=== PATIENT | male | born 1950 | race Caucasian/White ===

== ENCOUNTER → 2018-04-10 09:34 | Outpatient (CLI) | payer MEDICARE, BC, SELFPAY ==
[2018-04-10 10:33] LABS: BUN Creatinine Ratio 22.5 (6-22); Blood Urea Nitrogen 18 mg/dL (9-20); Calcium 9.2 mg/dL (8.4-10.2); Carbon Dioxide 31 mmol/L (22-32); Chloride 103 mmol/L (98-107); Estimated Glomerular Filt Rate > 60.0 mL/min (>60); Glucose 94 mg/dL (80-110); HEMOLYSIS < 15 (0-50); Potassium 4.4 mmol/L (3.4-5.1); Sodium 143 mmol/L (137-145)
== END ==
PROVIDERS: PCP Internal Medicine; Visit Provider Internal Medicine Cardiovascular Disease
DX: I10 Essential (primary) hypertension (principal)
CPT/HCPCS: 80048

== ENCOUNTER → 2018-04-12 14:00 | Outpatient (CLI) | payer MEDICARE, BC, SELFPAY | PROVIDERS: Family Provider Internal Medicine; PCP Internal Medicine | DX: Z23 Encounter for immunization (principal) | CPT/HCPCS: 90471; 90662 ==

== ENCOUNTER → 2018-06-25 07:23 | Outpatient (CLI) | payer MEDICARE, BC, SELFPAY ==
[2018-06-25 08:13] LABS: Add Manual Diff / Slide Review NO; Basophils Percent Auto 0.4 % (0-2); Eosinophils Percent Auto 3.2 % (2-4); Hematocrit 44.6 % (41-53); Hemoglobin 15.1 g/dL (13.5-17.5); Lymphocytes Percent Auto 24.4 % (25-40); Mean Corpuscular HGB Conc 33.9 % (30-36); Mean Corpuscular Hemoglobin 33.8 PG (26-34); Mean Corpuscular Volume 99.8 fL (80-100); Monocytes Percent Auto 10.3 % (3-14); Neutrophils Absolute Auto 2900 /uL (3000-5900); Neutrophils Percent Auto 61.7 % (50-75); Platelet Count 163 X10^3/uL (150-400); Red Blood Cell Count 4.46 X10^6/uL (4.5-5.9); Red Cell Distribution Width 14.2 % (11.6-14.8); White Blood Cell Count 4.8 X10^3/uL (4.5-11.0)
[2018-06-25 08:23] LABS: Alanine Aminotransferase 47 IU/L (21-72); Albumin 4.2 g/dL (3.5-5.0); Albumin Globulin Ratio 1.2 (1.0-2.8); Alkaline Phosphatase 93 U/L (38-126); Aspartate Aminotransferase 52 IU/L (17-59); BUN Creatinine Ratio 28.6 (6-22); Blood Urea Nitrogen 20 mg/dL (9-20); Carbon Dioxide 27 mmol/L (22-32); Chloride 107 mmol/L (98-107); Cholesterol 132 mg/dL (140-199); Estimated Glomerular Filt Rate > 60.0 mL/min (>60); Globulin 3.4 g/dL (1.7-4.1); Glucose 101 mg/dL (80-110); HDL Cholesterol 53 mg/dL (40-60); HEMOLYSIS < 15 (0-50); LDL Cholesterol Calculated 66 mg/dL (<100); Potassium 4.6 mmol/L (3.4-5.1); Sodium 148 mmol/L (137-145); Total Protein 7.6 g/dL (6.3-8.2); Triglycerides 66 mg/dL (35-150)
[2018-06-25 08:53] LABS: Prostate Specific Antigen Scrn 0.399 ng/mL (0.1-4.0)
== END ==
PROVIDERS: PCP Internal Medicine; Visit Provider Internal Medicine
DX: E78.5 Hyperlipidemia, unspecified (principal); I25.10 Atherosclerotic heart disease of native coronary artery without angina pectoris; I48.91 Unspecified atrial fibrillation; Z12.5 Encounter for screening for malignant neoplasm of prostate; Z79.01 Long term (current) use of anticoagulants
CPT/HCPCS: 36415; 80053; 80061; 85025; G0103

== ENCOUNTER → 2018-07-20 12:32 | Outpatient (CLI) | payer MEDICARE, BC, SELFPAY ==
--- NOTE | 2018-07-20 | DI.MRI.S_ITS ---
PROCEDURE: MR LUMBAR SPINE WO CON INDICATIONS: LUMBAR SPINE PAIN TECHNIQUE: Noncontrast sagittal T1 spin echo and T2 fast echo, sagittal STIR, axial T1 and T2 fast spin echo through the lumbar spine. In cases with scoliosis, additional coronal T2 fast spin echo may be performed. COMPARISON: None. FINDINGS: Image quality: Excellent. Alignment and Curvature: There is normal bony alignment. No spondylolisthesis. Bone Marrow: Marrow is of normal overall signal. No acute vertebral body compression fractures. Vertebral body heights are well-preserved. Spinal Cord: Conus medullaris terminates at the L1 level. Visualized cord demonstrates normal signal and size. Paraspinous Soft Tissues: No paravertebral masses. L1-L2: Normal appearance. L2-L3: Normal appearance. L3-L4: There is broad-based disc bulge and bilateral facet arthrosis with mild central canal stenosis and mild bilateral neuroforaminal narrowing. L4-L5: There is broad-based disc bulge and bilateral facet arthrosis with mild central canal stenosis and left worse that right bilateral neuroforaminal narrowing. L5-S1: Mild central disc bulge and bilateral facet arthrosis is seen with no significant central canal stenosis or neuroforaminal narrowing. IMPRESSION: 1. Broad-based disc bulge and bilateral facet arthrosis at L3-4 and L4-5 levels with mild central canal stenosis and bilateral neuroforaminal narrowing. 2. No marrow edema. No compression fracture or spondylolisthesis. Dictated by: Washington Dixon M.D. on 07/20/2018 at 14:47 Approved by: Washington Dixon M.D. on 07/20/2018 at 14:54
== END ==
PROVIDERS: Family Provider Internal Medicine; PCP Internal Medicine; Visit Provider Orthopaedic Surgery Orthopaedic Surgery of the Spine
DX: M51.26 Other intervertebral disc displacement, lumbar region (principal); M47.816 Spondylosis without myelopathy or radiculopathy, lumbar region; M48.061 Spinal stenosis, lumbar region without neurogenic claudication
CPT/HCPCS: 72148

== ENCOUNTER 2018-10-24 06:51 | Day surgery (SDC) | payer MEDICARE, BC, SELFPAY ==
--- NOTE | 2018-10-23 18:02 | PM.PREOP ---
Pre-operative Note Interval Note History & Physical reviewed/Exam performed by Physician: Yes Changes to H&P: No H&P completed within 30 days and has changed as indicated here:: Stopped Eliquis two days pre-opratively.
--- NOTE | 2018-10-23 18:09 | P.OP_ITS ---
Operative Date/Time/Diagnoses Date of procedure: 10/24/18 Time of procedure: 07:45 Procedure & Clinicians Procedure: Preoperative diagnoses: 1. Complex surgery with use of instruments to perform synechialysis. 2. Nuclear sclerotic and cortical cataract with poor visibility of the anterior capsule increasing surgical risks of complications. 3. 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 4. Cardiac stent. 5.Arythmia. 6/ Hypertension. Long axial length. Postoperative diagnoses: 1. Complex surgery with use of instuments for anterior synechialysis and placement of a posterior chamber intraocular lens implant. Surgeon: Estefany Prasad MD Complications: none Specimen: None Implant: ZCBOO+12.5 Blood loss: None Anesthesia: Retrobulbar with monitored standby. Description of procedure: Dictated by: Estefany Prasad MD Copy to: [facility] Post operative diagnoses: 1. Cataract removed with use of capsular dye and synechailysis with placement of a posterior chamber intraocular lens. Procedure: Phacoemulsification with posterior chamber intraocular lens implant Surgeon: Estefany Prasad MD Blood loss: None Anesthesia: Retrobulbar with monitored standby Description of procedure: Patient has presented with decreased vision due to cataract which is affecting activities of daily living. The patient wants surgery to improve vision. He has cardiac stents and is on Eliquis. This was reduced for 2 days for cataract surgery. He has unexplained iris synechiae and diffuse cortical cataract. Therefore capsular dye with synechialysis was planned in advance. He desires a myopic target. I was able to perform surgery without capsular dye but still needed to break the synechia with lysis by use of instrument. The patient was taken to the operating room and given IV sedation. A retrobulbar block consisting of 6 cc of 2% xylocaine without epinephrine mixed half and half with 0.5% Marcaine with 1 cc of hyaluronidase added is placed between the medial and lateral 1/3 of the inferior orbital rim. Lid akinesia is obtain with 1% xylocaine with epinephrine infiltrated along the lid margin. The eye is manually massaged for 30 sec, prepped using Betadine solution, and draped in the usual sterile fashion. Temporal approach was made, a 1 mm side-port incision was performed 90 degrees from the planned corneal wound. Phenylephrine 1.5% mixed with 1% xylocaine 0.2 cc was placed into the anterior chamber. . Viscoat followed by Healon was then placed. A 2.6 mm clear incision with a 2.6 mm blade was placed. A cannula was unable yo to break the iris adhesions. A push-pull device was then used to break open the adhesions in viscoelastic was used to open the pupil which was then floppy. A 360 degree capsulorrhexis style capsulotomy was then performed with a cystitome needle on a Healon. Hydrodelineation and hydrodissection were performed. The phacoemulsification unit is introduced, and sculpting used to groove the central lens. It is then removed in chopping mode. Epi nucleus is removed with epinuclear mode and irrigation aspiration was used to remove the peripheral cortex. The posterior capsule is polished. The intraocular lens is selected, inspected, power confirmed, and placed in the posterior chamber. The pupil was constricted with Miostat. The wound was stromally hydrated and tested for leaks, there was none and was left sutureless. Vigamox 0.1 cc was placed into the anterior chamber. Kenalog 0.2 cc was placed in the superior subconjunctival space. A drop of antibiotic and was placed and the eye was patched and shielded. The patient was stable and returned to the recovery room in excellent condition. Dictated by: Estefany Prasad MD Copy to: [facility]
[2018-10-24] MEDS: PROPARACAINE 0.5% OPHTH SOL 2 DROPS EYE-OP (07:09)
[2018-10-24] MEDS: CATARACT EYE COMPOUND (10 DROPS/SYRINGE) 3 DROPS EYE-OP (07:21)
[2018-10-24 07:22] VITALS: BP 149/83; PULSE 60; RESP 18; TEMP 36.2; O2SAT 98; BMI 39.9
[2018-10-24] MEDS: LIDOCAINE 2% 4 ML, BUPIVACAINE 0.5% (PF) 4 ML, HYALURONIDASE 150 UNIT INJ (08:00)
[2018-10-24] MEDS: PHENYLEPHRINE/LIDOCAINE VIAL (OR) 0.2 ML EYE-OP (08:09)
[2018-10-24] MEDS: MOXIFLOXACIN OPHTH DROPS 3 ML BOTTLE 2 DROPS INJ (08:10)
[2018-10-24] MEDS: TRIAMCINOLONE 50 MG/5 ML VIAL INJ (08:10)
[2018-10-24] MEDS: CHONDROIDTIN/SOD HYALURONATE 1.05 ML SYRINGE INTRAOCULA (08:11)
[2018-10-24] MEDS: BALANCED SALT IRRIG SOLN NO.2 15 ML IRR (08:11)
[2018-10-24] MEDS: HYALURONATE SODIUM 10 MG/ML SYRINGE INJ (08:11)
[2018-10-24] MEDS: NEOMYCIN/POLY/DEX OPHTH OINT 1 APPLIC EYE-LEFT (08:12)
[2018-10-24] MEDS: TOBRA/DEX 0.3%/0.1% OPHTH OINT 1 APPLIC EYE-LEFT (08:13)
[2018-10-24] MEDS: OFLOXACIN 0.3% OPHTH 5 ML 2 DROPS EYE-LEFT (08:14)
[2018-10-24] MEDS: CARBACHOL 1.5 ML VIAL INJ (08:15)
[2018-10-24] MEDS: BALANCED SALT IRRIG SOLN NO.2 500 ML, EPINEPHrine 1 MG IRR (08:15)
[2018-10-24 08:46] VITALS: BP 137/76; PULSE 53; RESP 15; TEMP 36.2; O2SAT 97
[2018-10-24 08:57] VITALS: BP 133/92; PULSE 57; RESP 16; O2SAT 100
[2018-10-24] MEDS: LIDOCAINE 1% W/EPI INJ 20 ML INJ (13:14)
== END 2018-10-24 09:05 | disposition home or self-care (01) ==
LOC: OR 06:53
PROVIDERS: PCP Internal Medicine; Visit Provider Ophthalmology
PROC: (CPT 66982; principal; 2018-10-24 07:45)
DX: H25.812 Combined forms of age-related cataract, left eye (principal); I10 Essential (primary) hypertension; I51.9 Heart disease, unspecified
CPT/HCPCS: 66982; J0171; J2704; J3301; J3470

== ENCOUNTER 2018-10-31 12:58 | Day surgery (SDC) | payer MEDICARE, BC, SELFPAY ==
--- NOTE | 2018-10-30 13:02 | PM.PREOP ---
Pre-operative Note Interval Note History & Physical reviewed/Exam performed by Physician: Yes Changes to H&P: No
--- NOTE | 2018-10-30 13:06 | P.OP_ITS ---
Operative Date/Time/Diagnoses Date of procedure: 10/31/18 Time of procedure: 14:15 Procedure & Clinicians Procedure: Preoperative diagnoses: 1. Right nuclear sclerotic and cortical cataract. Postoperative diagnoses: 1. Cataract removed by phacoemulsification with placement of posterior chamber intraocular lens. 2. Cardiac stents, on Eliquis. 3. HTN. Procedure: Phacoemulsification with posterior chamber intraocular lens implant Surgeon: Estefany Prasad MD Complications: None Specimen: None Implant: ZCBOO +13.0. Myopic target. Blood loss: None Anesthesia: Retrobulbar with monitored standby Description of procedure: Patient presents with a complaint of decreased vision due to cataract which is affecting activities of daily living. The patient wants surgery to improve vision. The patient was taken to the operating room and given IV sedation. A retrobulbar block consisting of 6 cc of 2% xylocaine without epinephrine mixed half and half with 0.5% Marcaine with 1 cc of hyaluronidase added is placed between the medial and lateral 1/3 of the inferior orbital rim. Lid akinesia is obtain with 1% xylocaine with epinephrine infiltrated along the lid margin. The eye is manually massaged for 30 sec, prepped using Betadine solution, and draped in the usual sterile fashion. Temporal approach was made, a 1 mm side-port incision was made 90? from the proposed clear corneal incision position. Phenylephrine 1.5% mixed with 1% xylocaine 0.2 cc was placed into the anterior chamber. Viscoat followed by Abimbola was then placed. A 2.6 mm clear incision with a 2.6 mm blade was placed. A 360 degree capsulorrhexis style capsulotomy was then performed with a cystitome needle on a Healon. Very fragile anterior capsule but remained intact. Hydrodelineation and hydrodissection were performed. The phacoemulsification unit is introduced, and sculpting notice used to groove the central lens. It is then removed in chopping mode. Epi nucleus is removed with epinuclear mode and irrigation aspiration was used to remove the peripheral cortex. The posterior capsule is polished. The intraocular lens is selected, inspected, power confirmed, and placed in the posterior chamber. The pupil was constricted with Miostat.. The wound was stromally hydrated and tested for leaks, there was none and it was left sutureless. Vigamox 0.1 cc was placed into the anterior chamber. Kenalog 0.2 cc was placed in the superior subconjunctival space. A fatimah p of antibiotic and was placed and the eye was patched and shielded. The patient was stable and returned to the recovery room in excellent condition. Dictated by: Estefany Prasad MD Copy to: [facility]
[2018-10-31 13:41] VITALS: BP 145/88; PULSE 70; RESP 16; TEMP 36; O2SAT 99; BMI 39.4
[2018-10-31] MEDS: BALANCED SALT IRRIG SOLN NO.2 15 ML IRR (14:41)
[2018-10-31] MEDS: CARBACHOL 1.5 ML VIAL INJ (14:41)
[2018-10-31] MEDS: MOXIFLOXACIN OPHTH DROPS 3 ML BOTTLE 2 DROPS INJ (14:42)
[2018-10-31] MEDS: CHONDROIDTIN/SOD HYALURONATE 1.05 ML SYRINGE INTRAOCULA (14:42)
[2018-10-31] MEDS: LIDOCAINE 1% W/EPI INJ 20 ML INJ (14:42)
[2018-10-31] MEDS: HYALURONATE SODIUM 10 MG/ML SYRINGE INJ (14:42)
[2018-10-31] MEDS: NEOMYCIN/POLY/DEX OPHTH OINT 1 APPLIC EYE-RIGHT (14:43)
[2018-10-31] MEDS: OFLOXACIN 0.3% OPHTH 5 ML 2 DROPS EYE-RIGHT (14:43)
[2018-10-31] MEDS: PHENYLEPHRINE/LIDOCAINE VIAL (OR) 0.2 ML EYE-OP (14:43)
[2018-10-31] MEDS: TRIAMCINOLONE 50 MG/5 ML VIAL INJ (14:44)
[2018-10-31] MEDS: LIDOCAINE 2% 4 ML, BUPIVACAINE 0.5% (PF) 4 ML, HYALURONIDASE 150 UNIT INJ (14:45)
[2018-10-31] MEDS: BALANCED SALT IRRIG SOLN NO.2 500 ML, EPINEPHrine 1 MG IRR (14:45)
[2018-10-31 15:30] VITALS: BP 136/77; PULSE 60; RESP 14; TEMP 36; O2SAT 99
== END 2018-10-31 16:36 ==
LOC: OR 12:59
PROVIDERS: PCP Internal Medicine; Visit Provider Ophthalmology
DX: H25.811 Combined forms of age-related cataract, right eye (principal); I10 Essential (primary) hypertension; Z79.01 Long term (current) use of anticoagulants
CPT/HCPCS: J0171; J2704; J3301; J3470

== ENCOUNTER 2018-12-17 07:30 | Outpatient (RCR) | payer MEDICARE, BC, SELFPAY ==
--- NOTE | 2018-10-30 17:29 | PT.OIE ---
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) Coronary artery disease involving [place] coronary artery of [place] heart without angina pectoris (Chronic 02/2017) Arthritis (Chronic) Chronic back pain (Chronic 2005) Hearing loss (Chronic 2005) Hemorrhoids (Chronic) Chicken pox (Resolved) Foot pain (Resolved 2005) Fractures (Resolved) Measles (Resolved) Plantar warts (Resolved) Sciatica (Resolved) Shingles (Resolved 2007) Shoulder pain (Resolved) Vertigo (Resolved 2006) Past Surgical History (Last Reviewed 06/29/18 @ 14:27 by Mo Roper MD) Status post placement of stent in right coronary artery (Resolved 02/2017) Anesthesia complication (Resolved) History of colonoscopy (Resolved 03/15/16) Status post rotator cuff repair (Resolved 07/11/12) Provider Visit Care Team Role Provider Type Mo Roper MD Primary Care Provider Physician Specialty: Internal Medicine Address: [address] [place] [address], [id number] Email: [email or web address] Gudelia Jackson MD Attending Provider Physician Specialty: Orthopedic Surgery Address: [address] [place] [address], [id number] Email: [email or web address] Initial Evaluation PT-OP-A Visit Information Start: 10/30/18 10:32 Freq: Status: Active Protocol: Document 10/30/18 12:32 EA (Rec: 10/30/18 12:39 EA [id number]) Out-Patient Physical Therapy Visit Information Visit Information Visit Type Initial Evaluation Visit Start Time 08:15 Visit Stop Time 09:00 Total Visit Minutes 45 Visit Number 1 Evaluation Information Evaluation Date 10/30/18 PT-OP-B Current Condition Start: 10/30/18 10:32 Freq: Status: Active Protocol: Document 10/30/18 14:48 EA (Rec: 10/30/18 15:10 EA [id number]) Current Condition History of Current Condition Onset Date 2018 Current Complaints Localized bilateral low back pain History of Current Condition Pt reports had initial onset 5 years ago which was fully resolved after 2 months of formal PT. He stated that low back pain re-occurs on the first week of July 2018 after more than 5 miles of walk. Pt denies numbness or loss of function to both LE's. Recent MRI reveals L3-L5 disc bulges with central canal stenosis and facets arthrosis. Prior Treatments and Tests September: cortisone shots with limited improvement Recent MRI. Future Testing and Treatments Planned Cortisone shot follow up : 11/06 Treatment Goals Patient/Caregiver Goals Pt would like to perform daily walk without increase of symptoms Prior Functional Status Baseline Function- ADL's Independent Baseline Function- Mobility Independent Baseline Function- Gait Unlimited distance with no back symtoms Baseline Function- Work/School Retired accounts receivable accountant Baseline Function- Recreation/Hobbies Daily walks of > 5 miles Current Functional Impairments (Reported) Functional Limitations- ADL's Indep in all except: unable to bend and tie shoes Functional Limitations- Mobility/Gait Indep but unable to walk more than 2 miles due to increase of symptoms Functional Limitations- Work/School Retired Functional Limitations- Recreation/ Unable to walk more than five Hobbies miles PT-OP-C Subjective Start: 10/30/18 10:32 Freq: Status: Active Protocol: Document 10/30/18 14:48 EA (Rec: 10/30/18 15:10 EA [id number]) OP-PT Subjective Patient Comments Patient Comments I just want to be able to walk daily and tie my shoes without increase in symptoms Patient Reported Progress Worse Patient Questionnaires Oswestry Low Back Index Oswestry Score 14 Oswestry Impairment 1 to 19% Impaired (Score 1-19) OP-PT Pain Assessment Pain Assessment Grid Paper Pain Assessment Grid Completed Yes Location Bilateral Lower Back Intensity 4 Scale Used Numeric (1 - 10) Description Aching Tightness Frequency Intermittent Pain Aggravating Factors Activity Exercise Walking Bending Pain Alleviating Factors Medication Home Pain Medication Use Pain Medications Used Yes Pain Behaviors Pain Behaviors Wincing PT-OP-F Manual Assessment Start: 10/30/18 10:32 Freq: Status: Active Protocol: Document 10/30/18 14:48 EA (Rec: 10/30/18 15:10 EA [id number]) Manual Assessments Soft Tissue Assessment Soft Tissue Mobility Assessment Tight Muscles: Both quads, hip flexors, QLs, paralumabrs, side trunk flexors PT-OP-G Mobility & Gait Start: 10/30/18 10:32 Freq: Status: Active Protocol: Document 10/30/18 14:48 EA (Rec: 10/30/18 15:10 EA [id number]) OP Gait Assessment Assistive Devices Assistive Device None Comments Gait Comments Waddling gait PT-OP-J Posture/Palpation/Skin Start: 10/30/18 10:32 Freq: Status: Active Protocol: Document 10/30/18 14:48 EA (Rec: 10/30/18 15:10 EA [id number]) Posture Evaluation Position Standing Evaluation View post/ant Head/C-Spine Posture Forward Head T-Spine Posture Increased Kyphosis L-Spine Posture Increased Lordosis Shoulder Posture (L) Rounded (R) Rounded Arm Posture (L) Internally Rotated (R) Internally Rotated Pelvis Posture Anteriorly Tilted Hip Posture (L) Flexed (R) Flexed (L) Internally Rotated Palpation Assessment Location One Palpation Findings Soft Tissue Tightness Tenderness Trigger Point Palpation Details Paralumbars, both QL PT-OP-K Range of Motion Start: 10/30/18 10:32 Freq: Status: Active Protocol: Document 10/30/18 14:48 EA (Rec: 10/30/18 15:10 EA [id number]) Lumbar Spine Range of Motion Lumbar Spine Active Percentage Testing Position Standing Flexion 50 Extension 50 Rotation Left 60 Rotation Right 60 Lateral Flexion Left 40 Lateral Flexion Right 30 ROM Limitations Soft Tissue Tightness Pain PT-OP-L Special Tests Start: 10/30/18 10:32 Freq: Status: Active Protocol: Document 10/30/18 14:48 EA (Rec: 10/30/18 15:10 EA [id number]) Special Tests Lumbar Spine Special Tests Prone Instability Test Test Results - Slump Test Results - Other- 1 Test Results Gaenslen's + Straight Leg Raise Test Results + PT-OP-M Strength Start: 10/30/18 10:32 Freq: Status: Active Protocol: Document 10/30/18 14:48 EA (Rec: 10/30/18 15:10 EA [id number]) Trunk Strength Trunk Manual Muscle Testing Testing Position Sitting Flexion 4 Good Extension 4 Good Rotation Left 4 Good Rotation Right 4 Good Lateral Flexion Left 4 Good Lateral Flexion Right 4 Good Hip Strength Hip Manual Muscle Testing Right Reason Not Measured WFL Left Reason Not Measured WFL Knee Strength Knee Manual Muscle Testing Right Reason Not Measured WFL Left Reason Not Measured WFL PT-OP-Q Treatments Start: 10/30/18 10:32 Freq: Status: Active Protocol: Document 10/30/18 12:32 EA (Rec: 10/30/18 12:39 EA [id number]) Therapeutic Exercises Supine Exercises 3 Supine Exercise Name PPT Side bilateral 2 Supine Exercise Name Lower trunk rotation stretch Side bilateral 1 Supine Exercise Name SKTC Side bilateral Self-Care/Home Management Treatment Education Patient Education Body Mechanics Home Exercise Program Pain Management Posture PT-OP-T Assessment and Plan Start: 10/30/18 10:32 Freq: Status: Active Protocol: Document 10/30/18 12:32 EA (Rec: 10/30/18 12:39 EA [id number]) Physical Therapy Assessment Rehab Potential Rehabilitation Potential Good Evaluation Complexity Number of Personal Factors/Comorbidities 3 or More Number of Body Systems Impaired 3 Clinical Presentation at Evaluation Evolving Impairments Impairments Activity Tolerance Functional Activities Functional Mobility Gait Pain Posture ROM Soft Tissue Mobility Goals Four Impairment Impaired lifting Utilization Review Nurse Goal (LTG) Patient will be able to lift > 20 lbs with good body mechanics LTG Duration 4 wks Three Impairment No HEP in place [facility]ci Goal (LTG) Patient will perform HEP independently LTG Duration 4 wks Two Impairment Unable to walk more than 2 miles Utilization Review Nurse Goal (LTG) Patient will ambulate > 2 miles without increase of symptoms LTG Duration 4 wks One Impairment Oswestry Fucntional low back score of 14/50 Utilization Review Nurse Goal (LTG) Patient will have Oswetry score of less than 10 LTG Duration 4 wks Assessment Summary Assessment Pleasant 67 y/o M patient with a referring diagnosis of lumbar spine OA and low back pain. Today patient presented with decreased tolerance to standing activities and lifting/bending activities due to back discomfort. Ocular inspection reveals poor general body posture with increased lumbar lordosis, anterior pelvic tilt and rounded shoulder. Lumbar ROM shows limitation to SF> Flexion> Extension> rotation. Palpation reveals tender over bilateral SI joint, QL, and paralumbars. Specials tests reveals + with SI joint dysfunction and posterior quadrant tests (Facets) but negative with neurogenic involvement. Due to above dysfunction, Patient unable to perform activities that is supposed to be normal for him. Patient would greatly benefit with skilled PT to improve quality of function. Physical Therapy Plan Frequency and Duration Frequency of Treatment 2x/Week Duration of Treatment 8 wks Plan of Care Start Date 10/30/18 Plan of Care End Date 11/21/18 Therapeutic Interventions Therapeutic Interventions Home Exercise Program Joint Mobilizations Manual Therapy Neuromuscular Re-education Patient/Caregiver Education Self-Care/Home Management Soft Tissue Mobilization Taping Therapeutic Exercises Modalities Cold Pack/Ice Massage Electric Stimulation Hot Packs Ultrasound Next Visit Focus/Plan Next Note Type Treatment Note Next Visit Plan Modalities for pain. Flexibility hamstring and hip flexors/back extensors, core functional exercises.
--- NOTE | 2018-10-30 17:29 | PT.OPPOC ---
Current Diagnoses Other spondylosis with radiculopathy, lumbar region (10/30/18) Low back pain (10/30/18) Provider Visit Care Team Role Provider Type Mo Roper MD Primary Care Provider Physician Specialty: Internal Medicine Address: [address] [place] [address], [id number] Email: [email or web address] Gudelia Jackson MD Attending Provider Physician Specialty: Orthopedic Surgery Address: [address] [place] [address], [address] Email: [email or web address] Plan Of Care PT-OP-T Assessment and Plan Start: 10/30/18 10:32 Freq: Status: Active Protocol: Document 10/30/18 12:32 EA (Rec: 10/30/18 12:39 EA [id number]) Physical Therapy Assessment Rehab Potential Rehabilitation Potential Good Evaluation Complexity Number of Personal Factors/Comorbidities 3 or More Number of Body Systems Impaired 3 Clinical Presentation at Evaluation Evolving Impairments Impairments Activity Tolerance Functional Activities Functional Mobility Gait Pain Posture ROM Soft Tissue Mobility Goals Four Impairment Impaired lifting Shipping And Receiving Goal (LTG) Patient will be able to lift > 20 lbs with good body mechanics LTG Duration 4 wks Three Impairment No HEP in place Shipping [employer] Receiving Goal (LTG) Patient will perform HEP independently LTG Duration 4 wks Two Impairment Unable to walk more than 2 miles Custodial Goal (LTG) Patient will ambulate > 2 miles without increase of symptoms LTG Duration 4 wks One Impairment Oswestry Fucntional low back score of 14/50 Shipping [employer] Receiving Goal (LTG) Patient will have Oswetry score of less than 10 LTG Duration 4 wks Assessment Summary Assessment Pleasant 67 y/o M patient with a referring diagnosis of lumbar spine OA and low back pain. Today patient presented with decreased tolerance to standing activities and lifting/bending activities due to back discomfort. Ocular inspection reveals poor general body posture with increased lumbar lordosis, anterior pelvic tilt and rounded shoulder. Lumbar ROM shows limitation to SF> Flexion> Extension> rotation. Palpation reveals tender over bilateral SI joint, QL, and paralumbars. Specials tests reveals + with SI joint dysfunction and posterior quadrant tests (Facets) but negative with neurogenic involvement. Due to above dysfunction, Patient unable to perform activities that is supposed to be normal for him. Patient would greatly benefit with skilled PT to improve quality of function. Physical Therapy Plan Frequency and Duration Frequency of Treatment 2x/Week Duration of Treatment 8 wks Plan of Care Start Date 10/30/18 Plan of Care End Date 11/21/18 Therapeutic Interventions Therapeutic Interventions Home Exercise Program Joint Mobilizations Manual Therapy Neuromuscular Re-education Patient/Caregiver Education Self-Care/Home Management Soft Tissue Mobilization Taping Therapeutic Exercises Modalities Cold Pack/Ice Massage Electric Stimulation Hot Packs Ultrasound Next Visit Focus/Plan Next Note Type Treatment Note Next Visit Plan Modalities for pain. Flexibility hamstring and hip flexors/back extensors, core functional exercises. Plan of Care Dates Plan of Care Start Date 10/30/18 Plan of Care End Date 11/21/18 Please Sign and Return: I have reviewed this Plan of Care and certify that the skilled therapy services above are required to meet the patient?s needs. Physician Signature Date Printed Name and Credentials Clinical Instructor Signature Printed Name and Credentials
--- NOTE | 2018-11-06 11:15 | PT.OTN ---
Current Diagnoses Other spondylosis with radiculopathy, lumbar region (11/06/18) Low back pain (11/06/18) Physical Therapy Treatment Note PT-OP-A Visit Information Start: 10/30/18 10:32 Freq: Status: Active Protocol: Document 11/06/18 08:55 EA (Rec: 11/06/18 09:01 EA [id number]) Out-Patient Physical Therapy Visit Information Visit Information Visit Type Treatment Note Visit Start Time 08:15 Visit Stop Time 09:08 Total Visit Minutes 53 Visit Number 2 PT-OP-B Current Condition Start: 10/30/18 10:32 Freq: Status: Active Protocol: Document 10/30/18 14:48 EA (Rec: 10/30/18 15:10 EA [id number]) Current Condition History of Current Condition Onset Date 2018 Current Complaints Localized bilateral low back pain History of Current Condition Pt reports had initial onset 5 years ago which was fully resolved after 2 months of formal PT. He stated that low back pain re-occurs on the first week of July 2018 after more than 5 miles of walk. Pt denies numbness or loss of function to both LE's. Recent MRI reveals L3-L5 disc bulges with central canal stenosis and facets arthrosis. Prior Treatments and Tests week september: cortisone shots with limited improvement Recent MRI. 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 Baseline Function- Recreation/Hobbies Daily walks of > 5 miles Current Functional Impairments (Reported) Functional Limitations- ADL's Indep in all except: unable to bend and tie shoes Functional Limitations- Mobility/Gait Indep but unable to walk more than 2 miles due to increase of symptoms Functional Limitations- Work/School Retired Functional Limitations- Recreation/ Unable to walk more than five Hobbies miles PT-OP-C Subjective Start: 10/30/18 10:32 Freq: Status: Active Protocol: Document 11/06/18 08:55 EA (Rec: 11/06/18 09:01 EA [id number]) OP-PT Subjective Patient Comments Patient Comments Pt reports compliant with HEP. PT-OP-F Manual Assessment Start: 10/30/18 10:32 Freq: Status: Active Protocol: Document 10/30/18 14:48 EA (Rec: 10/30/18 15:10 EA [id number]) Manual Assessments Soft Tissue Assessment Soft Tissue Mobility Assessment Tight Muscles: Both quads, hip flexors, QLs, paralumabrs, side trunk flexors PT-OP-G Mobility & Gait Start: 10/30/18 10:32 Freq: Status: Active Protocol: Document 10/30/18 14:48 EA (Rec: 10/30/18 15:10 EA [id number]) OP Gait Assessment Assistive Devices Assistive Device None Comments Gait Comments Waddling gait PT-OP-J Posture/Palpation/Skin Start: 10/30/18 10:32 Freq: Status: Active Protocol: Document 10/30/18 14:48 EA (Rec: 10/30/18 15:10 EA [id number]) Posture Evaluation Position Standing Evaluation View post/ant Head/C-Spine Posture Forward Head T-Spine Posture Increased Kyphosis L-Spine Posture Increased Lordosis Shoulder Posture (L) Rounded (R) Rounded Arm Posture (L) Internally Rotated (R) Internally Rotated Pelvis Posture Anteriorly Tilted Hip Posture (L) Flexed (R) Flexed (L) Internally Rotated Palpation Assessment Location One Palpation Findings Soft Tissue Tightness Tenderness Trigger Point Palpation Details Paralumbars, both QL PT-OP-K Range of Motion Start: 10/30/18 10:32 Freq: Status: Active Protocol: Document 10/30/18 14:48 EA (Rec: 10/30/18 15:10 EA [id number]) Lumbar Spine Range of Motion Lumbar Spine Active Percentage Testing Position Standing Flexion 50 Extension 50 Rotation Left 60 Rotation Right 60 Lateral Flexion Left 40 Lateral Flexion Right 30 ROM Limitations Soft Tissue Tightness Pain PT-OP-L Special Tests Start: 10/30/18 10:32 Freq: Status: Active Protocol: Document 10/30/18 14:48 EA (Rec: 10/30/18 15:10 EA [id number]) Special Tests Lumbar Spine Special Tests Prone Instability Test Test Results - Slump Test Results - Other- 1 Test Results Gaenslen's + Straight Leg Raise Test Results + PT-OP-M Strength Start: 10/30/18 10:32 Freq: Status: Active Protocol: Document 10/30/18 14:48 EA (Rec: 10/30/18 15:10 EA [id number]) Trunk Strength Trunk Manual Muscle Testing Testing Position Sitting Flexion 4 Good Extension 4 Good Rotation Left 4 Good Rotation Right 4 Good Lateral Flexion Left 4 Good Lateral Flexion Right 4 Good Hip Strength Hip Manual Muscle Testing Right Reason Not Measured WFL Left Reason Not Measured WFL Knee Strength Knee Manual Muscle Testing Right Reason Not Measured WFL Left Reason Not Measured WFL PT-OP-Q Treatments Start: 10/30/18 10:32 Freq: Status: Active Protocol: Document 11/06/18 08:55 EA (Rec: 11/06/18 09:01 EA [id number]) Cardio Equipment Recumbent Stepper (Sci-Fit) Duration (Minutes) 6 Resistance 2 Therapeutic Exercises Supine Exercises 4 Supine Exercise Name Right pelvis elev; Left pelvis depression Reps/Minutes x 10 reps x 2 sets 3 Supine Exercise Name PPT Side bilateral Reps/Minutes x 15 reps x 2 sets 2 Supine Exercise Name Lower trunk rotation stretch and ROM Side bilateral Equipment Used x 15 reps x 2 1 Supine Exercise Name SKTC Side bilateral Reps/Minutes x15SH x 2 sets Manual Therapy Treatment Soft Tissue Mobilization 1 Body Location Pralumbras ,QL Mobilization Type Myofascial Release Rolling Sustained Pressure Trigger Point Release Intensity/Depth Moderate Body Position sitting leaning on the table at shoulder level Comments start and end with effleurage PT-OP-R Modalities Start: 10/30/18 10:32 Freq: Status: Active Protocol: Document 11/06/18 08:55 EA (Rec: 11/06/18 09:01 EA [id number]) Electric Stimulation Electric Stimulation Interferential Current (IFC) Body Location Paralumbars Intensity 14 Combined With Heat/Cold Hot Pack Comments sitting PT-OP-T Assessment and Plan Start: 10/30/18 10:32 Freq: Status: Active Protocol: Document 11/06/18 08:55 EA (Rec: 11/06/18 09:01 EA [id number]) Physical Therapy Assessment Assessment Summary Assessment Tolerated treatment well. Physical Therapy Plan Next Visit Focus/Plan Next Note Type Treatment Note Next Visit Plan Modalities for pain. Flexibility hamstring and hip flexors/back extensors, core functional exercises.
--- NOTE | 2018-11-12 14:09 | PT.OTN ---
Current Diagnoses Other spondylosis with radiculopathy, lumbar region (11/12/18) Low back pain (11/12/18) Physical Therapy Treatment Note PT-OP-A Visit Information Start: 10/30/18 10:32 Freq: Status: Active Protocol: Document 11/12/18 09:00 EA (Rec: 11/12/18 09:45 EA [id number]) Out-Patient Physical Therapy Visit Information Visit Information Visit Type Treatment Note Visit Start Time 08:15 Visit Stop Time 09:08 Total Visit Minutes 53 Visit Number 3 PT-OP-B Current Condition Start: 10/30/18 10:32 Freq: Status: Active Protocol: Document 10/30/18 14:48 EA (Rec: 10/30/18 15:10 EA [id number]) Current Condition History of Current Condition Onset Date 2018 Current Complaints Localized bilateral low back pain History of Current Condition Pt reports had initial onset 5 years ago which was fully resolved after 2 months of formal PT. He stated that low back pain re-occurs on the first week of July 2018 after more than 5 miles of walk. Pt denies numbness or loss of function to both LE's. Recent MRI reveals L3-L5 disc bulges with central canal stenosis and facets arthrosis. Prior Treatments and Tests week september: cortisone shots with limited improvement Recent MRI. 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 Function- Recreation/Hobbies Daily walks of > 5 miles Current Functional Impairments (Reported) Functional Limitations- ADL's Indep in all except: unable to bend and tie shoes Functional Limitations- Mobility/Gait Indep but unable to walk more than 2 miles due to increase of symptoms Functional Limitations- Work/School Retired Functional Limitations- Recreation/ Unable to walk more than five Hobbies miles PT-OP-C Subjective Start: 10/30/18 10:32 Freq: Status: Active Protocol: Document 11/12/18 09:00 EA (Rec: 11/12/18 09:45 EA [id number]) OP-PT Subjective Patient Comments Patient Comments Pt reports last session helps to eased down low back pain. Patient Reported Progress Improving PT-OP-F Manual Assessment Start: 10/30/18 10:32 Freq: Status: Active Protocol: Document 10/30/18 14:48 EA (Rec: 10/30/18 15:10 EA [id number]) Manual Assessments Soft Tissue Assessment Soft Tissue Mobility Assessment Tight Muscles: Both quads, hip flexors, QLs, paralumabrs, side trunk flexors PT-OP-G Mobility & Gait Start: 10/30/18 10:32 Freq: Status: Active Protocol: Document 10/30/18 14:48 EA (Rec: 10/30/18 15:10 EA [id number]) OP Gait Assessment Assistive Devices Assistive Device None Comments Gait Comments Waddling gait PT-OP-J Posture/Palpation/Skin Start: 10/30/18 10:32 Freq: Status: Active Protocol: Document 10/30/18 14:48 EA (Rec: 10/30/18 15:10 EA [id number]) Posture Evaluation Position Standing Evaluation View post/ant Head/C-Spine Posture Forward Head T-Spine Posture Increased Kyphosis L-Spine Posture Increased Lordosis Shoulder Posture (L) Rounded (R) Rounded Arm Posture (L) Internally Rotated (R) Internally Rotated Pelvis Posture Anteriorly Tilted Hip Posture (L) Flexed (R) Flexed (L) Internally Rotated Palpation Assessment Location One Palpation Findings Soft Tissue Tightness Tenderness Trigger Point Palpation Details Paralumbars, both QL PT-OP-K Range of Motion Start: 10/30/18 10:32 Freq: Status: Active Protocol: Document 10/30/18 14:48 EA (Rec: 10/30/18 15:10 EA [id number]) Lumbar Spine Range of Motion Lumbar Spine Active Percentage Testing Position Standing Flexion 50 Extension 50 Rotation Left 60 Rotation Right 60 Lateral Flexion Left 40 Lateral Flexion Right 30 ROM Limitations Soft Tissue Tightness Pain PT-OP-L Special Tests Start: 10/30/18 10:32 Freq: Status: Active Protocol: Document 10/30/18 14:48 EA (Rec: 10/30/18 15:10 EA [id number]) Special Tests Lumbar Spine Special Tests Prone Instability Test Test Results - Slump Test Results - Other- 1 Test Results Gaenslen's + Straight Leg Raise Test Results + PT-OP-M Strength Start: 10/30/18 10:32 Freq: Status: Active Protocol: Document 10/30/18 14:48 EA (Rec: 10/30/18 15:10 EA [id number]) Trunk Strength Trunk Manual Muscle Testing Testing Position Sitting Flexion 4 Good Extension 4 Good Rotation Left 4 Good Rotation Right 4 Good Lateral Flexion Left 4 Good Lateral Flexion Right 4 Good Hip Strength Hip Manual Muscle Testing Right Reason Not Measured WFL Left Reason Not Measured WFL Knee Strength Knee Manual Muscle Testing Right Reason Not Measured WFL Left Reason Not Measured WFL PT-OP-Q Treatments Start: 10/30/18 10:32 Freq: Status: Active Protocol: Document 11/12/18 09:00 EA (Rec: 11/12/18 09:45 EA [id number]) Cardio Equipment Recumbent Stepper (Sci-Fit) Duration (Minutes) 6 Resistance 2 Therapeutic Exercises Supine Exercises 5 Supine Exercise Name Hamstring stretch. Reps/Minutes x 15 SH x 2 reps 6 Supine Exercise Name PPT with SLR Reps/Minutes x 10 reps x 2 sets Comments Avoid valsalva 4 Supine Exercise Name Right pelvis elev; Left pelvis depression Reps/Minutes x 10 reps x 2 sets Comments Avoid valslva 3 Supine Exercise Name PPT Side bilateral Reps/Minutes x 15 reps x 2 sets 2 Supine Exercise Name Lower trunk rotation stretch and ROM Side bilateral Equipment Used x 15 reps x 2 Comments avoid valsalva 1 Supine Exercise Name SKTC Side bilateral Reps/Minutes x15SH x 2 sets Standing Exercises 1 Standing Exercise Name PPt with static wall squat Reps/Minutes x 5SH x 10 reps Comments 45 deg squat Manual Therapy Treatment Soft Tissue Mobilization 1 Body Location Pralumbras ,QL Mobilization Type Myofascial Release Rolling Sustained Pressure Trigger Point Release Intensity/Depth Moderate Body Position sitting leaning on the table at shoulder level Comments start and end with effleurage PT-OP-R Modalities Start: 10/30/18 10:32 Freq: Status: Active Protocol: Document 11/12/18 09:00 EA (Rec: 11/12/18 09:45 EA [id number]) Electric Stimulation Electric Stimulation Interferential Current (IFC) Body Location Paralumbars Intensity 20 Combined With Heat/Cold Hot Pack Comments sitting PT-OP-T Assessment and Plan Start: 10/30/18 10:32 Freq: Status: Active Protocol: Document 11/12/18 09:00 LILLI (Rec: 11/12/18 09:45 EA [id number]) Physical Therapy Assessment Assessment Summary Assessment Pt tolerated treatment with slight tenderness today at low back region. Patient is progressing Physical Therapy Plan Next Visit Focus/Plan Next Note Type Treatment Note Next Visit Plan Modalities for pain. Flexibility hamstring and hip flexors/back extensors, core functional exercises.
--- NOTE | 2018-11-14 09:45 | PT.OTN ---
Current Diagnoses Other spondylosis with radiculopathy, lumbar region (11/14/18) Low back pain (11/14/18) Physical Therapy Treatment Note PT-OP-A Visit Information Start: 10/30/18 10:32 Freq: Status: Active Protocol: Document 11/14/18 08:58 EA (Rec: 11/14/18 09:01 EA [id number]) Out-Patient Physical Therapy Visit Information Visit Information Visit Type Treatment Note Visit Start Time 08:15 Visit Stop Time 09:10 Total Visit Minutes 55 Visit Number 4 PT-OP-B Current Condition Start: 10/30/18 10:32 Freq: Status: Active Protocol: Document 10/30/18 14:48 EA (Rec: 10/30/18 15:10 EA [id number]) Current Condition History of Current Condition Onset Date 2018 Current Complaints Localized bilateral low back pain History of Current Condition Pt reports had initial onset 5 years ago which was fully resolved after 2 months of formal PT. He stated that low back pain re-occurs on the first week of July 2018 after more than 5 miles of walk. Pt denies numbness or loss of function to both LE's. Recent MRI reveals L3-L5 disc bulges with central canal stenosis and facets arthrosis. Prior Treatments and Tests week september: cortisone shots with limited improvement Recent MRI. 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 Function- Recreation/Hobbies Daily walks of > 5 miles Current Functional Impairments (Reported) Functional Limitations- ADL's Indep in all except: unable to bend and tie shoes Functional Limitations- Mobility/Gait Indep but unable to walk more than 2 miles due to increase of symptoms Functional Limitations- Work/School Retired Functional Limitations- Recreation/ Unable to walk more than five Hobbies miles PT-OP-C Subjective Start: 10/30/18 10:32 Freq: Status: Active Protocol: Document 11/14/18 08:58 EA (Rec: 11/14/18 09:01 EA [id number]) OP-PT Subjective Patient Comments Patient Comments I'm amaze I can bend forward now with so much increase of back pain. PT-OP-F Manual Assessment Start: 10/30/18 10:32 Freq: Status: Active Protocol: Document 10/30/18 14:48 EA (Rec: 10/30/18 15:10 EA [id number]) Manual Assessments Soft Tissue Assessment Soft Tissue Mobility Assessment Tight Muscles: Both quads, hip flexors, QLs, paralumabrs, side trunk flexors PT-OP-G Mobility & Gait Start: 10/30/18 10:32 Freq: Status: Active Protocol: Document 10/30/18 14:48 EA (Rec: 10/30/18 15:10 EA [id number]) OP Gait Assessment Assistive Devices Assistive Device None Comments Gait Comments Waddling gait PT-OP-J Posture/Palpation/Skin Start: 10/30/18 10:32 Freq: Status: Active Protocol: Document 10/30/18 14:48 EA (Rec: 10/30/18 15:10 EA [id number]) Posture Evaluation Position Standing Evaluation View post/ant Head/C-Spine Posture Forward Head T-Spine Posture Increased Kyphosis L-Spine Posture Increased Lordosis Shoulder Posture (L) Rounded (R) Rounded Arm Posture (L) Internally Rotated (R) Internally Rotated Pelvis Posture Anteriorly Tilted Hip Posture (L) Flexed (R) Flexed (L) Internally Rotated Palpation Assessment Location One Palpation Findings Soft Tissue Tightness Tenderness Trigger Point Palpation Details Paralumbars, both QL PT-OP-K Range of Motion Start: 10/30/18 10:32 Freq: Status: Active Protocol: Document 10/30/18 14:48 EA (Rec: 10/30/18 15:10 EA [id number]) Lumbar Spine Range of Motion Lumbar Spine Active Percentage Testing Position Standing Flexion 50 Extension 50 Rotation Left 60 Rotation Right 60 Lateral Flexion Left 40 Lateral Flexion Right 30 ROM Limitations Soft Tissue Tightness Pain PT-OP-L Special Tests Start: 10/30/18 10:32 Freq: Status: Active Protocol: Document 10/30/18 14:48 EA (Rec: 10/30/18 15:10 EA [id number]) Special Tests Lumbar Spine Special Tests Prone Instability Test Test Results - Slump Test Results - Other- 1 Test Results Gaenslen's + Straight Leg Raise Test Results + PT-OP-M Strength Start: 10/30/18 10:32 Freq: Status: Active Protocol: Document 10/30/18 14:48 EA (Rec: 10/30/18 15:10 EA [id number]) Trunk Strength Trunk Manual Muscle Testing Testing Position Sitting Flexion 4 Good Extension 4 Good Rotation Left 4 Good Rotation Right 4 Good Lateral Flexion Left 4 Good Lateral Flexion Right 4 Good Hip Strength Hip Manual Muscle Testing Right Reason Not Measured WFL Left Reason Not Measured WFL Knee Strength Knee Manual Muscle Testing Right Reason Not Measured WFL Left Reason Not Measured WFL PT-OP-Q Treatments Start: 10/30/18 10:32 Freq: Status: Active Protocol: Document 11/14/18 08:58 EA (Rec: 11/14/18 09:01 EA [id number]) Cardio Equipment Recumbent Stepper (Sci-Fit) Duration (Minutes) 7 Resistance 2 Gym Equipment Cable Column (Body Solid) Leg Extension Details 30# Resistance x 15 reps x 2 Therapeutic Exercises Supine Exercises 5 Supine Exercise Name Hamstring stretch. Reps/Minutes x 15 SH x 2 reps 6 Supine Exercise Name PPT with SLR Reps/Minutes x 10 reps x 2 sets Comments Avoid valsalva 4 Supine Exercise Name Right pelvis elev; Left pelvis depression Reps/Minutes x 10 reps x 2 sets Comments Avoid valslva 3 Supine Exercise Name PPT Side bilateral Reps/Minutes x 15 reps x 2 sets 2 Supine Exercise Name Lower trunk rotation stretch and ROM Side bilateral Equipment Used x 15 reps x 2 Comments avoid valsalva 1 Supine Exercise Name SKTC Side bilateral Reps/Minutes x15SH x 2 sets Standing Exercises 1 Standing Exercise Name PPt with static wall squat Reps/Minutes x 5SH x 10 reps Comments 45 deg squat Manual Therapy Treatment Soft Tissue Mobilization 1 Body Location Pralumbras ,QL Mobilization Type Myofascial Release Rolling Sustained Pressure Trigger Point Release Intensity/Depth Moderate Body Position sitting leaning on the table at shoulder level Comments start and end with effleurage PT-OP-R Modalities Start: 10/30/18 10:32 Freq: Status: Active Protocol: Document 11/14/18 08:58 EA (Rec: 11/14/18 09:01 EA [id number]) Electric Stimulation Electric Stimulation Interferential Current (IFC) Body Location Paralumbars Intensity 20 Combined With Heat/Cold Hot Pack Comments sitting PT-OP-T Assessment and Plan Start: 10/30/18 10:32 Freq: Status: Active Protocol: Document 11/14/18 08:58 EA (Rec: 11/14/18 09:01 EA [id number]) Physical Therapy Assessment Assessment Summary Assessment No noted any signs of discomfort during therex except with manual but much less. Patient cont. to progress. Physical Therapy Plan Next Visit Focus/Plan Next Note Type Treatment Note Next Visit Plan Modalities for pain. Flexibility hamstring and hip flexors/back extensors, core functional exercises.
--- NOTE | 2018-11-19 12:09 | PT.OTN ---
Current Diagnoses Other spondylosis with radiculopathy, lumbar region (11/19/18) Low back pain (11/19/18) Physical Therapy Treatment Note PT-OP-A Visit Information Start: 10/30/18 10:32 Freq: Status: Active Protocol: Document 11/19/18 08:22 EA (Rec: 11/19/18 08:25 EA [id number]) Out-Patient Physical Therapy Visit Information Visit Information Visit Type Treatment Note Visit Start Time 08:15 Visit Stop Time 09:10 Total Visit Minutes 53 Visit Number 5 PT-OP-B Current Condition Start: 10/30/18 10:32 Freq: Status: Active Protocol: Document 10/30/18 14:48 EA (Rec: 10/30/18 15:10 EA [id number]) Current Condition History of Current Condition Onset Date 2018 Current Complaints Localized bilateral low back pain History of Current Condition Pt reports had initial onset 5 years ago which was fully resolved after 2 months of formal PT. He stated that low back pain re-occurs on the first week of July 2018 after more than 5 miles of walk. Pt denies numbness or loss of function to both LE's. Recent MRI reveals L3-L5 disc bulges with central canal stenosis and facets arthrosis. Prior Treatments and Tests week september: cortisone shots with limited improvement Recent MRI. Future Testing and Treatments Planned Cortisone shot follow up : 11/06 Treatment Goals Patient/Caregiver Goals Pt would like to perform daily walk without increase of symptoms Prior Functional Status Baseline Function- ADL's Independent Baseline Function- Mobility Independent Baseline Function- Gait Unlimited distance with no back symtoms Baseline Function- Work/School Retired summer internship Baseline Function- Recreation/Hobbies Daily walks of > 5 miles Current Functional Impairments (Reported) Functional Limitations- ADL's Indep in all except: unable to bend and tie shoes Functional Limitations- Mobility/Gait Indep but unable to walk more than 2 miles due to increase of symptoms Functional Limitations- Work/School Retired Functional Limitations- Recreation/ Unable to walk more than five Hobbies miles PT-OP-C Subjective Start: 10/30/18 10:32 Freq: Status: Active Protocol: Document 11/19/18 08:22 EA (Rec: 11/19/18 08:25 EA [id number]) OP-PT Subjective Patient Comments Patient Comments Pt reports went to [employer] to perform light resistance exercises; states his low to is quite sore after walking more than an hour over the weekends. PT-OP-F Manual Assessment Start: 10/30/18 10:32 Freq: Status: Active Protocol: Document 10/30/18 14:48 EA (Rec: 10/30/18 15:10 EA [id number]) Manual Assessments Soft Tissue Assessment Soft Tissue Mobility Assessment Tight Muscles: Both quads, hip flexors, QLs, paralumabrs, side trunk flexors PT-OP-G Mobility & Gait Start: 10/30/18 10:32 Freq: Status: Active Protocol: Document 10/30/18 14:48 EA (Rec: 10/30/18 15:10 EA [id number]) OP Gait Assessment Assistive Devices Assistive Device None Comments Gait Comments Waddling gait PT-OP-J Posture/Palpation/Skin Start: 10/30/18 10:32 Freq: Status: Active Protocol: Document 10/30/18 14:48 EA (Rec: 10/30/18 15:10 EA [id number]) Posture Evaluation Position Standing Evaluation View post/ant Head/C-Spine Posture Forward Head T-Spine Posture Increased Kyphosis L-Spine Posture Increased Lordosis Shoulder Posture (L) Rounded (R) Rounded Arm Posture (L) Internally Rotated (R) Internally Rotated Pelvis Posture Anteriorly Tilted Hip Posture (L) Flexed (R) Flexed (L) Internally Rotated Palpation Assessment Location One Palpation Findings Soft Tissue Tightness Tenderness Trigger Point Palpation Details Paralumbars, both QL PT-OP-K Range of Motion Start: 10/30/18 10:32 Freq: Status: Active Protocol: Document 10/30/18 14:48 EA (Rec: 10/30/18 15:10 EA [id number]) Lumbar Spine Range of Motion Lumbar Spine Active Percentage Testing Position Standing Flexion 50 Extension 50 Rotation Left 60 Rotation Right 60 Lateral Flexion Left 40 Lateral Flexion Right 30 ROM Limitations Soft Tissue Tightness Pain PT-OP-L Special Tests Start: 10/30/18 10:32 Freq: Status: Active Protocol: Document 10/30/18 14:48 EA (Rec: 10/30/18 15:10 EA [id number]) Special Tests Lumbar Spine Special Tests Prone Instability Test Test Results - Slump Test Results - Other- 1 Test Results [place]'s + Straight Leg Raise Test Results + PT-OP-M Strength Start: 10/30/18 10:32 Freq: Status: Active Protocol: Document 10/30/18 14:48 EA (Rec: 10/30/18 15:10 EA [id number]) Trunk Strength Trunk Manual Muscle Testing Testing Position Sitting Flexion 4 Good Extension 4 Good Rotation Left 4 Good Rotation Right 4 Good Lateral Flexion Left 4 Good Lateral Flexion Right 4 Good Hip Strength Hip Manual Muscle Testing Right Reason Not Measured WFL Left Reason Not Measured WFL Knee Strength Knee Manual Muscle Testing Right Reason Not Measured WFL Left Reason Not Measured WFL PT-OP-Q Treatments Start: 10/30/18 10:32 Freq: Status: Active Protocol: Document 11/19/18 08:22 EA (Rec: 11/19/18 08:25 EA [id number]) Cardio Equipment Recumbent Stepper (Sci-Fit) Duration (Minutes) 7 Resistance 2.5 Therapeutic Exercises Supine Exercises 5 Supine Exercise Name Hamstring stretch. Reps/Minutes x 15 SH x 2 reps 6 Supine Exercise Name PPT with SLR Reps/Minutes x 10 reps x 2 sets Comments Avoid valsalva 4 Supine Exercise Name Right pelvis elev; Left pelvis depression Reps/Minutes x 10 reps x 2 sets Comments Avoid valslva 3 Supine Exercise Name PPT Side bilateral Reps/Minutes x 15 reps x 2 sets 2 Supine Exercise Name Lower trunk rotation stretch and ROM Side bilateral Equipment Used x 15 reps x 2 Comments avoid valsalva Sitting Exercises 1 Sitting Exercise Name EOB fwd lumbar flexio, rotation Reps/Minutes x 15SH x 3 reps each Standing Exercises 1 Standing Exercise Name PPT with static wall squat Reps/Minutes x 5SH x 10 reps Comments 45 deg squat Manual Therapy Treatment Soft Tissue Mobilization 1 Body Location Pralumbras ,QL Mobilization Type Myofascial Release Rolling Sustained Pressure Trigger Point Release Intensity/Depth Moderate Body Position sitting leaning on the table at shoulder level Comments start and end with effleurage PT-OP-R Modalities Start: 10/30/18 10:32 Freq: Status: Active Protocol: Document 11/19/18 08:22 EA (Rec: 11/19/18 08:25 EA [id number]) Electric Stimulation Electric Stimulation Interferential Current (IFC) Body Location Paralumbars Intensity 20 Combined With Heat/Cold Hot Pack Comments sitting PT-OP-T Assessment and Plan Start: 10/30/18 10:32 Freq: Status: Active Protocol: Document 11/19/18 08:22 LILLI (Rec: 11/19/18 08:25 EA [id number]) Physical Therapy Assessment Assessment Summary Assessment Pt has improved exercise tolerance and less low back tenderness. Patient continued to progress. Physical Therapy Plan Next Visit Focus/Plan Next Note Type Treatment Note Next Visit Plan Modalities for pain. Flexibility hamstring and hip flexors/back extensors, core functional exercises.
--- NOTE | 2018-11-21 12:09 | PT.OTN ---
Current Diagnoses Other spondylosis with radiculopathy, lumbar region (11/21/18) Low back pain (11/21/18) Physical Therapy Treatment Note PT-OP-A Visit Information Start: 10/30/18 10:32 Freq: Status: Active Protocol: Document 11/21/18 09:04 EA (Rec: 11/21/18 09:07 EA [id number]) Out-Patient Physical Therapy Visit Information Visit Information Visit Type Treatment Note Visit Start Time 08:15 Visit Stop Time 09:10 Total Visit Minutes 55 Visit Number 6 PT-OP-B Current Condition Start: 10/30/18 10:32 Freq: Status: Active Protocol: Document 10/30/18 14:48 EA (Rec: 10/30/18 15:10 EA [id number]) Current Condition History of Current Condition Onset Date 2018 Current Complaints Localized bilateral low back pain History of Current Condition Pt reports had initial onset 5 years ago which was fully resolved after 2 months of formal PT. He stated that low back pain re-occurs on the first week of July 2018 after more than 5 miles of walk. Pt denies numbness or loss of function to both LE's. Recent MRI reveals L3-L5 disc bulges with central canal stenosis and facets arthrosis. Prior Treatments and Tests week september: cortisone shots with limited improvement Recent MRI. 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 Function- Recreation/Hobbies Daily walks of > 5 miles Current Functional Impairments (Reported) Functional Limitations- ADL's Indep in all except: unable to bend and tie shoes Functional Limitations- Mobility/Gait Indep but unable to walk more than 2 miles due to increase of symptoms Functional Limitations- Work/School Retired Functional Limitations- Recreation/ Unable to walk more than five Hobbies miles PT-OP-C Subjective Start: 10/30/18 10:32 Freq: Status: Active Protocol: Document 11/21/18 09:04 EA (Rec: 11/21/18 09:07 EA [id number]) OP-PT Subjective Patient Comments Patient Comments Pt reports compliant with HEP; states low back is little better. PT-OP-F Manual Assessment Start: 10/30/18 10:32 Freq: Status: Active Protocol: Document 10/30/18 14:48 EA (Rec: 10/30/18 15:10 EA [id number]) Manual Assessments Soft Tissue Assessment Soft Tissue Mobility Assessment Tight Muscles: Both quads, hip flexors, QLs, paralumabrs, side trunk flexors PT-OP-G Mobility & Gait Start: 10/30/18 10:32 Freq: Status: Active Protocol: Document 10/30/18 14:48 EA (Rec: 10/30/18 15:10 EA [id number]) OP Gait Assessment Assistive Devices Assistive Device None Comments Gait Comments Waddling gait PT-OP-J Posture/Palpation/Skin Start: 10/30/18 10:32 Freq: Status: Active Protocol: Document 10/30/18 14:48 EA (Rec: 10/30/18 15:10 EA [id number]) Posture Evaluation Position Standing Evaluation View post/ant Head/C-Spine Posture Forward Head T-Spine Posture Increased Kyphosis L-Spine Posture Increased Lordosis Shoulder Posture (L) Rounded (R) Rounded Arm Posture (L) Internally Rotated (R) Internally Rotated Pelvis Posture Anteriorly Tilted Hip Posture (L) Flexed (R) Flexed (L) Internally Rotated Palpation Assessment Location One Palpation Findings Soft Tissue Tightness Tenderness Trigger Point Palpation Details Paralumbars, both QL PT-OP-K Range of Motion Start: 10/30/18 10:32 Freq: Status: Active Protocol: Document 10/30/18 14:48 EA (Rec: 10/30/18 15:10 EA [id number]) Lumbar Spine Range of Motion Lumbar Spine Active Percentage Testing Position Standing Flexion 50 Extension 50 Rotation Left 60 Rotation Right 60 Lateral Flexion Left 40 Lateral Flexion Right 30 ROM Limitations Soft Tissue Tightness Pain PT-OP-L Special Tests Start: 10/30/18 10:32 Freq: Status: Active Protocol: Document 10/30/18 14:48 EA (Rec: 10/30/18 15:10 EA [id number]) Special Tests Lumbar Spine Special Tests Prone Instability Test Test Results - Slump Test Results - Other- 1 Test Results [place]'s + Straight Leg Raise Test Results + PT-OP-M Strength Start: 10/30/18 10:32 Freq: Status: Active Protocol: Document 10/30/18 14:48 EA (Rec: 10/30/18 15:10 EA [id number]) Trunk Strength Trunk Manual Muscle Testing Testing Position Sitting Flexion 4 Good Extension 4 Good Rotation Left 4 Good Rotation Right 4 Good Lateral Flexion Left 4 Good Lateral Flexion Right 4 Good Hip Strength Hip Manual Muscle Testing Right Reason Not Measured WFL Left Reason Not Measured WFL Knee Strength Knee Manual Muscle Testing Right Reason Not Measured WFL Left Reason Not Measured WFL PT-OP-Q Treatments Start: 10/30/18 10:32 Freq: Status: Active Protocol: Document 11/21/18 09:04 EA (Rec: 11/21/18 09:07 EA [id number]) Cardio Equipment Recumbent Bicycle Duration (Minutes) 7 Resistance 6 Gym Equipment Cable Column (Body Solid) Leg Extension Details 30-40# Resistance x 15 reps x 2 Therapeutic Exercises Supine Exercises 5 Supine Exercise Name Hamstring stretch. Reps/Minutes x 15 SH x 2 reps 6 Supine Exercise Name PPT with SLR Reps/Minutes x 10 reps x 2 sets Comments Avoid valsalva 4 Supine Exercise Name Right pelvis elev; Left pelvis depression Reps/Minutes x 10 reps x 2 sets Comments Avoid valslva 3 Supine Exercise Name PPT Side bilateral Reps/Minutes x 15 reps x 2 sets 2 Supine Exercise Name Lower trunk rotation stretch and ROM Side bilateral Equipment Used x 15 reps x 2 Comments avoid valsalva 1 Supine Exercise Name SKTC Side bilateral Reps/Minutes x15SH x 2 sets Sitting Exercises 1 Sitting Exercise Name EOB fwd lumbar flexio, rotation Reps/Minutes x 15SH x 3 reps each Standing Exercises 2 Standing Exercise Name side step squat Resistance GTB Reps/Minutes x 10 reps x 2 each sides 1 Standing Exercise Name PPT with static wall squat Reps/Minutes x 5SH x 10 reps Comments 45 deg squat Manual Therapy Treatment Soft Tissue Mobilization 1 Body Location Pralumbras ,QL Mobilization Type Myofascial Release Rolling Sustained Pressure Trigger Point Release Intensity/Depth Moderate Body Position sitting leaning on the table at shoulder level Comments start and end with effleurage PT-OP-R Modalities Start: 10/30/18 10:32 Freq: Status: Active Protocol: Document 11/21/18 09:04 EA (Rec: 11/21/18 09:07 EA [id number]) Electric Stimulation Electric Stimulation Interferential Current (IFC) Body Location Paralumbars Intensity 20 Combined With Heat/Cold Hot Pack Comments sitting PT-OP-T Assessment and Plan Start: 10/30/18 10:32 Freq: Status: Active Protocol: Document 11/21/18 09:04 EA (Rec: 11/21/18 09:07 EA [id number]) Physical Therapy Assessment Assessment Summary Assessment Tolerated treatment well with improved exercises tolerance. Physical Therapy Plan Next Visit Focus/Plan Next Note Type Treatment Note Next Visit Plan Modalities for pain. Flexibility hamstring and hip flexors/back extensors, core functional exercises.
--- NOTE | 2018-11-26 12:13 | PT.OTN ---
Current Diagnoses Other spondylosis with radiculopathy, lumbar region (11/26/18) Low back pain (11/26/18) Physical Therapy Treatment Note PT-OP-A Visit Information Start: 10/30/18 10:32 Freq: Status: Active Protocol: Document 11/26/18 08:22 EA (Rec: 11/26/18 08:28 EA [id number]) Out-Patient Physical Therapy Visit Information Visit Information Visit Type Treatment Note Visit Start Time 08:15 Visit Stop Time 09:10 Total Visit Minutes 53 Visit Number 7 PT-OP-B Current Condition Start: 10/30/18 10:32 Freq: Status: Active Protocol: Document 10/30/18 14:48 EA (Rec: 10/30/18 15:10 EA [id number]) Current Condition History of Current Condition Onset Date 2018 Current Complaints Localized bilateral low back pain History of Current Condition Pt reports had initial onset 5 years ago which was fully resolved after 2 months of formal PT. He stated that low back pain re-occurs on the first week of July 2018 after more than 5 miles of walk. Pt denies numbness or loss of function to both LE's. Recent MRI reveals L3-L5 disc bulges with central canal stenosis and facets arthrosis. Prior Treatments and Tests September: cortisone shots with limited improvement Recent MRI. 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 Daily walks of > 5 miles Current Functional Impairments (Reported) Functional Limitations- ADL's Indep in all except: unable to bend and tie shoes Functional Limitations- Mobility/Gait Indep but unable to walk more than 2 miles due to increase of symptoms Functional Limitations- Work/School Retired Functional Limitations- Recreation/ Unable to walk more than five Hobbies miles PT-OP-C Subjective Start: 10/30/18 10:32 Freq: Status: Active Protocol: Document 11/26/18 08:22 EA (Rec: 11/26/18 08:28 EA [id number]) OP-PT Subjective Patient Comments Patient Comments My back is sore after [address]; states unable to stop and stretch. I feel driving for more than 4 hours is not ok for my back anymore. Pt reports that he feels improving but just as set back from last long drive. Patient Reported Progress Improving PT-OP-F Manual Assessment Start: 10/30/18 10:32 Freq: Status: Active Protocol: Document 10/30/18 14:48 EA (Rec: 10/30/18 15:10 EA [id number]) Manual Assessments Soft Tissue Assessment Soft Tissue Mobility Assessment Tight Muscles: Both quads, hip flexors, QLs, paralumabrs, side trunk flexors PT-OP-G Mobility & Gait Start: 10/30/18 10:32 Freq: Status: Active Protocol: Document 10/30/18 14:48 EA (Rec: 10/30/18 15:10 EA [id number]) OP Gait Assessment Assistive Devices Assistive Device None Comments Gait Comments Waddling gait PT-OP-J Posture/Palpation/Skin Start: 10/30/18 10:32 Freq: Status: Active Protocol: Document 10/30/18 14:48 EA (Rec: 10/30/18 15:10 EA [id number]) Posture Evaluation Position Standing Evaluation View post/ant Head/C-Spine Posture Forward Head T-Spine Posture Increased Kyphosis L-Spine Posture Increased Lordosis Shoulder Posture (L) Rounded (R) Rounded Arm Posture (L) Internally Rotated (R) Internally Rotated Pelvis Posture Anteriorly Tilted Hip Posture (L) Flexed (R) Flexed (L) Internally Rotated Palpation Assessment Location One Palpation Findings Soft Tissue Tightness Tenderness Trigger Point Palpation Details [place], both QL PT-OP-K Range of Motion Start: 10/30/18 10:32 Freq: Status: Active Protocol: Document 10/30/18 14:48 EA (Rec: 10/30/18 15:10 EA [id number]) Lumbar Spine Range of Motion Lumbar Spine Active Percentage Testing Position Standing Flexion 50 Extension 50 Rotation Left 60 Rotation Right 60 Lateral Flexion Left 40 Lateral Flexion Right 30 ROM Limitations Soft Tissue Tightness Pain PT-OP-L Special Tests Start: 10/30/18 10:32 Freq: Status: Active Protocol: Document 10/30/18 14:48 EA (Rec: 10/30/18 15:10 EA [id number]) Special Tests Lumbar Spine Special Tests Prone Instability Test Test Results - Slump Test Results - Other- 1 Test Results Gaenslen's + Straight Leg Raise Test Results + PT-OP-M Strength Start: 10/30/18 10:32 Freq: Status: Active Protocol: Document 10/30/18 14:48 EA (Rec: 10/30/18 15:10 EA [id number]) Trunk Strength Trunk Manual Muscle Testing Testing Position Sitting Flexion 4 Good Extension 4 Good Rotation Left 4 Good Rotation Right 4 Good Lateral Flexion Left 4 Good Lateral Flexion Right 4 Good Hip Strength Hip Manual Muscle Testing Right Reason Not Measured WFL Left Reason Not Measured WFL Knee Strength Knee Manual Muscle Testing Right Reason Not Measured WFL Left Reason Not Measured WFL PT-OP-Q Treatments Start: 10/30/18 10:32 Freq: Status: Active Protocol: Document 11/26/18 08:22 EA (Rec: 11/26/18 08:28 EA [id number]) Cardio Equipment Recumbent Stepper (Sci-Fit) Duration (Minutes) 10 Resistance 3.0 Seat Position 15 Gym Equipment Cable Column (Body Solid) Leg Extension Details 30-40# Resistance x 15 reps x 2 Therapeutic Exercises Supine Exercises 5 Supine Exercise Name Hamstring stretch. Reps/Minutes x 15 SH x 2 reps 2 Supine Exercise Name Lower trunk rotation stretch and ROM Side bilateral Equipment Used x 15 reps x 2 Comments avoid valsalva 1 Supine Exercise Name SKTC Side bilateral Reps/Minutes x15SH x 2 sets Sitting Exercises 1 Sitting Exercise Name EOB fwd lumbar flexio, rotation Reps/Minutes x 15SH x 3 reps each Manual Therapy Treatment Soft Tissue Mobilization 1 Body Location Pralumbras ,QL Mobilization Type Myofascial Release Rolling Sustained Pressure Trigger Point Release Intensity/Depth Moderate Body Position sitting leaning on the table at shoulder level Comments start and end with effleurage PT-OP-R Modalities Start: 10/30/18 10:32 Freq: Status: Active Protocol: Document 11/26/18 08:22 EA (Rec: 11/26/18 08:28 EA [id number]) Electric Stimulation Electric Stimulation Interferential Current (IFC) Body Location [place] Intensity 20 Combined With Heat/Cold Hot Pack Comments sitting PT-OP-T Assessment and Plan Start: 10/30/18 10:32 Freq: Status: Active Protocol: Document 11/26/18 08:52 EA (Rec: 11/26/18 08:56 EA [id number]) Physical Therapy Assessment Impairments Impairments Activity Tolerance Functional Activities Functional Mobility Gait Pain Posture ROM Soft Tissue Mobility Goals Four Impairment Impaired lifting Formula Checker Goal (LTG) Patient will be able to lift > 20 lbs with good body mechanics LTG Duration 4 wks (improving) Three Impairment No HEP in place Formula Checker Goal (LTG) Patient will perform HEP independently LTG Duration 4 wks Two Impairment Unable to walk more than 2 miles [facility] Goal (LTG) Patient will ambulate > 2 miles without increase of symptoms LTG Duration 4 wks (more than amile at this time) One Impairment Oswestry Fucntional low back score of 14/50 Formula Checker Goal (LTG) Patient will have Oswetry score of less than 10 LTG Duration 4 wks (Improving well) Progress Towards Goals Progress Towards Goals Progressing Toward Goals Assessment Summary Assessment Patient tolerated manual and therex today; symptoms decreased after manual. Patient will continue to benefit with skilled PT to enhance functional mobility while decreasing low back symptoms. Physical Therapy Plan Frequency and Duration Frequency of Treatment 2x/Week Duration of Treatment 6 wks Plan of Care Start Date 11/26/18 Plan of Care End Date 01/07/19 Therapeutic Interventions Therapeutic Interventions Home Exercise Program Joint Mobilizations Manual Therapy Neuromuscular Re-education Patient/Caregiver Education Self-Care/Home Management Soft Tissue Mobilization Taping Therapeutic Exercises Modalities Cold Pack/Ice Massage Electric Stimulation Hot Packs Ultrasound Next Visit Focus/Plan Next Note Type Treatment Note
--- NOTE | 2018-11-26 12:14 | PT.OPPOC ---
Current Diagnoses Other spondylosis with radiculopathy, lumbar region (11/26/18) Low back pain (11/26/18) Provider Visit Care Team Role Provider Type Mo Roper MD Primary Care Provider Physician Specialty: Internal Medicine Address: [address] [place] [address], [id number] Email: [email or web address] Gudelia Jackson MD Attending Provider Physician Specialty: Orthopedic Surgery Address: [address] [place] [address], [id number] Email: [email or web address] Plan Of Care PT-OP-T Assessment and Plan Start: 10/30/18 10:32 Freq: Status: Active Protocol: Document 11/26/18 08:52 EA (Rec: 11/26/18 08:56 EA [id number]) Physical Therapy Assessment Impairments Impairments Activity Tolerance Functional Activities Functional Mobility Gait Pain Posture ROM Soft Tissue Mobility Goals Four Impairment Impaired lifting Jail Goal (LTG) Patient will be able to lift > 20 lbs with good body mechanics LTG Duration 4 wks (improving) Three Impairment No HEP in place Jail Goal (LTG) Patient will perform HEP independently LTG Duration 4 wks Two Impairment Unable to walk more than 2 miles Jail Goal (LTG) Patient will ambulate > 2 miles without increase of symptoms LTG Duration 4 wks (more than amile at this time) One Impairment Oswestry Fucntional low back score of 14/50 Jail Goal (LTG) Patient will have Oswetry score of less than 10 LTG Duration 4 wks (Improving well) Progress Towards Goals Progress Towards Goals Progressing Toward Goals Assessment Summary Assessment Patient tolerated manual and therex today; symptoms decreased after manual. Patient will continue to benefit with skilled PT to enhance functional mobility while decreasing low back symptoms. Physical Therapy Plan Frequency and Duration Frequency of Treatment 2x/Week Duration of Treatment 6 wks Plan of Care Start Date 11/26/18 Plan of Care End Date 01/07/19 Therapeutic Interventions Therapeutic Interventions Home Exercise Program Joint Mobilizations Manual Therapy Neuromuscular Re-education Patient/Caregiver Education Self-Care/Home Management Soft Tissue Mobilization Taping Therapeutic Exercises Modalities Cold Pack/Ice Massage Electric Stimulation Hot Packs Ultrasound Next Visit Focus/Plan Next Note Type Treatment Note Plan of Care Dates Plan of Care Start Date 11/26/18 Plan of Care End Date 01/07/19 Please Sign and Return: I have reviewed this Plan of Care and certify that the skilled therapy services above are required to meet the patient?s needs. Physician Signature Date Printed Name and Credentials Clinical Instructor Signature Printed Name and Credentials
--- NOTE | 2018-11-28 12:07 | PT.OTN ---
Current Diagnoses Other spondylosis with radiculopathy, lumbar region (11/28/18) Low back pain (11/28/18) Physical Therapy Treatment Note PT-OP-A Visit Information Start: 10/30/18 10:32 Freq: Status: Active Protocol: Document 11/28/18 08:55 EA (Rec: 11/28/18 09:00 EA [id number]) Out-Patient Physical Therapy Visit Information Visit Information Visit Type Treatment Note Visit Start Time 08:20 Visit Stop Time 09:13 Total Visit Minutes 53 Visit Number 8 PT-OP-B Current Condition Start: 10/30/18 10:32 Freq: Status: Active Protocol: Document 10/30/18 14:48 EA (Rec: 10/30/18 15:10 EA [id number]) Current Condition History of Current Condition Onset Date 2018 Current Complaints Localized bilateral low back pain History of Current Condition Pt reports had initial onset 5 years ago which was fully resolved after 2 months of formal PT. He stated that low back pain re-occurs on the first week of July 2018 after more than 5 miles of walk. Pt denies numbness or loss of function to both LE's. Recent MRI reveals L3-L5 disc bulges with central canal stenosis and facets arthrosis. Prior Treatments and Tests week september: cortisone shots with limited improvement Recent MRI. 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 Daily walks of > 5 miles Current Functional Impairments (Reported) Functional Limitations- ADL's Indep in all except: unable to bend and tie shoes Functional Limitations- Mobility/Gait Indep but unable to walk more than 2 miles due to increase of symptoms Functional Limitations- Work/School Retired Functional Limitations- Recreation/ Unable to walk more than five Hobbies miles PT-OP-C Subjective Start: 10/30/18 10:32 Freq: Status: Active Protocol: Document 11/28/18 08:55 EA (Rec: 11/28/18 09:00 EA [id number]) OP-PT Subjective Patient Comments Patient Comments Pt reports last PT was great; states able to walk more than 5 miles right after last PT session; states today it is quite sore. PT-OP-F Manual Assessment Start: 10/30/18 10:32 Freq: Status: Active Protocol: Document 10/30/18 14:48 EA (Rec: 10/30/18 15:10 EA [id number]) Manual Assessments Soft Tissue Assessment Soft Tissue Mobility Assessment Tight Muscles: Both quads, hip flexors, QLs, paralumabrs, side trunk flexors PT-OP-G Mobility & Gait Start: 10/30/18 10:32 Freq: Status: Active Protocol: Document 10/30/18 14:48 EA (Rec: 10/30/18 15:10 EA [id number]) OP Gait Assessment Assistive Devices Assistive Device None Comments Gait Comments Waddling gait PT-OP-J Posture/Palpation/Skin Start: 10/30/18 10:32 Freq: Status: Active Protocol: Document 10/30/18 14:48 EA (Rec: 10/30/18 15:10 EA [id number]) Posture Evaluation Position Standing Evaluation View post/ant Head/C-Spine Posture Forward Head T-Spine Posture Increased Kyphosis L-Spine Posture Increased Lordosis Shoulder Posture (L) Rounded (R) Rounded Arm Posture (L) Internally Rotated (R) Internally Rotated Pelvis Posture Anteriorly Tilted Hip Posture (L) Flexed (R) Flexed (L) Internally Rotated Palpation Assessment Location One Palpation Findings Soft Tissue Tightness Tenderness Trigger Point Palpation Details Paralumbars, both QL PT-OP-K Range of Motion Start: 10/30/18 10:32 Freq: Status: Active Protocol: Document 10/30/18 14:48 EA (Rec: 10/30/18 15:10 EA [id number]) Lumbar Spine Range of Motion Lumbar Spine Active Percentage Testing Position Standing Flexion 50 Extension 50 Rotation Left 60 Rotation Right 60 Lateral Flexion Left 40 Lateral Flexion Right 30 ROM Limitations Soft Tissue Tightness Pain PT-OP-L Special Tests Start: 10/30/18 10:32 Freq: Status: Active Protocol: Document 10/30/18 14:48 EA (Rec: 10/30/18 15:10 EA [id number]) Special Tests Lumbar Spine Special Tests Prone Instability Test Test Results - Slump Test Results - Other- 1 Test Results Gaenslen's + Straight Leg Raise Test Results + PT-OP-M Strength Start: 10/30/18 10:32 Freq: Status: Active Protocol: Document 10/30/18 14:48 EA (Rec: 10/30/18 15:10 EA [id number]) Trunk Strength Trunk Manual Muscle Testing Testing Position Sitting Flexion 4 Good Extension 4 Good Rotation Left 4 Good Rotation Right 4 Good Lateral Flexion Left 4 Good Lateral Flexion Right 4 Good Hip Strength Hip Manual Muscle Testing Right Reason Not Measured WFL Left Reason Not Measured WFL Knee Strength Knee Manual Muscle Testing Right Reason Not Measured WFL Left Reason Not Measured WFL PT-OP-Q Treatments Start: 10/30/18 10:32 Freq: Status: Active Protocol: Document 11/28/18 08:55 EA (Rec: 11/28/18 09:00 EA [id number]) Cardio Equipment Recumbent Stepper (Sci-Fit) Duration (Minutes) 10 Resistance 3.5 Seat Position 15 Gym Equipment Cable Column (Body Solid) Leg Extension Details 30-40# Resistance x 15 reps x 2 Shuttle Recovery Bilateral Squats Resistance 5 cord Shuttle Recovery Platform Stable Therapeutic Exercises Supine Exercises 5 Supine Exercise Name Hamstring stretch. Reps/Minutes x 15 SH x 2 reps 6 Supine Exercise Name PPT with SLR Reps/Minutes x 10 reps x 2 sets Comments Avoid valsalva 4 Supine Exercise Name Right pelvis elev; Left pelvis depression Reps/Minutes x 10 reps x 2 sets Comments Avoid valslva 3 Supine Exercise Name PPT Side bilateral Reps/Minutes x 15 reps x 2 sets 2 Supine Exercise Name Lower trunk rotation stretch and ROM Side bilateral Equipment Used x 15 reps x 2 Comments avoid valsalva 1 Supine Exercise Name SKTC Side bilateral Reps/Minutes x15SH x 2 sets Standing Exercises 2 Standing Exercise Name side step squat Resistance GTB Reps/Minutes x 10 reps x 2 each sides Manual Therapy Treatment Soft Tissue Mobilization 1 Body Location Pralumbras ,QL Mobilization Type Myofascial Release Rolling Sustained Pressure Trigger Point Release Intensity/Depth Moderate Body Position sitting leaning on the table at shoulder level Comments start and end with effleurage PT-OP-R Modalities Start: 10/30/18 10:32 Freq: Status: Active Protocol: Document 11/28/18 08:55 EA (Rec: 11/28/18 09:00 EA [id number]) Electric Stimulation Electric Stimulation Interferential Current (IFC) Body Location Paralumbars Intensity 20 Combined With Heat/Cold Hot Pack Comments sitting PT-OP-T Assessment and Plan Start: 10/30/18 10:32 Freq: Status: Active Protocol: Document 11/28/18 08:55 EA (Rec: 11/28/18 09:00 EA [id number]) Physical Therapy Assessment Assessment Summary Assessment Improved exercises tolerance with good form. Symptoms decreased to lwo back region after manual PT. Physical Therapy Plan Next Visit Focus/Plan Next Note Type Treatment Note Next Visit Plan Modalities for pain. Flexibility hamstring and hip flexors/back extensors, core functional exercises.
--- NOTE | 2018-12-05 09:44 | PT.OTN ---
Current Diagnoses Other spondylosis with radiculopathy, lumbar region (12/05/18) Low back pain (12/05/18) Physical Therapy Treatment Note PT-OP-A Visit Information Start: 10/30/18 10:32 Freq: Status: Active Protocol: Document 12/05/18 08:24 EA (Rec: 12/05/18 08:26 EA [id number]) Out-Patient Physical Therapy Visit Information Visit Information Visit Type Treatment Note Visit Start Time 08:20 Visit Stop Time 09:13 Total Visit Minutes 53 Visit Number 9 PT-OP-B Current Condition Start: 10/30/18 10:32 Freq: Status: Active Protocol: Document 10/30/18 14:48 EA (Rec: 10/30/18 15:10 EA [id number]) Current Condition History of Current Condition Onset Date 2018 Current Complaints Localized bilateral low back pain History of Current Condition Pt reports had initial onset 5 years ago which was fully resolved after 2 months of formal PT. He stated that low back pain re-occurs on the first week of July 2018 after more than 5 miles of walk. Pt denies numbness or loss of function to both LE's. Recent MRI reveals L3-L5 disc bulges with central canal stenosis and facets arthrosis. Prior Treatments and Tests September: cortisone shots with limited improvement Recent MRI. 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/Hobbies Daily walks of > 5 miles Current Functional Impairments (Reported) Functional Limitations- ADL's Indep in all except: unable to bend and tie shoes Functional Limitations- Mobility/Gait Indep but unable to walk more than 2 miles due to increase of symptoms Functional Limitations- Work/School Retired Functional Limitations- Recreation/ Unable to walk more than five Hobbies miles PT-OP-C Subjective Start: 10/30/18 10:32 Freq: Status: Active Protocol: Document 12/05/18 08:24 EA (Rec: 12/05/18 08:26 EA [id number]) OP-PT Subjective Patient Comments Patient Comments Pt reports 16 thousand of steps made yesterday and with no dificulty; states would like to learn lifting mechanics that would perevnt further back pain. PT-OP-F Manual Assessment Start: 10/30/18 10:32 Freq: Status: Active Protocol: Document 10/30/18 14:48 EA (Rec: 10/30/18 15:10 EA [id number]) Manual Assessments Soft Tissue Assessment Soft Tissue Mobility Assessment Tight Muscles: Both quads, hip flexors, QLs, paralumabrs, side trunk flexors PT-OP-G Mobility & Gait Start: 10/30/18 10:32 Freq: Status: Active Protocol: Document 10/30/18 14:48 EA (Rec: 10/30/18 15:10 EA [id number]) OP Gait Assessment Assistive Devices Assistive Device None Comments Gait Comments Waddling gait PT-OP-J Posture/Palpation/Skin Start: 10/30/18 10:32 Freq: Status: Active Protocol: Document 10/30/18 14:48 EA (Rec: 10/30/18 15:10 EA [id number]) Posture Evaluation Position Standing Evaluation View post/ant Head/C-Spine Posture Forward Head T-Spine Posture Increased Kyphosis L-Spine Posture Increased Lordosis Shoulder Posture (L) Rounded (R) Rounded Arm Posture (L) Internally Rotated (R) Internally Rotated Pelvis Posture Anteriorly Tilted Hip Posture (L) Flexed (R) Flexed (L) Internally Rotated Palpation Assessment Location One Palpation Findings Soft Tissue Tightness Tenderness Trigger Point Palpation Details Paralumbars, both QL PT-OP-K Range of Motion Start: 10/30/18 10:32 Freq: Status: Active Protocol: Document 10/30/18 14:48 EA (Rec: 10/30/18 15:10 EA [id number]) Lumbar Spine Range of Motion Lumbar Spine Active Percentage Testing Position Standing Flexion 50 Extension 50 Rotation Left 60 Rotation Right 60 Lateral Flexion Left 40 Lateral Flexion Right 30 ROM Limitations Soft Tissue Tightness Pain PT-OP-L Special Tests Start: 10/30/18 10:32 Freq: Status: Active Protocol: Document 10/30/18 14:48 EA (Rec: 10/30/18 15:10 EA [id number]) Special Tests Lumbar Spine Special Tests Prone Instability Test Test Results - Slump Test Results - Other- 1 Test Results Gaenslen's + Straight Leg Raise Test Results + PT-OP-M Strength Start: 10/30/18 10:32 Freq: Status: Active Protocol: Document 10/30/18 14:48 EA (Rec: 10/30/18 15:10 EA [id number]) Trunk Strength Trunk Manual Muscle Testing Testing Position Sitting Flexion 4 Good Extension 4 Good Rotation Left 4 Good Rotation Right 4 Good Lateral Flexion Left 4 Good Lateral Flexion Right 4 Good Hip Strength Hip Manual Muscle Testing Right Reason Not Measured WFL Left Reason Not Measured WFL Knee Strength Knee Manual Muscle Testing Right Reason Not Measured WFL Left Reason Not Measured WFL PT-OP-Q Treatments Start: 10/30/18 10:32 Freq: Status: Active Protocol: Document 12/05/18 08:24 EA (Rec: 12/05/18 08:26 EA [id number]) Cardio Equipment Recumbent Stepper (Sci-Fit) Duration (Minutes) 10 Resistance 3.5 Seat Position 15 Gym Equipment Cable Column (Body Solid) Rows Details squat row Resistance 20# Reps/Time x 12 reps x 2 Therapeutic Exercises Supine Exercises 5 Supine Exercise Name Hamstring stretch. Reps/Minutes x 15 SH x 2 reps 6 Supine Exercise Name PPT with SLR Reps/Minutes x 10 reps x 2 sets Comments Avoid valsalva 4 Supine Exercise Name Right pelvis elev; Left pelvis depression Reps/Minutes x 10 reps x 2 sets Comments Avoid valslva 3 Supine Exercise Name PPT Side bilateral Reps/Minutes x 15 reps x 2 sets 2 Supine Exercise Name Lower trunk rotation stretch and ROM Side bilateral Equipment Used x 15 reps x 2 Comments avoid valsalva 1 Supine Exercise Name SKTC Side bilateral Reps/Minutes x15SH x 2 sets Standing Exercises 2 Standing Exercise Name side step squat Resistance GTB Reps/Minutes x 10 reps x 2 each sides 1 Standing Exercise Name PPT with static wall squat Reps/Minutes x 5SH x 10 reps Comments 45 deg squat Manual Therapy Treatment Soft Tissue Mobilization 1 Body Location Pralumbras ,QL Mobilization Type Myofascial Release Rolling Sustained Pressure Trigger Point Release Intensity/Depth Moderate Body Position sitting leaning on the table at shoulder level Comments start and end with effleurage PT-OP-R Modalities Start: 10/30/18 10:32 Freq: Status: Active Protocol: Document 12/05/18 08:24 EA (Rec: 12/05/18 08:26 EA [id number]) Electric Stimulation Electric Stimulation Interferential Current (IFC) Body Location Paralumbars Intensity 20 Combined With Heat/Cold Hot Pack Comments sitting PT-OP-T Assessment and Plan Start: 10/30/18 10:32 Freq: Status: Active Protocol: Document 12/05/18 09:06 EA (Rec: 12/05/18 09:07 EA [id number]) Physical Therapy Assessment Assessment Summary Assessment Improve sitted floor reaching with no discomfort; requires cues during squat row for form . Overall patient is progressing well. Physical Therapy Plan Next Visit Focus/Plan Next Note Type Treatment Note
--- NOTE | 2018-12-10 09:38 | PT.OTN ---
Current Diagnoses Other spondylosis with radiculopathy, lumbar region (12/10/18) Low back pain (12/10/18) Physical Therapy Treatment Note PT-OP-A Visit Information Start: 10/30/18 10:32 Freq: Status: Active Protocol: Document 12/10/18 07:29 EA (Rec: 12/10/18 07:38 EA [id number]) Out-Patient Physical Therapy Visit Information Visit Information Visit Type Treatment Note Visit Start Time 07:30 Visit Stop Time 08:25 Total Visit Minutes 55 Visit Number 10 PT-OP-B Current Condition Start: 10/30/18 10:32 Freq: Status: Active Protocol: Document 10/30/18 14:48 EA (Rec: 10/30/18 15:10 EA [id number]) Current Condition History of Current Condition Onset Date 2018 Current Complaints Localized bilateral low back pain History of Current Condition Pt reports had initial onset 5 years ago which was fully resolved after 2 months of formal PT. He stated that low back pain re-occurs on the first week of July 2018 after more than 5 miles of walk. Pt denies numbness or loss of function to both LE's. Recent MRI reveals L3-L5 disc bulges with central canal stenosis and facets arthrosis. Prior Treatments and Tests week september: cortisone shots with limited improvement Recent MRI. 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 Function- Recreation/Hobbies Daily walks of > 5 miles Current Functional Impairments (Reported) Functional Limitations- ADL's Indep in all except: unable to bend and tie shoes Functional Limitations- Mobility/Gait Indep but unable to walk more than 2 miles due to increase of symptoms Functional Limitations- Work/School Retired Functional Limitations- Recreation/ Unable to walk more than five Hobbies miles PT-OP-C Subjective Start: 10/30/18 10:32 Freq: Status: Active Protocol: Document 12/10/18 07:29 EA (Rec: 12/10/18 07:38 EA [id number]) OP-PT Subjective Patient Comments Patient Comments Pt reports stationary bike saves his back; states he had agood fitness exercises on the weekend. PT-OP-F Manual Assessment Start: 10/30/18 10:32 Freq: Status: Active Protocol: Document 10/30/18 14:48 EA (Rec: 10/30/18 15:10 EA [id number]) Manual Assessments Soft Tissue Assessment Soft Tissue Mobility Assessment Tight Muscles: Both quads, hip flexors, QLs, paralumabrs, side trunk flexors PT-OP-G Mobility & Gait Start: 10/30/18 10:32 Freq: Status: Active Protocol: Document 10/30/18 14:48 EA (Rec: 10/30/18 15:10 EA [id number]) OP Gait Assessment Assistive Devices Assistive Device None Comments Gait Comments Waddling gait PT-OP-J Posture/Palpation/Skin Start: 10/30/18 10:32 Freq: Status: Active Protocol: Document 10/30/18 14:48 EA (Rec: 10/30/18 15:10 EA [id number]) Posture Evaluation Position Standing Evaluation View post/ant Head/C-Spine Posture Forward Head T-Spine Posture Increased Kyphosis L-Spine Posture Increased Lordosis Shoulder Posture (L) Rounded (R) Rounded Arm Posture (L) Internally Rotated (R) Internally Rotated Pelvis Posture Anteriorly Tilted Hip Posture (L) Flexed (R) Flexed (L) Internally Rotated Palpation Assessment Location One Palpation Findings Soft Tissue Tightness Tenderness Trigger Point Palpation Details Paralumbars, both QL PT-OP-K Range of Motion Start: 10/30/18 10:32 Freq: Status: Active Protocol: Document 10/30/18 14:48 EA (Rec: 10/30/18 15:10 EA [id number]) Lumbar Spine Range of Motion Lumbar Spine Active Percentage Testing Position Standing Flexion 50 Extension 50 Rotation Left 60 Rotation Right 60 Lateral Flexion Left 40 Lateral Flexion Right 30 ROM Limitations Soft Tissue Tightness Pain PT-OP-L Special Tests Start: 10/30/18 10:32 Freq: Status: Active Protocol: Document 10/30/18 14:48 EA (Rec: 10/30/18 15:10 EA [id number]) Special Tests Lumbar Spine Special Tests Prone Instability Test Test Results - Slump Test Results - Other- 1 Test Results Gaenslen's + Straight Leg Raise Test Results + PT-OP-M Strength Start: 10/30/18 10:32 Freq: Status: Active Protocol: Document 10/30/18 14:48 EA (Rec: 10/30/18 15:10 EA [id number]) Trunk Strength Trunk Manual Muscle Testing Testing Position Sitting Flexion 4 Good Extension 4 Good Rotation Left 4 Good Rotation Right 4 Good Lateral Flexion Left 4 Good Lateral Flexion Right 4 Good Hip Strength Hip Manual Muscle Testing Right Reason Not Measured WFL Left Reason Not Measured WFL Knee Strength Knee Manual Muscle Testing Right Reason Not Measured WFL Left Reason Not Measured WFL PT-OP-Q Treatments Start: 10/30/18 10:32 Freq: Status: Active Protocol: Document 12/10/18 07:29 EA (Rec: 12/10/18 07:38 EA [id number]) Cardio Equipment Recumbent Stepper (Sci-Fit) Duration (Minutes) 10 Resistance 3.5 Seat Position 15 Gym Equipment Cable Column (Body Solid) Lat Pull Down Resistance 30-40# Reps/Time x15 reps x 2 Rows Details squat row Resistance 20# Reps/Time x 12 reps x 2 Leg Extension Details 30-40# Resistance x 15 reps x 2 Shuttle Recovery Bilateral Squats Resistance 5 cord Shuttle Recovery Platform Stable Therapeutic Exercises Supine Exercises 5 Supine Exercise Name Hamstring stretch. Reps/Minutes x 15 SH x 2 reps 6 Supine Exercise Name PPT with SLR Reps/Minutes x 10 reps x 2 sets Comments Avoid valsalva 4 Supine Exercise Name Right pelvis elev; Left pelvis depression Reps/Minutes x 10 reps x 2 sets Comments Avoid valslva 3 Supine Exercise Name PPT Side bilateral Reps/Minutes x 15 reps x 2 sets 2 Supine Exercise Name Lower trunk rotation stretch and ROM Side bilateral Equipment Used x 15 reps x 2 Comments avoid valsalva 1 Supine Exercise Name SKTC Side bilateral Reps/Minutes x15SH x 2 sets Sitting Exercises 1 Sitting Exercise Name EOB fwd lumbar flexio, rotation Reps/Minutes x 15SH x 3 reps each Standing Exercises 2 Standing Exercise Name side step squat Resistance GTB Reps/Minutes x 10 reps x 2 each sides 1 Standing Exercise Name PPT with static wall squat Reps/Minutes x 5SH x 10 reps Comments 45 deg squat Manual Therapy Treatment Soft Tissue Mobilization 1 Body Location Pralumbras ,QL Mobilization Type Myofascial Release Rolling Sustained Pressure Trigger Point Release Intensity/Depth Moderate Body Position sitting leaning on the table at shoulder level Comments start and end with effleurage PT-OP-R Modalities Start: 10/30/18 10:32 Freq: Status: Active Protocol: Document 12/10/18 07:29 EA (Rec: 12/10/18 07:38 EA [id number]) Electric Stimulation Electric Stimulation Interferential Current (IFC) Body Location Paralumbars Intensity 20 Combined With Heat/Cold Hot Pack Comments sitting PT-OP-T Assessment and Plan Start: 10/30/18 10:32 Freq: Status: Active Protocol: Document 12/10/18 08:14 EA (Rec: 12/10/18 08:15 EA [id number]) Physical Therapy Assessment Progress Towards Goals Progress Comments Improved exercise tolerance and lumbar flexibility noted in sitted fwd bending. Patient is progressing very well. Physical Therapy Plan Next Visit Focus/Plan Next Note Type Treatment Note Next Visit Plan Provide HEP with images
--- NOTE | 2018-12-12 12:32 | PT.OTN ---
Current Diagnoses Other spondylosis with radiculopathy, lumbar region (12/12/18) Low back pain (12/12/18) Physical Therapy Treatment Note PT-OP-A Visit Information Start: 10/30/18 10:32 Freq: Status: Active Protocol: Document 12/12/18 10:36 EA (Rec: 12/12/18 10:42 EA [id number]) Out-Patient Physical Therapy Visit Information Visit Information Visit Type Treatment Note Visit Start Time 09:00 Visit Stop Time 09:45 Visit Number 11 PT-OP-B Current Condition Start: 10/30/18 10:32 Freq: Status: Active Protocol: Document 10/30/18 14:48 EA (Rec: 10/30/18 15:10 EA [id number]) Current Condition History of Current Condition Onset Date 2018 Current Complaints Localized bilateral low back pain History of Current Condition Pt reports had initial onset 5 years ago which was fully resolved after 2 months of formal PT. He stated that low back pain re-occurs on the first week of July 2018 after more than 5 miles of walk. Pt denies numbness or loss of function to both LE's. Recent MRI reveals L3-L5 disc bulges with central canal stenosis and facets arthrosis. Prior Treatments and Tests September: cortisone shots with limited improvement Recent MRI. Future Testing and Treatments Planned Cortisone shot follow up : 11/06 Treatment Goals Patient/Caregiver Goals Pt would like to perform daily walk without increase of symptoms Prior Functional Status Baseline Function- ADL's Independent Baseline Function- Mobility Independent Baseline Function- Gait Unlimited distance with no back symtoms Baseline Function- Work/School Retired bank accountant Baseline Function- Recreation/Hobbies Daily walks of > 5 miles Current Functional Impairments (Reported) Functional Limitations- ADL's Indep in all except: unable to bend and tie shoes Functional Limitations- Mobility/Gait Indep but unable to walk more than 2 miles due to increase of symptoms Functional Limitations- Work/School Retired Functional Limitations- Recreation/ Unable to walk more than five Hobbies miles PT-OP-C Subjective Start: 10/30/18 10:32 Freq: Status: Active Protocol: Document 12/12/18 10:36 EA (Rec: 12/12/18 10:42 EA [id number]) OP-PT Subjective Patient Comments Patient Comments Pt reports compliant with HEP; states would like to know safe exercises he can do in the gym to burn more body weight. PT-OP-F Manual Assessment Start: 10/30/18 10:32 Freq: Status: Active Protocol: Document 10/30/18 14:48 EA (Rec: 10/30/18 15:10 EA [id number]) Manual Assessments Soft Tissue Assessment Soft Tissue Mobility Assessment Tight Muscles: Both quads, hip flexors, QLs, paralumabrs, side trunk flexors PT-OP-G Mobility & Gait Start: 10/30/18 10:32 Freq: Status: Active Protocol: Document 10/30/18 14:48 EA (Rec: 10/30/18 15:10 EA [id number]) OP Gait Assessment Assistive Devices Assistive Device None Comments Gait Comments Waddling gait PT-OP-J Posture/Palpation/Skin Start: 10/30/18 10:32 Freq: Status: Active Protocol: Document 10/30/18 14:48 EA (Rec: 10/30/18 15:10 EA [id number]) Posture Evaluation Position Standing Evaluation View post/ant Head/C-Spine Posture Forward Head T-Spine Posture Increased Kyphosis L-Spine Posture Increased Lordosis Shoulder Posture (L) Rounded (R) Rounded Arm Posture (L) Internally Rotated (R) Internally Rotated Pelvis Posture Anteriorly Tilted Hip Posture (L) Flexed (R) Flexed (L) Internally Rotated Palpation Assessment Location One Palpation Findings Soft Tissue Tightness Tenderness Trigger Point Palpation Details Paralumbars, both QL PT-OP-K Range of Motion Start: 10/30/18 10:32 Freq: Status: Active Protocol: Document 10/30/18 14:48 EA (Rec: 10/30/18 15:10 EA [id number]) Lumbar Spine Range of Motion Lumbar Spine Active Percentage Testing Position Standing Flexion 50 Extension 50 Rotation Left 60 Rotation Right 60 Lateral Flexion Left 40 Lateral Flexion Right 30 ROM Limitations Soft Tissue Tightness Pain PT-OP-L Special Tests Start: 10/30/18 10:32 Freq: Status: Active Protocol: Document 10/30/18 14:48 EA (Rec: 10/30/18 15:10 EA [id number]) Special Tests Lumbar Spine Special Tests Prone Instability Test Test Results - Slump Test Results - Other- 1 Test Results Gaenslen's + Straight Leg Raise Test Results + PT-OP-M Strength Start: 10/30/18 10:32 Freq: Status: Active Protocol: Document 10/30/18 14:48 EA (Rec: 10/30/18 15:10 EA [id number]) Trunk Strength Trunk Manual Muscle Testing Testing Position Sitting Flexion 4 Good Extension 4 Good Rotation Left 4 Good Rotation Right 4 Good Lateral Flexion Left 4 Good Lateral Flexion Right 4 Good Hip Strength Hip Manual Muscle Testing Right Reason Not Measured WFL Left Reason Not Measured WFL Knee Strength Knee Manual Muscle Testing Right Reason Not Measured WFL Left Reason Not Measured WFL PT-OP-Q Treatments Start: 10/30/18 10:32 Freq: Status: Active Protocol: Document 12/12/18 10:36 EA (Rec: 12/12/18 10:42 EA [id number]) Gym Equipment Cable Column (Body Solid) Lat Pull Down Details HEP Resistance 30-40# Reps/Time x15 reps x 2 Rows Details squat row Resistance 20# Reps/Time x 12 reps x 2 Leg Extension Details 30-40# Resistance x 15 reps x 2 Shuttle Recovery Bilateral Squats Resistance 7 cords Shuttle Recovery Platform Stable Therapeutic Exercises Standing Exercises 3 Standing Exercise Name DB shoulder side raises and front raises Resistance 2-4 lbs Reps/Minutes x 15 reps x 2 Comments 0-90 deg/shoulder level range 2 Standing Exercise Name side step squat Resistance GTB Reps/Minutes x 10 reps x 2 each sides 1 Standing Exercise Name PPT with static wall squat Reps/Minutes x 5SH x 10 reps Comments 45 deg squat Self-Care/Home Management Treatment Education Patient Education Body Mechanics Home Exercise Program Pain Management Posture Safety PT-OP-R Modalities Start: 10/30/18 10:32 Freq: Status: Active Protocol: Document 12/12/18 10:36 EA (Rec: 12/12/18 10:42 EA [id number]) Electric Stimulation Electric Stimulation Interferential Current (IFC) Body Location Paralumbars Duration (Minutes) 15 Intensity 35 Combined With Heat/Cold Hot Pack Comments sitting PT-OP-T Assessment and Plan Start: 10/30/18 10:32 Freq: Status: Active Protocol: Document 12/12/18 10:36 EA (Rec: 12/12/18 10:42 EA [id number]) Physical Therapy Assessment Assessment Summary Assessment Tolerated treatment well with no discomfort noted during therex. Patient understands safe recommended exercises to be performed in the gym. Physical Therapy Plan Next Visit Focus/Plan Next Note Type Treatment Note Next Visit Plan assess responsed gym exercises .
--- NOTE | 2018-12-17 10:42 | PT.OTN ---
Current Diagnoses Other spondylosis with radiculopathy, lumbar region (12/17/18) Low back pain (12/17/18) Physical Therapy Treatment Note PT-OP-A Visit Information Start: 10/30/18 10:32 Freq: Status: Active Protocol: Document 12/17/18 10:29 EA (Rec: 12/17/18 10:42 EA [id number]) Out-Patient Physical Therapy Visit Information Visit Information Visit Type Treatment Note Visit Start Time 07:30 Visit Stop Time 08:15 Total Visit Minutes 45 Visit Number 12 PT-OP-B Current Condition Start: 10/30/18 10:32 Freq: Status: Active Protocol: Document 10/30/18 14:48 EA (Rec: 10/30/18 15:10 EA [id number]) Current Condition History of Current Condition Onset Date 2018 Current Complaints Localized bilateral low back pain History of Current Condition Pt reports had initial onset 5 years ago which was fully resolved after 2 months of formal PT. He stated that low back pain re-occurs on the first week of July 2018 after more than 5 miles of walk. Pt denies numbness or loss of function to both LE's. Recent MRI reveals L3-L5 disc bulges with central canal stenosis and facets arthrosis. Prior Treatments and Tests week september: cortisone shots with limited improvement Recent MRI. 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 Function- Recreation/Hobbies Daily walks of > 5 miles Current Functional Impairments (Reported) Functional Limitations- ADL's Indep in all except: unable to bend and tie shoes Functional Limitations- Mobility/Gait Indep but unable to walk more than 2 miles due to increase of symptoms Functional Limitations- Work/School Retired Functional Limitations- Recreation/ Unable to walk more than five Hobbies miles PT-OP-C Subjective Start: 10/30/18 10:32 Freq: Status: Active Protocol: Document 12/17/18 10:29 EA (Rec: 12/17/18 10:42 EA [id number]) OP-PT Subjective Patient Comments Patient Comments Pt reports that he is much feeling better now; states would like to cont. HEP, fitness exercises and flexibility that would like to learn today. PT-OP-F Manual Assessment Start: 10/30/18 10:32 Freq: Status: Active Protocol: Document 10/30/18 14:48 EA (Rec: 10/30/18 15:10 EA [id number]) Manual Assessments Soft Tissue Assessment Soft Tissue Mobility Assessment Tight Muscles: Both quads, hip flexors, QLs, paralumabrs, side trunk flexors PT-OP-G Mobility & Gait Start: 10/30/18 10:32 Freq: Status: Active Protocol: Document 10/30/18 14:48 EA (Rec: 10/30/18 15:10 EA [id number]) OP Gait Assessment Assistive Devices Assistive Device None Comments Gait Comments Waddling gait PT-OP-J Posture/Palpation/Skin Start: 10/30/18 10:32 Freq: Status: Active Protocol: Document 10/30/18 14:48 EA (Rec: 10/30/18 15:10 EA [id number]) Posture Evaluation Position Standing Evaluation View post/ant Head/C-Spine Posture Forward Head T-Spine Posture Increased Kyphosis L-Spine Posture Increased Lordosis Shoulder Posture (L) Rounded (R) Rounded Arm Posture (L) Internally Rotated (R) Internally Rotated Pelvis Posture Anteriorly Tilted Hip Posture (L) Flexed (R) Flexed (L) Internally Rotated Palpation Assessment Location One Palpation Findings Soft Tissue Tightness Tenderness Trigger Point Palpation Details Paralumbars, both QL PT-OP-K Range of Motion Start: 10/30/18 10:32 Freq: Status: Active Protocol: Document 10/30/18 14:48 EA (Rec: 10/30/18 15:10 EA [id number]) Lumbar Spine Range of Motion Lumbar Spine Active Percentage Testing Position Standing Flexion 50 Extension 50 Rotation Left 60 Rotation Right 60 Lateral Flexion Left 40 Lateral Flexion Right 30 ROM Limitations Soft Tissue Tightness Pain PT-OP-L Special Tests Start: 10/30/18 10:32 Freq: Status: Active Protocol: Document 10/30/18 14:48 EA (Rec: 10/30/18 15:10 EA [id number]) Special Tests Lumbar Spine Special Tests Prone Instability Test Test Results - Slump Test Results - Other- 1 Test Results Gaenslen's + Straight Leg Raise Test Results + PT-OP-M Strength Start: 10/30/18 10:32 Freq: Status: Active Protocol: Document 10/30/18 14:48 EA (Rec: 10/30/18 15:10 EA [id number]) Trunk Strength Trunk Manual Muscle Testing Testing Position Sitting Flexion 4 Good Extension 4 Good Rotation Left 4 Good Rotation Right 4 Good Lateral Flexion Left 4 Good Lateral Flexion Right 4 Good Hip Strength Hip Manual Muscle Testing Right Reason Not Measured WFL Left Reason Not Measured WFL Knee Strength Knee Manual Muscle Testing Right Reason Not Measured WFL Left Reason Not Measured WFL PT-OP-Q Treatments Start: 10/30/18 10:32 Freq: Status: Active Protocol: Document 12/17/18 10:29 EA (Rec: 12/17/18 10:42 EA [id number]) Cardio Equipment Recumbent Stepper (Sci-Fit) Duration (Minutes) 10 Resistance 3.5 Seat Position 15 Gym Equipment Cable Column (Body Solid) Lat Pull Down Details HEP Resistance 30-40# Reps/Time x15 reps x 2 Rows Details squat row Resistance 20-30# Reps/Time x 12 reps x 2 Leg Extension Details 30-40# Resistance x 15 reps x 2 Reps/Time HEP comp Shuttle Recovery Bilateral Squats Resistance 7 cords Shuttle Recovery Platform Stable Reps/Time HEP comp Therapeutic Exercises Supine Exercises 5 Supine Exercise Name Hamstring stretch. Reps/Minutes x 15 SH x 2 reps Comments HEP 6 Supine Exercise Name PPT with SLR Reps/Minutes x 10 reps x 2 sets Comments HEP comp 3 Supine Exercise Name PPT Side bilateral Reps/Minutes x 15 reps x 2 sets Comments HEP 1 Supine Exercise Name SKTC Side bilateral Reps/Minutes x15SH x 2 sets Comments HEP Sitting Exercises 1 Sitting Exercise Name EOB fwd lumbar flexio, rotation Reps/Minutes x 15SH x 3 reps each Comments HEP comp Standing Exercises 3 Standing Exercise Name DB shoulder side raises and front raises Resistance 2-4 lbs Reps/Minutes x 15 reps x 2 Comments HEP comp 2 Standing Exercise Name side step squat Resistance GTB Reps/Minutes x 10 reps x 2 each sides 1 Standing Exercise Name Step hamstring stretch Reps/Minutes x 215SH x 2 reps Comments HEP comp Self-Care/Home Management Treatment Education Patient Education Body Mechanics Home Exercise Program Pain Management Posture Safety Other Education Discussed safe fitness exercises intensity, form, frequency, and duration. Discussed importance of recovery. Discussed general nuttition for better energy. PT-OP-R Modalities Start: 10/30/18 10:32 Freq: Status: Active Protocol: Document 12/12/18 10:36 EA (Rec: 12/12/18 10:42 EA [id number]) Electric Stimulation Electric Stimulation Interferential Current (IFC) Body Location Paralumbars Duration (Minutes) 15 Intensity 35 Combined With Heat/Cold Hot Pack Comments sitting PT-OP-T Assessment and Plan Start: 10/30/18 10:32 Freq: Status: Active Protocol: Document 12/17/18 10:29 EA (Rec: 12/17/18 10:42 EA [id number]) Physical Therapy Assessment Assessment Summary Assessment Patient exhibited no discomfort during treatment session; noted mild difficulty with hamstring stretch but was able to modified with stairs stretch. Patient shows good understanding with HEP safety. He is discharge today upon request. Physical Therapy Plan Discharge Physical Therapy Discharge Reasons Patient Request
--- NOTE | 2018-12-17 10:43 | PT.OPPOC ---
Current Diagnoses Other spondylosis with radiculopathy, lumbar region (12/17/18) Low back pain (12/17/18) Provider Visit Care Team Role Provider Type Mo Roper MD Primary Care Provider Physician Specialty: Internal Medicine Address: [address] [place] [address], [id number] Email: [email or web address] Gudelia Jackson MD Attending Provider Physician Specialty: Orthopedic Surgery Address: [address] [place] [address], [phone] Email: [email or web address] Plan Of Care PT-OP-T Assessment and Plan Start: 10/30/18 10:32 Freq: Status: Active Protocol: Document 12/17/18 10:29 EA (Rec: 12/17/18 10:42 EA [id number]) Physical Therapy Assessment Assessment Summary Assessment Patient exhibited no discomfort during treatment session; noted mild difficulty with hamstring stretch but was able to modified with stairs stretch. Patient shows good understanding with HEP safety. He is discharge today upon request. Physical Therapy Plan Discharge Physical Therapy Discharge Reasons Patient Request Plan of Care Dates Plan of Care Start Date 11/26/18 Plan of Care End Date 01/07/19 Please Sign and Return: I have reviewed this Plan of Care and certify that the skilled therapy services above are required to meet the patient?s needs. Physician Signature Date Printed Name and Credentials Clinical Instructor Signature Printed Name and Credentials
--- NOTE | 2018-12-17 10:44 | PT.OPDS ---
Current Diagnoses Other spondylosis with radiculopathy, lumbar region (12/17/18) Low back pain (12/17/18) Provider Visit Care Team Role Provider Type Mo Roper MD Primary Care Provider Physician Specialty: Internal Medicine Address: [address] [place] [address], [id number] Email: [email or web address] Gudelai Jackson MD Attending Provider Physician Specialty: Orthopedic Surgery Address: [address] [place] [address], [phone] Email: [email or web address] Visit Number Visit Number 12 Discharge Summary PT-OP-B Current Condition Start: 10/30/18 10:32 Freq: Status: Active Protocol: Document 10/30/18 14:48 EA (Rec: 10/30/18 15:10 EA [id number]) Current Condition History of Current Condition Onset Date 2018 Current Complaints Localized bilateral low back pain History of Current Condition Pt reports had initial onset 5 years ago which was fully resolved after 2 months of formal PT. He stated that low back pain re-occurs on the first week of July 2018 after more than 5 miles of walk. Pt denies numbness or loss of function to both LE's. Recent MRI reveals L3-L5 disc bulges with central canal stenosis and facets arthrosis. Prior Treatments and Tests September: cortisone shots with limited improvement Recent MRI. 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 Daily walks of > 5 miles Current Functional Impairments (Reported) Functional Limitations- ADL's Indep in all except: unable to bend and tie shoes Functional Limitations- Mobility/Gait Indep but unable to walk more than 2 miles due to increase of symptoms Functional Limitations- Work/School Retired Functional Limitations- Recreation/ Unable to walk more than five Hobbies miles PT-OP-C Subjective Start: 10/30/18 10:32 Freq: Status: Active Protocol: Document 12/17/18 10:29 EA (Rec: 12/17/18 10:42 EA [id number]) OP-PT Subjective Patient Comments Patient Comments Pt reports that he is much feeling better now; states would like to cont. HEP, fitness exercises and flexibility that would like to learn today. PT-OP-F Manual Assessment Start: 10/30/18 10:32 Freq: Status: Active Protocol: Document 10/30/18 14:48 EA (Rec: 10/30/18 15:10 EA [id number]) Manual Assessments Soft Tissue Assessment Soft Tissue Mobility Assessment Tight Muscles: Both quads, hip flexors, QLs, paralumabrs, side trunk flexors PT-OP-G Mobility & Gait Start: 10/30/18 10:32 Freq: Status: Active Protocol: Document 10/30/18 14:48 EA (Rec: 10/30/18 15:10 EA [id number]) OP Gait Assessment Assistive Devices Assistive Device None Comments Gait Comments Waddling gait PT-OP-J Posture/Palpation/Skin Start: 10/30/18 10:32 Freq: Status: Active Protocol: Document 10/30/18 14:48 EA (Rec: 10/30/18 15:10 EA [id number]) Posture Evaluation Position Standing Evaluation View post/ant Head/C-Spine Posture Forward Head T-Spine Posture Increased Kyphosis L-Spine Posture Increased Lordosis Shoulder Posture (L) Rounded (R) Rounded Arm Posture (L) Internally Rotated (R) Internally Rotated Pelvis Posture Anteriorly Tilted Hip Posture (L) Flexed (R) Flexed (L) Internally Rotated Palpation Assessment Location One Palpation Findings Soft Tissue Tightness Tenderness Trigger Point Palpation Details Paralumbars, both QL PT-OP-K Range of Motion Start: 10/30/18 10:32 Freq: Status: Active Protocol: Document 10/30/18 14:48 EA (Rec: 10/30/18 15:10 EA [id number]) Lumbar Spine Range of Motion Lumbar Spine Active Percentage Testing Position Standing Flexion 50 Extension 50 Rotation Left 60 Rotation Right 60 Lateral Flexion Left 40 Lateral Flexion Right 30 ROM Limitations Soft Tissue Tightness Pain PT-OP-L Special Tests Start: 10/30/18 10:32 Freq: Status: Active Protocol: Document 10/30/18 14:48 EA (Rec: 10/30/18 15:10 EA [id number]) Special Tests Lumbar Spine Special Tests Prone Instability Test Test Results - Slump Test Results - Other- 1 Test Results Gaenslen's + Straight Leg Raise Test Results + PT-OP-M Strength Start: 10/30/18 10:32 Freq: Status: Active Protocol: Document 10/30/18 14:48 EA (Rec: 10/30/18 15:10 EA [id number]) Trunk Strength Trunk Manual Muscle Testing Testing Position Sitting Flexion 4 Good Extension 4 Good Rotation Left 4 Good Rotation Right 4 Good Lateral Flexion Left 4 Good Lateral Flexion Right 4 Good Hip Strength Hip Manual Muscle Testing Right Reason Not Measured WFL Left Reason Not Measured WFL Knee Strength Knee Manual Muscle Testing Right Reason Not Measured WFL Left Reason Not Measured WFL PT-OP-T Assessment and Plan Start: 10/30/18 10:32 Freq: Status: Active Protocol: Document 12/17/18 10:29 EA (Rec: 12/17/18 10:42 EA [id number]) Physical Therapy Assessment Assessment Summary Assessment Patient exhibited no discomfort during treatment session; noted mild difficulty with hamstring stretch but was able to modified with stairs stretch. Patient shows good understanding with HEP safety. He is discharge today upon request. Physical Therapy Plan Discharge Physical Therapy Discharge Reasons Patient Request
== END 2018-12-17 08:30 | disposition home or self-care (01) ==
LOC: PHYS 07:30
PROVIDERS: PCP Internal Medicine; Visit Provider Orthopaedic Surgery Orthopaedic Surgery of the Spine
DX: M47.26 Other spondylosis with radiculopathy, lumbar region (principal); M54.5 Low back pain
CPT/HCPCS: 97014; 97110; 97140; 97162; 97535; G0283

== ENCOUNTER → 2019-02-13 12:14 | Outpatient (CLI) | payer MEDICARE, BC, SELFPAY ==
[2019-02-13 12:48] LABS: BUN Creatinine Ratio 21.3 (6-22); Blood Urea Nitrogen 17 mg/dL (9-20); Calcium 9.2 mg/dL (8.4-10.2); Carbon Dioxide 28 mmol/L (22-32); Chloride 103 mmol/L (98-107); Estimated Glomerular Filt Rate > 60.0 mL/min (>60); Glucose 89 mg/dL (80-110); HEMOLYSIS 24 (0-50); Magnesium 1.5 mg/dL (1.6-2.3); Potassium 4.4 mmol/L (3.4-5.1); Sodium 140 mmol/L (137-145)
== END ==
PROVIDERS: PCP Internal Medicine; Visit Provider Internal Medicine
DX: I10 Essential (primary) hypertension (principal)
CPT/HCPCS: 36415; 80048; 83735

== ENCOUNTER → 2019-04-19 07:26 | Outpatient (CLI) | payer MEDICARE, BC, SELFPAY ==
[2019-04-19 08:01] LABS: Alanine Aminotransferase 35 IU/L (21-72); Albumin 4.1 g/dL (3.5-5.0); Albumin Globulin Ratio 1.2 (1.0-2.8); Alkaline Phosphatase 90 U/L (38-126); Aspartate Aminotransferase 38 IU/L (17-59); BUN Creatinine Ratio 26.3 (6-22); Bilirubin Total 0.9 mg/dL (0.2-1.3); Blood Urea Nitrogen 21 mg/dL (9-20); Calcium 9.4 mg/dL (8.4-10.2); Carbon Dioxide 26 mmol/L (22-32); Chloride 103 mmol/L (98-107); Cholesterol 110 mg/dL (140-199); Estimated Glomerular Filt Rate > 60.0 mL/min (>60); Globulin 3.5 g/dL (1.7-4.1); Glucose 114 mg/dL (80-110); HDL Cholesterol 36 mg/dL (40-60); HEMOLYSIS < 15 (0-50); LDL Cholesterol Calculated 52 mg/dL (<100); Sodium 140 mmol/L (137-145); Total Protein 7.6 g/dL (6.3-8.2); Triglycerides 109 mg/dL (35-150)
== END ==
PROVIDERS: Family Provider Internal Medicine; PCP Internal Medicine; Visit Provider Internal Medicine Cardiovascular Disease
DX: E78.5 Hyperlipidemia, unspecified (principal)
CPT/HCPCS: 36415; 80053; 80061

== ENCOUNTER → 2019-04-23 09:09 | Outpatient (CLI) | payer MEDICARE, BC, SELFPAY | PROVIDERS: PCP Internal Medicine | DX: Z23 Encounter for immunization (principal) | CPT/HCPCS: 90471; 90662 ==

== ENCOUNTER → 2019-07-08 17:43 | Outpatient (CLI) | payer MEDICARE, BC, SELFPAY ==
--- NOTE | 2019-07-08 | DI.MRI.S_ITS ---
PROCEDURE: MR KNEE RT WO CON INDICATIONS: Unspecified internal derangement of right knee TECHNIQUE: Noncontrast sagittal PD fast spin echo and T2 fast spin echo with fat saturation, sagittal 3-D FLASH with fat saturation; coronal T1 spin echo and PD fast spin echo with fat saturation, and axial PD fast spin echo with fat saturation through the knee. COMPARISON: None. FINDINGS: Image quality: Excellent. Menisci: There is linear oblique high T2 signal intensity within the medial meniscal body and posterior horn, demonstrating inferior articular surface extension, indicating oblique tearing. Lateral meniscus is intact. Cruciate ligaments: The anterior and posterior cruciate ligaments appear intact. Medial structures: The medial collateral ligament appears intact. Visualized portions of the pes anserinus tendons appear normal. No abnormal bursal fluid. Lateral structures: The lateral collateral ligament demonstrates mild T2 signal elevation at the femoral origin. The long and short heads of the biceps femoris tendon appear intact. The popliteus tendon appears normal. Iliotibial band appears normal. Anterior structures: The quadriceps and patellar tendons appear intact. Patellar alignment is normal. No femoral trochlear dysplasia or ventral trochlear prominence. No edema in the infrapatellar fat pad. Bones and cartilage: No bone marrow contusions or fractures. There is mild tricompartmental periarticular osteophyte formation. There is mild subchondral degenerative marrow edema within the weightbearing aspect of the medial femoral condyle. Moderate to severe articular cartilage loss diffusely overlies the weightbearing aspects of the medial femoral condyle and medial tibial plateau. Articular cartilage loss diffusely overlies the weightbearing aspects of the lateral femoral condyle and lateral tibial plateau. Articular cartilage fibrillation overlies the medial and lateral patellar facets. There is a 2 mm demonstration of full-thickness articular cartilage loss overlying the patellar facet inferiorly. Joint space: There is a small knee joint effusion and trace Mac's cyst. Normal appearing synovial plicae are incidentally noted. IMPRESSION: 1. Tricompartmental osteoarthritis with associated articular cartilage loss. 2. Medial meniscal tear. 3. Knee joint effusion and Mac's cyst. 4. Partial-thickness lateral collateral ligament tear. Dictated by: Evelyn Jensen M.D. on 07/09/2019 at 11:04 Approved by: Evelyn Jensen M.D. on 07/09/2019 at 11:24
== END ==
PROVIDERS: Family Provider Internal Medicine; PCP Internal Medicine; Visit Provider Orthopaedic Surgery
DX: S83.241A Other tear of medial meniscus, current injury, right knee, initial encounter (principal); S83.421A Sprain of lateral collateral ligament of right knee, initial encounter; M17.11 Unilateral primary osteoarthritis, right knee; M25.461 Effusion, right knee; M71.21 Synovial cyst of popliteal space [Baker], right knee
CPT/HCPCS: 73721

== ENCOUNTER → 2020-03-06 08:13 | Outpatient (CLI) | payer MEDICARE, BC, SELFPAY ==
[2020-03-06 08:51] LABS: Add Manual Diff / Slide Review NO; Basophils Absolute Auto 0 /uL (0-100); Basophils Percent Auto 0.5 % (0-2); Eosinophils Absolute Auto 200 /uL (0-450); Eosinophils Percent Auto 4.5 % (2-4); Hematocrit 40.3 % (41-53); Hemoglobin 13.6 g/dL (13.5-17.5); Lymphocytes Absolute Auto 1200 /uL (1100-4500); Lymphocytes Percent Auto 21.1 % (25-40); Mean Corpuscular HGB Conc 33.8 % (30-36); Mean Corpuscular Hemoglobin 33.8 PG (26-34); Monocytes Absolute Auto 500 /uL (0-900); Monocytes Percent Auto 9.8 % (3-14); Neutrophils Absolute Auto 3500 /uL (1500-7000); Neutrophils Percent Auto 64.1 % (50-75); Platelet Count 162 X10^3/uL (150-400); Red Blood Cell Count 4.03 X10^6/uL (4.5-5.9); Red Cell Distribution Width 12.8 % (11.6-14.8); White Blood Cell Count 5.5 X10^3/uL (4.5-11.0)
[2020-03-06 09:13] LABS: BUN Creatinine Ratio 22.1 (6-22); Blood Urea Nitrogen 17 mg/dL (9-20); Calcium 9.5 mg/dL (8.4-10.2); Carbon Dioxide 30 mmol/L (22-32); Chloride 100 mmol/L (98-107); Estimated Glomerular Filt Rate > 60.0 mL/min (>60); Glucose 103 mg/dL (80-110); HEMOLYSIS < 15 (0-50); Potassium 3.8 mmol/L (3.4-5.1); Sodium 137 mmol/L (137-145)
== END ==
PROVIDERS: Family Provider Internal Medicine; PCP Internal Medicine; Referring Provider Orthopaedic Surgery; Visit Provider Orthopaedic Surgery
DX: Z01.818 Encounter for other preprocedural examination (principal); Z01.812 Encounter for preprocedural laboratory examination
CPT/HCPCS: 36415; 80048; 85025; 93005

== ENCOUNTER → 2020-03-20 08:09 | Outpatient (CLI) | payer MEDICARE, BC, SELFPAY ==
[2020-03-21 21:20] LABS: COVID19 Sendout Not Detected (Not Detect)
== END ==
PROVIDERS: Family Provider Internal Medicine; PCP Internal Medicine; Visit Provider Physician Assistant
DX: Z11.59 Encounter for screening for other viral diseases (principal)
CPT/HCPCS: 87635

== ENCOUNTER 2020-03-23 06:19 | Day surgery (SDC) | payer MEDICARE, BC, SELFPAY ==
[2020-03-17 08:42] VITALS: BMI 42.8
[2020-03-23] VITALS (8 sets, daily range): BP systolic 87–153; BP diastolic 42–71; PULSE 77–111; RESP 14–18; TEMP 36–36.7; O2SAT 94–99; BMI 39.5
--- NOTE | 2020-03-23 | DI.RAD.S_ITS ---
PROCEDURE: XR KNEE RT 1TO2V INDICATIONS: RT UNI KNEE TECHNIQUE: 2 view(s) of the knee acquired. COMPARISON: None. FINDINGS: Bones: Patient is status post knee joint arthroplasty. Hardware components are in expected positions. Visualized bony structures are intact. Soft tissues: Overlying postoperative changes are noted. IMPRESSION: Expected postoperative appearance Dictated by: Darnell Berumen M.D. on 03/23/2020 at 13:09 Approved by: Darnell Berumen M.D. on 03/23/2020 at 13:16
[2020-03-23] MEDS: LACTATED RINGERS 1,000 ML 42 ML IV (07:20)
--- NOTE | 2020-03-23 07:50 | PM.PREOP ---
Pre-operative Note COVID-19 COVID-19 status: Negative Result date/Date tested (Pos, Neg/Pending): 03/20/20 Interval Note History & Physical reviewed/Exam performed by Physician: Yes Changes to H&P: No
--- NOTE | 2020-03-23 07:51 | PM.OP.1 ---
Operative Date/Time/Diagnoses Date of procedure: 03/23/20 Time of procedure: 09:10 Pre-op diagnosis: Right knee medial compartment osteoarthritis Post-op diagnosis: same Procedure & Clinicians Procedure: Right knee medial compartment arthroplasty Same procedure as scheduled: Yes Indications: The patient presents today for medial compartment arthroplasty of the right knee. He has failed conservative treatment for osteoarthritis. The nature of the procedure including the risks and benefits, alternatives, postoperative course and expected outcome were discussed and all questions answered. Consent was obtained. Operative site confirmed and marked. Surgeon: Branden Hunter Cork Insulation Installer: Abraham Singh Operative Notes Prosthetic devices, grafts, tissues, transplants, or devices: ZUK D femur, 3 tibia and 10 mm poly tray. Procedure in detail: The patient was taken to the operative suite and placed under general anesthesia. The patient received prophylactic antibiotics prior to surgery. [The lateral aspect of the leg was prepped and the knee injected with 20 mL of 1% lidocaine with epinephrine.] The leg was prepped and draped in usual sterile fashion. The leg was exsanguinated with an Esmarch dressing and the tourniquet raised to 250 torr. A 10 cm medial parapatellar incision and arthrotomy was then made. The anterior aspect of the fat pad and medial meniscus was resected. A small amount of anterior tibial boss was resected with a oscillating saw. The knee was then extended and the alignment guide placed. The distal femoral and proximal tibial cutting guides were then pinned into place. The distal femoral cut was made in extension. The proximal tibial cut was made in flexion. All remaining meniscus was excised. Gaps were checked with blocks. Soft tissues were then injected with a combination of [40 mL of quarter percent Marcaine with epinephrine, 20 mL of Exparel]. The femur was sized and the appropriate cutting guide placed. The peg holes were drilled and chamfer cuts made. Next the tibia was sized and drilled. Trial components were then placed. The knee had good episcopal of soft tissue tension without over correction. Range of motion was [full]. The trial components were removed. The knee was cleansed with Pulsavac irrigation and dried. The components were then cemented with high viscosity vacuum mixed bone cement. The knee was held in extension until the cement had adequately cured. The knee was then irrigated and inspected for any further debris. The extensor mechanism was closed at 90? of flexion with a few interrupted #1 Vicryl sutures and a running O V-LOC suture. [The knee was then filled with 50 mL of solution containing 1 g of tranexamic acid and 10 mL of 0.5% Marcaine.] The subcutaneous tissue was closed with 2-0 Vicryl. The skin was closed with a running 3 0 V-LOC suture and surgical adhesive. An Aquacel dressing was applied. The leg was then wrapped with an Shashi which will be kept on for the first 24 hours. The patient tolerated the procedure well and was returned to recovery room in good condition. Post-operative Plan for aftercare: Discharge to home. Weightbearing and activity as tolerated. Daily home range of motion exercise. Start physical therapy within 1 week.
--- NOTE | 2020-03-23 07:59 | SUR.OPER ---
Supine on padded OR bed. Pillow under head, arms secured on padded armboards <90 degree abduction. Safety belt across torso. Non-operative leg secured with tape over blanket over lower leg. Operative leg secured in DeMayo/Aden positioner. Foam padded brace at thigh of operative leg.
[2020-03-23] MEDS: CEFAZOLIN VIAL 3 GM in SODIUM CHLORIDE 0.9% 100 ML 200 ML IV (08:13)
[2020-03-23] MEDS: BUPIVACAINE 0.5% W/ EPI (PF) 10 ML, TRANEXAMIC ACID 1,000 MG, SODIUM CHLORIDE 0.9% 20 ML INJ (08:32)
[2020-03-23] MEDS: BUPIVACAINE 0.5% W/ EPI (PF) 20 ML, BUPIVACAINE LIPOSOME 266 MG, SODIUM CHLORIDE 0.9% 2... INJ (08:34)
[2020-03-23] MEDS: LIDOCAINE 1% W/EPI 20 ML INJ (08:35)
[2020-03-23] MEDS: OXYCODONE/ACETAMINOPHEN 5/325 TABLET 1 TAB PO (10:32)
--- NOTE | 2020-03-23 12:48 | SUR.PHASEII ---
pt able to get out of bed, walk with sba safely. pt states pain was 4/10, was tolerable but requested that he wanted a pain pill prior to leaving. this was given. pt left with in w/c to car.
== END 2020-03-23 11:08 | disposition home or self-care (01) ==
PROVIDERS: Family Provider Internal Medicine; PCP Internal Medicine; Referring Provider Internal Medicine; Visit Provider Orthopaedic Surgery
PROC: (CPT 27446; principal; 2020-03-23 07:45)
DX: M17.11 Unilateral primary osteoarthritis, right knee (principal); E66.9 Obesity, unspecified; G47.33 Obstructive sleep apnea (adult) (pediatric); I25.10 Atherosclerotic heart disease of native coronary artery without angina pectoris; I48.20 Chronic atrial fibrillation, unspecified
CPT/HCPCS: 27446; 73560; C1776; C9290; J0690; J1100; J2405; J2704; J3010

== ENCOUNTER → 2020-05-05 | Outpatient (CLI) | payer MEDICARE, BC, SELFPAY | PROVIDERS: Family Provider Internal Medicine; PCP Internal Medicine; Referring Provider Internal Medicine; Visit Provider Internal Medicine | DX: Z23 Encounter for immunization (principal) | CPT/HCPCS: 90471; 90662 ==

== ENCOUNTER 2020-08-11 09:45 | Outpatient (RCR) | payer MEDICARE, BC, SELFPAY ==
--- NOTE | 2020-03-30 12:31 | PT.OIE ---
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) Coronary artery disease involving [place] coronary artery of [place] heart without angina pectoris (Chronic 02/2017) Diverticular disease (Chronic 03/15/16) Dizziness (Acute) Foot pain (Resolved 2005) Fractures (Resolved) Hearing loss (Chronic 2005) Hemorrhoids (Chronic) History of adenomatous polyp of colon (Chronic) Hyperlipidemia (Chronic) Hypertension (Chronic 1985) Idiopathic peripheral neuropathy (Chronic 07/06/15) Measles (Resolved) Plantar warts (Resolved) Sciatica (Resolved) Shingles (Resolved 2007) Shoulder pain (Resolved) Vertigo (Resolved 2006) Past Surgical History (Last Updated 03/17/20 @ 08:52 by Jessica Mon RN) Anesthesia complication (Resolved) History of cardiac catheterization (Acute 11/16/16) History of colonoscopy (Resolved 03/15/16) Status post placement of stent in right coronary artery (Resolved 11/16/16) Status post rotator cuff repair (Resolved 07/11/12) Visit Care Team Role Provider Type Mo Roper MD Family Provider Physician Primary Care Provider Specialty: Internal Medicine Address: [address] [place] [address], [address], [address] Email: [email or web address] Branden Hunter MD Attending Provider Physician Referring Provider Specialty: Orthopedic Surgery Address: [address] [place] [address], [id number] Email: [email or web address] Physical Therapy Initial Evaluation PT-OP-A Visit Information Start: 03/30/20 12:07 Freq: Status: Active Protocol: Document 03/30/20 12:07 (Rec: 03/30/20 12:31 [email or web address]) Out-Patient Physical Therapy Visit Information Visit Information Visit Type Initial Evaluation Visit Start Time 09:48 Visit Stop Time 10:30 Total Visit Minutes 42 Visit Number 08/18 Number of LANDSCAPE AND YARDWORK LABORER Visits 0 Evaluation Information Evaluation Date 03/30/20 Precautions Precautions stent placement PT-OP-B Current Condition Start: 03/30/20 12:07 Freq: Status: Active Protocol: Document 03/30/20 12:07 (Rec: 03/30/20 12:31 [email or web address]) Current Condition History of Current Condition Onset Date 03/23/20 Current Complaints R unilateral medial knee arthroplasty, difficulty in walking History of Current Condition Pt is a 69 yo active male s/p POD7 of R unilateral medial knee arthroplasty by Dr. Hunter. Pt was dx with R medial compartment arthritis after he felt significant pain from his trip to [facility] in September. Pt has difficulty walking after who walked [phone] steps a day prior to that. Pt has been progressing well since surgery and is currently using a SPC for mobility. Pt has difficulty bending his R knee and has to stand up with a stagger stance. He has been doing LAQ and Hamstring stretch since the surgery. Prior Functional Status Baseline Function- ADL's Independent Baseline Function- Mobility Independent Baseline Function- Gait no SPC, walk 14k Steps a day. Current Functional Impairments (Reported) Functional Limitations- Mobility/Gait Pt has difficulty bending his R knee and has to stand up with a stagger stance. He has been doing LAQ and Hamstring stretch since the surgery. Personal Factors Other Personal Factors That May Effect stent placement Therapy/Recovery PT-OP-C Subjective Start: 03/30/20 12:07 Freq: Status: Active Protocol: Document 03/30/20 12:07 (Rec: 03/30/20 12:31 [email or web address]) OP-PT Subjective Patient Comments Patient Comments Im doing pretty good at this point Patient Reported Progress Improving Patient Questionnaires Lower Extremity Functional Scale LEFS Score 20 LEFS Impairment 60 to 79% Impaired (Score 17- 31) OP-PT Pain Assessment Location R medial knee Pain Location Details medial knee joint line Intensity 5 Scale Used Numeric (0 - 10) Description Aching,Acute,Pressure,With Movement Frequency Frequent Pain Aggravating Factors Position,Activity,Exercise, Standing,Walking,Stair Climbing,Bending Pain Alleviating Factors Inactivity,Sitting PT-OP-F Manual Assessment Start: 03/30/20 12:07 Freq: Status: Active Protocol: Document 03/30/20 12:07 (Rec: 03/30/20 12:31 [email or web address]) Manual Assessments Soft Tissue Assessment Soft Tissue Mobility Assessment slight warm to touch around incision site and medial knee TTP at medial joint line PT-OP-G Mobility & Gait Start: 03/30/20 12:07 Freq: Status: Active Protocol: Document 03/30/20 12:07 (Rec: 03/30/20 12:31 [email or web address]) OP Gait Assessment Gait Gait Assistance Required: Independent Assistive Devices Assistive Device Straight Cane Gait Deviations General Gait Pattern Antalgic,Decreased Stride Length,Decreased Feet Clearance PT-OP-J Posture/Palpation/Skin Start: 03/30/20 12:07 Freq: Status: Active Protocol: Document 03/30/20 12:07 (Rec: 03/30/20 12:31 [email or web address]) Posture Evaluation Position Standing Evaluation View Anterior Weight Distribution Weight Shifted Left,Decreased Wt.Bear on (R) Knee Posture (R) Ext. Tibial Torsion,(R) Excess Flexion Skin Assessment Circumference Measurement L knee Location superior to patella= 18, center of patella= 16.5, tibial tub=14.7. R knee Location superior to patella= 19, center of patella= 18, tibial tuberosity= 17 Incisional Assessment Incision Appearance/Comments incision looks intact with slight redness and mild drainage on gauze PT-OP-K Range of Motion Start: 03/30/20 12:07 Freq: Status: Active Protocol: Document 03/30/20 12:07 (Rec: 03/30/20 12:31 [email or web address]) Knee Goniometric Range of Motion Knee L knee Knee ROM WFL Yes Patient Position Supine Flexion Active (degrees) 130 Hyper-Extension Active 4 R knee Knee ROM WFL No Patient Position Supine Flexion Active (degrees) 103 Extension Active (degrees) 10 Knee ROM Limitations Knee ROM Limitations Soft Tissue Tightness,Muscle Tone,Pain,Swelling PT-OP-M Strength Start: 03/30/20 12:07 Freq: Status: Active Protocol: Document 03/30/20 12:07 (Rec: 03/30/20 12:31 [email or web address]) Knee Strength Knee Manual Muscle Testing Right Flexion (S2) 4- Good- Extension (L3) 3 Fair Left Flexion (S2) 4+ Good+ Extension (L3) 4+ Good+ PT-OP-Q Treatments Start: 03/30/20 12:07 Freq: Status: Active Protocol: Document 03/30/20 12:07 (Rec: 03/30/20 12:31 [email or web address]) Therapeutic Exercises Supine Exercises knee extension Side right Equipment Used rolled towel underneath ankle Reps/Minutes 5 x 2 Comments for HEP heel slide Side right Comments for HEP Manual Therapy Treatment Soft Tissue Mobilization STM Body Location medial quad, calves Mobilization Type Rolling,Sustained Pressure, Trigger Point Release Intensity/Depth Moderate Body Position Hooklying Comments significant tenderness to pressure at R calves and medial quad (calf worse than quad) educated pt on regular checking on his pain/ swelling at R calf to prevent DVT and PE PT-OP-T Assessment and Plan Start: 03/30/20 12:07 Freq: Status: Active Protocol: Document 03/30/20 12:07 (Rec: 03/30/20 12:31 [email or web address]) Physical Therapy Assessment Goals gait and transfers Impairment pt walks with SPC and sit to stand with stagger stance Mobile Home Park Manager Goal (LTG) pt will be able to amb without AD safely and complete sit to stand with an even steps without using armrest to push off as well. LTG Duration 8 weeks ROM Impairment R knee flexion= 103, extension =10 Senior Care Goal (LTG) pt will regain his R knee extension to less than 0 and flexion to 130 actively to optimize his gait mechanics LTG Duration 8 weeks LEFS Impairment pt scores 20 for LEFS Short Term Goal (STG) pt will score >47 on LEFS to improve his overall functional mobility STG Duration 4 weeks Senior Care Goal (LTG) pt will score >62 on LEFS to improve his overall functional mobility so he can return to his 14k steps a day. LTG Duration 8 weeks Assessment Summary Assessment This is a low complexity evaluation for this 69 yo active male s/p POD7 of R unilateral medial knee arthroplasty by Dr. Hunter . Upon assessment, pt is using a SPC safely but lack of knee extension and flexion noticed . Pt has not bee doing any knee flexion ex and poor muscle engagement with his LAQ . His flexion = 103degrees and ext= 10 degrees with significant tightness at medial quad and calf. Educated pt regarding prevention of PE and DVT. Pt's knee flexion improved to 110 degrees immediately after using rolling pin for STM. Pt will benefit from skilled therapy to improve his knee mobility, gait mechanics, LE strength in order for him to return to his daily 14K steps routine. Physical Therapy Plan Frequency and Duration Frequency of Treatment 2x/Week Duration of Treatment 8 weeks Plan of Care Start Date 03/30/20 Plan of Care End Date 05/29/20 Therapeutic Interventions Therapeutic Interventions Balance Training,Gait Training ,Home Exercise Program,Joint Mobilizations,Manual Therapy, Neuromuscular Re-education, Patient/Caregiver Education, Self-Care/Home Management, Sensory Integration,Soft Tissue Mobilization,Taping, Therapeutic Activities, Therapeutic Exercises Modalities Cold Pack/Ice Massage,Electric Stimulation,Hot Packs, Infrared Therapy,Ultrasound Next Visit Focus/Plan Next Note Type Treatment Note Next Visit Plan reivew knee ROM ex rolling pin for calf , knee mob bike if possible gait training heel strike, stance phase
--- NOTE | 2020-03-30 12:31 | PT.OPPOC ---
Physical, Occupational & Speech Therapy At [facility] Current Diagnoses Unilateral primary osteoarthritis, right knee (03/30/20) Visit Care Team Role Provider Type Mo Roper MD Family Provider Physician Primary Care Provider Specialty: Internal Medicine Address: [address] [place] [address], [address], [address] Email: [email or web address] Branden Hunter MD Attending Provider Physician Referring Provider Specialty: Orthopedic Surgery Address: [address] [place] [address], [id number] Email: [email or web address] Plan Of Care PT-OP-T Assessment and Plan Start: 03/30/20 12:07 Freq: Status: Active Protocol: Document 03/30/20 12:07 (Rec: 03/30/20 12:31 [email or web address]) Physical Therapy Assessment Goals gait and transfers Impairment pt walks with SPC and sit to stand with stagger stance Detention Goal (LTG) pt will be able to amb without AD safely and complete sit to stand with an even steps without using armrest to push off as well. LTG Duration 8 weeks ROM Impairment R knee flexion= 103, extension =10 Detention Goal (LTG) pt will regain his R knee extension to less than 0 and flexion to 130 actively to optimize his gait mechanics LTG Duration 8 weeks LEFS Impairment pt scores 20 for LEFS Short Term Goal (STG) pt will score >47 on LEFS to improve his overall functional mobility STG Duration 4 weeks Detention Goal (LTG) pt will score >62 on LEFS to improve his overall functional mobility so he can return to his 14k steps a day. LTG Duration 8 weeks Assessment Summary Assessment This is a low complexity evaluation for this 69 yo active male s/p POD7 of R unilateral medial knee arthroplasty by Dr. Hunter . Upon assessment, pt is using a SPC safely but lack of knee extension and flexion noticed . Pt has not bee doing any knee flexion ex and poor muscle engagement with his LAQ . His flexion = 103degrees and ext= 10 degrees with significant tightness at medial quad and calf. Educated pt regarding prevention of PE and DVT. Pt's knee flexion improved to 110 degrees immediately after using rolling pin for STM. Pt will benefit from skilled therapy to improve his knee mobility, gait mechanics, LE strength in order for him to return to his daily 14K steps routine. Physical Therapy Plan Frequency and Duration Frequency of Treatment 2x/Week Duration of Treatment 8 weeks Plan of Care Start Date 03/30/20 Plan of Care End Date 05/29/20 Therapeutic Interventions Therapeutic Interventions Balance Training,Gait Training ,Home Exercise Program,Joint Mobilizations,Manual Therapy, Neuromuscular Re-education, Patient/Caregiver Education, Self-Care/Home Management, Sensory Integration,Soft Tissue Mobilization,Taping, Therapeutic Activities, Therapeutic Exercises Modalities Cold Pack/Ice Massage,Electric Stimulation,Hot Packs, Infrared Therapy,Ultrasound Next Visit Focus/Plan Next Note Type Treatment Note Next Visit Plan reivew knee ROM ex rolling pin for calf , knee mob bike if possible gait training heel strike, stance phase Plan of Care Dates Plan of Care Start Date 03/30/20 Plan of Care End Date 05/29/20 Electronically Signed by: Fawn Carter PT 03/30/20 0518 Please Sign and Return: I have reviewed this Plan of Care and certify that the skilled therapy services above are required to meet the patient?s needs. Physician Signature Date Printed Name and Credentials Clinical Instructor Signature Printed Name and Credentials
--- NOTE | 2020-04-02 15:22 | PT.OPPN ---
Current Diagnoses Unilateral primary osteoarthritis, right knee (03/30/20) Physical Therapy Progress Note PT-OP-T Assessment and Plan Start: 03/30/20 12:07 Freq: Status: Active Protocol: Document 04/02/20 15:19 HH (Rec: 04/02/20 15:21 HH [email or web address]) Physical Therapy Plan Hold Physical Therapy Reason For Hold pt had a f/u with surgeon and pt cont to have excessive drainage. Surgeon told pt that if drainage still exists until Monday, pt will have possible surgical I&D that day . On hold for therapy first.
--- NOTE | 2020-04-07 16:11 | PT.OTN ---
Current Diagnoses Unilateral primary osteoarthritis, right knee (04/07/20) Physical Therapy Treatment Note PT-OP-A Visit Information Start: 03/30/20 12:07 Freq: Status: Active Protocol: Document 04/07/20 13:05 (Rec: 04/07/20 16:10 [id number]) Out-Patient Physical Therapy Visit Information Visit Information Visit Type Treatment Note Visit Start Time 13:02 Visit Stop Time 13:45 Total Visit Minutes 43 Visit Number 09/18 Number of GEAR GENERATOR SET UP OPERATOR Visits 0 PT-OP-B Current Condition Start: 03/30/20 12:07 Freq: Status: Active Protocol: Document 03/30/20 12:07 (Rec: 03/30/20 12:31 [email or web address]) Current Condition History of Current Condition Onset Date 03/23/20 Current Complaints R unilateral medial knee arthroplasty, difficulty in walking History of Current Condition Pt is a 69 yo active male s/p POD7 of R unilateral medial knee arthroplasty by Dr. Hunter. Pt was dx with R medial compartment arthritis after he felt significant pain from his trip to [facility] in September. Pt has difficulty walking after who walked [id number] steps a day prior to that. Pt has been progressing well since surgery and is currently using a SPC for mobility. Pt has difficulty bending his R knee and has to stand up with a stagger stance. He has been doing LAQ and Hamstring stretch since the surgery. Prior Functional Status Baseline Function- ADL's Independent Baseline Function- Mobility Independent Baseline Function- Gait no SPC, walk 14k Steps a day. Current Functional Impairments (Reported) Functional Limitations- Mobility/Gait Pt has difficulty bending his R knee and has to stand up with a stagger stance. He has been doing LAQ and Hamstring stretch since the surgery. Personal Factors Other Personal Factors That May Effect stent placement Therapy/Recovery PT-OP-C Subjective Start: 03/30/20 12:07 Freq: Status: Active Protocol: Document 04/07/20 13:05 (Rec: 04/07/20 16:10 [id number]) OP-PT Subjective Patient Comments Patient Comments I dont have any drainage anymore and there's no infection as my doctor said. They replaced the bandage so im doing fine at this point. Patient Reported Progress Improving PT-OP-F Manual Assessment Start: 03/30/20 12:07 Freq: Status: Active Protocol: Document 03/30/20 12:07 (Rec: 03/30/20 12:31 [email or web address]) Manual Assessments Soft Tissue Assessment Soft Tissue Mobility Assessment slight warm to touch around incision site and medial knee TTP at medial joint line PT-OP-G Mobility & Gait Start: 03/30/20 12:07 Freq: Status: Active Protocol: Document 03/30/20 12:07 (Rec: 03/30/20 12:31 [email or web address]) OP Gait Assessment Gait Gait Assistance Required: Independent Assistive Devices Assistive Device Straight Cane Gait Deviations General Gait Pattern Antalgic,Decreased Stride Length,Decreased Feet Clearance PT-OP-J Posture/Palpation/Skin Start: 03/30/20 12:07 Freq: Status: Active Protocol: Document 03/30/20 12:07 (Rec: 03/30/20 12:31 [email or web address]) Posture Evaluation Position Standing Evaluation View Anterior Weight Distribution Weight Shifted Left,Decreased Wt.Bear on (R) Knee Posture (R) Ext. Tibial Torsion,(R) Excess Flexion Skin Assessment Circumference Measurement L knee Location superior to patella= 18, center of patella= 16.5, tibial tub=14.7. R knee Location superior to patella= 19, center of patella= 18, tibial tuberosity= 17 Incisional Assessment Incision Appearance/Comments incision looks intact with slight redness and mild drainage on gauze PT-OP-K Range of Motion Start: 03/30/20 12:07 Freq: Status: Active Protocol: Document 03/30/20 12:07 (Rec: 03/30/20 12:31 [email or web address]) Knee Goniometric Range of Motion Knee L knee Knee ROM WFL Yes Patient Position Supine Flexion Active (degrees) 130 Hyper-Extension Active 4 R knee Knee ROM WFL No Patient Position Supine Flexion Active (degrees) 103 Extension Active (degrees) 10 Knee ROM Limitations Knee ROM Limitations Soft Tissue Tightness,Muscle Tone,Pain,Swelling PT-OP-M Strength Start: 03/30/20 12:07 Freq: Status: Active Protocol: Document 03/30/20 12:07 (Rec: 03/30/20 12:31 [email or web address]) Knee Strength Knee Manual Muscle Testing Right Flexion (S2) 4- Good- Extension (L3) 3 Fair Left Flexion (S2) 4+ Good+ Extension (L3) 4+ Good+ PT-OP-Q Treatments Start: 03/30/20 12:07 Freq: Status: Active Protocol: Document 04/07/20 13:05 (Rec: 04/07/20 16:10 [id number]) Cardio Equipment Recumbent Bicycle Duration (Minutes) 6 Resistance 3 Seat Position 10 Other min discomfort at back of the knee for the first 2 mins but subsided after Therapeutic Exercises Supine Exercises SAQ Side bilateral Equipment Used with green bolster Reps/Minutes 10 x2 Comments some soreness noted. knee extension Side right Equipment Used rolled towel underneath ankle Reps/Minutes 10 x3 (3 sec hold) Sitting Exercises LAQ Side bilateral Reps/Minutes with 1 sec hold x 10 x2 Comments some soreness noted seated knee flexion extension Sitting Exercise Name full fleixion and extension Side bilateral Equipment Used with rolling stool Reps/Minutes 10 x 2 Standing Exercises AP weight shift Standing Exercise Name staggered stance Side bilateral Equipment Used with grab bar Reps/Minutes 1 mins Comments pt reports on pain with fully WB on RLE. Manual Therapy Treatment Soft Tissue Mobilization STM Body Location medial quad, calves Mobilization Type Rolling,Sustained Pressure, Trigger Point Release Intensity/Depth Moderate Body Position Hooklying Comments mild tenderness to medial quad only PT-OP-T Assessment and Plan Start: 03/30/20 12:07 Freq: Status: Active Protocol: Document 04/07/20 13:05 (Rec: 04/07/20 16:10 [id number]) Physical Therapy Assessment Goals gait and transfers Impairment pt walks with SPC and sit to stand with stagger stance Biotech Production Specialist Goal (LTG) pt will be able to amb without AD safely and complete sit to stand with an even steps without using armrest to push off as well. LTG Duration 8 weeks ROM Impairment R knee flexion= 103, extension =10 Biotech Production Specialist Goal (LTG) pt will regain his R knee extension to less than 0 and flexion to 130 actively to optimize his gait mechanics LTG Duration 8 weeks LEFS Impairment pt scores 20 for LEFS Short Term Goal (STG) pt will score >47 on LEFS to improve his overall functional mobility STG Duration 4 weeks Skilled Nursing Goal (LTG) pt will score >62 on LEFS to improve his overall functional mobility so he can return to his 14k steps a day. LTG Duration 8 weeks Assessment Summary Assessment Pt is now clear for infection and cont to participate PT. Pt ROM and swelling have improved since last visit. Added SAQ, TKE, LAQ and seated heel slide for HEP. Physical Therapy Plan Next Visit Focus/Plan Next Note Type Treatment Note Next Visit Plan review knee ROM ex biking leg press gait training on knee extension
--- NOTE | 2020-04-09 13:46 | PT.OTN ---
Current Diagnoses Unilateral primary osteoarthritis, right knee (04/09/20) Physical Therapy Treatment Note PT-OP-A Visit Information Start: 03/30/20 12:07 Freq: Status: Active Protocol: Document 04/09/20 12:58 (Rec: 04/09/20 13:46 [id number]) Out-Patient Physical Therapy Visit Information Visit Information Visit Type Treatment Note Visit Start Time 13:01 Visit Stop Time 13:45 Total Visit Minutes 44 Visit Number 11/16 Number of OIL WELL DIRECTIONAL SURVEYOR Visits 0 PT-OP-B Current Condition Start: 03/30/20 12:07 Freq: Status: Active Protocol: Document 03/30/20 12:07 HH (Rec: 03/30/20 12:31 [email or web address]) Current Condition History of Current Condition Onset Date 03/23/20 Current Complaints R unilateral medial knee arthroplasty, difficulty in walking History of Current Condition Pt is a 69 yo active male s/p POD7 of R unilateral medial knee arthroplasty by Dr. Hunter. Pt was dx with R medial compartment arthritis after he felt significant pain from his trip to [facility] in September. Pt has difficulty walking after who walked 34800 steps a day prior to that. Pt has been progressing well since surgery and is currently using a SPC for mobility. Pt has difficulty bending his R knee and has to stand up with a stagger stance. He has been doing LAQ and Hamstring stretch since the surgery. Prior Functional Status Baseline Function- ADL's Independent Baseline Function- Mobility Independent Baseline Function- Gait no SPC, walk 14k Steps a day. Current Functional Impairments (Reported) Functional Limitations- Mobility/Gait Pt has difficulty bending his R knee and has to stand up with a stagger stance. He has been doing LAQ and Hamstring stretch since the surgery. Personal Factors Other Personal Factors That May Effect stent placement Therapy/Recovery PT-OP-C Subjective Start: 03/30/20 12:07 Freq: Status: Active Protocol: Document 04/09/20 12:58 HH (Rec: 04/09/20 13:46 [id number]) OP-PT Subjective Patient Comments Patient Comments I did walk 2 miles yesterday so im sore today. But i feel okay so far. Patient Reported Progress Improving PT-OP-F Manual Assessment Start: 03/30/20 12:07 Freq: Status: Active Protocol: Document 03/30/20 12:07 HH (Rec: 03/30/20 12:31 [email or web address]) Manual Assessments Soft Tissue Assessment Soft Tissue Mobility Assessment slight warm to touch around incision site and medial knee TTP at medial joint line PT-OP-G Mobility & Gait Start: 03/30/20 12:07 Freq: Status: Active Protocol: Document 03/30/20 12:07 (Rec: 03/30/20 12:31 [email or web address]) OP Gait Assessment Gait Gait Assistance Required: Independent Assistive Devices Assistive Device Straight Cane Gait Deviations General Gait Pattern Antalgic,Decreased Stride Length,Decreased Feet Clearance PT-OP-J Posture/Palpation/Skin Start: 03/30/20 12:07 Freq: Status: Active Protocol: Document 03/30/20 12:07 (Rec: 03/30/20 12:31 [email or web address]) Posture Evaluation Position Standing Evaluation View Anterior Weight Distribution Weight Shifted Left,Decreased Wt.Bear on (R) Knee Posture (R) Ext. Tibial Torsion,(R) Excess Flexion Skin Assessment Circumference Measurement L knee Location superior to patella= 18, center of patella= 16.5, tibial tub=14.7. R knee Location superior to patella= 19, center of patella= 18, tibial tuberosity= 17 Incisional Assessment Incision Appearance/Comments incision looks intact with slight redness and mild drainage on gauze PT-OP-K Range of Motion Start: 03/30/20 12:07 Freq: Status: Active Protocol: Document 03/30/20 12:07 (Rec: 03/30/20 12:31 [email or web address]) Knee Goniometric Range of Motion Knee L knee Knee ROM WFL Yes Patient Position Supine Flexion Active (degrees) 130 Hyper-Extension Active 4 R knee Knee ROM WFL No Patient Position Supine Flexion Active (degrees) 103 Extension Active (degrees) 10 Knee ROM Limitations Knee ROM Limitations Soft Tissue Tightness,Muscle Tone,Pain,Swelling PT-OP-M Strength Start: 03/30/20 12:07 Freq: Status: Active Protocol: Document 03/30/20 12:07 (Rec: 03/30/20 12:31 [email or web address]) Knee Strength Knee Manual Muscle Testing Right Flexion (S2) 4- Good- Extension (L3) 3 Fair Left Flexion (S2) 4+ Good+ Extension (L3) 4+ Good+ PT-OP-Q Treatments Start: 03/30/20 12:07 Freq: Status: Active Protocol: Document 04/09/20 12:58 (Rec: 04/09/20 13:46 [id number]) Cardio Equipment Recumbent Bicycle Duration (Minutes) 6 Resistance 3 Seat Position 10- 8 Gym Equipment Shuttle Recovery single leg squat Resistance #50 Shuttle Recovery Platform Stable Reps/Time 8 x2 Bilateral Squats Resistance #50- #75 Shuttle Recovery Platform Stable Reps/Time 10 x2 Therapeutic Exercises Supine Exercises SAQ Side bilateral Equipment Used with green bolster Reps/Minutes 8x 2 with 3 sec hold Comments some soreness noted. knee extension Side right Equipment Used rolled towel underneath ankle Reps/Minutes 10 x3 (3 sec hold) Sitting Exercises LAQ Side bilateral Reps/Minutes with 1 sec hold x 10 x2 Comments some soreness noted seated knee flexion extension Sitting Exercise Name full fleixion and extension Side bilateral Equipment Used with rolling stool Reps/Minutes 10 x 2 Manual Therapy Treatment Soft Tissue Mobilization STM Body Location medial quad, calves Mobilization Type Rolling,Sustained Pressure, Trigger Point Release Intensity/Depth Moderate Body Position Hooklying Comments mild tenderness to medial quad only PT-OP-T Assessment and Plan Start: 03/30/20 12:07 Freq: Status: Active Protocol: Document 04/09/20 12:58 (Rec: 04/09/20 13:46 [id number]) Physical Therapy Assessment Goals gait and transfers Impairment pt walks with SPC and sit to stand with stagger stance Snf Goal (LTG) pt will be able to amb without AD safely and complete sit to stand with an even steps without using armrest to push off as well. LTG Duration 8 weeks ROM Impairment R knee flexion= 103, extension =10 Snf Goal (LTG) pt will regain his R knee extension to less than 0 and flexion to 130 actively to optimize his gait mechanics LTG Duration 8 weeks LEFS Impairment pt scores 20 for LEFS Short Term Goal (STG) pt will score >47 on LEFS to improve his overall functional mobility STG Duration 4 weeks Lab[employer] Goal (LTG) pt will score >62 on LEFS to improve his overall functional mobility so he can return to his 14k steps a day. LTG Duration 8 weeks Assessment Summary Assessment Pt anali session very well today . His active flexoin is close to WNL but still need improvements with extension. Will start focusing on WB knee extension and gait training enxt visit. Physical Therapy Plan Next Visit Focus/Plan Next Note Type Treatment Note Next Visit Plan biking leg press 50-75 WB standing TKE gait training on knee extension
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
--- NOTE | 2020-04-16 14:40 | PT.OTN ---
Current Diagnoses Unilateral primary osteoarthritis, right knee (04/16/20) Physical Therapy Treatment Note PT-OP-A Visit Information Start: 03/30/20 12:07 Freq: Status: Active Protocol: Document 04/16/20 13:47 HH (Rec: 04/16/20 14:39 [id number]) Out-Patient Physical Therapy Visit Information Visit Information Visit Type Treatment Note Visit Start Time 13:47 Visit Stop Time 14:30 Total Visit Minutes 43 Visit Number 01/16 Number of BABCOCK TESTER Visits 0 PT-OP-B Current Condition Start: 03/30/20 12:07 Freq: Status: Active Protocol: Document 03/30/20 12:07 HH (Rec: 03/30/20 12:31 [email or web address]) Current Condition History of Current Condition Onset Date 03/23/20 Current Complaints R unilateral medial knee arthroplasty, difficulty in walking History of Current Condition Pt is a 69 yo active male s/p POD7 of R unilateral medial knee arthroplasty by Dr. Hunter. Pt was dx with R medial compartment arthritis after he felt significant pain from his trip to [facility] in September. Pt has difficulty walking after who walked 17040 steps a day prior to that. Pt has been progressing well since surgery and is currently using a SPC for mobility. Pt has difficulty bending his R knee and has to stand up with a stagger stance. He has been doing LAQ and Hamstring stretch since the surgery. Prior Functional Status Baseline Function- ADL's Independent Baseline Function- Mobility Independent Baseline Function- Gait no SPC, walk 14k Steps a day. Current Functional Impairments (Reported) Functional Limitations- Mobility/Gait Pt has difficulty bending his R knee and has to stand up with a stagger stance. He has been doing LAQ and Hamstring stretch since the surgery. Personal Factors Other Personal Factors That May Effect stent placement Therapy/Recovery PT-OP-C Subjective Start: 03/30/20 12:07 Freq: Status: Active Protocol: Document 04/16/20 13:47 HH (Rec: 04/16/20 14:39 [id number]) OP-PT Subjective Patient Comments Patient Comments I didnt feel sore from last time and shoaib been practicing my walking. Its been pretty good. Patient Reported Progress Improving PT-OP-F Manual Assessment Start: 03/30/20 12:07 Freq: Status: Active Protocol: Document 03/30/20 12:07 HH (Rec: 03/30/20 12:31 [email or web address]) Manual Assessments Soft Tissue Assessment Soft Tissue Mobility Assessment slight warm to touch around incision site and medial knee TTP at medial joint line PT-OP-G Mobility & Gait Start: 03/30/20 12:07 Freq: Status: Active Protocol: Document 03/30/20 12:07 (Rec: 03/30/20 12:31 [email or web address]) OP Gait Assessment Gait Gait Assistance Required: Independent Assistive Devices Assistive Device Straight Cane Gait Deviations General Gait Pattern Antalgic,Decreased Stride Length,Decreased Feet Clearance PT-OP-J Posture/Palpation/Skin Start: 03/30/20 12:07 Freq: Status: Active Protocol: Document 03/30/20 12:07 (Rec: 03/30/20 12:31 [email or web address]) Posture Evaluation Position Standing Evaluation View Anterior Weight Distribution Weight Shifted Left,Decreased Wt.Bear on (R) Knee Posture (R) Ext. Tibial Torsion,(R) Excess Flexion Skin Assessment Circumference Measurement L knee Location superior to patella= 18, center of patella= 16.5, tibial tub=14.7. R knee Location superior to patella= 19, center of patella= 18, tibial tuberosity= 17 Incisional Assessment Incision Appearance/Comments incision looks intact with slight redness and mild drainage on gauze PT-OP-K Range of Motion Start: 03/30/20 12:07 Freq: Status: Active Protocol: Document 03/30/20 12:07 (Rec: 03/30/20 12:31 [email or web address]) Knee Goniometric Range of Motion Knee L knee Knee ROM WFL Yes Patient Position Supine Flexion Active (degrees) 130 Hyper-Extension Active 4 R knee Knee ROM WFL No Patient Position Supine Flexion Active (degrees) 103 Extension Active (degrees) 10 Knee ROM Limitations Knee ROM Limitations Soft Tissue Tightness,Muscle Tone,Pain,Swelling PT-OP-M Strength Start: 03/30/20 12:07 Freq: Status: Active Protocol: Document 03/30/20 12:07 (Rec: 03/30/20 12:31 [email or web address]) Knee Strength Knee Manual Muscle Testing Right Flexion (S2) 4- Good- Extension (L3) 3 Fair Left Flexion (S2) 4+ Good+ Extension (L3) 4+ Good+ PT-OP-Q Treatments Start: 03/30/20 12:07 Freq: Status: Active Protocol: Document 04/16/20 13:47 (Rec: 04/16/20 14:39 [id number]) Cardio Equipment Recumbent Bicycle Duration (Minutes) 8 Resistance 5-8 Seat Position 8-6 Other no discomfort Gym Equipment Shuttle Recovery single leg squat Details with toe up to faciltiate TKE Resistance #50 Shuttle Recovery Platform Stable Reps/Time 10 x2, slight pressure discomfort at end range flexion Bilateral Squats Details with toe up to faciltiate TKE Resistance #75 Shuttle Recovery Platform Stable Reps/Time 10 x2 Therapeutic Exercises Standing Exercises standing knee extension Standing Exercise Name TKE Side bilateral Equipment Used ball behind knee Reps/Minutes 5 x 2 Comments 1 sec hold, for HEP Gait Training Gait Activity gait training Surface ground level Distance/Duration 20 ft x 4 Treatment Focus heel strike Comments no support on grab bar,, noticed pt tends to WB through laterel border of R foot, Slight L hip drop noted during stance phase heel toe Level of Assistance CGA Surface ground level Distance/Duration 20 ft x 8 rounds Treatment Focus heel strike and TKE Comments support on grab bar, cues on heel strike with TKE Manual Therapy Treatment Soft Tissue Mobilization STM Body Location medial quad, calves Mobilization Type Rolling,Sustained Pressure, Trigger Point Release Intensity/Depth Moderate Body Position Hooklying Comments mild tenderness to L medial joint line PT-OP-T Assessment and Plan Start: 03/30/20 12:07 Freq: Status: Active Protocol: Document 04/16/20 13:47 (Rec: 04/16/20 14:39 [id number]) Physical Therapy Assessment Goals gait and transfers Impairment pt walks with SPC and sit to stand with stagger stance Wool Classer Goal (LTG) pt will be able to amb without AD safely and complete sit to stand with an even steps without using armrest to push off as well. LTG Duration 8 weeks ROM Impairment R knee flexion= 103, extension =10 Wool Classer Goal (LTG) pt will regain his R knee extension to less than 0 and flexion to 130 actively to optimize his gait mechanics LTG Duration 8 weeks LEFS Impairment pt scores 20 for LEFS Short Term Goal (STG) pt will score >47 on LEFS to improve his overall functional mobility STG Duration 4 weeks Mcfp Goal (LTG) pt will score >62 on LEFS to improve his overall functional mobility so he can return to his 14k steps a day. LTG Duration 8 weeks Assessment Summary Assessment Pt walked into clinic with improve knee extension on R. Improved strength and activity tolerance noted as well. Noticed pt tends to WB through lateral border of R foot and will assess pt's old shoes to see if this is a new gait pattern. Will cont work on gait without support. Physical Therapy Plan Next Visit Focus/Plan Next Note Type Treatment Note Next Visit Plan biking leg press 50-75 SL squat leg press WB standing TKE gait training on knee extension , TKE, without SPC
--- NOTE | 2020-04-21 14:55 | PT.OTN ---
Current Diagnoses Unilateral primary osteoarthritis, right knee (04/21/20) Physical Therapy Treatment Note PT-OP-A Visit Information Start: 03/30/20 12:07 Freq: Status: Active Protocol: Document 04/21/20 13:38 (Rec: 04/21/20 14:55 [id number]) Out-Patient Physical Therapy Visit Information Visit Information Visit Type Treatment Note Visit Start Time 13:46 Visit Stop Time 14:30 Total Visit Minutes 43 Visit Number 02/15 Number of SLITTER SCORER Visits 0 PT-OP-B Current Condition Start: 03/30/20 12:07 Freq: Status: Active Protocol: Document 03/30/20 12:07 HH (Rec: 03/30/20 12:31 [email or web address]) Current Condition History of Current Condition Onset Date 03/23/20 Current Complaints R unilateral medial knee arthroplasty, difficulty in walking History of Current Condition Pt is a 69 yo active male s/p POD7 of R unilateral medial knee arthroplasty by Dr. Hunter. Pt was dx with R medial compartment arthritis after he felt significant pain from his trip to [facility] in September. Pt has difficulty walking after who walked 87157 steps a day prior to that. Pt has been progressing well since surgery and is currently using a SPC for mobility. Pt has difficulty bending his R knee and has to stand up with a stagger stance. He has been doing LAQ and Hamstring stretch since the surgery. Prior Functional Status Baseline Function- ADL's Independent Baseline Function- Mobility Independent Baseline Function- Gait no SPC, walk 14k Steps a day. Current Functional Impairments (Reported) Functional Limitations- Mobility/Gait Pt has difficulty bending his R knee and has to stand up with a stagger stance. He has been doing LAQ and Hamstring stretch since the surgery. Personal Factors Other Personal Factors That May Effect stent placement Therapy/Recovery PT-OP-C Subjective Start: 03/30/20 12:07 Freq: Status: Active Protocol: Document 04/21/20 13:38 HH (Rec: 04/21/20 14:55 [id number]) OP-PT Subjective Patient Comments Patient Comments I did 25 mins of biking , 25lbs leg press x 3 sets 15reps and knee extension followed by 0.5 miles of walking with the cane. I got sore last night but i feel fine today today. Patient Reported Progress Improving PT-OP-F Manual Assessment Start: 03/30/20 12:07 Freq: Status: Active Protocol: Document 03/30/20 12:07 (Rec: 03/30/20 12:31 [email or web address]) Manual Assessments Soft Tissue Assessment Soft Tissue Mobility Assessment slight warm to touch around incision site and medial knee TTP at medial joint line PT-OP-G Mobility & Gait Start: 03/30/20 12:07 Freq: Status: Active Protocol: Document 03/30/20 12:07 (Rec: 03/30/20 12:31 [email or web address]) OP Gait Assessment Gait Gait Assistance Required: Independent Assistive Devices Assistive Device Straight Cane Gait Deviations General Gait Pattern Antalgic,Decreased Stride Length,Decreased Feet Clearance PT-OP-J Posture/Palpation/Skin Start: 03/30/20 12:07 Freq: Status: Active Protocol: Document 03/30/20 12:07 (Rec: 03/30/20 12:31 [email or web address]) Posture Evaluation Position Standing Evaluation View Anterior Weight Distribution Weight Shifted Left,Decreased Wt.Bear on (R) Knee Posture (R) Ext. Tibial Torsion,(R) Excess Flexion Skin Assessment Circumference Measurement L knee Location superior to patella= 18, center of patella= 16.5, tibial tub=14.7. R knee Location superior to patella= 19, center of patella= 18, tibial tuberosity= 17 Incisional Assessment Incision Appearance/Comments incision looks intact with slight redness and mild drainage on gauze PT-OP-K Range of Motion Start: 03/30/20 12:07 Freq: Status: Active Protocol: Document 03/30/20 12:07 (Rec: 03/30/20 12:31 [email or web address]) Knee Goniometric Range of Motion Knee L knee Knee ROM WFL Yes Patient Position Supine Flexion Active (degrees) 130 Hyper-Extension Active 4 R knee Knee ROM WFL No Patient Position Supine Flexion Active (degrees) 103 Extension Active (degrees) 10 Knee ROM Limitations Knee ROM Limitations Soft Tissue Tightness,Muscle Tone,Pain,Swelling PT-OP-M Strength Start: 03/30/20 12:07 Freq: Status: Active Protocol: Document 03/30/20 12:07 (Rec: 03/30/20 12:31 [email or web address]) Knee Strength Knee Manual Muscle Testing Right Flexion (S2) 4- Good- Extension (L3) 3 Fair Left Flexion (S2) 4+ Good+ Extension (L3) 4+ Good+ PT-OP-Q Treatments Start: 03/30/20 12:07 Freq: Status: Active Protocol: Document 04/21/20 13:38 (Rec: 04/21/20 14:55 [id number]) Cardio Equipment Recumbent Bicycle Duration (Minutes) 6 Resistance 5-8 Seat Position 6 Other no discomfort Gym Equipment Shuttle Recovery single leg squat Details with toe up to faciltiate TKE Resistance #50-75 Shuttle Recovery Platform Stable Reps/Time 10 x2, Bilateral Squats Details with toe up to faciltiate TKE Resistance #75-100 Shuttle Recovery Platform Stable Reps/Time 12 x 2 Therapeutic Exercises Sitting Exercises LAQ Side bilateral Equipment Used 4 lbs ankle weight Reps/Minutes with 2 sec hold x 8 x2 Comments no soreness Standing Exercises standing knee extension Standing Exercise Name TKE Side bilateral Equipment Used level 1 band Reps/Minutes 5 x 2 Comments 1 sec hold, for HEP AP weight shift Standing Exercise Name stagger stance with step over pattern Side bilateral Equipment Used with grab bar then w/o bar Reps/Minutes 4 mins Comments no discomfort. Manual Therapy Treatment Soft Tissue Mobilization STM Body Location medial quad, medial joint line Mobilization Type Rolling,Sustained Pressure, Trigger Point Release Intensity/Depth Moderate Body Position Hooklying Comments mild tenderness to L medial joint line Joint Mobilizations patella mob Direction lateral and medial Grade III Body Position Sitting Reps/Duration 4 mins PT-OP-T Assessment and Plan Start: 03/30/20 12:07 Freq: Status: Active Protocol: Document 04/21/20 13:38 (Rec: 04/21/20 14:55 [id number]) Physical Therapy Assessment Goals gait and transfers Impairment pt walks with SPC and sit to stand with stagger stance Prison Goal (LTG) pt will be able to amb without AD safely and complete sit to stand with an even steps without using armrest to push off as well. LTG Duration 8 weeks ROM Impairment R knee flexion= 103, extension =10 Prison Goal (LTG) pt will regain his R knee extension to less than 0 and flexion to 130 actively to optimize his gait mechanics LTG Duration 8 weeks LEFS Impairment pt scores 20 for LEFS Short Term Goal (STG) pt will score >47 on LEFS to improve his overall functional mobility STG Duration 4 weeks Prison Goal (LTG) pt will score >62 on LEFS to improve his overall functional mobility so he can return to his 14k steps a day. LTG Duration 8 weeks Assessment Summary Assessment Pt came to clinic without SPC. He still has a limp and a bit sore from his workout and HEP yesterday. Spent time educating to allow healing time. Tx focused on TKE, patella mob, overall single leg strengthening. Will add hip stability ex next time. Physical Therapy Plan Frequency and Duration Frequency of Treatment 2x/Week Duration of Treatment 8 weeks Plan of Care Start Date 03/30/20 Plan of Care End Date 05/29/20 Next Visit Focus/Plan Next Note Type Treatment Note Next Visit Plan patella mob, hip stability biking leg press 75-100 SL squat leg press WB standing TKE gait training on knee extension , TKE, without SPC
--- NOTE | 2020-04-23 15:45 | PT.OTN ---
Current Diagnoses Unilateral primary osteoarthritis, right knee (04/23/20) Physical Therapy Treatment Note PT-OP-A Visit Information Start: 03/30/20 12:07 Freq: Status: Active Protocol: Document 04/23/20 13:53 HH (Rec: 04/23/20 15:44 [id number]) Out-Patient Physical Therapy Visit Information Visit Information Visit Type Treatment Note Visit Start Time 13:46 Visit Stop Time 14:30 Total Visit Minutes 43 Visit Number 03/18 Number of BRAKE REPAIRER Visits 0 PT-OP-B Current Condition Start: 03/30/20 12:07 Freq: Status: Active Protocol: Document 03/30/20 12:07 HH (Rec: 03/30/20 12:31 [email or web address]) Current Condition History of Current Condition Onset Date 03/23/20 Current Complaints R unilateral medial knee arthroplasty, difficulty in walking History of Current Condition Pt is a 69 yo active male s/p POD7 of R unilateral medial knee arthroplasty by Dr. Hunter. Pt was dx with R medial compartment arthritis after he felt significant pain from his trip to [facility] in September. Pt has difficulty walking after who walked 97863 steps a day prior to that. Pt has been progressing well since surgery and is currently using a SPC for mobility. Pt has difficulty bending his R knee and has to stand up with a stagger stance. He has been doing LAQ and Hamstring stretch since the surgery. Prior Functional Status Baseline Function- ADL's Independent Baseline Function- Mobility Independent Baseline Function- Gait no SPC, walk 14k Steps a day. Current Functional Impairments (Reported) Functional Limitations- Mobility/Gait Pt has difficulty bending his R knee and has to stand up with a stagger stance. He has been doing LAQ and Hamstring stretch since the surgery. Personal Factors Other Personal Factors That May Effect stent placement Therapy/Recovery PT-OP-C Subjective Start: 03/30/20 12:07 Freq: Status: Active Protocol: Document 04/23/20 13:53 HH (Rec: 04/23/20 15:44 [id number]) OP-PT Subjective Patient Comments Patient Comments I did all my ex yesterday but only get a little sore. I sat the whole morning but my knee didnt get stiff after. Patient Reported Progress Improving PT-OP-F Manual Assessment Start: 03/30/20 12:07 Freq: Status: Active Protocol: Document 03/30/20 12:07 (Rec: 03/30/20 12:31 [email or web address]) Manual Assessments Soft Tissue Assessment Soft Tissue Mobility Assessment slight warm to touch around incision site and medial knee TTP at medial joint line PT-OP-G Mobility & Gait Start: 03/30/20 12:07 Freq: Status: Active Protocol: Document 03/30/20 12:07 (Rec: 03/30/20 12:31 [email or web address]) OP Gait Assessment Gait Gait Assistance Required: Independent Assistive Devices Assistive Device Straight Cane Gait Deviations General Gait Pattern Antalgic,Decreased Stride Length,Decreased Feet Clearance PT-OP-J Posture/Palpation/Skin Start: 03/30/20 12:07 Freq: Status: Active Protocol: Document 03/30/20 12:07 (Rec: 03/30/20 12:31 [email or web address]) Posture Evaluation Position Standing Evaluation View Anterior Weight Distribution Weight Shifted Left,Decreased Wt.Bear on (R) Knee Posture (R) Ext. Tibial Torsion,(R) Excess Flexion Skin Assessment Circumference Measurement L knee Location superior to patella= 18, center of patella= 16.5, tibial tub=14.7. R knee Location superior to patella= 19, center of patella= 18, tibial tuberosity= 17 Incisional Assessment Incision Appearance/Comments incision looks intact with slight redness and mild drainage on gauze PT-OP-K Range of Motion Start: 03/30/20 12:07 Freq: Status: Active Protocol: Document 03/30/20 12:07 (Rec: 03/30/20 12:31 [email or web address]) Knee Goniometric Range of Motion Knee L knee Knee ROM WFL Yes Patient Position Supine Flexion Active (degrees) 130 Hyper-Extension Active 4 R knee Knee ROM WFL No Patient Position Supine Flexion Active (degrees) 103 Extension Active (degrees) 10 Knee ROM Limitations Knee ROM Limitations Soft Tissue Tightness,Muscle Tone,Pain,Swelling PT-OP-M Strength Start: 03/30/20 12:07 Freq: Status: Active Protocol: Document 03/30/20 12:07 (Rec: 03/30/20 12:31 [email or web address]) Knee Strength Knee Manual Muscle Testing Right Flexion (S2) 4- Good- Extension (L3) 3 Fair Left Flexion (S2) 4+ Good+ Extension (L3) 4+ Good+ PT-OP-Q Treatments Start: 03/30/20 12:07 Freq: Status: Active Protocol: Document 04/23/20 13:53 (Rec: 04/23/20 15:44 [id number]) Cardio Equipment Recumbent Bicycle Duration (Minutes) 6 Resistance 8 Seat Position 6-4 Other no discomfort Therapeutic Exercises Standing Exercises step up Side bilateral Equipment Used 4 step Reps/Minutes 6 x 2 Comments pressure noted at R knee standing knee extension Standing Exercise Name TKE Side bilateral Equipment Used level 1 band Reps/Minutes 5 x 2 Comments 3 sec hold AP weight shift Standing Exercise Name stagger stance with step over pattern Side bilateral Equipment Used w/o grab bar Reps/Minutes 4 mins x 2 Comments for weight acceptance on RLE for 4 mins then preswing for 4 mins Gait Training Gait Activity heel toe Level of Assistance CGA Surface ground level Distance/Duration 20 ft x 8 rounds Treatment Focus heel strike and TKE Comments support on grab bar, cues on heel strike with TKE Neuro Re-Education Treatment Balance Activities uneven surface 2 Details on blue foam Reps/Duration 8 s x 8 Comments staggered stance then EC. uneven surface Details on blue foam Reps/Duration 15s x 8 Comments EC, noted excessive ankle strategy PT-OP-T Assessment and Plan Start: 03/30/20 12:07 Freq: Status: Active Protocol: Document 04/23/20 13:53 (Rec: 04/23/20 15:44 [id number]) Physical Therapy Assessment Goals gait and transfers Impairment pt walks with SPC and sit to stand with stagger stance Collection Administrator Goal (LTG) pt will be able to amb without AD safely and complete sit to stand with an even steps without using armrest to push off as well. LTG Duration 8 weeks ROM Impairment R knee flexion= 103, extension =10 Fdc Goal (LTG) pt will regain his R knee extension to less than 0 and flexion to 130 actively to optimize his gait mechanics LTG Duration 8 weeks LEFS Impairment pt scores 20 for LEFS Short Term Goal (STG) pt will score >47 on LEFS to improve his overall functional mobility STG Duration 4 weeks Fdc Goal (LTG) pt will score >62 on LEFS to improve his overall functional mobility so he can return to his 14k steps a day. LTG Duration 8 weeks Assessment Summary Assessment Pt anali session well with focus on strengthening and LE stability. Pt reports he has less soreness now after HEP. Physical Therapy Plan Next Visit Focus/Plan Next Note Type Treatment Note Next Visit Plan patella mob, hip stability biking leg press 75-100 SL squat leg press WB standing TKE gait training on knee extension , TKE, without SPC
--- NOTE | 2020-04-27 09:50 | PT.OTN ---
Current Diagnoses Unilateral primary osteoarthritis, right knee (04/27/20) Physical Therapy Treatment Note PT-OP-A Visit Information Start: 03/30/20 12:07 Freq: Status: Active Protocol: Document 04/27/20 09:09 (Rec: 04/27/20 09:50 [id number]) Out-Patient Physical Therapy Visit Information Visit Information Visit Type Treatment Note Visit Start Time 09:04 Visit Stop Time 09:45 Total Visit Minutes 41 Visit Number 04/18 Number of CARD ASSEMBLER Visits 0 PT-OP-B Current Condition Start: 03/30/20 12:07 Freq: Status: Active Protocol: Document 03/30/20 12:07 HH (Rec: 03/30/20 12:31 [email or web address]) Current Condition History of Current Condition Onset Date 03/23/20 Current Complaints R unilateral medial knee arthroplasty, difficulty in walking History of Current Condition Pt is a 69 yo active male s/p POD7 of R unilateral medial knee arthroplasty by Dr. Hunter. Pt was dx with R medial compartment arthritis after he felt significant pain from his trip to [facility] in September. Pt has difficulty walking after who walked 06459 steps a day prior to that. Pt has been progressing well since surgery and is currently using a SPC for mobility. Pt has difficulty bending his R knee and has to stand up with a stagger stance. He has been doing LAQ and Hamstring stretch since the surgery. Prior Functional Status Baseline Function- ADL's Independent Baseline Function- Mobility Independent Baseline Function- Gait no SPC, walk 14k Steps a day. Current Functional Impairments (Reported) Functional Limitations- Mobility/Gait Pt has difficulty bending his R knee and has to stand up with a stagger stance. He has been doing LAQ and Hamstring stretch since the surgery. Personal Factors Other Personal Factors That May Effect stent placement Therapy/Recovery PT-OP-C Subjective Start: 03/30/20 12:07 Freq: Status: Active Protocol: Document 04/27/20 09:09 (Rec: 04/27/20 09:50 [id number]) OP-PT Subjective Patient Comments Patient Comments Yusra been doing good except monday night i had to take a pain pill to sleep. I am able to drive without any problem now. Patient Reported Progress Improving PT-OP-F Manual Assessment Start: 03/30/20 12:07 Freq: Status: Active Protocol: Document 03/30/20 12:07 (Rec: 03/30/20 12:31 [email or web address]) Manual Assessments Soft Tissue Assessment Soft Tissue Mobility Assessment slight warm to touch around incision site and medial knee TTP at medial joint line PT-OP-G Mobility & Gait Start: 03/30/20 12:07 Freq: Status: Active Protocol: Document 03/30/20 12:07 (Rec: 03/30/20 12:31 [email or web address]) OP Gait Assessment Gait Gait Assistance Required: Independent Assistive Devices Assistive Device Straight Cane Gait Deviations General Gait Pattern Antalgic,Decreased Stride Length,Decreased Feet Clearance PT-OP-J Posture/Palpation/Skin Start: 03/30/20 12:07 Freq: Status: Active Protocol: Document 03/30/20 12:07 (Rec: 03/30/20 12:31 [email or web address]) Posture Evaluation Position Standing Evaluation View Anterior Weight Distribution Weight Shifted Left,Decreased Wt.Bear on (R) Knee Posture (R) Ext. Tibial Torsion,(R) Excess Flexion Skin Assessment Circumference Measurement L knee Location superior to patella= 18, center of patella= 16.5, tibial tub=14.7. R knee Location superior to patella= 19, center of patella= 18, tibial tuberosity= 17 Incisional Assessment Incision Appearance/Comments incision looks intact with slight redness and mild drainage on gauze PT-OP-K Range of Motion Start: 03/30/20 12:07 Freq: Status: Active Protocol: Document 03/30/20 12:07 (Rec: 03/30/20 12:31 [email or web address]) Knee Goniometric Range of Motion Knee L knee Knee ROM WFL Yes Patient Position Supine Flexion Active (degrees) 130 Hyper-Extension Active 4 R knee Knee ROM WFL No Patient Position Supine Flexion Active (degrees) 103 Extension Active (degrees) 10 Knee ROM Limitations Knee ROM Limitations Soft Tissue Tightness,Muscle Tone,Pain,Swelling PT-OP-M Strength Start: 03/30/20 12:07 Freq: Status: Active Protocol: Document 03/30/20 12:07 (Rec: 03/30/20 12:31 [email or web address]) Knee Strength Knee Manual Muscle Testing Right Flexion (S2) 4- Good- Extension (L3) 3 Fair Left Flexion (S2) 4+ Good+ Extension (L3) 4+ Good+ PT-OP-Q Treatments Start: 03/30/20 12:07 Freq: Status: Active Protocol: Document 04/27/20 09:09 (Rec: 04/27/20 09:50 [id number]) Gym Equipment Shuttle Recovery single leg squat Details with toe up to faciltiate TKE Resistance #62 Shuttle Recovery Platform Stable Reps/Time 10 x2, Bilateral Squats Details with toe up to faciltiate TKE Resistance #75-100 Shuttle Recovery Platform Stable Reps/Time 12 x 2 Therapeutic Exercises Supine Exercises hamstring stretch Supine Exercise Name PROM Side right Comments PT assisted knee extension Supine Exercise Name TKE with foam roller, with DF Side right Reps/Minutes 3-5 sec hold x 10 x 2 Comments after manual therapy Gait Training Gait Activity retro walking Level of Assistance grab bar Surface ground level Distance/Duration 20 ft x 10 rounds Treatment Focus R TKE Comments focus on forefoot drive to ground to facilitate R TKE. Pt felt posterior knee capsule stretch. Manual Therapy Treatment Soft Tissue Mobilization STM Body Location medial quad, medial joint line Mobilization Type Rolling,Sustained Pressure, Trigger Point Release Intensity/Depth Moderate Body Position Hooklying Comments mild tenderness to L medial joint line Joint Mobilizations femoral tibial joint Grade III Body Position Supine Reps/Duration 4 mins Comments PA mob on tibia, ankle on foam roller PT-OP-T Assessment and Plan Start: 03/30/20 12:07 Freq: Status: Active Protocol: Document 04/27/20 09:09 (Rec: 04/27/20 09:50 [id number]) Physical Therapy Assessment Goals gait and transfers Impairment pt walks with SPC and sit to stand with stagger stance Interstate Bus Dispatcher Goal (LTG) pt will be able to amb without AD safely and complete sit to stand with an even steps without using armrest to push off as well. LTG Duration 8 weeks ROM Impairment R knee flexion= 103, extension =10 Interstate Bus Dispatcher Goal (LTG) pt will regain his R knee extension to less than 0 and flexion to 130 actively to optimize his gait mechanics LTG Duration 8 weeks LEFS Impairment pt scores 20 for LEFS Short Term Goal (STG) pt will score >47 on LEFS to improve his overall functional mobility STG Duration 4 weeks Interstate Bus Dispatcher Goal (LTG) pt will score >62 on LEFS to improve his overall functional mobility so he can return to his 14k steps a day. LTG Duration 8 weeks Assessment Summary Assessment tx focused on R TKE. Used joint mob to stretch posterior capsule followed by retro walking. Pt anali well. Change POC to once/week x 4 weeks for maintainence and strengthening program Physical Therapy Plan Frequency and Duration Frequency of Treatment 1x/Week Duration of Treatment 8 weeks Plan of Care Start Date 03/30/20 Plan of Care End Date 05/29/20 Next Visit Focus/Plan Next Note Type Progress Note Next Visit Plan patella mob, hip stability biking leg press 75-100 SL squat leg press WB standing TKE gait training on knee extension , TKE, without SPC
--- NOTE | 2020-05-07 14:31 | PT.OTN ---
Current Diagnoses Unilateral primary osteoarthritis, right knee (05/07/20) Physical Therapy Treatment Note PT-OP-A Visit Information Start: 03/30/20 12:07 Freq: Status: Active Protocol: Document 05/07/20 13:45 DCW (Rec: 05/07/20 14:31 DCW [id number]) Out-Patient Physical Therapy Visit Information Visit Information Visit Type Treatment Note Visit Start Time 13:45 Visit Stop Time 14:30 Total Visit Minutes 45 Visit Number 05/18 Number of SANDBLASTER STONE Visits 0 PT-OP-B Current Condition Start: 03/30/20 12:07 Freq: Status: Active Protocol: Document 03/30/20 12:07 HH (Rec: 03/30/20 12:31 HH [email or web address]) Current Condition History of Current Condition Onset Date 03/23/20 Current Complaints R unilateral medial knee arthroplasty, difficulty in walking History of Current Condition Pt is a 69 yo active male s/p POD7 of R unilateral medial knee arthroplasty by Dr. Hunter. Pt was dx with R medial compartment arthritis after he felt significant pain from his trip to [facility] in September. Pt has difficulty walking after who walked 28852 steps a day prior to that. Pt has been progressing well since surgery and is currently using a SPC for mobility. Pt has difficulty bending his R knee and has to stand up with a stagger stance. He has been doing LAQ and Hamstring stretch since the surgery. Prior Functional Status Baseline Function- ADL's Independent Baseline Function- Mobility Independent Baseline Function- Gait no SPC, walk 14k Steps a day. Current Functional Impairments (Reported) Functional Limitations- Mobility/Gait Pt has difficulty bending his R knee and has to stand up with a stagger stance. He has been doing LAQ and Hamstring stretch since the surgery. Personal Factors Other Personal Factors That May Effect stent placement Therapy/Recovery PT-OP-C Subjective Start: 03/30/20 12:07 Freq: Status: Active Protocol: Document 05/07/20 13:45 DCW (Rec: 05/07/20 14:31 DCW [id number]) OP-PT Subjective Patient Comments Patient Comments Pt had a bit of a setback while on vacation, reports he had an increase of knee pain after going up and down stairs frequently at his cabin, and was then pretty sore after driving back from [place]. Does note that he was able to walk two miles yesterday. PT-OP-F Manual Assessment Start: 03/30/20 12:07 Freq: Status: Active Protocol: Document 03/30/20 12:07 (Rec: 03/30/20 12:31 [email or web address]) Manual Assessments Soft Tissue Assessment Soft Tissue Mobility Assessment slight warm to touch around incision site and medial knee TTP at medial joint line PT-OP-G Mobility & Gait Start: 03/30/20 12:07 Freq: Status: Active Protocol: Document 03/30/20 12:07 (Rec: 03/30/20 12:31 [email or web address]) OP Gait Assessment Gait Gait Assistance Required: Independent Assistive Devices Assistive Device Straight Cane Gait Deviations General Gait Pattern Antalgic,Decreased Stride Length,Decreased Feet Clearance PT-OP-J Posture/Palpation/Skin Start: 03/30/20 12:07 Freq: Status: Active Protocol: Document 03/30/20 12:07 (Rec: 03/30/20 12:31 [email or web address]) Posture Evaluation Position Standing Evaluation View Anterior Weight Distribution Weight Shifted Left,Decreased Wt.Bear on (R) Knee Posture (R) Ext. Tibial Torsion,(R) Excess Flexion Skin Assessment Circumference Measurement L knee Location superior to patella= 18, center of patella= 16.5, tibial tub=14.7. R knee Location superior to patella= 19, center of patella= 18, tibial tuberosity= 17 Incisional Assessment Incision Appearance/Comments incision looks intact with slight redness and mild drainage on gauze PT-OP-K Range of Motion Start: 03/30/20 12:07 Freq: Status: Active Protocol: Document 03/30/20 12:07 (Rec: 03/30/20 12:31 [email or web address]) Knee Goniometric Range of Motion Knee L knee Knee ROM WFL Yes Patient Position Supine Flexion Active (degrees) 130 Hyper-Extension Active 4 R knee Knee ROM WFL No Patient Position Supine Flexion Active (degrees) 103 Extension Active (degrees) 10 Knee ROM Limitations Knee ROM Limitations Soft Tissue Tightness,Muscle Tone,Pain,Swelling PT-OP-M Strength Start: 03/30/20 12:07 Freq: Status: Active Protocol: Document 03/30/20 12:07 (Rec: 03/30/20 12:31 HH [email or web address]) Knee Strength Knee Manual Muscle Testing Right Flexion (S2) 4- Good- Extension (L3) 3 Fair Left Flexion (S2) 4+ Good+ Extension (L3) 4+ Good+ PT-OP-Q Treatments Start: 03/30/20 12:07 Freq: Status: Active Protocol: Document 05/07/20 13:45 DCW (Rec: 05/07/20 14:31 DCW [id number]) Cardio Equipment Recumbent Bicycle Duration (Minutes) 6 Resistance 8 Seat Position 6 Gym Equipment Shuttle Recovery single leg squat Details with toe up to faciltiate TKE Resistance #62 Shuttle Recovery Platform Stable Reps/Time x20 Bilateral Squats Details with toe up to faciltiate TKE Resistance #100 Shuttle Recovery Platform Stable Reps/Time x25 Therapeutic Exercises Supine Exercises hamstring stretch Supine Exercise Name PROM Side right Comments PT assisted Standing Exercises step up Standing Exercise Name Step up/down Side bilateral Equipment Used 6 step Reps/Minutes 6 x 2 Comments pressure noted at R knee Manual Therapy Treatment Soft Tissue Mobilization STM Body Location medial quad, medial joint line Mobilization Type Rolling,Sustained Pressure, Trigger Point Release Intensity/Depth Moderate Body Position Hooklying Comments mild tenderness to L medial joint line Joint Mobilizations femoral tibial joint Grade III Body Position Supine Reps/Duration 4 mins Comments PA mob on tibia, ankle on foam roller PT-OP-T Assessment and Plan Start: 03/30/20 12:07 Freq: Status: Active Protocol: Document 05/07/20 13:45 DCW (Rec: 05/07/20 14:31 DCW [id number]) Physical Therapy Assessment Goals gait and transfers Impairment pt walks with SPC and sit to stand with stagger stance Industrial Hygiene Engineer Goal (LTG) pt will be able to amb without AD safely and complete sit to stand with an even steps without using armrest to push off as well. LTG Duration 8 weeks ROM Impairment R knee flexion= 103, extension =10 Assisted Goal (LTG) pt will regain his R knee extension to less than 0 and flexion to 130 actively to optimize his gait mechanics LTG Duration 8 weeks LEFS Impairment pt scores 20 for LEFS Short Term Goal (STG) pt will score >47 on LEFS to improve his overall functional mobility STG Duration 4 weeks Industrial Hygiene Engineer Goal (LTG) pt will score >62 on LEFS to improve his overall functional mobility so he can return to his 14k steps a day. LTG Duration 8 weeks Assessment Summary Assessment Continued to focus on knee extension, pt benefitted from joint mobs, stretching, and STM to improve mobility. Pt feels slightly frustrated about what he regards as a set back, with his recent pain on stairs, but was more optimistic following today's session. Physical Therapy Plan Frequency and Duration Frequency of Treatment 1x/Week Duration of Treatment 8 weeks Plan of Care Start Date 03/30/20 Plan of Care End Date 05/29/20 Next Visit Focus/Plan Next Note Type Progress Note Next Visit Plan patella mob, hip stability biking leg press 75-100 SL squat leg press WB standing TKE gait training on knee extension , TKE, without SPC
--- NOTE | 2020-05-12 13:49 | PT.OTN ---
Current Diagnoses Unilateral primary osteoarthritis, right knee (05/12/20) Physical Therapy Treatment Note PT-OP-A Visit Information Start: 03/30/20 12:07 Freq: Status: Active Protocol: Document 05/12/20 13:00 (Rec: 05/12/20 13:48 [id number]) Out-Patient Physical Therapy Visit Information Visit Information Visit Type Progress Note Visit Note Pt saw his surgeon yesterday and satisfied with his progress, he cont recommended pt to work on HS mobility to improve TKE., Visit Start Time 13:02 Visit Stop Time 13:45 Total Visit Minutes 43 Visit Number 06/18 Number of COMMERCIAL CENSUS TAKER Visits 0 PT-OP-B Current Condition Start: 03/30/20 12:07 Freq: Status: Active Protocol: Document 03/30/20 12:07 (Rec: 03/30/20 12:31 [email or web address]) Current Condition History of Current Condition Onset Date 03/23/20 Current Complaints R unilateral medial knee arthroplasty, difficulty in walking History of Current Condition Pt is a 69 yo active male s/p POD7 of R unilateral medial knee arthroplasty by Dr. Hunter. Pt was dx with R medial compartment arthritis after he felt significant pain from his trip to [facility] in September. Pt has difficulty walking after who walked 70182 steps a day prior to that. Pt has been progressing well since surgery and is currently using a SPC for mobility. Pt has difficulty bending his R knee and has to stand up with a stagger stance. He has been doing LAQ and Hamstring stretch since the surgery. Prior Functional Status Baseline Function- ADL's Independent Baseline Function- Mobility Independent Baseline Function- Gait no SPC, walk 14k Steps a day. Current Functional Impairments (Reported) Functional Limitations- Mobility/Gait Pt has difficulty bending his R knee and has to stand up with a stagger stance. He has been doing LAQ and Hamstring stretch since the surgery. 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 Im better after i rested. Patient Reported Progress Improving PT-OP-F Manual Assessment Start: 03/30/20 12:07 Freq: Status: Active Protocol: Document 03/30/20 12:07 (Rec: 03/30/20 12:31 [email or web address]) Manual Assessments Soft Tissue Assessment Soft Tissue Mobility Assessment slight warm to touch around incision site and medial knee TTP at medial joint line PT-OP-G Mobility & Gait Start: 03/30/20 12:07 Freq: Status: Active Protocol: Document 03/30/20 12:07 (Rec: 03/30/20 12:31 [email or web address]) OP Gait Assessment Gait Gait Assistance Required: Independent Assistive Devices Assistive Device Straight Cane Gait Deviations General Gait Pattern Antalgic,Decreased Stride Length,Decreased Feet Clearance PT-OP-J Posture/Palpation/Skin Start: 03/30/20 12:07 Freq: Status: Active Protocol: Document 03/30/20 12:07 (Rec: 03/30/20 12:31 [email or web address]) Posture Evaluation Position Standing Evaluation View Anterior Weight Distribution Weight Shifted Left,Decreased Wt.Bear on (R) Knee Posture (R) Ext. Tibial Torsion,(R) Excess Flexion Skin Assessment Circumference Measurement L knee Location superior to patella= 18, center of patella= 16.5, tibial tub=14.7. R knee Location superior to patella= 19, center of patella= 18, tibial tuberosity= 17 Incisional Assessment Incision Appearance/Comments incision looks intact with slight redness and mild drainage on gauze PT-OP-K Range of Motion Start: 03/30/20 12:07 Freq: Status: Active Protocol: Document 03/30/20 12:07 (Rec: 03/30/20 12:31 [email or web address]) Knee Goniometric Range of Motion Knee L knee Knee ROM WFL Yes Patient Position Supine Flexion Active (degrees) 130 Hyper-Extension Active 4 R knee Knee ROM WFL No Patient Position Supine Flexion Active (degrees) 103 Extension Active (degrees) 10 Knee ROM Limitations Knee ROM Limitations Soft Tissue Tightness,Muscle Tone,Pain,Swelling PT-OP-M Strength Start: 03/30/20 12:07 Freq: Status: Active Protocol: Document 03/30/20 12:07 (Rec: 03/30/20 12:31 [email or web address]) Knee Strength Knee Manual Muscle Testing Right Flexion (S2) 4- Good- Extension (L3) 3 Fair Left Flexion (S2) 4+ Good+ Extension (L3) 4+ Good+ PT-OP-Q Treatments Start: 03/30/20 12:07 Freq: Status: Active Protocol: Document 05/12/20 13:00 HH (Rec: 05/12/20 13:48 [id number]) Cardio Equipment Recumbent Bicycle Duration (Minutes) 5 Resistance 8 Seat Position 6 Other for cool down Gym Equipment Shuttle Recovery single leg squat Details with toe up to faciltiate TKE Resistance #62 Shuttle Recovery Platform Stable Reps/Time x20 Bilateral Squats Details with toe up to faciltiate TKE Resistance #100 Shuttle Recovery Platform Stable Reps/Time x25 Therapeutic Exercises Supine Exercises hamstring stretch Supine Exercise Name PROM Side right Comments PT assisted knee extension Supine Exercise Name TKE with foam roller, with DF Side right Reps/Minutes 3-5 sec hold x 10 x 2 Comments after manual therapy Standing Exercises step up Standing Exercise Name Step up/down Side bilateral Equipment Used 6 step Reps/Minutes 10 x2 Comments no dsicomfort noted Gait Training Gait Activity retro walking Level of Assistance grab bar Surface ground level Distance/Duration 20 ft x 10 rounds Treatment Focus R TKE Comments focus on forefoot drive to ground to facilitate R TKE. Pt felt posterior knee capsule stretch. pressure noted at the back of his R knee Manual Therapy Treatment Joint Mobilizations femoral tibial joint Grade III Body Position Supine Reps/Duration 4 mins Comments PA mob on tibia, ankle on foam roller PT-OP-T Assessment and Plan Start: 03/30/20 12:07 Freq: Status: Active Protocol: Document 05/12/20 13:00 (Rec: 05/12/20 13:48 [id number]) Physical Therapy Assessment Goals gait and transfers Impairment pt walks with SPC and sit to stand with stagger stance Gis Developer Goal (LTG) 05/12 goal met pt is able to amb without AD safely and complete sit to stand with an even steps without using armrest to push off as well. LTG Duration 8 weeks ROM Impairment R knee flexion= 103, extension =10 Skilled Nursing Goal (LTG) 05/12 cont in progress pt regains his R knee extension to approx 5degrees and flexion to 130 actively to optimize his gait mechanics LTG Duration 8 weeks LEFS Impairment pt scores 20 for LEFS Short Term Goal (STG) pt will score >47 on LEFS to improve his overall functional mobility STG Duration 4 weeks Skilled Nursing Goal (LTG) pt will score >62 on LEFS to improve his overall functional mobility so he can return to his 14k steps a day. LTG Duration 8 weeks Progress Towards Goals Progress Towards Goals Progressing Toward Goals Assessment Summary Assessment Pt has improved since he returned from his road trip. His extension has shown improvement and added retro walking into HEP. Pt reports his RLE strength is 25% less than LLE but cont to improve. Will cont TKE training and overall RLE strengthening. Physical Therapy Plan Frequency and Duration Frequency of Treatment 1x/Week Duration of Treatment 8 weeks Plan of Care Start Date 03/30/20 Plan of Care End Date 05/29/20 Next Visit Focus/Plan Next Note Type Treatment Note Next Visit Plan fill out LEFS retro walking TKE training squat SL step up SLS
--- NOTE | 2020-05-19 14:43 | PT.OTN ---
Current Diagnoses Unilateral primary osteoarthritis, right knee (05/19/20) Physical Therapy Treatment Note PT-OP-A Visit Information Start: 03/30/20 12:07 Freq: Status: Active Protocol: Document 05/19/20 13:02 (Rec: 05/19/20 14:43 [id number]) Out-Patient Physical Therapy Visit Information Visit Information Visit Type Treatment Note Visit Start Time 13:02 Visit Stop Time 13:46 Total Visit Minutes 44 Visit Number 07/18 Number of RACING MANAGER Visits 0 PT-OP-B Current Condition Start: 03/30/20 12:07 Freq: Status: Active Protocol: Document 03/30/20 12:07 HH (Rec: 03/30/20 12:31 [email or web address]) Current Condition History of Current Condition Onset Date 03/23/20 Current Complaints R unilateral medial knee arthroplasty, difficulty in walking History of Current Condition Pt is a 69 yo active male s/p POD7 of R unilateral medial knee arthroplasty by Dr. Hunter. Pt was dx with R medial compartment arthritis after he felt significant pain from his trip to [facility] in September. Pt has difficulty walking after who walked 47225 steps a day prior to that. Pt has been progressing well since surgery and is currently using a SPC for mobility. Pt has difficulty bending his R knee and has to stand up with a stagger stance. He has been doing LAQ and Hamstring stretch since the surgery. Prior Functional Status Baseline Function- ADL's Independent Baseline Function- Mobility Independent Baseline Function- Gait no SPC, walk 14k Steps a day. Current Functional Impairments (Reported) Functional Limitations- Mobility/Gait Pt has difficulty bending his R knee and has to stand up with a stagger stance. He has been doing LAQ and Hamstring stretch since the surgery. Personal Factors Other Personal Factors That May Effect stent placement Therapy/Recovery PT-OP-C Subjective Start: 03/30/20 12:07 Freq: Status: Active Protocol: Document 05/19/20 13:02 (Rec: 05/19/20 14:43 [id number]) OP-PT Subjective Patient Comments Patient Comments I was fine until yesterday when I walked 9000 steps. Patient Reported Progress Improving PT-OP-F Manual Assessment Start: 03/30/20 12:07 Freq: Status: Active Protocol: Document 03/30/20 12:07 HH (Rec: 03/30/20 12:31 [email or web address]) Manual Assessments Soft Tissue Assessment Soft Tissue Mobility Assessment slight warm to touch around incision site and medial knee TTP at medial joint line PT-OP-G Mobility & Gait Start: 03/30/20 12:07 Freq: Status: Active Protocol: Document 03/30/20 12:07 (Rec: 03/30/20 12:31 [email or web address]) OP Gait Assessment Gait Gait Assistance Required: Independent Assistive Devices Assistive Device Straight Cane Gait Deviations General Gait Pattern Antalgic,Decreased Stride Length,Decreased Feet Clearance PT-OP-J Posture/Palpation/Skin Start: 03/30/20 12:07 Freq: Status: Active Protocol: Document 03/30/20 12:07 (Rec: 03/30/20 12:31 [email or web address]) Posture Evaluation Position Standing Evaluation View Anterior Weight Distribution Weight Shifted Left,Decreased Wt.Bear on (R) Knee Posture (R) Ext. Tibial Torsion,(R) Excess Flexion Skin Assessment Circumference Measurement L knee Location superior to patella= 18, center of patella= 16.5, tibial tub=14.7. R knee Location superior to patella= 19, center of patella= 18, tibial tuberosity= 17 Incisional Assessment Incision Appearance/Comments incision looks intact with slight redness and mild drainage on gauze PT-OP-K Range of Motion Start: 03/30/20 12:07 Freq: Status: Active Protocol: Document 03/30/20 12:07 (Rec: 03/30/20 12:31 [email or web address]) Knee Goniometric Range of Motion Knee L knee Knee ROM WFL Yes Patient Position Supine Flexion Active (degrees) 130 Hyper-Extension Active 4 R knee Knee ROM WFL No Patient Position Supine Flexion Active (degrees) 103 Extension Active (degrees) 10 Knee ROM Limitations Knee ROM Limitations Soft Tissue Tightness,Muscle Tone,Pain,Swelling PT-OP-M Strength Start: 03/30/20 12:07 Freq: Status: Active Protocol: Document 03/30/20 12:07 (Rec: 03/30/20 12:31 [email or web address]) Knee Strength Knee Manual Muscle Testing Right Flexion (S2) 4- Good- Extension (L3) 3 Fair Left Flexion (S2) 4+ Good+ Extension (L3) 4+ Good+ PT-OP-Q Treatments Start: 03/30/20 12:07 Freq: Status: Active Protocol: Document 05/19/20 13:02 (Rec: 05/19/20 14:43 [id number]) Cardio Equipment Recumbent Bicycle Duration (Minutes) 5 Resistance 8 Seat Position 6 Other for cool down Therapeutic Exercises Supine Exercises knee extension Supine Exercise Name TKE with foam roller, with DF Side right Reps/Minutes 3-5 sec hold x 10 x 2 Comments after manual therapy Standing Exercises Gastoc stretch Standing Exercise Name R foot back Side right Equipment Used grab bar Reps/Minutes 10 x1 AP weight shift Standing Exercise Name With R foot back targeting R knee extension and R gastroc stretch. Equipment Used Rocking platform Reps/Minutes 10 x2 Comments with grab bar Gait Training Gait Activity retro walking Level of Assistance grab bar Surface ground level Distance/Duration 20 ft x 10 rounds Treatment Focus R TKE Comments focus on forefoot drive to ground to facilitate R TKE. Pt felt posterior knee capsule stretch. pressure noted at the back of his R knee Manual Therapy Treatment Soft Tissue Mobilization STM Body Location medial quad, medial joint line , L gastroc, hip flexors Mobilization Type Rolling,Sustained Pressure, Trigger Point Release Intensity/Depth Moderate Body Position Hooklying Comments Tenderness to pressure on gastroc. Joint Mobilizations femoral tibial joint Grade III Body Position Supine Reps/Duration 4 mins Comments PA mob on tibia, ankle on foam roller Self-Care/Home Management Treatment Education Patient Education Body Mechanics,Home Exercise Program,Joint Protection,Pain Management,Posture,Safety Other Education education on pt to monitor his activity level since pt tends to get sore for days after days with > 6000 steps or prolonged standing during volunteer. PT-OP-T Assessment and Plan Start: 03/30/20 12:07 Freq: Status: Active Protocol: Document 05/19/20 13:02 (Rec: 05/19/20 14:43 [id number]) Physical Therapy Assessment Goals gait and transfers Impairment pt walks with SPC and sit to stand with stagger stance Fpc Goal (LTG) 05/12 goal met pt is able to amb without AD safely and complete sit to stand with an even steps without using armrest to push off as well. LTG Duration 8 weeks ROM Impairment R knee flexion= 103, extension =10 Program Attendant Goal (LTG) 05/12 cont in progress pt regains his R knee extension to approx 5degrees and flexion to 130 actively to optimize his gait mechanics LTG Duration 8 weeks LEFS Impairment pt scores 20 for LEFS Short Term Goal (STG) pt will score >47 on LEFS to improve his overall functional mobility STG Duration 4 weeks Fpc Goal (LTG) pt will score >62 on LEFS to improve his overall functional mobility so he can return to his 14k steps a day. LTG Duration 8 weeks Assessment Summary Assessment Pt came in today with increased tenderness in R gastroc and medial joint line after 9000 steps (3miles of walker yesterday). After STM on gastroc, tenderness decreased. His R knee extension ROM also improved after femoral tibial joint post glide mobilization. Standing gastroc stretch was added to HEP Physical Therapy Plan Frequency and Duration Frequency of Treatment 1x/Week Duration of Treatment 8 weeks Plan of Care Start Date 03/30/20 Plan of Care End Date 05/29/20 Next Visit Focus/Plan Next Note Type Treatment Note Next Visit Plan fill out LEFS retro walking TKE training squat SL step up SLS
--- NOTE | 2020-05-26 13:59 | PT.OPPOC ---
Physical, Occupational & Speech Therapy At [facility] Current Diagnoses Unilateral primary osteoarthritis, right knee (05/26/20) Visit Care Team Role Provider Type Mo Roper MD Family Provider Physician Primary Care Provider Specialty: Internal Medicine Address: [address] [place] [address], [address], [address] Email: [email or web address] Branden Hunter MD Attending Provider Physician Referring Provider Specialty: Orthopedic Surgery Address: [address] [place] [address], [id number] Email: [email or web address] Plan Of Care PT-OP-T Assessment and Plan Start: 03/30/20 12:07 Freq: Status: Active Protocol: Document 05/26/20 13:03 HH (Rec: 05/26/20 13:59 HH [id number]) Physical Therapy Assessment Goals gait and transfers Impairment pt walks with SPC and sit to stand with stagger stance Monumental Stonemason Goal (LTG) 05/12 goal met pt is able to amb without AD safely and complete sit to stand with an even steps without using armrest to push off as well. LTG Duration 8 weeks ROM Impairment R knee flexion= 103, extension =10 Monumental Stonemason Goal (LTG) 05/26 goal met pt regains his R knee extension to approx 0 degrees and flexion to 130 actively to optimize his gait mechanics LEFS Impairment pt scores 20 for LEFS Short Term Goal (STG) 05/26 pt scores on 62 on LEFS but only able to tolerate approx 7K steps daily. STG Duration 4 weeks Monumental Stonemason Goal (LTG) pt will score >70 on LEFS to improve his overall functional mobility so he can return to his 14k steps a day. LTG Duration 8 weeks Four Impairment discomfort during stair climbing. Short Term Goal (STG) Pt will be able to anali stair climb for 6 inches step with 1 UE support with minimal discomfort at knee. STG Duration 6 weeks Progress Towards Goals Progress Towards Goals Progressing Toward Goals Assessment Summary Assessment Pt shows good progress in general since IE and pt was able to reach full range and flexion up to 0 (L knee -4). However, he still has pain / difficulty negotiating full 6 step but none with 4 inch step. Pt is going to [place] for 2weeks but he will benefit 2-4 more visits for cont strengthening so he can climb stairs without discomfort. Physical Therapy Plan Frequency and Duration Frequency of Treatment 1x/Week Duration of Treatment 6 weeks Plan of Care Start Date 05/26/20 Plan of Care End Date 07/10/20 Next Visit Focus/Plan Next Note Type Treatment Note Next Visit Plan retro walking TKE training squat SL step up SLS hip ext/ abd Plan of Care Dates Plan of Care Start Date 05/26/20 Plan of Care End Date 07/10/20 Electronically Signed by: Fawn Carter PT 05/26/20 [id number] Please Sign and Return: I have reviewed this Plan of Care and certify that the skilled therapy services above are required to meet the patient?s needs. Physician Signature Date Printed Name and Credentials Clinical Instructor Signature Printed Name and Credentials
--- NOTE | 2020-05-26 14:00 | PT.OTN ---
Current Diagnoses Unilateral primary osteoarthritis, right knee (05/26/20) Physical Therapy Treatment Note PT-OP-A Visit Information Start: 03/30/20 12:07 Freq: Status: Active Protocol: Document 05/26/20 13:03 (Rec: 05/26/20 13:59 [id number]) Out-Patient Physical Therapy Visit Information Visit Information Visit Type Treatment Note Visit Start Time 13:02 Visit Stop Time 13:48 Total Visit Minutes 46 Visit Number Number of TRANSLATIONAL SPECIALIST Visits 0 PT-OP-B Current Condition Start: 03/30/20 12:07 Freq: Status: Active Protocol: Document 03/30/20 12:07 HH (Rec: 03/30/20 12:31 [email or web address]) Current Condition History of Current Condition Onset Date 03/23/20 Current Complaints R unilateral medial knee arthroplasty, difficulty in walking History of Current Condition Pt is a 69 yo active male s/p POD7 of R unilateral medial knee arthroplasty by Dr. Hunter. Pt was dx with R medial compartment arthritis after he felt significant pain from his trip to [facility] in September. Pt has difficulty walking after who walked 64085 steps a day prior to that. Pt has been progressing well since surgery and is currently using a SPC for mobility. Pt has difficulty bending his R knee and has to stand up with a stagger stance. He has been doing LAQ and Hamstring stretch since the surgery. Prior Functional Status Baseline Function- ADL's Independent Baseline Function- Mobility Independent Baseline Function- Gait no SPC, walk 14k Steps a day. Current Functional Impairments (Reported) Functional Limitations- Mobility/Gait Pt has difficulty bending his R knee and has to stand up with a stagger stance. He has been doing LAQ and Hamstring stretch since the surgery. Personal Factors Other Personal Factors That May Effect stent placement Therapy/Recovery PT-OP-C Subjective Start: 03/30/20 12:07 Freq: Status: Active Protocol: Document 05/26/20 13:03 (Rec: 05/26/20 13:59 [id number]) OP-PT Subjective Patient Comments Patient Comments My knee is getting straighter now but i still have trouble to climb up with a big step. Patient Reported Progress Improving Patient Questionnaires Lower Extremity Functional Scale LEFS Score 62 LEFS Impairment 1 to 19% Impaired (Score 63-79 ) PT-OP-F Manual Assessment Start: 03/30/20 12:07 Freq: Status: Active Protocol: Document 03/30/20 12:07 (Rec: 03/30/20 12:31 [email or web address]) Manual Assessments Soft Tissue Assessment Soft Tissue Mobility Assessment slight warm to touch around incision site and medial knee TTP at medial joint line PT-OP-G Mobility & Gait Start: 03/30/20 12:07 Freq: Status: Active Protocol: Document 03/30/20 12:07 (Rec: 03/30/20 12:31 [email or web address]) OP Gait Assessment Gait Gait Assistance Required: Independent Assistive Devices Assistive Device Straight Cane Gait Deviations General Gait Pattern Antalgic,Decreased Stride Length,Decreased Feet Clearance PT-OP-J Posture/Palpation/Skin Start: 03/30/20 12:07 Freq: Status: Active Protocol: Document 03/30/20 12:07 (Rec: 03/30/20 12:31 [email or web address]) Posture Evaluation Position Standing Evaluation View Anterior Weight Distribution Weight Shifted Left,Decreased Wt.Bear on (R) Knee Posture (R) Ext. Tibial Torsion,(R) Excess Flexion Skin Assessment Circumference Measurement L knee Location superior to patella= 18, center of patella= 16.5, tibial tub=14.7. R knee Location superior to patella= 19, center of patella= 18, tibial tuberosity= 17 Incisional Assessment Incision Appearance/Comments incision looks intact with slight redness and mild drainage on gauze PT-OP-K Range of Motion Start: 03/30/20 12:07 Freq: Status: Active Protocol: Document 05/26/20 13:03 (Rec: 05/26/20 13:59 [id number]) Knee Goniometric Range of Motion Knee R knee Knee ROM WFL Yes Patient Position Supine Flexion Active (degrees) 130 Extension Active (degrees) 0 PT-OP-M Strength Start: 03/30/20 12:07 Freq: Status: Active Protocol: Document 03/30/20 12:07 (Rec: 03/30/20 12:31 [email or web address]) Knee Strength Knee Manual Muscle Testing Right Flexion (S2) 4- Good- Extension (L3) 3 Fair Left Flexion (S2) 4+ Good+ Extension (L3) 4+ Good+ PT-OP-Q Treatments Start: 03/30/20 12:07 Freq: Status: Active Protocol: Document 05/26/20 13:03 (Rec: 05/26/20 13:59 HH [id number]) Cardio Equipment Recumbent Bicycle Duration (Minutes) 6 Resistance 8 Seat Position 6 Therapeutic Exercises Supine Exercises hamstring stretch Supine Exercise Name PROM Side right Comments PT assisted, for HEP with towel knee extension Supine Exercise Name TKE with foam roller, with DF Side right Reps/Minutes 3-5 sec hold x 10 x 2 Comments after manual therapy Standing Exercises mini squat Side bilateral Reps/Minutes 8 x2 Comments for HEP, no discomfort noted standing hip abduction Side bilateral Equipment Used slider on floor Reps/Minutes 10x2 Comments for HEP hip extension Side bilateral Equipment Used slider on floor Reps/Minutes 10 x2 Comments for HEP, cues to maintain straight back step up Standing Exercise Name Step up/down Side bilateral Equipment Used 6 step Reps/Minutes 10 x2 Comments rec 4 inch for HEP Manual Therapy Treatment Joint Mobilizations femoral tibial joint Grade III Body Position Supine Reps/Duration 4 mins Comments PA mob on tibia, ankle on foam roller PT-OP-T Assessment and Plan Start: 03/30/20 12:07 Freq: Status: Active Protocol: Document 05/26/20 13:03 (Rec: 05/26/20 13:59 [id number]) Physical Therapy Assessment Goals gait and transfers Impairment pt walks with SPC and sit to stand with stagger stance Beam Builder Goal (LTG) 05/12 goal met pt is able to amb without AD safely and complete sit to stand with an even steps without using armrest to push off as well. LTG Duration 8 weeks ROM Impairment R knee flexion= 103, extension =10 Beam Builder Goal (LTG) 05/26 goal met pt regains his R knee extension to approx 0 degrees and flexion to 130 actively to optimize his gait mechanics LEFS Impairment pt scores 20 for LEFS Short Term Goal (STG) 05/26 pt scores on 62 on LEFS but only able to tolerate approx 7K steps daily. STG Duration 4 weeks Care Home Goal (LTG) pt will score >70 on LEFS to improve his overall functional mobility so he can return to his 14k steps a day. LTG Duration 8 weeks Four Impairment discomfort during stair climbing. Short Term Goal (STG) Pt will be able to anali stair climb for 6 inches step with 1 UE support with minimal discomfort at knee. STG Duration 6 weeks Progress Towards Goals Progress Towards Goals Progressing Toward Goals Assessment Summary Assessment Pt shows good progress in general since IE and pt was able to reach full range and flexion up to 0 (L knee -4). However, he still has pain / difficulty negotiating full 6 step but none with 4 inch step. Pt is going to [place] for 2weeks but he will benefit 2-4 more visits for cont strengthening so he can climb stairs without discomfort. Physical Therapy Plan Frequency and Duration Frequency of Treatment 1x/Week Duration of Treatment 6 weeks Plan of Care Start Date 05/26/20 Plan of Care End Date 07/10/20 Next Visit Focus/Plan Next Note Type Treatment Note Next Visit Plan retro walking TKE training squat SL step up SLS hip ext/ abd
--- NOTE | 2020-06-30 10:34 | PT.OTN ---
Current Diagnoses Unilateral primary osteoarthritis, right knee (06/30/20) Physical Therapy Treatment Note PT-OP-A Visit Information Start: 03/30/20 12:07 Freq: Status: Active Protocol: Document 06/30/20 09:49 (Rec: 06/30/20 10:34 [id number]) Out-Patient Physical Therapy Visit Information Visit Information Visit Type Progress Note Visit Start Time 09:52 Visit Stop Time 10:30 Total Visit Minutes 43 Visit Number Number of BLOCK SEALER Visits 0 PT-OP-B Current Condition Start: 03/30/20 12:07 Freq: Status: Active Protocol: Document 03/30/20 12:07 HH (Rec: 03/30/20 12:31 [email or web address]) Current Condition History of Current Condition Onset Date 03/23/20 Current Complaints R unilateral medial knee arthroplasty, difficulty in walking History of Current Condition Pt is a 69 yo active male s/p POD7 of R unilateral medial knee arthroplasty by Dr. Hunter. Pt was dx with R medial compartment arthritis after he felt significant pain from his trip to [facility] in September. Pt has difficulty walking after who walked 85884 steps a day prior to that. Pt has been progressing well since surgery and is currently using a SPC for mobility. Pt has difficulty bending his R knee and has to stand up with a stagger stance. He has been doing LAQ and Hamstring stretch since the surgery. Prior Functional Status Baseline Function- ADL's Independent Baseline Function- Mobility Independent Baseline Function- Gait no SPC, walk 14k Steps a day. Current Functional Impairments (Reported) Functional Limitations- Mobility/Gait Pt has difficulty bending his R knee and has to stand up with a stagger stance. He has been doing LAQ and Hamstring stretch since the surgery. Personal Factors Other Personal Factors That May Effect stent placement Therapy/Recovery PT-OP-C Subjective Start: 03/30/20 12:07 Freq: Status: Active Protocol: Document 06/30/20 09:49 (Rec: 06/30/20 10:34 [id number]) OP-PT Subjective Patient Comments Patient Comments I killed my knee in [place]. I walked a lot. Getting in and out of SUV hurt my knee. I saw Dr. Hunter yesterday and he said my R knee extension is lacking. PT-OP-F Manual Assessment Start: 03/30/20 12:07 Freq: Status: Active Protocol: Document 03/30/20 12:07 (Rec: 03/30/20 12:31 [email or web address]) Manual Assessments Soft Tissue Assessment Soft Tissue Mobility Assessment slight warm to touch around incision site and medial knee TTP at medial joint line PT-OP-G Mobility & Gait Start: 03/30/20 12:07 Freq: Status: Active Protocol: Document 03/30/20 12:07 (Rec: 03/30/20 12:31 [email or web address]) OP Gait Assessment Gait Gait Assistance Required: Independent Assistive Devices Assistive Device Straight Cane Gait Deviations General Gait Pattern Antalgic,Decreased Stride Length,Decreased Feet Clearance PT-OP-J Posture/Palpation/Skin Start: 03/30/20 12:07 Freq: Status: Active Protocol: Document 03/30/20 12:07 (Rec: 03/30/20 12:31 [email or web address]) Posture Evaluation Position Standing Evaluation View Anterior Weight Distribution Weight Shifted Left,Decreased Wt.Bear on (R) Knee Posture (R) Ext. Tibial Torsion,(R) Excess Flexion Skin Assessment Circumference Measurement L knee Location superior to patella= 18, center of patella= 16.5, tibial tub=14.7. R knee Location superior to patella= 19, center of patella= 18, tibial tuberosity= 17 Incisional Assessment Incision Appearance/Comments incision looks intact with slight redness and mild drainage on gauze PT-OP-K Range of Motion Start: 03/30/20 12:07 Freq: Status: Active Protocol: Document 05/26/20 13:03 (Rec: 05/26/20 13:59 [id number]) Knee Goniometric Range of Motion Knee R knee Knee ROM WFL Yes Patient Position Supine Flexion Active (degrees) 130 Extension Active (degrees) 0 PT-OP-M Strength Start: 03/30/20 12:07 Freq: Status: Active Protocol: Document 03/30/20 12:07 (Rec: 03/30/20 12:31 [email or web address]) Knee Strength Knee Manual Muscle Testing Right Flexion (S2) 4- Good- Extension (L3) 3 Fair Left Flexion (S2) 4+ Good+ Extension (L3) 4+ Good+ PT-OP-Q Treatments Start: 03/30/20 12:07 Freq: Status: Active Protocol: Document 06/30/20 09:49 (Rec: 06/30/20 10:34 [id number]) Cardio Equipment Recumbent Bicycle Duration (Minutes) 6 Resistance 8 Seat Position 6 Therapeutic Exercises Supine Exercises hamstring stretch Supine Exercise Name PROM Side right Comments PT assisted, for HEP with gait belt knee extension Supine Exercise Name TKE with foam roller, with DF Side right Reps/Minutes 3-5 sec hold x 10 x 2 Comments after manual therapy Standing Exercises standing knee extension Standing Exercise Name Closed-chain in staggered stance Side bilateral Reps/Minutes 10 x2 Comments Cues to keep the heel down and just move at the knee. Manual Therapy Treatment Soft Tissue Mobilization STM Body Location Medial aspect of R calf and hamstring Mobilization Type Rolling,Sustained Pressure, Trigger Point Release Intensity/Depth Moderate Body Position Supine Joint Mobilizations femoral tibial joint Grade III Body Position Supine Reps/Duration 4 mins Comments PA mob on tibia, ankle on foam roller PT-OP-T Assessment and Plan Start: 03/30/20 12:07 Freq: Status: Active Protocol: Document 06/30/20 09:49 (Rec: 06/30/20 10:34 [id number]) Physical Therapy Assessment Goals gait and transfers Impairment pt walks with SPC and sit to stand with stagger stance Alf Goal (LTG) 05/12 goal met pt is able to amb without AD safely and complete sit to stand with an even steps without using armrest to push off as well. LTG Duration 8 weeks ROM Impairment R knee flexion= 103, extension =10 Alf Goal (LTG) 05/26 goal met pt regains his R knee extension to approx 0 degrees and flexion to 130 actively to optimize his gait mechanics LEFS Impairment pt scores 20 for LEFS Short Term Goal (STG) 05/26 pt scores on 62 on LEFS but only able to tolerate approx 7K steps daily. STG Duration 4 weeks Outside Sales Consultant Goal (LTG) pt will score >70 on LEFS to improve his overall functional mobility so he can return to his 14k steps a day. LTG Duration 8 weeks Four Impairment discomfort during stair climbing. Short Term Goal (STG) Pt will be able to anali stair climb for 6 inches step with 1 UE support with minimal discomfort at knee. STG Duration 6 weeks Assessment Summary Assessment Pt returned from [place] who walked 2-3 miles a day there. Pt cont to have pain during transfers and also lack of knee extension. His supine R knee extension =3 degrees but improved to 0 degrees after manual therapy and therex. This PT noticed pt lacks of more knee extension in WB position. Added TKE in staggered stance position. Will cont therapy 1/wk for one more month. Physical Therapy Plan Frequency and Duration Frequency of Treatment 1x/Week Duration of Treatment 6 weeks Plan of Care Start Date 05/26/20 Plan of Care End Date 07/10/20 Next Visit Focus/Plan Next Note Type Treatment Note Next Visit Plan retro walking TKE training squat SL step up SLS hip ext/ abd
--- NOTE | 2020-06-30 10:54 | PT.OPPOC ---
Physical, Occupational & Speech Therapy At [facility] Current Diagnoses Unilateral primary osteoarthritis, right knee (06/30/20) Visit Care Team Role Provider Type Mo Roper MD Family Provider Physician Primary Care Provider Specialty: Internal Medicine Address: [address] [place] [address], [address], [address] Email: [email or web address] Branden Hunter MD Attending Provider Physician Referring Provider Specialty: Orthopedic Surgery Address: [address] [place] [address], [id number] Email: [email or web address] Plan Of Care PT-OP-T Assessment and Plan Start: 03/30/20 12:07 Freq: Status: Active Protocol: Document 06/30/20 09:49 (Rec: 06/30/20 10:34 HH [id number]) Physical Therapy Assessment Goals pain Impairment pain 4/10 during transfer Short Term Goal (STG) Pt will have no more than R knee pain 2/10 during car transfers and STS transfer STG Duration 4 weeks Overseamer Goal (LTG) pt willl imporve his gait to achieve full R knee extension during R stance phase LTG Duration 6 weeks gait and transfers Impairment pt walks with SPC and sit to stand with stagger stance Retirement Goal (LTG) 05/12 goal met pt is able to amb without AD safely and complete sit to stand with an even steps without using armrest to push off as well. LTG Duration 8 weeks ROM Impairment R knee flexion= 103, extension =10 Short Term Goal (STG) 05/26 goal met pt regains his R knee extension to approx 0 degrees and flexion to 130 actively to optimize his gait mechanics Overseamer Goal (LTG) pt will reach -3 degrees on R knee extension to match his L knee extension. LTG Duration 6 weeks LEFS Impairment pt scores 20 for LEFS Short Term Goal (STG) 05/26 pt scores on 62 on LEFS but only able to tolerate approx 7K steps daily. STG Duration 4 weeks Overseamer Goal (LTG) pt will score >70 on LEFS to improve his overall functional mobility so he can return to his 14k steps a day. LTG Duration 8 weeks Four Impairment discomfort during stair climbing. Short Term Goal (STG) Pt will be able to anali stair climb for 6 inches step with 1 UE support with minimal discomfort at knee. STG Duration 6 weeks Progress Towards Goals Progress Towards Goals Progressing Toward Goals,Slow Progress - Other Assessment Summary Assessment Pt returned from [place] who walked 2-3 miles a day there. Pt cont to have pain during transfers and also lack of knee extension. His supine R knee extension =3 degrees but improved to 0 degrees after manual therapy and therex. This PT noticed pt lacks of more knee extension in WB position. Added TKE in staggered stance position. Will cont therapy 1/wk for 8 weeks to improve his knee extension, gait mechanics and overall strength. Physical Therapy Plan Frequency and Duration Frequency of Treatment 1x/Week Duration of Treatment 8 weeks Plan of Care Start Date 06/30/20 Plan of Care End Date 08/29/20 Therapeutic Interventions Therapeutic Interventions Balance Training,Gait Training ,Home Exercise Program,Joint Mobilizations,Manual Therapy, Neuromuscular Re-education, Patient/Caregiver Education, Self-Care/Home Management,Soft Tissue Mobilization,Taping, Therapeutic Activities, Therapeutic Exercises Modalities Biofeedback,Cold Pack/Ice Massage,Electric Stimulation, Hot Packs,Infrared Therapy, Ultrasound Next Visit Focus/Plan Next Note Type Treatment Note Next Visit Plan hamstring stretch, TKE gait training Plan of Care Dates Plan of Care Start Date 06/30/20 Plan of Care End Date 08/29/20 Electronically Signed by: Fawn Carter, PT 06/30/20 [id number] Please Sign and Return: I have reviewed this Plan of Care and certify that the skilled therapy services above are required to meet the patient?s needs. Physician Signature Date Printed Name and Credentials Clinical Instructor Signature Printed Name and Credentials
--- NOTE | 2020-06-30 10:54 | PT.OPPN ---
Current Diagnoses Unilateral primary osteoarthritis, right knee (06/30/20) Physical Therapy Progress Note PT-OP-A Visit Information Start: 03/30/20 12:07 Freq: Status: Active Protocol: Document 06/30/20 09:49 (Rec: 06/30/20 10:34 [id number]) Out-Patient Physical Therapy Visit Information Visit Information Visit Type Progress Note Visit Start Time 09:52 Visit Stop Time 10:30 Total Visit Minutes 43 Visit Number Number of MAINTENANCE ASSISTANT Visits 0 PT-OP-B Current Condition Start: 03/30/20 12:07 Freq: Status: Active Protocol: Document 03/30/20 12:07 HH (Rec: 03/30/20 12:31 [email or web address]) Current Condition History of Current Condition Onset Date 03/23/20 Current Complaints R unilateral medial knee arthroplasty, difficulty in walking History of Current Condition Pt is a 69 yo active male s/p POD7 of R unilateral medial knee arthroplasty by Dr. Hunter. Pt was dx with R medial compartment arthritis after he felt significant pain from his trip to [facility] in September. Pt has difficulty walking after who walked 98869 steps a day prior to that. Pt has been progressing well since surgery and is currently using a SPC for mobility. Pt has difficulty bending his R knee and has to stand up with a stagger stance. He has been doing LAQ and Hamstring stretch since the surgery. Prior Functional Status Baseline Function- ADL's Independent Baseline Function- Mobility Independent Baseline Function- Gait no SPC, walk 14k Steps a day. Current Functional Impairments (Reported) Functional Limitations- Mobility/Gait Pt has difficulty bending his R knee and has to stand up with a stagger stance. He has been doing LAQ and Hamstring stretch since the surgery. Personal Factors Other Personal Factors That May Effect stent placement Therapy/Recovery PT-OP-C Subjective Start: 03/30/20 12:07 Freq: Status: Active Protocol: Document 06/30/20 09:49 (Rec: 06/30/20 10:34 [id number]) OP-PT Subjective Patient Comments Patient Comments I killed my knee in [place]. I walked a lot. Getting in and out of SUV hurt my knee. I saw Dr. Hunter yesterday and he said my R knee extension is lacking. PT-OP-F Manual Assessment Start: 03/30/20 12:07 Freq: Status: Active Protocol: Document 03/30/20 12:07 (Rec: 03/30/20 12:31 [email or web address]) Manual Assessments Soft Tissue Assessment Soft Tissue Mobility Assessment slight warm to touch around incision site and medial knee TTP at medial joint line PT-OP-G Mobility & Gait Start: 03/30/20 12:07 Freq: Status: Active Protocol: Document 03/30/20 12:07 (Rec: 03/30/20 12:31 [email or web address]) OP Gait Assessment Gait Gait Assistance Required: Independent Assistive Devices Assistive Device Straight Cane Gait Deviations General Gait Pattern Antalgic,Decreased Stride Length,Decreased Feet Clearance PT-OP-J Posture/Palpation/Skin Start: 03/30/20 12:07 Freq: Status: Active Protocol: Document 03/30/20 12:07 (Rec: 03/30/20 12:31 [email or web address]) Posture Evaluation Position Standing Evaluation View Anterior Weight Distribution Weight Shifted Left,Decreased Wt.Bear on (R) Knee Posture (R) Ext. Tibial Torsion,(R) Excess Flexion Skin Assessment Circumference Measurement L knee Location superior to patella= 18, center of patella= 16.5, tibial tub=14.7. R knee Location superior to patella= 19, center of patella= 18, tibial tuberosity= 17 Incisional Assessment Incision Appearance/Comments incision looks intact with slight redness and mild drainage on gauze PT-OP-K Range of Motion Start: 03/30/20 12:07 Freq: Status: Active Protocol: Document 06/30/20 09:49 (Rec: 06/30/20 10:45 [id number]) Knee Goniometric Range of Motion Knee Measured in Degrees L knee Hyper-Extension Active 3 R knee Knee ROM WFL Yes Patient Position Supine Extension Active (degrees) 3 Comments supine =3 degrees, after manual therapy = 0 degrees in standing= ~10 degrees. PT-OP-M Strength Start: 03/30/20 12:07 Freq: Status: Active Protocol: Document 06/30/20 09:49 HH (Rec: 06/30/20 10:45 [id number]) Knee Strength Knee Manual Muscle Testing Right Flexion (S2) 4+ Good+ Extension (L3) 4+ Good+ Left Flexion (S2) 5 Normal Extension (L3) 5 Normal PT-OP-T Assessment and Plan Start: 03/30/20 12:07 Freq: Status: Active Protocol: Document 06/30/20 09:49 (Rec: 06/30/20 10:34 HH [id number]) Physical Therapy Assessment Goals pain Impairment pain 4/10 during transfer Short Term Goal (STG) Pt will have no more than R knee pain 2/10 during car transfers and STS transfer STG Duration 4 weeks Manager Technical Services Goal (LTG) pt willl imporve his gait to achieve full R knee extension during R stance phase LTG Duration 6 weeks gait and transfers Impairment pt walks with SPC and sit to stand with stagger stance Manager Technical Services Goal (LTG) 05/12 goal met pt is able to amb without AD safely and complete sit to stand with an even steps without using armrest to push off as well. LTG Duration 8 weeks ROM Impairment R knee flexion= 103, extension =10 Short Term Goal (STG) 05/26 goal met pt regains his R knee extension to approx 0 degrees and flexion to 130 actively to optimize his gait mechanics [place] Goal (LTG) pt will reach -3 degrees on R knee extension to match his L knee extension. LTG Duration 6 weeks LEFS Impairment pt scores 20 for LEFS Short Term Goal (STG) 05/26 pt scores on 62 on LEFS but only able to tolerate approx 7K steps daily. STG Duration 4 weeks Manager Technical Services Goal (LTG) pt will score >70 on LEFS to improve his overall functional mobility so he can return to his 14k steps a day. LTG Duration 8 weeks Four Impairment discomfort during stair climbing. Short Term Goal (STG) Pt will be able to anali stair climb for 6 inches step with 1 UE support with minimal discomfort at knee. STG Duration 6 weeks Progress Towards Goals Progress Towards Goals Progressing Toward Goals,Slow Progress - Other Assessment Summary Assessment Pt returned from [place] who walked 2-3 miles a day there. Pt cont to have pain during transfers and also lack of knee extension. His supine R knee extension =3 degrees but improved to 0 degrees after manual therapy and therex. This PT noticed pt lacks of more knee extension in WB position. Added TKE in staggered stance position. Will cont therapy 1/wk for 8 weeks to improve his knee extension, gait mechanics and overall strength. Physical Therapy Plan Frequency and Duration Frequency of Treatment 1x/Week Duration of Treatment 8 weeks Plan of Care Start Date 06/30/20 Plan of Care End Date 08/29/20 Therapeutic Interventions Therapeutic Interventions Balance Training,Gait Training ,Home Exercise Program,Joint Mobilizations,Manual Therapy, Neuromuscular Re-education, Patient/Caregiver Education, Self-Care/Home Management,Soft Tissue Mobilization,Taping, Therapeutic Activities, Therapeutic Exercises Modalities Biofeedback,Cold Pack/Ice Massage,Electric Stimulation, Hot Packs,Infrared Therapy, Ultrasound Next Visit Focus/Plan Next Note Type Treatment Note Next Visit Plan hamstring stretch, TKE gait training
--- NOTE | 2020-07-07 14:30 | PT.OTN ---
Current Diagnoses Unilateral primary osteoarthritis, right knee (07/07/20) Physical Therapy Treatment Note PT-OP-A Visit Information Start: 03/30/20 12:07 Freq: Status: Active Protocol: Document 07/07/20 13:47 HH (Rec: 07/07/20 14:30 [id number]) Out-Patient Physical Therapy Visit Information Visit Information Visit Type Treatment Note Visit Note I will see the surgeon on July. Visit Start Time 13:47 Visit Stop Time 14:30 Total Visit Minutes 43 Visit Number 15 Number of BENCH M[employer] APPRENTICE Visits 0 PT-OP-B Current Condition Start: 03/30/20 12:07 Freq: Status: Active Protocol: Document 03/30/20 12:07 HH (Rec: 03/30/20 12:31 [email or web address]) Current Condition History of Current Condition Onset Date 03/23/20 Current Complaints R unilateral medial knee arthroplasty, difficulty in walking History of Current Condition Pt is a 69 yo active male s/p POD7 of R unilateral medial knee arthroplasty by Dr. Hunter. Pt was dx with R medial compartment arthritis after he felt significant pain from his trip to [facility] in September. Pt has difficulty walking after who walked 93959 steps a day prior to that. Pt has been progressing well since surgery and is currently using a SPC for mobility. Pt has difficulty bending his R knee and has to stand up with a stagger stance. He has been doing LAQ and Hamstring stretch since the surgery. Prior Functional Status Baseline Function- ADL's Independent Baseline Function- Mobility Independent Baseline Function- Gait no SPC, walk 14k Steps a day. Current Functional Impairments (Reported) Functional Limitations- Mobility/Gait Pt has difficulty bending his R knee and has to stand up with a stagger stance. He has been doing LAQ and Hamstring stretch since the surgery. Personal Factors Other Personal Factors That May Effect stent placement Therapy/Recovery PT-OP-C Subjective Start: 03/30/20 12:07 Freq: Status: Active Protocol: Document 07/07/20 13:47 HH (Rec: 07/07/20 14:30 [id number]) OP-PT Subjective Patient Comments Patient Comments Yusra been doing the hamstring stretch a lot. I think i can straight a little better Patient Reported Progress Improving PT-OP-F Manual Assessment Start: 03/30/20 12:07 Freq: Status: Active Protocol: Document 03/30/20 12:07 (Rec: 03/30/20 12:31 [email or web address]) Manual Assessments Soft Tissue Assessment Soft Tissue Mobility Assessment slight warm to touch around incision site and medial knee TTP at medial joint line PT-OP-G Mobility & Gait Start: 03/30/20 12:07 Freq: Status: Active Protocol: Document 03/30/20 12:07 (Rec: 03/30/20 12:31 [email or web address]) OP Gait Assessment Gait Gait Assistance Required: Independent Assistive Devices Assistive Device Straight Cane Gait Deviations General Gait Pattern Antalgic,Decreased Stride Length,Decreased Feet Clearance PT-OP-J Posture/Palpation/Skin Start: 03/30/20 12:07 Freq: Status: Active Protocol: Document 03/30/20 12:07 (Rec: 03/30/20 12:31 [email or web address]) Posture Evaluation Position Standing Evaluation View Anterior Weight Distribution Weight Shifted Left,Decreased Wt.Bear on (R) Knee Posture (R) Ext. Tibial Torsion,(R) Excess Flexion Skin Assessment Circumference Measurement L knee Location superior to patella= 18, center of patella= 16.5, tibial tub=14.7. R knee Location superior to patella= 19, center of patella= 18, tibial tuberosity= 17 Incisional Assessment Incision Appearance/Comments incision looks intact with slight redness and mild drainage on gauze PT-OP-K Range of Motion Start: 03/30/20 12:07 Freq: Status: Active Protocol: Document 06/30/20 09:49 (Rec: 06/30/20 10:45 [id number]) Knee Goniometric Range of Motion Knee L knee Hyper-Extension Active 3 R knee Knee ROM WFL Yes Patient Position Supine Extension Active (degrees) 3 Comments supine =3 degrees, after manual therapy = 0 degrees in standing= ~10 degrees. PT-OP-M Strength Start: 03/30/20 12:07 Freq: Status: Active Protocol: Document 06/30/20 09:49 (Rec: 06/30/20 10:45 [id number]) Knee Strength Knee Manual Muscle Testing Right Flexion (S2) 4+ Good+ Extension (L3) 4+ Good+ Left Flexion (S2) 5 Normal Extension (L3) 5 Normal PT-OP-Q Treatments Start: 03/30/20 12:07 Freq: Status: Active Protocol: Document 07/07/20 13:47 (Rec: 07/07/20 14:30 [id number]) Cardio Equipment Recumbent Bicycle Duration (Minutes) 6 Resistance 8 Seat Position 6 Gym Equipment Shuttle Recovery single leg squat Resistance #50 Shuttle Recovery Platform Stable Reps/Time 8 x2 Therapeutic Exercises Supine Exercises hamstring stretch Supine Exercise Name PROM Side right Comments PT assisted, for HEP with gait belt knee extension Supine Exercise Name TKE with foam roller, with DF Side right Reps/Minutes 3-5 sec hold x 10 x 2 Comments after manual therapy heel slide Supine Exercise Name flexion and TKE Side right Reps/Minutes 8 x2, 3 sec hold for TKE Standing Exercises standing TKE Side right Equipment Used level 1 band on R knee Reps/Minutes 10 x2 Comments maintained R knee fully extended then marching on L step up Standing Exercise Name Step up/down Side bilateral Equipment Used 4 first 6 step Reps/Minutes 10 x2 Comments rec 4 inch for HEP standing knee extension Standing Exercise Name Closed-chain in staggered stance Side bilateral Reps/Minutes 10 x2 Comments Cues to keep the heel down and just move at the knee. Manual Therapy Treatment Soft Tissue Mobilization STM Body Location Medial aspect of R calf and hamstring Mobilization Type Rolling,Sustained Pressure, Trigger Point Release Intensity/Depth Moderate Body Position Supine Joint Mobilizations femoral tibial joint Grade IV Body Position Supine Reps/Duration 4 mins Comments PA mob on tibia, ankle on foam roller PT-OP-T Assessment and Plan Start: 03/30/20 12:07 Freq: Status: Active Protocol: Document 07/07/20 13:47 (Rec: 07/07/20 14:30 [id number]) Physical Therapy Assessment Goals pain Impairment pain 4/10 during transfer Short Term Goal (STG) Pt will have no more than R knee pain 2/10 during car transfers and STS transfer STG Duration 4 weeks Carrot Tier Goal (LTG) pt willl imporve his gait to achieve full R knee extension during R stance phase LTG Duration 6 weeks gait and transfers Impairment pt walks with SPC and sit to stand with stagger stance Carrot Tier Goal (LTG) 05/12 goal met pt is able to amb without AD safely and complete sit to stand with an even steps without using armrest to push off as well. LTG Duration 8 weeks ROM Impairment R knee flexion= 103, extension =10 Short Term Goal (STG) 05/26 goal met pt regains his R knee extension to approx 0 degrees and flexion to 130 actively to optimize his gait mechanics Carrot Tier Goal (LTG) pt will reach -3 degrees on R knee extension to match his L knee extension. LTG Duration 6 weeks LEFS Impairment pt scores 20 for LEFS Short Term Goal (STG) 05/26 pt scores on 62 on LEFS but only able to tolerate approx 7K steps daily. STG Duration 4 weeks Carrot Tier Goal (LTG) pt will score >70 on LEFS to improve his overall functional mobility so he can return to his 14k steps a day. LTG Duration 8 weeks Assessment Summary Assessment Pt anali session very well with focused on R TKE and gait training. Pt shows slight improvement in R knee extension during stance phase. Physical Therapy Plan Frequency and Duration Frequency of Treatment 1x/Week Duration of Treatment 8 weeks Plan of Care Start Date 06/30/20 Plan of Care End Date 08/29/20 Next Visit Focus/Plan Next Note Type Treatment Note Next Visit Plan hamstring stretch, TKE gait training
--- NOTE | 2020-07-13 09:45 | PT.OTN ---
Current Diagnoses Unilateral primary osteoarthritis, right knee (07/13/20) Physical Therapy Treatment Note PT-OP-A Visit Information Start: 03/30/20 12:07 Freq: Status: Active Protocol: Document 07/13/20 09:01 SP (Rec: 07/13/20 12:04 SP [id number]) Out-Patient Physical Therapy Visit Information Visit Information Visit Type Treatment Note Visit Start Time 09:01 Visit Stop Time 09:45 Total Visit Minutes 44 Visit Number Number of TREASURY AGENT Visits 1 PT-OP-B Current Condition Start: 03/30/20 12:07 Freq: Status: Active Protocol: Document 03/30/20 12:07 HH (Rec: 03/30/20 12:31 HH [email or web address]) Current Condition History of Current Condition Onset Date 03/23/20 Current Complaints R unilateral medial knee arthroplasty, difficulty in walking History of Current Condition Pt is a 69 yo active male s/p POD7 of R unilateral medial knee arthroplasty by Dr. Hunter. Pt was dx with R medial compartment arthritis after he felt significant pain from his trip to [facility] in September. Pt has difficulty walking after who walked 91855 steps a day prior to that. Pt has been progressing well since surgery and is currently using a SPC for mobility. Pt has difficulty bending his R knee and has to stand up with a stagger stance. He has been doing LAQ and Hamstring stretch since the surgery. Prior Functional Status Baseline Function- ADL's Independent Baseline Function- Mobility Independent Baseline Function- Gait no SPC, walk 14k Steps a day. Current Functional Impairments (Reported) Functional Limitations- Mobility/Gait Pt has difficulty bending his R knee and has to stand up with a stagger stance. He has been doing LAQ and Hamstring stretch since the surgery. Personal Factors Other Personal Factors That May Effect stent placement Therapy/Recovery PT-OP-C Subjective Start: 03/30/20 12:07 Freq: Status: Active Protocol: Document 07/13/20 09:01 SP (Rec: 07/13/20 12:04 SP [id number]) OP-PT Subjective Patient Comments Patient Comments Pt reported doing well, only stiffness when getting out of a chair but loosens up once up walking around and wished was achy when walking down hill. Patient Reported Progress Improving PT-OP-F Manual Assessment Start: 03/30/20 12:07 Freq: Status: Active Protocol: Document 03/30/20 12:07 (Rec: 03/30/20 12:31 [email or web address]) Manual Assessments Soft Tissue Assessment Soft Tissue Mobility Assessment slight warm to touch around incision site and medial knee TTP at medial joint line PT-OP-G Mobility & Gait Start: 03/30/20 12:07 Freq: Status: Active Protocol: Document 03/30/20 12:07 (Rec: 03/30/20 12:31 [email or web address]) OP Gait Assessment Gait Gait Assistance Required: Independent Assistive Devices Assistive Device Straight Cane Gait Deviations General Gait Pattern Antalgic,Decreased Stride Length,Decreased Feet Clearance PT-OP-J Posture/Palpation/Skin Start: 03/30/20 12:07 Freq: Status: Active Protocol: Document 03/30/20 12:07 (Rec: 03/30/20 12:31 [email or web address]) Posture Evaluation Position Standing Evaluation View Anterior Weight Distribution Weight Shifted Left,Decreased Wt.Bear on (R) Knee Posture (R) Ext. Tibial Torsion,(R) Excess Flexion Skin Assessment Circumference Measurement L knee Location superior to patella= 18, center of patella= 16.5, tibial tub=14.7. R knee Location superior to patella= 19, center of patella= 18, tibial tuberosity= 17 Incisional Assessment Incision Appearance/Comments incision looks intact with slight redness and mild drainage on gauze PT-OP-K Range of Motion Start: 03/30/20 12:07 Freq: Status: Active Protocol: Document 06/30/20 09:49 (Rec: 06/30/20 10:45 [id number]) Knee Goniometric Range of Motion Knee L knee Hyper-Extension Active 3 R knee Knee ROM WFL Yes Patient Position Supine Extension Active (degrees) 3 Comments supine =3 degrees, after manual therapy = 0 degrees in standing= ~10 degrees. PT-OP-M Strength Start: 03/30/20 12:07 Freq: Status: Active Protocol: Document 06/30/20 09:49 (Rec: 06/30/20 10:45 [id number]) Knee Strength Knee Manual Muscle Testing Right Flexion (S2) 4+ Good+ Extension (L3) 4+ Good+ Left Flexion (S2) 5 Normal Extension (L3) 5 Normal PT-OP-Q Treatments Start: 03/30/20 12:07 Freq: Status: Active Protocol: Document 07/13/20 09:01 SP (Rec: 07/13/20 12:04 SP [id number]) Cardio Equipment Recumbent Bicycle Duration (Minutes) 6 Resistance 8 Seat Position 6 Other 62- 64 RPMs, 2.52miles Gym Equipment Shuttle Recovery single leg squat Resistance #50, # 62 Shuttle Recovery Platform Stable Reps/Time 10 x2 total Therapeutic Exercises Supine Exercises SLR Supine Exercise Name added for quad facilitation Side right Resistance AROM Reps/Minutes x6 Comments cued importance of knee extension ( Er for VMO fac) hamstring stretch Supine Exercise Name PROM Side right Equipment Used strap Reps/Minutes 15 sec x2 (B) Comments HEP review with gait belt Standing Exercises eccentric calf raises Standing Exercise Name cued awareness soft knee but stable ( add HEP) Side bilateral Resistance AROM Equipment Used bottom step Reps/Minutes 2 sec hold into DF then into raise x10 Comments cued slow control, can pause into stretch good calf/HS stretch sit to stands Resistance contact table as needed Equipment Used 18 table height Reps/Minutes x5 Comments cued as needed hip hinge during eccentric last 2 inches standing TKE Side right Equipment Used level 2 band on R knee Reps/Minutes 10 x2 Comments maintained R knee flexion then fully extended then marching on L PT-OP-T Assessment and Plan Start: 03/30/20 12:07 Freq: Status: Active Protocol: Document 07/13/20 09:01 SP (Rec: 07/13/20 12:04 SP [id number]) Physical Therapy Assessment Goals pain Impairment pain 4/10 during transfer Short Term Goal (STG) Pt will have no more than R knee pain 2/10 during car transfers and STS transfer STG Duration 4 weeks Detention Goal (LTG) pt willl imporve his gait to achieve full R knee extension during R stance phase LTG Duration 6 weeks gait and transfers Impairment pt walks with SPC and sit to stand with stagger stance Metal Fitter Goal (LTG) 05/12 goal met pt is able to amb without AD safely and complete sit to stand with an even steps without using armrest to push off as well. LTG Duration 8 weeks ROM Impairment R knee flexion= 103, extension =10 Short Term Goal (STG) 05/26 goal met pt regains his R knee extension to approx 0 degrees and flexion to 130 actively to optimize his gait mechanics Detention Goal (LTG) pt will reach -3 degrees on R knee extension to match his L knee extension. LTG Duration 6 weeks LEFS Impairment pt scores 20 for LEFS Short Term Goal (STG) 05/26 pt scores on 62 on LEFS but only able to tolerate approx 7K steps daily. STG Duration 4 weeks Detention Goal (LTG) pt will score >70 on LEFS to improve his overall functional mobility so he can return to his 14k steps a day. LTG Duration 8 weeks Four Impairment discomfort during stair climbing. Short Term Goal (STG) Pt will be able to anali stair climb for 6 inches step with 1 UE support with minimal discomfort at knee. STG Duration 6 weeks Three Impairment No HEP in place Detention Goal (LTG) Patient will perform HEP independently LTG Duration 4 wks Two Impairment Unable to walk more than 2 miles Metal Fitter Goal (LTG) Patient will ambulate > 2 miles without increase of symptoms LTG Duration 4 wks (more than amile at this time) One Impairment Oswestry Fucntional low back score of 14/50 Detention Goal (LTG) Patient will have Oswetry score of less than 10 LTG Duration 4 wks (Improving well) Assessment Summary Assessment Pt had good response to tx, cued knee ROM and stability/ strength during TKE, calf raises, SLR and hip hinge cuing for decrease requirement of UE support during sit to stands today. Pt stated is making gains in mobility, wants to get better at walking down hills while out for his walks, achy feeling in knee. Physical Therapy Plan Frequency and Duration Frequency of Treatment 1x/Week Duration of Treatment 8 weeks Plan of Care Start Date 06/30/20 Plan of Care End Date 08/29/20 Therapeutic Interventions Therapeutic Interventions Balance Training,Gait Training ,Home Exercise Program,Joint Mobilizations,Manual Therapy, Neuromuscular Re-education, Patient/Caregiver Education, Self-Care/Home Management,Soft Tissue Mobilization,Taping, Therapeutic Activities, Therapeutic Exercises Modalities Biofeedback,Cold Pack/Ice Massage,Electric Stimulation, Hot Packs,Infrared Therapy, Ultrasound Next Visit Focus/Plan Next Note Type Treatment Note Next Visit Plan Assess response to last tx: TKE, ecc calf raises, SLR, sit to stands with focuse on strengthening. Continue per PT POC:hamstring stretch, TKE gait training
--- NOTE | 2020-07-20 10:35 | PT.OTN ---
Current Diagnoses Unilateral primary osteoarthritis, right knee (07/20/20) Physical Therapy Treatment Note PT-OP-A Visit Information Start: 03/30/20 12:07 Freq: Status: Active Protocol: Document 07/20/20 09:48 SP (Rec: 07/20/20 16:06 SP [id number]) Out-Patient Physical Therapy Visit Information Visit Information Visit Type Treatment Note Visit Note PN in 2 visits Visit Start Time 09:48 Visit Stop Time 10:35 Total Visit Minutes 47 Visit Number Number of DISTRIBUTION COORDINATOR Visits 2 PT-OP-B Current Condition Start: 03/30/20 12:07 Freq: Status: Active Protocol: Document 03/30/20 12:07 HH (Rec: 03/30/20 12:31 HH [email or web address]) Current Condition History of Current Condition Onset Date 03/23/20 Current Complaints R unilateral medial knee arthroplasty, difficulty in walking History of Current Condition Pt is a 69 yo active male s/p POD7 of R unilateral medial knee arthroplasty by Dr. Hunter. Pt was dx with R medial compartment arthritis after he felt significant pain from his trip to [facility] in September. Pt has difficulty walking after who walked 15839 steps a day prior to that. Pt has been progressing well since surgery and is currently using a SPC for mobility. Pt has difficulty bending his R knee and has to stand up with a stagger stance. He has been doing LAQ and Hamstring stretch since the surgery. Prior Functional Status Baseline Function- ADL's Independent Baseline Function- Mobility Independent Baseline Function- Gait no SPC, walk 14k Steps a day. Current Functional Impairments (Reported) Functional Limitations- Mobility/Gait Pt has difficulty bending his R knee and has to stand up with a stagger stance. He has been doing LAQ and Hamstring stretch since the surgery. Personal Factors Other Personal Factors That May Effect stent placement Therapy/Recovery PT-OP-C Subjective Start: 03/30/20 12:07 Freq: Status: Active Protocol: Document 07/20/20 09:48 SP (Rec: 07/20/20 16:06 SP [id number]) OP-PT Subjective Patient Comments Patient Comments Pt reported having LBP 5/10 when arrived using SPC, he thinks the strap HS stretches was to much. Wants to review if another way to decrease LBP and still be able to do exercises. Patient Reported Progress Worse PT-OP-F Manual Assessment Start: 03/30/20 12:07 Freq: Status: Active Protocol: Document 03/30/20 12:07 (Rec: 03/30/20 12:31 [email or web address]) Manual Assessments Soft Tissue Assessment Soft Tissue Mobility Assessment slight warm to touch around incision site and medial knee TTP at medial joint line PT-OP-G Mobility & Gait Start: 03/30/20 12:07 Freq: Status: Active Protocol: Document 03/30/20 12:07 (Rec: 03/30/20 12:31 [email or web address]) OP Gait Assessment Gait Gait Assistance Required: Independent Assistive Devices Assistive Device Straight Cane Gait Deviations General Gait Pattern Antalgic,Decreased Stride Length,Decreased Feet Clearance PT-OP-J Posture/Palpation/Skin Start: 03/30/20 12:07 Freq: Status: Active Protocol: Document 03/30/20 12:07 (Rec: 03/30/20 12:31 [email or web address]) Posture Evaluation Position Standing Evaluation View Anterior Weight Distribution Weight Shifted Left,Decreased Wt.Bear on (R) Knee Posture (R) Ext. Tibial Torsion,(R) Excess Flexion Skin Assessment Circumference Measurement L knee Location superior to patella= 18, center of patella= 16.5, tibial tub=14.7. R knee Location superior to patella= 19, center of patella= 18, tibial tuberosity= 17 Incisional Assessment Incision Appearance/Comments incision looks intact with slight redness and mild drainage on gauze PT-OP-K Range of Motion Start: 03/30/20 12:07 Freq: Status: Active Protocol: Document 06/30/20 09:49 (Rec: 06/30/20 10:45 [id number]) Knee Goniometric Range of Motion Knee L knee Hyper-Extension Active 3 R knee Knee ROM WFL Yes Patient Position Supine Extension Active (degrees) 3 Comments supine =3 degrees, after manual therapy = 0 degrees in standing= ~10 degrees. PT-OP-M Strength Start: 03/30/20 12:07 Freq: Status: Active Protocol: Document 06/30/20 09:49 HH (Rec: 06/30/20 10:45 [id number]) Knee Strength Knee Manual Muscle Testing Right Flexion (S2) 4+ Good+ Extension (L3) 4+ Good+ Left Flexion (S2) 5 Normal Extension (L3) 5 Normal PT-OP-Q Treatments Start: 03/30/20 12:07 Freq: Status: Active Protocol: Document 07/20/20 09:48 SP (Rec: 07/20/20 16:06 SP [id number]) Gym Equipment Cable Column (Body Solid) HS curl Details ( stopped due to LB irritation ) Resistance #20 Reps/Time x3 Leg Extension Details 20# (10-70 deg) Resistance x10 Reps/Time HEP and ed proper bar positioning Sport Cord green Exercise Details f/b/side stepping Cord/Resistance green Reps/Duration 5 step each direction Comments cued slow eccentric directioning. Therapeutic Exercises Supine Exercises sciatic nerve glide Supine Exercise Name increased LBP pain so stopped Side right Equipment Used grasp behind thigh Reps/Minutes x2 Comments ankle pump Sitting Exercises sciatic nerve floss w/ ankle pump Sitting Exercise Name good response LB Side right Reps/Minutes x5 Comments cued straight back Standing Exercises self STMs glut med Standing Exercise Name at wall Side right Reps/Minutes 30 Comments good tolerance eccentric calf raises Standing Exercise Name cued awareness soft knee but stable ( add HEP) Side bilateral Resistance AROM Equipment Used bottom step Reps/Minutes 2 sec hold into DF then into raise x10 Comments cued slow control, can pause into stretch good calf/HS stretch standing TKE Side right Equipment Used level 2 band on R knee Reps/Minutes 10 x2 Comments maintained R knee flexion then fully extended then marching on L Manual Therapy Treatment Soft Tissue Mobilization STM Body Location R glut med, pirformis Mobilization Type Cross-Friction,Sustained Pressure,Trigger Point Release Intensity/Depth Moderate Body Position Sidelying Comments MWM glut facilitation small activation clamshell w/ sustained pressure- good result and instructed can apply at wall using racquetball. PT-OP-T Assessment and Plan Start: 03/30/20 12:07 Freq: Status: Active Protocol: Document 07/20/20 09:48 SP (Rec: 07/20/20 16:06 SP [id number]) Physical Therapy Assessment Goals pain Impairment pain 4/10 during transfer Short Term Goal (STG) Pt will have no more than R knee pain 2/10 during car transfers and STS transfer STG Duration 4 weeks Detention Goal (LTG) pt willl imporve his gait to achieve full R knee extension during R stance phase LTG Duration 6 weeks gait and transfers Impairment pt walks with SPC and sit to stand with stagger stance Supervisor [employer] Printing Goal (LTG) 05/12 goal met pt is able to amb without AD safely and complete sit to stand with an even steps without using armrest to push off as well. LTG Duration 8 weeks ROM Impairment R knee flexion= 103, extension =10 Short Term Goal (STG) 05/26 goal met pt regains his R knee extension to approx 0 degrees and flexion to 130 actively to optimize his gait mechanics [employer] Goal (LTG) pt will reach -3 degrees on R knee extension to match his L knee extension. LTG Duration 6 weeks LEFS Impairment pt scores 20 for LEFS Short Term Goal (STG) 05/26 pt scores on 62 on LEFS but only able to tolerate approx 7K steps daily. STG Duration 4 weeks [employer] Goal (LTG) pt will score >70 on LEFS to improve his overall functional mobility so he can return to his 14k steps a day. LTG Duration 8 weeks Four Impairment discomfort during stair climbing. Short Term Goal (STG) Pt will be able to anali stair climb for 6 inches step with 1 UE support with minimal discomfort at knee. STG Duration 6 weeks Three Impairment No HEP in place [employer] Goal (LTG) Patient will perform HEP independently LTG Duration 4 wks Two Impairment Unable to walk more than 2 miles [employer] Goal (LTG) Patient will ambulate > 2 miles without increase of symptoms LTG Duration 4 wks (more than amile at this time) One Impairment Oswestry Fucntional low back score of 14/50 Super[employer] Goal (LTG) Patient will have Oswetry score of less than 10 LTG Duration 4 wks (Improving well) Progress Towards Goals Progress Towards Goals Progressing Toward Goals,Slow Progress due to Activity Tolerance,Slow Progress - Other Assessment Summary Assessment Pt experienced increased LBP complaints since last visit and why using SPC upon arrival today with comment thinks due to HS stretch using strap. LBP decreased post sciatic nerve floss and post manual with instruction self STMs using racquetball at wall. Able to perform equipment use today with education on set up , small range and low safe weight for awareness when returns to gym with good demonstration post instruction . Next tx continue strength and review equipment again for recall and safety. Pt stated LBP is alot less, no scale ratings given when asked. Physical Therapy Plan Frequency and Duration Frequency of Treatment 1x/Week Duration of Treatment 8 weeks Plan of Care Start Date 06/30/20 Plan of Care End Date 08/29/20 Therapeutic Interventions Therapeutic Interventions Balance Training,Gait Training ,Home Exercise Program,Joint Mobilizations,Manual Therapy, Neuromuscular Re-education, Patient/Caregiver Education, Self-Care/Home Management,Soft Tissue Mobilization,Taping, Therapeutic Activities, Therapeutic Exercises Modalities Biofeedback,Cold Pack/Ice Massage,Electric Stimulation, Hot Packs,Infrared Therapy, Ultrasound Next Visit Focus/Plan Next Note Type Treatment Note Next Visit Plan Assess response to last tx and review: manual/self STMs, TKE , machine review initiated for safety: LE ext, curl (hold after 2 reps). Continue per PT POC: hamstring stretch, TKE gait training
--- NOTE | 2020-07-28 10:33 | PT.OTN ---
Current Diagnoses Unilateral primary osteoarthritis, right knee (07/28/20) Physical Therapy Treatment Note PT-OP-A Visit Information Start: 03/30/20 12:07 Freq: Status: Active Protocol: Document 07/28/20 09:49 SP (Rec: 07/28/20 10:50 SP [id number]) Out-Patient Physical Therapy Visit Information Visit Information Visit Type Treatment Note Visit Start Time 09:49 Visit Stop Time 10:33 Total Visit Minutes 43 Visit Number 18/ Number of SHOWCASE MAKER Visits 3 PT-OP-B Current Condition Start: 03/30/20 12:07 Freq: Status: Active Protocol: Document 03/30/20 12:07 HH (Rec: 03/30/20 12:31 HH [email or web address]) Current Condition History of Current Condition Onset Date 03/23/20 Current Complaints R unilateral medial knee arthroplasty, difficulty in walking History of Current Condition Pt is a 69 yo active male s/p POD7 of R unilateral medial knee arthroplasty by Dr. Hunter. Pt was dx with R medial compartment arthritis after he felt significant pain from his trip to [facility] in September. Pt has difficulty walking after who walked 04354 steps a day prior to that. Pt has been progressing well since surgery and is currently using a SPC for mobility. Pt has difficulty bending his R knee and has to stand up with a stagger stance. He has been doing LAQ and Hamstring stretch since the surgery. Prior Functional Status Baseline Function- ADL's Independent Baseline Function- Mobility Independent Baseline Function- Gait no SPC, walk 14k Steps a day. Current Functional Impairments (Reported) Functional Limitations- Mobility/Gait Pt has difficulty bending his R knee and has to stand up with a stagger stance. He has been doing LAQ and Hamstring stretch since the surgery. Personal Factors Other Personal Factors That May Effect stent placement Therapy/Recovery PT-OP-C Subjective Start: 03/30/20 12:07 Freq: Status: Active Protocol: Document 07/28/20 09:49 SP (Rec: 07/28/20 10:50 SP [id number]) OP-PT Subjective Patient Comments Patient Comments Pt arrived no AD today, back better: reported the racquetball against the wall for LBP/ glut pain and midrange HC and LE ext machines helped alot since last tx. Pt stated wanted to review machines again so can incorporate at the gym, good mid range cuing AROM at home since last tx but want more resistance now. Pt stated I have been propping up RLE on chair in front and doing quad sets to help extend knee and think it has helped. Patient Reported Progress Improving PT-OP-F Manual Assessment Start: 03/30/20 12:07 Freq: Status: Active Protocol: Document 03/30/20 12:07 HH (Rec: 03/30/20 12:31 HH [email or web address]) Manual Assessments Soft Tissue Assessment Soft Tissue Mobility Assessment slight warm to touch around incision site and medial knee TTP at medial joint line PT-OP-G Mobility & Gait Start: 03/30/20 12:07 Freq: Status: Active Protocol: Document 03/30/20 12:07 HH (Rec: 03/30/20 12:31 HH [email or web address]) OP Gait Assessment Gait Gait Assistance Required: Independent Assistive Devices Assistive Device Straight Cane Gait Deviations General Gait Pattern Antalgic,Decreased Stride Length,Decreased Feet Clearance PT-OP-J Posture/Palpation/Skin Start: 03/30/20 12:07 Freq: Status: Active Protocol: Document 03/30/20 12:07 HH (Rec: 03/30/20 12:31 HH [email or web address]) Posture Evaluation Position Standing Evaluation View Anterior Weight Distribution Weight Shifted Left,Decreased Wt.Bear on (R) Knee Posture (R) Ext. Tibial Torsion,(R) Excess Flexion Skin Assessment Circumference Measurement L knee Location superior to patella= 18, center of patella= 16.5, tibial tub=14.7. R knee Location superior to patella= 19, center of patella= 18, tibial tuberosity= 17 Incisional Assessment Incision Appearance/Comments incision looks intact with slight redness and mild drainage on gauze PT-OP-K Range of Motion Start: 03/30/20 12:07 Freq: Status: Active Protocol: Document 07/28/20 09:49 SP (Rec: 07/28/20 10:50 SP [id number]) Knee Goniometric Range of Motion Knee R knee Knee ROM WFL Yes Patient Position Supine Flexion Active (degrees) 133 Extension Active (degrees) 0 Comments relaxed supine 1 degree, standing normal stance 1 deg, active ext 0 deg. PT-OP-M Strength Start: 03/30/20 12:07 Freq: Status: Active Protocol: Document 12/01/20 09:49 HH (Rec: 06/30/20 10:45 HH [id number]) Knee Strength Knee Manual Muscle Testing Right Flexion (S2) 4+ Good+ Extension (L3) 4+ Good+ Left Flexion (S2) 5 Normal Extension (L3) 5 Normal PT-OP-Q Treatments Start: 03/30/20 12:07 Freq: Status: Active Protocol: Document 07/28/20 09:49 SP (Rec: 07/28/20 10:50 SP [id number]) Cardio Equipment Recumbent Bicycle Duration (Minutes) 6 Resistance 8 Seat Position 6 Gym Equipment Cable Column (Body Solid) HS curl Details good today with mid range Resistance #30 Reps/Time 10 x2 sets Leg Extension Details 30# (10-70 deg) Resistance 2x10 Reps/Time HEP and ed proper bar positioning Sport Cord green Exercise Details f/b/side stepping Cord/Resistance green Reps/Duration 5 step each direction Comments cued slow eccentric directioning. Therapeutic Exercises Sitting Exercises LAQ Comments pt reported no easy now, going to go to gym use machine seated knee flexion extension Comments pt reported to easy so will be using machines at gym. Standing Exercises self STMs glut med Standing Exercise Name at wall Side right Reps/Minutes 30 Comments discussed very helpful as PRN HEP for LBP eccentric calf raises Standing Exercise Name cued awareness soft knee but stable ( add HEP) Side bilateral Resistance AROM Equipment Used bottom step 4 Reps/Minutes 2 sec hold into DF then into raise x10 Comments cued slow control, can pause into stretch good calf/HS stretch standing TKE Side right Equipment Used level 3 band on R knee Reps/Minutes 3 sec hold x10 x2 sets Comments cued range and soft knee into ext slow pacing control step up Standing Exercise Name Step up/down Side bilateral Resistance R HR Equipment Used 4 step Reps/Minutes 10 x2 lead each LE Comments cued slow controlled pacing, glut/quad facilitation LE ext and ecc flexion standing knee extension Standing Exercise Name Closed-chain in staggered stance ( review HEP) Side bilateral Resistance AROM Equipment Used contact counter Reps/Minutes x10 Comments Cues to keep the heel down and just move at the knee. PT-OP-T Assessment and Plan Start: 03/30/20 12:07 Freq: Status: Active Protocol: Document 07/28/20 09:49 SP (Rec: 07/28/20 10:50 SP [id number]) Physical Therapy Assessment Goals pain Impairment pain 4/10 during transfer Short Term Goal (STG) Pt will have no more than R knee pain 2/10 during car transfers and STS transfer STG Duration 4 weeks Genetics Physician Goal (LTG) pt willl imporve his gait to achieve full R knee extension during R stance phase LTG Duration 6 weeks gait and transfers Impairment pt walks with SPC and sit to stand with stagger stance Skilled Nursing Goal (LTG) 05/12 goal met pt is able to amb without AD safely and complete sit to stand with an even steps without using armrest to push off as well. LTG Duration 8 weeks ROM Impairment R knee flexion= 103, extension =10 Short Term Goal (STG) 05/26 goal met pt regains his R knee extension to approx 0 degrees and flexion to 130 actively to optimize his gait mechanics Skilled Nursing Goal (LTG) pt will reach -3 degrees on R knee extension to match his L knee extension. LTG Duration 6 weeks LEFS Impairment pt scores 20 for LEFS Short Term Goal (STG) 05/26 pt scores on 62 on LEFS but only able to tolerate approx 7K steps daily. STG Duration 4 weeks Skilled Nursing Goal (LTG) pt will score >70 on LEFS to improve his overall functional mobility so he can return to his 14k steps a day. LTG Duration 8 weeks Four Impairment discomfort during stair climbing. Short Term Goal (STG) Pt will be able to anali stair climb for 6 inches step with 1 UE support with minimal discomfort at knee. STG Duration 6 weeks Three Impairment No HEP in place Skilled Nursing Goal (LTG) Patient will perform HEP independently LTG Duration 4 wks Two Impairment Unable to walk more than 2 miles Skilled Nursing Goal (LTG) Patient will ambulate > 2 miles without increase of symptoms LTG Duration 4 wks (more than amile at this time) One Impairment Oswestry Fucntional low back score of 14/50 Skilled Nursing Goal (LTG) Patient will have Oswetry score of less than 10 LTG Duration 4 wks (Improving well) Assessment Summary Assessment Pt arrived with no SPC use today with good feedback results. Reviewed HEP LE flex/ ext machine for set up, on/ off and mid range tolerance for quad/ HS strengthening with good demonstration and able to increase resistance today it feels good. Cued to hold off on ABD/ ADD machine for now due to need more core strengthening to decrease LS recruitment noted during TKE at times. Pt did better with sport cord today, good R knee stability with cuing for slow controlled transiton each step glut/ core facilitation. Pt made 2-3 deg gain in R knee extension today, at rest 1 deg , 0 deg with quad set supine, standing. Physical Therapy Plan Frequency and Duration Frequency of Treatment 1x/Week Duration of Treatment 8 weeks Plan of Care Start Date 06/30/20 Plan of Care End Date 08/29/20 Therapeutic Interventions Therapeutic Interventions Balance Training,Gait Training ,Home Exercise Program,Joint Mobilizations,Manual Therapy, Neuromuscular Re-education, Patient/Caregiver Education, Self-Care/Home Management,Soft Tissue Mobilization,Taping, Therapeutic Activities, Therapeutic Exercises Modalities Biofeedback,Cold Pack/Ice Massage,Electric Stimulation, Hot Packs,Infrared Therapy, Ultrasound Next Visit Focus/Plan Next Note Type Treatment Note Next Visit Plan Assess response to last tx and review: TKE # 3 band, LE ext/ curl machine and sport cord. Continue per PT POC: hamstring stretch, TKE gait training
--- NOTE | 2020-08-04 12:09 | PT.OPPOC ---
Physical, Occupational & Speech Therapy At [facility] Current Diagnoses Unilateral primary osteoarthritis, right knee (08/04/20) Visit Care Team Role Provider Type Mo Roper MD Family Provider Physician Primary Care Provider Specialty: Internal Medicine Address: [address] [place] [address], [address], [place], [address] Email: [email or web address] Branden Hunter MD Attending Provider Physician Referring Provider Specialty: Orthopedic Surgery Address: [address] [place] [address], [address] Email: [email or web address] Plan Of Care PT-OP-T Assessment and Plan Start: 03/30/20 12:07 Freq: Status: Active Protocol: Document 08/04/20 09:44 HH (Rec: 08/04/20 12:08 HH [id number]) Physical Therapy Assessment Goals pain Impairment pain 4/10 during transfer Short Term Goal (STG) 08/04/20 Pt has no discomfort for STS / transfer at this point STG Duration 4 weeks Fpc Goal (LTG) 08/04 pt has minimal discomfort by weightbearing on RLE during prolonged walking. LTG Duration 6 weeks gait and transfers Impairment pt walks with SPC and sit to stand with stagger stance [employer] Architect Goal (LTG) 05/12 goal met pt is able to amb without AD safely and complete sit to stand with an even steps without using armrest to push off as well. LTG Duration 8 weeks ROM Impairment R knee flexion= 103, extension =10 Short Term Goal (STG) 1 goal met pt regains his R knee extension to approx 0 to -2 degrees and flexion to 130 actively to optimize his gait mechanics Fpc Goal (LTG) pt will reach -3 degrees on R knee extension to match his L knee extension. LTG Duration 6 weeks LEFS Impairment pt scores 20 for LEFS Short Term Goal (STG) 05/26 pt scores on 62 on LEFS but only able to tolerate approx 7K steps daily. STG Duration 4 weeks [employer] Architect Goal (LTG) 08/04/20 pt scores 68/80 and walk approx 7-10k steps /day. pt will score >70 on LEFS to improve his overall functional mobility so he can return to his 14k steps a day. LTG Duration 8 weeks Four Impairment discomfort during stair climbing. Short Term Goal (STG) Pt will be able to anali stair climb for 6 inches step with 1 UE support with minimal discomfort at knee. STG Duration 6 weeks Three Impairment No HEP in place [employer]point Solutions Architect Goal (LTG) Patient will perform HEP independently LTG Duration 4 wks Two Impairment Unable to walk more than 2 miles Fpc Goal (LTG) Patient will ambulate > 2 miles without increase of symptoms LTG Duration 4 wks (more than amile at this time) One Impairment Oswestry Fucntional low back score of 14/50 Fpc Goal (LTG) Patient will have Oswetry score of less than 10 LTG Duration 4 wks (Improving well) Assessment Summary Assessment Pt overall progress well with his ROM but he has new onset of RLBP since a few weeks ago. Pt cont has very minimal discomfort on stance phase on RLE. Added gait training for stance phase on RLE at the end of session. Physical Therapy Plan Frequency and Duration Frequency of Treatment 1x/Week Duration of Treatment 8 weeks Plan of Care Start Date 06/30/20 Plan of Care End Date 10/03/20 Therapeutic Interventions Therapeutic Interventions Balance Training,Gait Training ,Home Exercise Program,Joint Mobilizations,Manual Therapy, Neuromuscular Re-education, Patient/Caregiver Education, Self-Care/Home Management,Soft Tissue Mobilization,Taping, Therapeutic Activities, Therapeutic Exercises Modalities Cold Pack/Ice Massage,Electric Stimulation,Hot Packs, Infrared Therapy,Ultrasound Next Visit Focus/Plan Next Note Type Treatment Note Next Visit Plan Continue per PT POC: hamstring stretch, TKE gait training for R LE stance phase and push off add TM walking Plan of Care Dates Plan of Care Start Date 06/30/20 Plan of Care End Date 10/03/20 Electronically Signed by: Fawn Carter PT 08/04/20 2547 Please Sign and Return: I have reviewed this Plan of Care and certify that the skilled therapy services above are required to meet the patient?s needs. Physician Signature Date Printed Name and Credentials Clinical Instructor Signature Printed Name and Credentials
--- NOTE | 2020-08-04 12:10 | PT.OTN ---
Current Diagnoses Unilateral primary osteoarthritis, right knee (08/04/20) Physical Therapy Treatment Note PT-OP-A Visit Information Start: 03/30/20 12:07 Freq: Status: Active Protocol: Document 08/04/20 09:44 HH (Rec: 08/04/20 12:08 [id number]) Out-Patient Physical Therapy Visit Information Visit Information Visit Type Treatment Note Visit Start Time 09:46 Visit Stop Time 10:30 Total Visit Minutes 44 Visit Number Number of AIRSET CASTER Visits 0 PT-OP-B Current Condition Start: 03/30/20 12:07 Freq: Status: Active Protocol: Document 03/30/20 12:07 HH (Rec: 03/30/20 12:31 [email or web address]) Current Condition History of Current Condition Onset Date 03/23/20 Current Complaints R unilateral medial knee arthroplasty, difficulty in walking History of Current Condition Pt is a 69 yo active male s/p POD7 of R unilateral medial knee arthroplasty by Dr. Hunter. Pt was dx with R medial compartment arthritis after he felt significant pain from his trip to [facility] in September. Pt has difficulty walking after who walked 13319 steps a day prior to that. Pt has been progressing well since surgery and is currently using a SPC for mobility. Pt has difficulty bending his R knee and has to stand up with a stagger stance. He has been doing LAQ and Hamstring stretch since the surgery. Prior Functional Status Baseline Function- ADL's Independent Baseline Function- Mobility Independent Baseline Function- Gait no SPC, walk 14k Steps a day. Current Functional Impairments (Reported) Functional Limitations- Mobility/Gait Pt has difficulty bending his R knee and has to stand up with a stagger stance. He has been doing LAQ and Hamstring stretch since the surgery. Personal Factors Other Personal Factors That May Effect stent placement Therapy/Recovery PT-OP-C Subjective Start: 03/30/20 12:07 Freq: Status: Active Protocol: Document 08/04/20 09:44 HH (Rec: 08/04/20 12:08 [id number]) OP-PT Subjective Patient Comments Patient Comments I saw surgeon yesterday and he is pleased with my ROM now. But im going to get my sciatica check out on . My knee is doing good and i can stand for 3.5 hours without problem. Patient Reported Progress Improving Patient Questionnaires Lower Extremity Functional Scale LEFS Score 68 LEFS Impairment 1 to 19% Impaired (Score 63-79 ) PT-OP-F Manual Assessment Start: 03/30/20 12:07 Freq: Status: Active Protocol: Document 03/30/20 12:07 (Rec: 03/30/20 12:31 [email or web address]) Manual Assessments Soft Tissue Assessment Soft Tissue Mobility Assessment slight warm to touch around incision site and medial knee TTP at medial joint line PT-OP-G Mobility & Gait Start: 03/30/20 12:07 Freq: Status: Active Protocol: Document 03/30/20 12:07 (Rec: 03/30/20 12:31 [email or web address]) OP Gait Assessment Gait Gait Assistance Required: Independent Assistive Devices Assistive Device Straight Cane Gait Deviations General Gait Pattern Antalgic,Decreased Stride Length,Decreased Feet Clearance PT-OP-J Posture/Palpation/Skin Start: 03/30/20 12:07 Freq: Status: Active Protocol: Document 03/30/20 12:07 (Rec: 03/30/20 12:31 [email or web address]) Posture Evaluation Position Standing Evaluation View Anterior Weight Distribution Weight Shifted Left,Decreased Wt.Bear on (R) Knee Posture (R) Ext. Tibial Torsion,(R) Excess Flexion Skin Assessment Circumference Measurement L knee Location superior to patella= 18, center of patella= 16.5, tibial tub=14.7. R knee Location superior to patella= 19, center of patella= 18, tibial tuberosity= 17 Incisional Assessment Incision Appearance/Comments incision looks intact with slight redness and mild drainage on gauze PT-OP-K Range of Motion Start: 03/30/20 12:07 Freq: Status: Active Protocol: Document 08/04/20 09:44 (Rec: 08/04/20 12:08 [id number]) Knee Goniometric Range of Motion Knee R knee Knee ROM WFL Yes Patient Position Supine Flexion Active (degrees) 133 Hyper-Extension Active 1 Comments relaxed supine 1 degree, standing normal stance 1 deg, active ext 0 deg. PT-OP-M Strength Start: 03/30/20 12:07 Freq: Status: Active Protocol: Document 06/30/20 09:49 HH (Rec: 06/30/20 10:45 [id number]) Knee Strength Knee Manual Muscle Testing Right Flexion (S2) 4+ Good+ Extension (L3) 4+ Good+ Left Flexion (S2) 5 Normal Extension (L3) 5 Normal PT-OP-Q Treatments Start: 03/30/20 12:07 Freq: Status: Active Protocol: Document 08/04/20 09:44 (Rec: 08/04/20 12:08 [id number]) Therapeutic Exercises Standing Exercises eccentric calf raises Standing Exercise Name cued awareness soft knee but stable ( add HEP) Side bilateral Resistance AROM Equipment Used bottom step 4 Reps/Minutes 2 sec hold into DF then into raise x10 Comments cued slow control, can pause into stretch good calf/HS stretch standing TKE Side right Equipment Used level 3 band on R knee Reps/Minutes 3 sec hold x10 x2 sets Comments cued range and soft knee into ext slow pacing control standing knee extension Standing Exercise Name Closed-chain in staggered stance ( review HEP) Side bilateral Resistance AROM Equipment Used contact counter Reps/Minutes x10 Comments Cues to keep the heel down and just move at the knee. AP weight shift Standing Exercise Name stagger stance Side bilateral Equipment Used on blue foam Reps/Minutes 6 mins Gait Training Gait Activity gait training Description weight shift on RLE Device Used shaun Level of Assistance SBA Surface ground level Distance/Duration in place Comments focused on full WB on RLE, shaun on L PT-OP-T Assessment and Plan Start: 03/30/20 12:07 Freq: Status: Active Protocol: Document 08/04/20 09:44 (Rec: 08/04/20 12:08 [id number]) Physical Therapy Assessment Goals pain Impairment pain 4/10 during transfer Short Term Goal (STG) 08/04/20 Pt has no discomfort for STS / transfer at this point STG Duration 4 weeks Fpc Goal (LTG) 1 pt has minimal discomfort by weightbearing on RLE during prolonged walking. LTG Duration 6 weeks gait and transfers Impairment pt walks with SPC and sit to stand with stagger stance Fpc Goal (LTG) 05/12 goal met pt is able to amb without AD safely and complete sit to stand with an even steps without using armrest to push off as well. LTG Duration 8 weeks ROM Impairment R knee flexion= 103, extension =10 Short Term Goal (STG) 1/5 goal met pt regains his R knee extension to approx 0 to -2 degrees and flexion to 130 actively to optimize his gait mechanics Putty Mixer And Applier Goal (LTG) pt will reach -3 degrees on R knee extension to match his L knee extension. LTG Duration 6 weeks LEFS Impairment pt scores 20 for LEFS Short Term Goal (STG) 05/26 pt scores on 62 on LEFS but only able to tolerate approx 7K steps daily. STG Duration 4 weeks Putty Mixer And Applier Goal (LTG) 08/04/20 pt scores 68/80 and walk approx 7-10k steps /day. pt will score >70 on LEFS to improve his overall functional mobility so he can return to his 14k steps a day. LTG Duration 8 weeks Four Impairment discomfort during stair climbing. Short Term Goal (STG) Pt will be able to anali stair climb for 6 inches step with 1 UE support with minimal discomfort at knee. STG Duration 6 weeks Three Impairment No HEP in place Fpc Goal (LTG) Patient will perform HEP independently LTG Duration 4 wks Two Impairment Unable to walk more than 2 miles Fpc Goal (LTG) Patient will ambulate > 2 miles without increase of symptoms LTG Duration 4 wks (more than amile at this time) One Impairment Oswestry Fucntional low back score of 14/50 Putty Mixer And Applier Goal (LTG) Patient will have Oswetry score of less than 10 LTG Duration 4 wks (Improving well) Assessment Summary Assessment Pt overall progress well with his ROM but he has new onset of RLBP since a few weeks ago. Pt cont has very minimal discomfort on stance phase on RLE. Added gait training for stance phase on RLE at the end of session. Physical Therapy Plan Frequency and Duration Frequency of Treatment 1x/Week Duration of Treatment 8 weeks Plan of Care Start Date 06/30/20 Plan of Care End Date 10/03/20 Therapeutic Interventions Therapeutic Interventions Balance Training,Gait Training ,Home Exercise Program,Joint Mobilizations,Manual Therapy, Neuromuscular Re-education, Patient/Caregiver Education, Self-Care/Home Management,Soft Tissue Mobilization,Taping, Therapeutic Activities, Therapeutic Exercises Modalities Cold Pack/Ice Massage,Electric Stimulation,Hot Packs, Infrared Therapy,Ultrasound Next Visit Focus/Plan Next Note Type Treatment Note Next Visit Plan Continue per PT POC: hamstring stretch, TKE gait training for R LE stance phase and push off add TM walking
--- NOTE | 2020-08-11 10:34 | PT.OTN ---
Current Diagnoses Unilateral primary osteoarthritis, right knee (08/11/20) Physical Therapy Treatment Note PT-OP-A Visit Information Start: 03/30/20 12:07 Freq: Status: Active Protocol: Document 08/11/20 09:47 HH (Rec: 08/11/20 10:34 [id number]) Out-Patient Physical Therapy Visit Information Visit Information Visit Type Treatment Note Visit Start Time 09:48 Visit Stop Time 10:30 Total Visit Minutes 42 Visit Number 09/18 Number of INTERSTATE BUS DISPATCHER Visits 0 PT-OP-B Current Condition Start: 03/30/20 12:07 Freq: Status: Active Protocol: Document 03/30/20 12:07 HH (Rec: 03/30/20 12:31 [email or web address]) Current Condition History of Current Condition Onset Date 03/23/20 Current Complaints R unilateral medial knee arthroplasty, difficulty in walking History of Current Condition Pt is a 69 yo active male s/p POD7 of R unilateral medial knee arthroplasty by Dr. Hunter. Pt was dx with R medial compartment arthritis after he felt significant pain from his trip to [facility] in September. Pt has difficulty walking after who walked 48227 steps a day prior to that. Pt has been progressing well since surgery and is currently using a SPC for mobility. Pt has difficulty bending his R knee and has to stand up with a stagger stance. He has been doing LAQ and Hamstring stretch since the surgery. Prior Functional Status Baseline Function- ADL's Independent Baseline Function- Mobility Independent Baseline Function- Gait no SPC, walk 14k Steps a day. Current Functional Impairments (Reported) Functional Limitations- Mobility/Gait Pt has difficulty bending his R knee and has to stand up with a stagger stance. He has been doing LAQ and Hamstring stretch since the surgery. 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 And i think im pretty much fully recovered. Patient Reported Progress Improving PT-OP-F Manual Assessment Start: 03/30/20 12:07 Freq: Status: Active Protocol: Document 03/30/20 12:07 HH (Rec: 03/30/20 12:31 [email or web address]) Manual Assessments Soft Tissue Assessment Soft Tissue Mobility Assessment slight warm to touch around incision site and medial knee TTP at medial joint line PT-OP-G Mobility & Gait Start: 03/30/20 12:07 Freq: Status: Active Protocol: Document 03/30/20 12:07 (Rec: 03/30/20 12:31 [email or web address]) OP Gait Assessment Gait Gait Assistance Required: Independent Assistive Devices Assistive Device Straight Cane Gait Deviations General Gait Pattern Antalgic,Decreased Stride Length,Decreased Feet Clearance PT-OP-J Posture/Palpation/Skin Start: 03/30/20 12:07 Freq: Status: Active Protocol: Document 03/30/20 12:07 (Rec: 03/30/20 12:31 [email or web address]) Posture Evaluation Position Standing Evaluation View Anterior Weight Distribution Weight Shifted Left,Decreased Wt.Bear on (R) Knee Posture (R) Ext. Tibial Torsion,(R) Excess Flexion Skin Assessment Circumference Measurement L knee Location superior to patella= 18, center of patella= 16.5, tibial tub=14.7. R knee Location superior to patella= 19, center of patella= 18, tibial tuberosity= 17 Incisional Assessment Incision Appearance/Comments incision looks intact with slight redness and mild drainage on gauze PT-OP-K Range of Motion Start: 03/30/20 12:07 Freq: Status: Active Protocol: Document 08/04/20 09:44 (Rec: 08/04/20 12:08 [id number]) Knee Goniometric Range of Motion Knee R knee Knee ROM WFL Yes Patient Position Supine Flexion Active (degrees) 133 Hyper-Extension Active 1 Comments relaxed supine 1 degree, standing normal stance 1 deg, active ext 0 deg. PT-OP-M Strength Start: 03/30/20 12:07 Freq: Status: Active Protocol: Document 06/30/20 09:49 (Rec: 06/30/20 10:45 [id number]) Knee Strength Knee Manual Muscle Testing Right Flexion (S2) 4+ Good+ Extension (L3) 4+ Good+ Left Flexion (S2) 5 Normal Extension (L3) 5 Normal PT-OP-Q Treatments Start: 03/30/20 12:07 Freq: Status: Active Protocol: Document 08/11/20 09:47 (Rec: 08/11/20 10:34 [id number]) Cardio Equipment Recumbent Bicycle Duration (Minutes) 6 Resistance 8 Seat Position 6 Therapeutic Exercises Supine Exercises hamstring stretch Side bilateral Reps/Minutes 10 sec x 5 Standing Exercises eccentric calf raises Standing Exercise Name cued awareness soft knee but stable ( add HEP) Side bilateral Resistance AROM Equipment Used bottom step 4 Reps/Minutes 2 sec hold into DF then into raise x10 Comments cued slow control, can pause into stretch good calf/HS stretch standing TKE Side right Equipment Used level 3 band on R knee Reps/Minutes 3 sec hold x10 x2 sets Comments cued range and soft knee into ext slow pacing control step up Standing Exercise Name Step up/down Side bilateral Resistance R HR Equipment Used 6 step Reps/Minutes 10 x2 lead each LE Comments cued slow controlled pacing, glut/quad facilitation LE ext and ecc flexion Gait Training Gait Activity gait training Description weight shift on RLE Device Used shaun Level of Assistance SBA Surface ground level Distance/Duration in place Comments focused on full WB on RLE, shaun on L PT-OP-T Assessment and Plan Start: 03/30/20 12:07 Freq: Status: Active Protocol: Document 08/11/20 09:47 (Rec: 08/11/20 10:34 [id number]) Physical Therapy Assessment Goals pain Impairment pain 4/10 during transfer Short Term Goal (STG) 08/04/20 Pt has no discomfort for STS / transfer at this point STG Duration 4 weeks Alf Goal (LTG) 1/5 pt has minimal discomfort by weightbearing on RLE during prolonged walking. LTG Duration 6 weeks gait and transfers Impairment pt walks with SPC and sit to stand with stagger stance Alf Goal (LTG) 05/12 goal met pt is able to amb without AD safely and complete sit to stand with an even steps without using armrest to push off as well. LTG Duration 8 weeks ROM Impairment R knee flexion= 103, extension =10 Short Term Goal (STG) 1/5 goal met pt regains his R knee extension to approx 0 to -2 degrees and flexion to 130 actively to optimize his gait mechanics Alf Goal (LTG) pt will reach -3 degrees on R knee extension to match his L knee extension. LTG Duration 6 weeks LEFS Impairment pt scores 20 for LEFS Short Term Goal (STG) 05/26 pt scores on 62 on LEFS but only able to tolerate approx 7K steps daily. STG Duration 4 weeks Alf Goal (LTG) 08/04/20 pt scores 68/80 and walk approx 7-10k steps /day. pt will score >70 on LEFS to improve his overall functional mobility so he can return to his 14k steps a day. LTG Duration 8 weeks Four Impairment discomfort during stair climbing. Short Term Goal (STG) Pt will be able to anali stair climb for 6 inches step with 1 UE support with minimal discomfort at knee. STG Duration 6 weeks Three Impairment No HEP in place Alf Goal (LTG) Patient will perform HEP independently LTG Duration 4 wks Two Impairment Unable to walk more than 2 miles Silk Worker Goal (LTG) Patient will ambulate > 2 miles without increase of symptoms LTG Duration 4 wks (more than amile at this time) One Impairment Oswestry Fucntional low back score of 14/50 Silk Worker Goal (LTG) Patient will have Oswetry score of less than 10 LTG Duration 4 wks (Improving well) Progress Towards Goals Progress Towards Goals Goals Met Assessment Summary Assessment Pt stated he is fully recovered at this point and has been fully return to his PLOF. Requested to be DC from PT today. Physical Therapy Plan Frequency and Duration Frequency of Treatment 1x/Week Duration of Treatment 8 weeks Plan of Care Start Date 06/30/20 Plan of Care End Date 10/03/20 Discharge Physical Therapy Discharge Reasons Patient Request Next Visit Focus/Plan Next Note Type Treatment Note Next Visit Plan Continue per PT POC: hamstring stretch, TKE gait training for R LE stance phase and push off add TM walking
== END 2020-09-08 07:48 ==
LOC: PHYS 09:45
PROVIDERS: Family Provider Internal Medicine; PCP Internal Medicine; Referring Provider Orthopaedic Surgery; Visit Provider Orthopaedic Surgery
DX: M17.11 Unilateral primary osteoarthritis, right knee (principal)
CPT/HCPCS: 97110; 97112; 97116; 97140; 97161; 97535

== ENCOUNTER → 2020-11-04 07:41 | Outpatient (CLI) | payer MEDICARE, BC, SELFPAY ==
[2020-11-04 08:50] LABS: Alanine Aminotransferase 29 IU/L (<50); Albumin 3.9 g/dL (3.5-5.0); Albumin Globulin Ratio 1.3 (1.0-2.8); Alkaline Phosphatase 98 U/L (38-126); Aspartate Aminotransferase 39 IU/L (17-59); BUN Creatinine Ratio 25.6 (6-22); Blood Urea Nitrogen 22 mg/dL (9-20); Calcium 9.1 mg/dL (8.4-10.2); Carbon Dioxide 28 mmol/L (22-32); Chloride 101 mmol/L (98-107); Cholesterol 100 mg/dL (140-199); Estimated Glomerular Filt Rate > 60.0 mL/min (>60); Glucose 100 mg/dL (80-110); HDL Cholesterol 28 mg/dL (40-60); LDL Cholesterol Calculated 59 mg/dL (<100); Potassium 3.7 mmol/L (3.4-5.1); Sodium 138 mmol/L (137-145); Total Protein 6.9 g/dL (6.3-8.2); Triglycerides 66 mg/dL (35-150)
[2020-11-04 09:40] LABS: HEMOLYSIS < 15 (0-50); Prostate Specific Antigen Scrn 0.338 ng/mL (0.1-4.0)
== END ==
PROVIDERS: Family Provider Internal Medicine; PCP Internal Medicine; Referring Provider Internal Medicine; Visit Provider Internal Medicine
DX: I10 Essential (primary) hypertension (principal); Z12.5 Encounter for screening for malignant neoplasm of prostate; E78.5 Hyperlipidemia, unspecified; I48.91 Unspecified atrial fibrillation
CPT/HCPCS: 36415; 80053; 80061; G0103

== ENCOUNTER → 2020-11-10 11:28 | Outpatient (ROUT) | payer MEDICARE, BC, SELFPAY ==
[2020-11-10 13:29] LABS: Alanine Aminotransferase 25 IU/L (<50); Albumin Globulin Ratio 1.2 (1.0-2.8); Alkaline Phosphatase 97 U/L (38-126); Aspartate Aminotransferase 35 IU/L (17-59); BUN Creatinine Ratio 22.2 (6-22); Bilirubin Total 0.9 mg/dL (0.2-1.3); Blood Urea Nitrogen 20 mg/dL (9-20); Calcium 9.4 mg/dL (8.4-10.2); Carbon Dioxide 30 mmol/L (22-32); Chloride 101 mmol/L (98-107); Cholesterol 92 mg/dL (140-199); Estimated Glomerular Filt Rate > 60.0 mL/min (>60); Globulin 3.3 g/dL (1.7-4.1); Glucose 99 mg/dL (80-110); HDL Cholesterol 27 mg/dL (40-60); HEMOLYSIS < 15 (0-50); LDL Cholesterol Calculated 56 mg/dL (<100); Potassium 3.7 mmol/L (3.4-5.1); Sodium 138 mmol/L (137-145); Total Protein 7.3 g/dL (6.3-8.2); Triglycerides 43 mg/dL (35-150)
== END ==
PROVIDERS: Visit Provider Internal Medicine Cardiovascular Disease
DX: E78.5 Hyperlipidemia, unspecified (principal)
CPT/HCPCS: 36415; 80053; 80061

== ENCOUNTER → 2021-04-02 13:33 | Outpatient (CLI) | payer MEDICARE, BC, SELFPAY ==
--- NOTE | 2021-04-02 13:34 | DI.RAD.S_ITS ---
PROCEDURE: XR ANKLE LT MIN 3V INDICATIONS: fall TECHNIQUE: 3 views of the ankle were acquired. COMPARISON: None. FINDINGS: Bones: Small 3 x 6 millimeter ossification noted adjacent to the medial malleolus which may represent accessory ossicle versus avulsion injury of indeterminate age.. Ankle mortise is normally aligned. No suspicious bony lesions. Large plantar calcaneal bone spur. Soft tissues: No tibiotalar joint effusion. Achilles tendon appears normal. IMPRESSION: Small ossification adjacent to the medial malleolus which could represent accessory ossicle versus avulsion injury of indeterminate age. Recommend correlation for point tenderness. Dictated by: Jei Garibay MD, PhD on 04/02/2021 at 13:47 Approved by: Jie Garibay MD, PhD on 04/02/2021 at 13:48
== END ==
PROVIDERS: Family Provider Internal Medicine; PCP Internal Medicine; Referring Provider Nurse Practitioner; Visit Provider Nurse Practitioner
DX: M25.572 Pain in left ankle and joints of left foot (principal); M77.32 Calcaneal spur, left foot
CPT/HCPCS: 73610

== ENCOUNTER → 2021-10-28 07:19 | Outpatient (CLI) | payer MEDICARE, BC, SELFPAY ==
[2021-10-28 08:28] LABS: Alanine Aminotransferase 26 IU/L (<50); Albumin Globulin Ratio 1.3 (1.0-2.8); Alkaline Phosphatase 78 U/L (38-126); Aspartate Aminotransferase 33 IU/L (17-59); BUN Creatinine Ratio 23.1 (6-22); Bilirubin Total 0.8 mg/dL (0.2-1.3); Blood Urea Nitrogen 21 mg/dL (9-20); Calcium 8.8 mg/dL (8.4-10.2); Carbon Dioxide 25 mmol/L (22-32); Chloride 106 mmol/L (98-107); Cholesterol 106 mg/dL (140-199); Estimated Glomerular Filt Rate > 60.0 mL/min (>60); Globulin 3.1 g/dL (1.7-4.1); Glucose 105 mg/dL (80-110); HDL Cholesterol 36 mg/dL (40-60); HEMOLYSIS < 15 (0-50); LDL Cholesterol Calculated 53 mg/dL (<100); Sodium 138 mmol/L (137-145); Total Protein 7.1 g/dL (6.3-8.2); Triglycerides 87 mg/dL (35-150)
== END ==
PROVIDERS: Internal Medicine Cardiovascular Disease; Family Provider Internal Medicine; PCP Internal Medicine; Referring Provider Internal Medicine; Visit Provider Internal Medicine
DX: E78.5 Hyperlipidemia, unspecified (principal)
CPT/HCPCS: 36415; 80053; 80061

== ENCOUNTER → 2022-01-05 14:03 | Outpatient (CLI) | payer MEDICARE, BC, SELFPAY | PROVIDERS: Family Provider Internal Medicine; PCP Internal Medicine; Referring Provider Internal Medicine; Visit Provider Internal Medicine ==

== ENCOUNTER → 2022-08-26 08:14 | Outpatient (CLI) | payer MEDICARE, OTHER, SELFPAY ==
[2022-08-26 09:22] LABS: Add Manual Diff / Slide Review NO; Basophils Absolute Auto 0 /uL (0-100); Basophils Percent Auto 0.3 % (0-2); Eosinophils Absolute Auto 100 /uL (0-450); Eosinophils Percent Auto 3.1 % (2-4); Hematocrit 39.9 % (41-53); Hemoglobin 13.5 g/dL (13.5-17.5); Lymphocytes Absolute Auto 1200 /uL (1100-4500); Mean Corpuscular HGB Conc 33.9 % (30-36); Mean Corpuscular Hemoglobin 34.4 PG (26-34); Mean Corpuscular Volume 101.5 fL (80-100); Monocytes Absolute Auto 600 /uL (0-900); Monocytes Percent Auto 12.9 % (3-14); Neutrophils Absolute Auto 2900 /uL (1500-7000); Neutrophils Percent Auto 59.7 % (50-75); Platelet Count 156 X10^3/uL (150-400); Red Blood Cell Count 3.93 X10^6/uL (4.5-5.9); Red Cell Distribution Width 13.9 % (11.6-14.8); White Blood Cell Count 4.9 X10^3/uL (4.5-11.0)
[2022-08-26 10:19] LABS: Alanine Aminotransferase 30 IU/L (<50); Albumin 3.9 g/dL (3.5-5.0); Albumin Globulin Ratio 1.1 (1.0-2.8); Alkaline Phosphatase 84 U/L (38-126); Aspartate Aminotransferase 37 IU/L (17-59); BUN Creatinine Ratio 18.1 (6-22); Bilirubin Total 1.1 mg/dL (0.2-1.3); Blood Urea Nitrogen 17 mg/dL (9-20); Calcium 8.9 mg/dL (8.4-10.2); Carbon Dioxide 29 mmol/L (22-32); Chloride 100 mmol/L (98-107); Cholesterol 111 mg/dL (140-199); Estimated Glomerular Filt Rate > 60 mL/min (>60); Globulin 3.4 g/dL (1.7-4.1); Glucose 91 mg/dL (80-110); HDL Cholesterol 40 mg/dL (40-60); HEMOLYSIS < 15 (0-50); LDL Cholesterol Calculated 54 mg/dL (<100); Potassium 4.1 mmol/L (3.4-5.1); Sodium 137 mmol/L (137-145); Total Protein 7.3 g/dL (6.3-8.2); Triglycerides 86 mg/dL (35-150)
== END ==
PROVIDERS: Family Provider Internal Medicine; PCP Internal Medicine; Referring Provider Internal Medicine; Visit Provider Internal Medicine
DX: I10 Essential (primary) hypertension (principal); I25.10 Atherosclerotic heart disease of native coronary artery without angina pectoris; I48.0 Paroxysmal atrial fibrillation; M1A.9XX0 Chronic gout, unspecified, without tophus (tophi); Z79.01 Long term (current) use of anticoagulants
CPT/HCPCS: 36415; 80053; 80061; 84550; 85025

== ENCOUNTER → 2022-11-14 12:38 | Outpatient (CLI) | payer MEDICARE, OTHER, SELFPAY ==
--- NOTE | 2022-11-14 12:40 | DI.MRI.S_ITS ---
PROCEDURE: MR LUMBAR SPINE WO CON INDICATIONS: Radiculopathy, lumbar region TECHNIQUE: Noncontrast sagittal T1 spin echo and T2 fast echo, sagittal STIR, and T2 fast spin echo through the lumbar spine. In cases with scoliosis, additional coronal T2 fast spin echo may be performed. COMPARISON: [facility], CR, XR LUMBAR SPINE 2 OR 3 VIEWS, 07/13/2018, 9:57. [facility], , MR LUMBAR SPINE WO CON, 07/20/2018, 12:37. [facility], CR, XR LUMBAR SPINE 2 OR 3 VIEWS, 11/02/2022, 16:51. FINDINGS: Image quality: This examination is limited by involuntary motion artifact. Alignment and Curvature: There is accentuated lumbar lordosis. No focal AP alignment abnormality is seen. Bone Marrow: Marrow is of normal overall signal. No acute vertebral body compression fractures. Spinal Cord: Conus medullaris terminates at the L1 level. Visualized cord demonstrates normal signal and size. Paraspinous Soft Tissues: No paravertebral masses. Bilateral simple appearing renal cysts are partially seen. T12-L1: Normal appearance. L1-L2: Normal appearance. L2-L3: The disc height is well-preserved. Loss of disc signal is seen at this level. Moderate generalized disc bulge is seen. Mild to moderate facet hypertrophy can be seen. Moderate bilateral neural foraminal narrowing can be seen, right worse than left. Moderate central canal narrowing is seen, which is exacerbated by prominent epidural fat posteriorly. These imaging findings have progressed compared to the prior study. L3-L4: The disc height is well-preserved. Loss of disc signal is seen at this level. Moderate generalized disc bulge is seen. Moderate facet joint hypertrophy is seen. Moderate bilateral neural foraminal narrowing is seen. No significant central canal narrowing is seen. When comparison is made with the prior images, these findings are similar. L4-L5: The disc height is well-preserved. Loss of disc signal is seen at this level. Moderate generalized disc bulge is seen. There is a superimposed central disc protrusion. Moderate facet joint hypertrophy is seen. Moderate bilateral neural foraminal narrowing is seen at this level. Mild to moderate central canal narrowing is seen. When comparison is made with the prior images, these findings are similar. L5-S1: The disc height is well-preserved. Loss of disc signal is seen at this level. Moderate generalized disc bulge is seen. There is a superimposed central disc protrusion. Moderate facet joint hypertrophy is seen. No significant neural foraminal narrowing is seen. Mild central canal narrowing is seen. When comparison is made with the prior images, these findings are similar. IMPRESSION: Multiple levels of lumbar spine degenerative change are seen, which are overall worst at the L4-L5 level. The degenerative changes are mildly progressed at the L2-L3 level compared to 2018. There is accentuated lumbar lordosis. Dictated by: Fly Kaur M.D. on 11/14/2022 at 15:09 Approved by: Fly Kaur M.D. on 11/14/2022 at 15:14
== END ==
PROVIDERS: Family Provider Internal Medicine; PCP Internal Medicine; Referring Provider Physical Medicine & Rehabilitation; Visit Provider Physical Medicine & Rehabilitation
DX: M47.26 Other spondylosis with radiculopathy, lumbar region; M47.27 Other spondylosis with radiculopathy, lumbosacral region
CPT/HCPCS: 72148

== ENCOUNTER 2022-11-15 18:31 | Emergency (ER) | payer MEDICARE, OTHER, SELFPAY ==
[2022-11-15 18:50] VITALS: BP 181/75; PULSE 65; RESP 18; TEMP 36.6; O2SAT 100; BMI 42.5
--- NOTE | 2022-11-15 18:57 | DI.CT.S_ITS ---
PROCEDURE: CT HEAD/BRAIN WO CON INDICATIONS: dizzy on eliquis TECHNIQUE: Noncontrast 4.5 mm thick angled axial sections acquired from the foramen magnum to the vertex, with coronal and sagittal reformats. For radiation dose reduction, the following was used: automated exposure control, adjustment of mA and/or kV according to patient size. COMPARISON: [facility], CT, HEAD WITHOUT CONTRAST, 11/10/2017, 12:11. FINDINGS: Image quality: Excellent. CSF spaces: Basal cisterns are patent. No extra-axial fluid collections. The ventricles are symmetric in size and shape. Brain: No intracranial bleeds or masses. There is cerebral volume loss for age, with resultant ventricular and sulcal prominence. There are periventricular and deep white matter chronic small vessel ischemic changes. There is intracranial internal carotid artery atherosclerosis. Skull and face: Calvarium and visualized facial bones appear intact, without suspicious lesions. Sinuses: Visualized sinuses and mastoids are clear. IMPRESSION: No intracranial hemorrhage or other acute intracranial abnormality. Dictated by: Jacky Cohen M.D. on 11/15/2022 at 19:37 Approved by: Jacky Cohen M.D. on 11/15/2022 at 19:40
--- NOTE | 2022-11-15 18:58 | DI.CT.S_ITS ---
PROCEDURE: CT ANGIO HEAD AND NECK INDICATIONS: dizzy on eliquis TECHNIQUE: After the administration of intravenous contrast, 1 mm thick sections acquired from the aortic arch through the [place] of [place]. Post-contrast 4.5 mm thick sections then re-acquired from the foramen magnum to the vertex. 3-dimensional xyynrcm-clnntzlfp-bqjytlovth (MIP) and/or volume rendering reformats were acquired of the central intracranial vasculature and neck separately. For radiation dose reduction, the following was used: automated exposure control, adjustment of mA and/or kV according to patient size. COMPARISON: [facility], CT, CT HEAD/BRAIN WO CON, 11/15/2022, 19:20. FINDINGS: BRAIN: CSF spaces: Ventricles are normal in size and shape. Basal cisterns are patent. No extra-axial fluid collections. Brain: No midline shift. No intracranial bleeds or masses. Feliz-white matter interface appears intact. Skull and face: Calvarium and facial bones appear intact, without suspicious lesions. Orbits appear normal. Sinuses: Sinuses and mastoids are clear. HEAD CT ANGIOGRAPHY: Anterior circulation: Intracranial internal carotid arteries are normal in size and flow. The flow within the paired anterior cerebral arteries is normal and symmetric. The flow within the middle cerebral arteries is normal and symmetric. The anterior communicating artery is seen. No aneurysms are seen. Posterior circulation: Visualized portions of the vertebral arteries demonstrate normal caliber, and join to form a normal appearing basilar artery. Flow within the posterior cerebral arteries is normal and symmetric. No aneurysms are seen. NECK CT ANGIOGRAPHY: Carotid system: The great vessels demonstrate a conventional anatomy as they arise from the aortic arch. The origins of the common carotid arteries appear patent. The common carotid arteries demonstrate normal caliber and courses. The bifurcation regions are both widely patent. The internal carotid arteries demonstrate normal calibers and courses. Posterior circulation: The origins of the vertebral arteries both appear widely patent. The more superior extracranial portions of both vertebral arteries also demonstrate normal courses and calibers. They join to form a normal appearing basilar artery. Soft tissues: Mediastinal adenopathy is present, partially imaged IMPRESSION: 1. No large vessel occlusion or high-grade carotid stenosis identified. 2. Nonspecific mediastinal adenopathy partially imaged. Any quantitative measurements of stenosis were performed using NASCET criteria. Dictated by: Jacky Cohen M.D. on 11/15/2022 at 20:39 Approved by: Jacky Cohen M.D. on 11/15/2022 at 20:50
--- NOTE | 2022-11-15 19:15 | ED_ITS ---
HPI - Dizziness General Chief Complaint: Dizziness Stated Complaint: Dizzy, sent from [facility], says possible stroke Time Seen by Provider: 11/15/22 18:57 Source: patient Mode of arrival: Ambulatory History of Present Illness HPI Narrative: Patient is a 71-year-old male history of atrial fibrillation on Eliquis presenting today with dizziness. He says he woke up around 630 in the morning as he usually does states he got out of bed and felt dizzy. He feels like he is a little bit off balance but able to walk around all day without any abnormality able to drive himself here. He has chronic neuropathy in his feet which has changed. When he sits down he does not feel dizzy at all. He denies any headache. No nausea or vomiting. No chest pain palpitations or shortness of breath. He is not had any fever or infection like symptoms. 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 Related Data Home Medications Medication Instructions Recorded Confirmed cholecalciferol (vitamin D3) 50 50 mcg PO DAILY ##0 03/18/13 10/25/22 mcg (2,000 unit) capsule (Vitamin D3) ascorbic acid (vitamin C) 500 mg 500 mg PO DAILY 02/25/19 10/25/22 capsule,extended release aspirin 81 mg tablet,delayed 81 mg PO DAILY 02/25/19 10/25/22 release (Adult Low Dose Aspirin) jljcruoh-aam-ttoee acid 300 1 tab PO DAILY 02/25/19 10/25/22 mcg-lycopene 600 mcg-lutein 300 mcg tablet (Centrum Silver Ultra Men's) salmon oil-omega-3 fatty acids 1 cap PO DAILY 02/25/19 10/25/22 1,000 mg-200 mg capsule (Ballwin Oil-) magnesium 1 cap PO DAILY 02/24/22 10/25/22 vitamin B complex 1 cap PO DAILY 02/24/22 10/25/22 Previous Rx's Medication Instructions Recorded irbesartan 150 mg tablet 150 mg PO QDAY #90 tabs 10/25/21 apixaban 5 mg tablet (Eliquis) 5 mg PO BID #180 tabs 11/29/21 atorvastatin 40 mg tablet (Lipitor) 40 mg PO HS #90 tabs 01/11/22 metoprolol succinate 25 mg 12.5 mg PO DAILY #45 tabs 04/11/22 tablet,extended release 24 hr hydrochlorothiazide 25 mg tablet See Rx Instructions .Route 07/22/22 .COMPLEX #90 tabs tamsulosin 0.4 mg capsule See Rx Instructions .Route 07/22/22 .COMPLEX #90 caps allopurinol 300 mg tablet 300 mg PO QDAY #90 tabs 08/12/22 trazodone 50 mg tablet 50 mg PO BEDTIME PRN insomnia #90 08/25/22 tabs Allergies Allergy/AdvReac Type Severity Reaction Status Date / Time No Known Drug Allergies Allergy Verified 11/15/22 18:56 Review of Systems Review of Systems ROS Unobtainable: All systems reviewed & are unremarkable except as noted in HPI and below Patient History Medical History Acute coronary syndrome (11/16/16) Arthritis Atrial fibrillation (02/1999) BPH w urinary obs/LUTS CAD (coronary artery disease) Central sleep apnea (2005) Chicken pox Chronic atrial flutter Chronic back pain (2005) 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) Coronary artery disease involving [place] coronary artery of [place] heart without angina pectoris (02/2017) Diverticular disease (03/15/16) Dizziness Foot pain (2005) Fractures Hearing loss (2005) Hemorrhoids History of adenomatous polyp of colon Hyperlipidemia Hypertension (1985) Idiopathic peripheral neuropathy (07/06/15) Measles Morbid obesity Osteoarthritis of right hip Plantar warts Sciatica Shingles (2007) Shoulder pain Vertigo (2006) Surgical History Anesthesia complication History of cardiac catheterization (11/16/16) History of colonoscopy (03/15/16) Status post placement of stent in right coronary artery (11/16/16) Status post right partial knee replacement (~02/2020) Status post rotator cuff repair (07/11/12) Family History Father Cancer Colon cancer Liver cancer Grandfather Heart disease Heart attack Grandmother Stroke Dementia Mother Cancer Esophageal cancer Grandfather Heart disease Heart attack Sister Age: 67 Cancer Uterine cancer Brother No problems noted. Grandmother No problems noted. Social History household members: spouse Smoking Status: Never smoker alcohol intake: former Smoking Status: Never smoker alcohol intake frequency: holidays/special occasions only Substance Use Type: does not use Exam Initial Vital Signs Initial Vital Signs: Vital Signs Temperature 97.9 F 11/15/22 18:50 Pulse Rate 65 11/15/22 18:50 Respiratory Rate 18 11/15/22 18:50 Blood Pressure 181/75 H 11/15/22 18:50 Pulse Oximetry 100 11/15/22 18:50 Oxygen Delivery Method Room Air 11/15/22 18:50 GENERAL: Alert very pleasant 71-year-old and in no acute distress. HEENT: Head atraumatic,EOMI, pupils reactive, no nystagmus face symmetric, moist mucous membranes CARDIOVASCULAR: Regular rate and rhythm without murmurs, rubs or gallops. RESPIRATORY: Breath sounds equal bilaterally, no wheezes rales or rhonchi. ABDOMEN: Soft, nontender. Normoactive bowel sounds all 4 quadrants. No guarding or rebound. EXTREMITIES: Normal range of motion, no clubbing or edema. Neurovascularly intact NEUROLOGICAL: Alert and oriented x4.Normal gait and speech. Cranial nerves II through XII grossly intact. Good ndrnby-ok-quyk, good mjcr-hx-utjm, strength equal bilaterally, no dysarthria or aphasia, sensation in tact to soft touch bilaterally, no visual changes, no facial droop SKIN: Warm, dry, no laceration, no petechiae, no rashes or lesions. Scores NIH Stroke Scale Level of Conciousness: Alert, keenly responsive Ask month/age: Answers both questions correctly. Open/close eyes, close hand: Performs both tasks correctly Best gaze horizontal: Normal Visual helm: No visual loss Facial palsy: Normal symetrical movement Left arm drift: No drift for full 10 sec Right arm drift: No drift for full 10 sec Left leg drift: No drift for full 5 sec Right leg drift: No drift for full 5 sec Limb ataxia: Absent Sensory on face/arms/legs: Normal, no sensory loss Best language: No aphasia, normal Dysarthria: Normal Extinction or inattention: No abnormality Total NIH Stroke scale score: 0 Course Orders Ordered: Discontinued Medications Sodium Chloride (Normal Saline 0.9%) 1,000 mls @ 150 mls/hr IV CONT JUNAID Last Admin: 11/15/22 19:30 Dose: 150 mls/hr Documented By: TERESSA Sodium Chloride (Normal Saline 0.9%) 500 mls @ 1,000 mls/hr IV BOLUS ONE Stop: 11/15/22 20:25 Last Infusion: 11/15/22 20:39 Dose: 0 mls/hr Documented By: Admin: 11/15/22 20:02 Dose: 1,000 mls/hr Documented By: MARIO ALBERTO Vital Signs Vital signs: Vital Signs - 8 hr 11/15/22 21:51 Pulse Rate 80 Respiratory Rate 20 Blood Pressure 159/100 H Pulse Oximetry 99 Oxygen Delivery Method Room Air MDM - Dizziness Lab Data 11/15/22 19:05 11/15/22 19:05 Labs: Lab Results 11/15/22 11/15/22 11/15/22 Range/Units 19:05 19:05 19:05 WBC 4.7 (4.5-11.0) X10^3/uL RBC 4.02 L (4.5-5.9) X10^6/uL Hgb 13.5 (13.5-17.5) g/dL Hct 40.1 L (41-53) % MCV 99.8 (80-100) fL MCH 33.7 (26-34) PG MCHC 33.7 (30-36) % RDW 14.0 (11.6-14.8) % Plt Count 147 L (150-400) X10^3/uL Neut % (Auto) 67.0 (50-75) % Lymph % (Auto) 17.9 L (25-40) % [place] % (Auto) 11.4 (3-14) % Eos % (Auto) 3.1 (2-4) % Baso % (Auto) 0.6 (0-2) % Neut # (Auto) 3200 (5972-8620) /uL Lymph # (Auto) 800 L (2373-3654) /uL [place] # (Auto) 500 (0-900) /uL Eos # (Auto) 100 (0-450) /uL Baso # (Auto) 0 (0-100) /uL Sodium 138 (137-145) mmol/L Potassium 3.8 (3.4-5.1) mmol/L Chloride 101 (98-107) mmol/L Carbon Dioxide 30 (22-32) mmol/L BUN 20 (9-20) mg/dL Creatinine 0.83 (0.66-1.25) mg/dL Estimated GFR > 60 (>60) mL/min BUN/Creatinine Ratio 24.1 H (6-22) Glucose 107 (80-110) mg/dL Calcium 9.2 (8.4-10.2) mg/dL Total Bilirubin 0.9 (0.2-1.3) mg/dL AST 36 (17-59) IU/L ALT 31 (<50) IU/L Alkaline Phosphatase 81 (38-126) U/L Total Creatine Kinase 56 (55-170) U/L CK-MB (CK-2) TNP CK-MB (CK-2) Rel Index TNP Troponin I < 0.012 (0.01-0.034) ng/mL Total Protein 8.0 (6.3-8.2) g/dL Albumin 4.1 (3.5-5.0) g/dL Globulin 3.9 (1.7-4.1) g/dL Albumin/Globulin Ratio 1.1 (1.0-2.8) Urine Dip Bedside Urine Glucose Negative Bedside Urine Bilirubin - Negative Bedside Urine Ketone - Negative Urine Specific [place] 1.01 Bedside Urine Occult Blood - Negative Bedside Urine pH 6 Bedside Urine Protein - Negative Bedside Urine Urobilinogen - Negative Bedside Urine Nitrite - Negative Bedside Urine Leukocytes - Negative Esterase Imaging Data CT scan - head: Radiologist's Impression: PROCEDURE:? CT HEAD/BRAIN WO CON ? INDICATIONS:? dizzy on eliquis ? TECHNIQUE:? Noncontrast 4.5 mm thick angled axial sections acquired from the foramen magnum to the vertex, with coronal and sagittal reformats.? For radiation dose reduction, the following was used:? automated exposure control, adjustment of mA and/or kV according to patient size.? ? COMPARISON:? [facility], CT, HEAD WITHOUT CONTRAST, 11/10/2017, 12:11. ? FINDINGS:? Image quality:? Excellent.? ? CSF spaces:? Basal cisterns are patent.? No extra-axial fluid collections.? The ventricles are symmetric in size and shape.? ? Brain:? No intracranial bleeds or masses.? There is cerebral volume loss for age, with resultant ventricular and sulcal prominence.? There are periventricular and deep white matter chronic small vessel ischemic changes.? There is intracranial internal carotid artery atherosclerosis.? ? Skull and face:? Calvarium and visualized facial bones appear intact, without suspicious lesions.? ? Sinuses:? Visualized sinuses and mastoids are clear.? ? IMPRESSION:? No intracranial hemorrhage or other acute intracranial abnormality. ? ? Dictated by: Jacky Cohen M.D. on 11/15/2022 at 19:37 ? CTA - brain/neck: Radiologist's Impression: PROCEDURE:? CT ANGIO HEAD AND NECK ? INDICATIONS:? dizzy on eliquis ? TECHNIQUE:? ? After the administration of intravenous contrast, 1 mm thick sections acquired from the aortic arch through the [place] of [place].? Post-contrast 4.5 mm thick sections then re-acquired from the foramen magnum to the vertex.? 3-dimensional jooqzmg-lzrwvsvhr-zhfalueimx (MIP) and/or volume rendering reformats were acquired of the central intracranial vasculature and neck separately. For radiation dose redu ction, the following was used:? automated exposure control, adjustment of mA and/or kV according to patient size.? ? COMPARISON:? [facility], CT, CT HEAD/BRAIN WO CON, 11/15/2022, 19:20. ? FINDINGS:? ? BRAIN:? CSF spaces:? Ventricles are normal in size and shape.? Basal cisterns are patent.? No extra-axial fluid collections.? ? Brain:? No midline shift.? No intracranial bleeds or masses.? [place]-white matter interface appears intact.? ? Skull and face:? Calvarium and facial bones appear intact, without suspicious lesions.? Orbits appear normal.? ? Sinuses:? Sinuses and mastoids are clear.? ? HEAD CT ANGIOGRAPHY:? Anterior circulation:? Intracranial internal carotid arteries are normal in size and flow.? The flow within the paired anterior cerebral arteries is normal and symmetric.? The flow within the middle cerebral arteries is normal and symmetric.? The anterior communicating artery is seen.? No aneurysms are seen.? ? Posterior circulation:? Visualized portions of the vertebral arteries demonstrate normal caliber, and join to form a normal appearing basilar artery.? Flow within the posterior cerebral arteries is normal and symmetric.? No aneurysms are seen.? ? NECK CT ANGIOGRAPHY:? Carotid system:? The great vessels demonstrate a conventional anatomy as they arise from the aortic arch.? The origins of the common carotid arteries appear patent.? The common carotid arteries demonstrate normal caliber and courses.? The bifurcation regions are both widely patent.? The internal carotid arteries demonstrate normal calibers and courses.? ? Posterior circulation:? The origins of the vertebral arteries both appear widely patent.? The more superior extracranial portions of both vertebral arteries also demonstrate normal courses and calibers.? They join to form a normal appearing basilar artery.? ? Soft tissues:? Mediastinal adenopathy is present, partially imaged ? ? ? IMPRESSION:? 1. No large vessel occlusion or high-grade carotid stenosis identified. 2. Nonspecific mediastinal adenopathy partially imaged. ? Any quantitative measurements of stenosis were performed using NASCET criteria.? ? ? Dictated by: Jacky Cohen M.D. on 11/15/2022 at 20:39 ? ? ECG Data Interpretation: Atrial fibrillation rate [address] changes no T-wave inversions similar to previous EKGs MDM Narrative Medical decision making narrative: Patient feeling dizzy only upon standing. He is no focal deficits. He is able to ambulate in his feeling better after IV fluids. Blood work is overall reassuring without any sign of anemia electrolyte abnormality or OMARI. Troponin is negative. Head CT and CT angio did not show any abnormality. There is no evidence of infection. Orthostatics were done however patient is on metoprolol no significant change in heart rate. Patient ambulates to the restroom in the ED without any difficulty. At this time I think more likely related to dehydration rather than CVA. There is no evidence of large vessel occlusion. Dizziness has improved with IV fluids. Posterior stroke was considered. Discharge Plan Departure Patient Disposition: Home Clinical Impression: Dehydration Instructions: DI for Dehydration -- Adult, DI for Dizziness-Nonvertigo Activity Restrictions/Additional Instructions: *You have been diagnosed with dehydration *What to do: At this time I think your symptoms are related to dehydration. Your CT scans look okay today no MRI was done. Please rest and stay hydrated *Continue to take medications as directed *Follow up with your primary care provider in 2-3 days or call [phone] *Return to ER if you should have increasing dizziness chest pain nausea vomiting weakness or any new, worsening or concerning symptoms Prescriptions: No Action cholecalciferol (vitamin D3) [Vitamin D3] 50 mcg (2,000 unit) Capsule 50 mcg PO DAILY Qty: 0 irbesartan 150 mg tablet 150 mg PO QDAY Qty: 90 0RF Rx Instructions: PT WILL NEED TO BE SEEN BEFORE NEXT RENEWAL 10/25/21 Eliquis 5 mg tablet 5 mg PO BID Qty: 180 3RF atorvastatin [Lipitor] 40 mg tablet 40 mg PO HS Qty: 90 0RF metoprolol succinate 25 mg tablet extended release 24 hr 12.5 mg PO DAILY Qty: 45 3RF hydrochlorothiazide 25 mg tablet See Rx Instructions .ROUTE .COMPLEX Qty: 90 0RF Dose Instruction: TAKE 1 TABLET BY MOUTH DAILY Rx Instructions: TAKE 1 TABLET BY MOUTH DAILY tamsulosin 0.4 mg capsule See Rx Instructions .ROUTE .COMPLEX Qty: 90 0RF Dose Instruction: TAKE 1 CAPSULE BY MOUTH AT BEDTIME Rx Instructions: TAKE 1 CAPSULE BY MOUTH AT BEDTIME allopurinol 300 mg tablet 300 mg PO QDAY Qty: 90 1RF magnesium 1 cap PO DAILY vitamin B complex 1 cap PO DAILY trazodone 50 mg tablet 50 mg PO BEDTIME PRN (Reason: insomnia) Qty: 90 3RF aspirin [Adult Low Dose Aspirin] 81 mg tablet,delayed release (DR/EC) 81 mg PO DAILY Centrum Silver Ultra Men's 300-600-300 mcg tablet 1 tab PO DAILY [place] Oil-1000 1,000-200 mg capsule 1 cap PO DAILY ascorbic acid (vitamin C) 500 mg capsule, extended release 500 mg PO DAILY Referrals: Mo Roper MD [Primary Care Provider] - Stand Alone Forms: Patient Portal/API
[2022-11-15 19:20] LABS: Add Manual Diff / Slide Review NO; Basophils Absolute Auto 0 /uL (0-100); Basophils Percent Auto 0.6 % (0-2); Eosinophils Absolute Auto 100 /uL (0-450); Eosinophils Percent Auto 3.1 % (2-4); Hematocrit 40.1 % (41-53); Hemoglobin 13.5 g/dL (13.5-17.5); Lymphocytes Absolute Auto 800 /uL (1100-4500); Lymphocytes Percent Auto 17.9 % (25-40); Mean Corpuscular HGB Conc 33.7 % (30-36); Mean Corpuscular Hemoglobin 33.7 PG (26-34); Mean Corpuscular Volume 99.8 fL (80-100); Monocytes Absolute Auto 500 /uL (0-900); Monocytes Percent Auto 11.4 % (3-14); Neutrophils Absolute Auto 3200 /uL (1500-7000); Platelet Count 147 X10^3/uL (150-400); Red Blood Cell Count 4.02 X10^6/uL (4.5-5.9); White Blood Cell Count 4.7 X10^3/uL (4.5-11.0)
[2022-11-15] MEDS: SODIUM CHLORIDE 0.9% 1,000 ML 150 ML IV (19:30)
[2022-11-15 19:37] LABS: Alanine Aminotransferase 31 IU/L (<50); Albumin 4.1 g/dL (3.5-5.0); Albumin Globulin Ratio 1.1 (1.0-2.8); Alkaline Phosphatase 81 U/L (38-126); Aspartate Aminotransferase 36 IU/L (17-59); BUN Creatinine Ratio 24.1 (6-22); Bilirubin Total 0.9 mg/dL (0.2-1.3); Blood Urea Nitrogen 20 mg/dL (9-20); Calcium 9.2 mg/dL (8.4-10.2); Carbon Dioxide 30 mmol/L (22-32); Chloride 101 mmol/L (98-107); Creatine Kinase 56 U/L (55-170); Estimated Glomerular Filt Rate > 60 mL/min (>60); Globulin 3.9 g/dL (1.7-4.1); Glucose 107 mg/dL (80-110); HEMOLYSIS < 15 (0-50); Potassium 3.8 mmol/L (3.4-5.1); Sodium 138 mmol/L (137-145)
[2022-11-15 19:49] LABS: Troponin I < 0.012 ng/mL (0.01-0.034)
[2022-11-15 19:53] VITALS: BP 146/87; BP 155/72; PULSE 73; PULSE 92
[2022-11-15] MEDS: SODIUM CHLORIDE 0.9% 500 ML 1000 ML IV (20:02)
[2022-11-15 21:51] VITALS: BP 159/100; PULSE 80; RESP 20; O2SAT 99
== END 2022-11-15 21:51 | disposition home or self-care (01) ==
PROVIDERS: Emergency Provider Emergency Medicine; Family Provider Internal Medicine; PCP Internal Medicine
DX: E86.0 Dehydration (principal); R42 Dizziness and giddiness; R79.89 Other specified abnormal findings of blood chemistry; I48.91 Unspecified atrial fibrillation; Z79.01 Long term (current) use of anticoagulants
CPT/HCPCS: 36415; 70450; 70496; 70498; 80053; 81003; 82550; 84484; 85025; 93005; 93010; 96360; 99284

== ENCOUNTER 2023-06-05 10:38 | Emergency (ER) | payer MEDICARE, OTHER, SELFPAY ==
[2023-06-05 10:41] VITALS: BP 141/68; PULSE 80; RESP 16; TEMP 36.6; O2SAT 100; BMI 41.3
--- NOTE | 2023-06-05 10:46 | DI.RAD.S_ITS ---
PROCEDURE: XR ELBOW RT MIN 3V INDICATIONS: fall, pain and swelling. TECHNIQUE: 3 views of the elbow were acquired. COMPARISON: None. FINDINGS: Bones: Minimally displaced lucency at the lateral humeral epicondyle. There are superimposed degenerative changes. Olecranon enthesopathy. Soft tissues: No significant joint effusion. IMPRESSION: There are degenerative changes. There is a minimally displaced lucency at the lateral humeral epicondyle, age indeterminate, correlate for tenderness. If there is high concern for occult injury, consider repeat radiography or cross-sectional imaging. Dictated by: Dejan Trevino M.D. on 06/05/2023 at 12:08 Approved by: Dejan Trevino M.D. on 06/05/2023 at 12:10
--- NOTE | 2023-06-05 13:44 | PC.NURSE ---
patient has sciatica but was suppose to have an ablation. He fell last Monday on the side that his pain is normally. He now has an exacerbation of that pain. 12/07. He cant take ibuprofen but can take Tylenol. He was given instructions to take his pain medication as prescribed and return to the ED for any new or worsening symptoms
[2023-06-05 13:47] VITALS: BP 126/73; PULSE 58; RESP 12; O2SAT 100
--- NOTE | 2023-06-13 13:16 | ED_ITS ---
HPI - Extremity Injury (Lower) <Dominik Barbosa PA-C - Last Filed: 06/13/23 13:58> General Chief Complaint: Extremity Injury, Lower Stated Complaint: fell T-3 sciatic is acting up Time Seen by Provider: 06/05/23 13:03 Source: patient Mode of arrival: Ambulatory History of Present Illness HPI Narrative: 72-year-old male presents to the ED status post a trip and fall mechanical injury sustained 1 week ago. Patient is complaining of right hip and right- sided lower back pain radiating down to his leg. Patient is able to walk. Patient also complains of right-sided elbow pain and swelling from the fall. Patient denies numbness, tingling, weakness. Related Data Home Medications Medication Instructions Recorded Confirmed cholecalciferol (vitamin D3) 50 50 mcg PO DAILY ##0 03/18/13 05/11/23 mcg (2,000 unit) capsule (Vitamin D3) ascorbic acid (vitamin C) 500 mg 500 mg PO DAILY 02/25/19 05/11/23 capsule,extended release aspirin 81 mg tablet,delayed 81 mg PO DAILY 02/25/19 05/11/23 release (Adult Low Dose Aspirin) [id number] 300 mcg-K 60 1 tab PO DAILY 02/25/19 05/11/23 mcg-lycop 600 mcg-lutein 300 mcg tablet (Centrum Silver Ultra Men's) salmon oil-omega-3 fatty acids 1 cap PO DAILY 02/25/19 05/11/23 1,000 mg-200 mg capsule (Magnolia Oil-) magnesium 1 cap PO DAILY 02/24/22 05/11/23 vitamin B complex 1 cap PO DAILY 02/24/22 05/11/23 Previous Rx's Medication Instructions Recorded trazodone 50 mg tablet 50 mg PO BEDTIME PRN insomnia #90 08/25/22 tabs hydrochlorothiazide 25 mg tablet See Rx Instructions .Route 01/18/23 .COMPLEX #90 tabs tamsulosin 0.4 mg capsule See Rx Instructions .Route 01/18/23 .COMPLEX #90 caps atorvastatin 40 mg tablet (Lipitor) 40 mg PO HS #90 tabs 01/23/23 irbesartan 150 mg tablet 150 mg PO QDAY #90 tabs 01/23/23 allopurinol 300 mg tablet 300 mg PO QDAY #90 tabs 07/20/23 metoprolol succinate 25 mg 12.5 mg (1/2 x 25 mg) PO DAILY #45 03/13/23 tablet,extended release 24 hr tabs apixaban 5 mg tablet (Eliquis) 5 mg PO BID #180 tabs 03/23/23 nirmatrelvir 300 mg (150 mg See Rx Instructions PO .COMPLEX 05/11/23 x2)-ritonavir 100 mg tablet,dose #30 ea pack (Paxlovid) Allergies Allergy/AdvReac Type Severity Reaction Status Date / Time No Known Drug Allergies Allergy Verified 06/05/23 10:45 Review of Systems <Dominik Barbosa PA-C - Last Filed: 06/13/23 13:58> Constitutional Constitutional: Denies chills, Denies fatigue, Denies fever(s), Denies frequent falls, Denies lethargy and Denies weakness Eyes Eyes: Denies change in vision, Denies eye discharge, Denies irritation and Denies loss of vision ENT Ears, Nose, Mouth, and Throat: Denies change in voice, Denies dizziness, Denies neck pain, Denies sore throat and Denies throat swelling Cardiovascular Cardiovascular: Denies chest pain, Denies irregular heart rhythm, Denies lightheadedness, Denies palpitations, Denies dyspnea, Denies dyspnea on exertion and Denies orthopnea Respiratory Respiratory: Denies cough, Denies dyspnea, Denies dyspnea on exertion and Denies wheezing Gastrointestinal Gastrointestinal: Denies abdominal pain, Denies change in bowel habits, Denies diarrhea, Denies nausea and Denies vomiting Musculoskeletal Musculoskeletal: Denies neck pain and Denies numbness Comments: Right-sided lower back pain. Right elbow swelling and pain Integumentary/Breasts Skin/Breast: Denies pruritus, Denies erythema, Denies rash and Denies wounds Neurologic Neurologic: Denies behavioral changes, Denies confusion, Denies dizziness, Denies frequent falls, Denies loss of vision, Denies numbness and Denies weakness Psychiatric Psychiatric: Denies anxiety, Denies behavioral changes, Denies confusion, Denies depression, Denies homicidal ideation and Denies suicidal ideation Endocrine Endocrine: Denies fatigue, Denies flushing and Denies palpitations Hematologic/Lymphatic Hematologic/Lymphatic: Denies easy bruising Allergic/Immunologic Allergic/Immunologic: Denies urticaria, Denies throat swelling and Denies wheezing Patient History <Dominik Barbosa PA-C - Last Filed: 06/13/23 13:58> Medical History Osteoarthritis of right hip Morbid obesity Acute coronary syndrome (11/16/16) Dizziness CAD (coronary artery disease) Chronic atrial flutter BPH w urinary obs/LUTS Hypertension (1985) Central sleep apnea (2005) Sciatica Arthritis Shoulder pain Fractures Foot pain (2005) Chronic back pain (2005) Shingles (2007) Plantar warts Measles Chicken pox Vertigo (2006) Hearing loss (2005) Hemorrhoids Diverticular disease (03/15/16) Coronary artery disease involving [place] coronary artery of [place] heart without angina pectoris (02/2017) 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) Idiopathic peripheral neuropathy (07/06/15) History of adenomatous polyp of colon Hyperlipidemia Atrial fibrillation (02/1999) Surgical History Status post right partial knee replacement (~02/2020) History of cardiac catheterization (11/16/16) History of colonoscopy (03/15/16) Anesthesia complication Status post placement of stent in right coronary artery (11/16/16) Status post rotator cuff repair (07/11/12) Family History Father Cancer Colon cancer Liver cancer Grandfather Heart disease Heart attack Grandmother Stroke Dementia Mother Cancer Esophageal cancer Grandfather Heart disease Heart attack Sister Age: 68 Cancer Uterine cancer Brother No problems noted. Grandmother No problems noted. Social History household members: spouse Smoking Status: Never smoker alcohol intake: former Smoking Status: Never smoker alcohol intake frequency: holidays/special occasions only Substance Use Type: does not use Exam <Dominik Barbosa PA-C - Last Filed: 06/13/23 13:58> Narrative Exam Narrative: Const General:?cooperative, healthy appearing and comfortable HENTX Head:?normal to inspection Ears:?hearing grossly normal bilaterally Nose:?external nose normal Face and sinus:?normal facial exam and sinuses nontender Mouth:?oral mucosae normal Throat:?posterior oropharynx normal Eyes General:?appearance normal, both eyes and all related structures Neck Neck:?normal visual inspection and no lymphadenopathy noted Resp Effort & Inspection:?normal respiratory effort Auscultation:?clear to auscultation bilaterally Cardio Rate:?regular rate Rhythm:?regular rhythm Musculoskeletal There is some swelling and mild tenderness to palpation of the right proximal forearm, distal to the right elbow. There is full range of motion. There is no midline tenderness to palpation. There is no paraspinal tenderness to palpation. Patient is able to walk normally. Patient is neurovascularly intact. Neuro General:?patient alert, patient awake and patient oriented x3 Initial Vital Signs Initial Vital Signs: Vital Signs Temperature 97.9 F 06/05/23 10:41 Pulse Rate 80 06/05/23 10:41 Respiratory Rate 16 06/05/23 10:41 Blood Pressure 141/68 H 06/05/23 10:41 Pulse Oximetry 100 06/05/23 10:41 Oxygen Delivery Method Room Air 06/05/23 10:41 <Mela Ling DO - Last Filed: 06/13/23 22:42> Initial Vital Signs Initial Vital Signs: Vital Signs Temperature 97.9 F 06/05/23 10:41 Pulse Rate 80 06/05/23 10:41 Respiratory Rate 16 06/05/23 10:41 Blood Pressure 141/68 H 06/05/23 10:41 Pulse Oximetry 100 06/05/23 10:41 Oxygen Delivery Method Room Air 06/05/23 10:41 MDM - Extremity Injury (Lower) <Dominik Barbosa PA-C - Last Filed: 06/13/23 13:58> MDM Narrative Medical decision making narrative: 72-year-old male presents to the ED status post a trip and fall mechanical injury sustained 1 week ago. Concern for acute on chronic exacerbation of patient's existing sciatica versus fracture/dislocation of right elbow versus musculoskeletal sprain/strain of right elbow versus other. Obtained elbow x-ray which shows a age indeterminate minimally displaced lucency at the lateral humeral epicondyle. This finding does not correlate clinically to the area where patient is complaining of pain. Patient's area of tenderness and pain is in the proximal forearm, much below the elbow. The x-ray finding is likely an older fracture. Patient is also stating that his elbow pain is minimal and that he is able to range his elbow without any discomfort. Patient's back pain appears to be a acute on chronic exacerbation of the sciatica with no red flags indicative of cauda equina or other spinal emergency. Recommend pain control, lidocaine patches, heat packs. Patient will follow-up with his PCP and ortho specialist as soon as possible. ED return precautions discussed with patient. Patient verbalized understanding. Medical records reviewed: Yes Discharge Plan Departure Patient Disposition: Home Clinical Impression: Back pain Instructions: Low Back Pain Activity Restrictions/Additional Instructions: You were evaluated in the ED today for low back pain. It appears that the pain is from an exacerbation of your pre-existing sciatica. You are being prescribed some pain medication for the next few days until you are able to see your ortho specialist or PCP. Return to the ED if you have worsening symptoms, numbness, tingling, weakness, urinary difficulties. Please follow-up with your ortho specialist/PCP as soon as possible. Prescriptions: No Action Paxlovid 300 mg (150 mg x 2)-100 mg tablets,dose pack See Rx Instructions PO .COMPLEX Qty: 30 0RF Rx Instructions: take TWO 150 mg tablets of nirmatrelvir with ONE 100 mg tablet of ritonavir twice daily for 5 days PO cholecalciferol (vitamin D3) [Vitamin D3] 50 mcg (2,000 unit) Capsule 50 mcg PO DAILY Qty: 0 hydrochlorothiazide 25 mg tablet See Rx Instructions .ROUTE .COMPLEX Qty: 90 0RF Dose Instruction: TAKE 1 TABLET BY MOUTH DAILY Rx Instructions: TAKE 1 TABLET BY MOUTH DAILY tamsulosin 0.4 mg capsule See Rx Instructions .ROUTE .COMPLEX Qty: 90 0RF Dose Instruction: TAKE 1 CAPSULE BY MOUTH AT BEDTIME Rx Instructions: TAKE 1 CAPSULE BY MOUTH AT BEDTIME atorvastatin [Lipitor] 40 mg tablet 40 mg PO HS Qty: 90 3RF irbesartan 150 mg tablet 150 mg PO QDAY Qty: 90 3RF allopurinol 300 mg tablet 300 mg PO QDAY Qty: 90 1RF metoprolol succinate 25 mg tablet extended release 24 hr 12.5 mg PO DAILY Qty: 45 3RF Eliquis 5 mg tablet 5 mg PO BID Qty: 180 3RF magnesium 1 cap PO DAILY vitamin B complex 1 cap PO DAILY trazodone 50 mg tablet 50 mg PO BEDTIME PRN (Reason: insomnia) Qty: 90 3RF aspirin [Adult Low Dose Aspirin] 81 mg tablet,delayed release (DR/EC) 81 mg PO DAILY Centrum Silver Ultra Men's 300-600-300 mcg tablet 1 tab PO DAILY Magnolia Oil-1000 1,000-200 mg capsule 1 cap PO DAILY ascorbic acid (vitamin C) 500 mg capsule, extended release 500 mg PO DAILY Referrals: Mo Roper MD [Primary Care Provider] - Stand Alone Forms: Patient Portal/API ED Sign-out <Mela Ling DO - Last Filed: 06/13/23 22:42> Cosign ED Attending Cosignature Attestation: I was immediately available in the department for consultation.
== END 2023-06-05 13:49 | disposition home or self-care (01) ==
PROVIDERS: Emergency Provider Student in an Organized Health Care Education/Training Program; Family Provider Internal Medicine; PCP Internal Medicine
DX: M54.50 Low back pain, unspecified (principal); M25.551 Pain in right hip
CPT/HCPCS: 73080; 99281; 99282

== ENCOUNTER → 2023-06-09 08:29 | Outpatient (CLI) | payer MEDICARE, OTHER, SELFPAY | PROVIDERS: Family Provider Internal Medicine; PCP Internal Medicine; Referring Provider Family Medicine; Visit Provider Family Medicine | DX: Z23 Encounter for immunization (principal) | CPT/HCPCS: 90471; 90662 ==

== ENCOUNTER 2023-06-27 13:22 | Emergency (ER) | payer MEDICARE, OTHER, SELFPAY ==
[2023-06-27 13:40] VITALS: BP 168/81; PULSE 68; RESP 18; TEMP 37.1; O2SAT 98; BMI 43.8
[2023-06-27 14:43] VITALS: BP 160/71; PULSE 72; RESP 18; O2SAT 98
--- NOTE | 2023-06-27 14:53 | ED_ITS ---
HPI - Back Pain/Injury <Dominik Barbosa PA-C - Last Filed: 06/27/23 16:07> General Chief Complaint: Back Pain/Injury Stated Complaint: sciatic issues T-4 Time Seen by Provider: 06/27/23 14:03 Source: patient History of Present Illness HPI Narrative: 72-year-old male with past medical history sciatica presents to the ED with an acute on chronic exacerbation of lower back pain. Patient was seen in the ED on 06/05/2023 for exacerbation of the back pain following a mechanical fall. Patient states that his pain improved since then, however his back pain worsened 3 days ago when he was trying to put on some socks. No other trauma. Patient denies tingling, weakness. Patient does endorse some numbness in the right thigh. Patient's back pain is limited to the right lower back. Patient denies saddle paresthesias, urinary hesitancy, urinary incontinence, stool incontinence. Patient is able to bear weight and walk. Patient has a nerve ablation scheduled in 3 weeks on July 18 with his ortho specialist. Related Data Home Medications Medication Instructions Recorded Confirmed cholecalciferol (vitamin D3) 50 50 mcg PO DAILY ##0 03/18/13 05/11/23 mcg (2,000 unit) capsule (Vitamin D3) ascorbic acid (vitamin C) 500 mg 500 mg PO DAILY 02/25/19 05/11/23 capsule,extended release aspirin 81 mg tablet,delayed 81 mg PO DAILY 02/25/19 05/11/23 release (Adult Low Dose Aspirin) [id number]-[id number] 300 mcg-K 60 1 tab PO DAILY 02/25/19 05/11/23 mcg-lycop 600 mcg-lutein 300 mcg tablet (Centrum Silver Ultra Men's) salmon oil-omega-3 fatty acids 1 cap PO DAILY 02/25/19 05/11/23 1,000 mg-200 mg capsule (Independence Oil-) magnesium 1 cap PO DAILY 02/24/22 05/11/23 vitamin B complex 1 cap PO DAILY 02/24/22 05/11/23 Previous Rx's Medication Instructions Recorded trazodone 50 mg tablet 50 mg PO BEDTIME PRN insomnia #90 08/25/22 tabs hydrochlorothiazide 25 mg tablet See Rx Instructions .Route 01/18/23 .COMPLEX #90 tabs tamsulosin 0.4 mg capsule See Rx Instructions .Route 01/18/23 .COMPLEX #90 caps atorvastatin 40 mg tablet (Lipitor) 40 mg PO HS #90 tabs 01/23/23 irbesartan 150 mg tablet 150 mg PO QDAY #90 tabs 01/23/23 allopurinol 300 mg tablet 300 mg PO QDAY #90 tabs 02/16/23 metoprolol succinate 25 mg 12.5 mg (1/2 x 25 mg) PO DAILY #45 03/13/23 tablet,extended release 24 hr tabs apixaban 5 mg tablet (Eliquis) 5 mg PO BID #180 tabs 03/23/23 nirmatrelvir 300 mg (150 mg See Rx Instructions PO .COMPLEX 05/11/23 x2)-ritonavir 100 mg tablet,dose #30 ea pack (Paxlovid) cyclobenzaprine 10 mg tablet 10 mg PO TID PRN muscle spasm #20 06/27/23 tabs Allergies Allergy/AdvReac Type Severity Reaction Status Date / Time No Known Drug Allergies Allergy Verified 06/05/23 10:45 Review of Systems <Dominik Barbosa PA-C - Last Filed: 06/27/23 16:07> Constitutional Constitutional: Denies chills, Denies fatigue, Denies fever(s), Denies frequent falls, Denies lethargy and Denies weakness Eyes Eyes: Denies change in vision, Denies eye discharge, Denies irritation and Denies loss of vision ENT Ears, Nose, Mouth, and Throat: Denies change in voice, Denies dizziness, Denies neck pain, Denies sore throat and Denies throat swelling Cardiovascular Cardiovascular: Denies chest pain, Denies irregular heart rhythm, Denies lightheadedness, Denies palpitations, Denies dyspnea, Denies dyspnea on exertion and Denies orthopnea Respiratory Respiratory: Denies cough, Denies dyspnea, Denies dyspnea on exertion and Denies wheezing Gastrointestinal Gastrointestinal: Denies abdominal pain, Denies change in bowel habits, Denies diarrhea, Denies nausea and Denies vomiting Musculoskeletal Musculoskeletal: Reports back pain, Denies neck pain and Denies numbness Integumentary/Breasts Skin/Breast: Denies pruritus, Denies erythema, Denies rash and Denies wounds Neurologic Neurologic: Denies behavioral changes, Denies confusion, Denies dizziness, Denies frequent falls, Denies loss of vision, Denies numbness and Denies weakness Psychiatric Psychiatric: Denies anxiety, Denies behavioral changes, Denies confusion, Denies depression, Denies homicidal ideation and Denies suicidal ideation Endocrine Endocrine: Denies fatigue, Denies flushing and Denies palpitations Hematologic/Lymphatic Hematologic/Lymphatic: Denies easy bruising Allergic/Immunologic Allergic/Immunologic: Denies urticaria, Denies throat swelling and Denies wheezing Patient History <Dominik Barbosa PA-C - Last Filed: 06/27/23 16:07> Medical History Osteoarthritis of right hip Morbid obesity Acute coronary syndrome (11/16/16) Dizziness CAD (coronary artery disease) Chronic atrial flutter BPH w urinary obs/LUTS Hypertension (1985) Central sleep apnea (2005) Sciatica Arthritis Shoulder pain Fractures Foot pain (2005) Chronic back pain (2005) Shingles (2007) Plantar warts Measles Chicken pox Vertigo (2006) Hearing loss (2005) Hemorrhoids Diverticular disease (03/15/16) Coronary artery disease involving [place] coronary artery of [place] heart without angina pectoris (02/2017) 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) Idiopathic peripheral neuropathy (07/06/15) History of adenomatous polyp of colon Hyperlipidemia Atrial fibrillation (02/1999) Surgical History Status post right partial knee replacement (~02/2020) History of cardiac catheterization (11/16/16) History of colonoscopy (03/15/16) Anesthesia complication Status post placement of stent in right coronary artery (11/16/16) Status post rotator cuff repair (07/11/12) Family History Father Cancer Colon cancer Liver cancer Grandfather Heart disease Heart attack Grandmother Stroke Dementia Mother Cancer Esophageal cancer Grandfather Heart disease Heart attack Sister Age: 68 Cancer Uterine cancer Brother No problems noted. Grandmother No problems noted. Social History household members: spouse Smoking Status: Never smoker alcohol intake: former Smoking Status: Never smoker alcohol intake frequency: holidays/special occasions only Substance Use Type: does not use Exam <Dominik Barbosa PA-C - Last Filed: 06/27/23 16:07> Narrative Exam Narrative: Const General:?cooperative, healthy appearing and comfortable [facility] Head:?normal to inspection Ears:?hearing grossly normal bilaterally Nose:?external nose normal Face and sinus:?normal facial exam and sinuses nontender Mouth:?oral mucosae normal Throat:?posterior oropharynx normal Eyes General:?appearance normal, both eyes and all related structures Neck Neck:?normal visual inspection and no lymphadenopathy noted Resp Effort & Inspection:?normal respiratory effort Auscultation:?clear to auscultation bilaterally Cardio Rate:?regular rate Rhythm:?regular rhythm Musculoskeletal No midline tenderness to palpation. No paraspinal tenderness to palpation. No bruising. There is full range of motion. Strength and sensation is intact. Patient is able to bear weight and walk. Patient is neurovascularly intact. Neuro General:?patient alert, patient awake and patient oriented x3 Initial Vital Signs Initial Vital Signs: Vital Signs Temperature 98.7 F 06/27/23 13:40 Pulse Rate 68 06/27/23 13:40 Respiratory Rate 18 06/27/23 13:40 Blood Pressure 168/81 H 06/27/23 13:40 Pulse Oximetry 98 06/27/23 13:40 Oxygen Delivery Method Room Air 06/27/23 13:40 <Mela Ferreira MD - Last Filed: 06/27/23 16:31> Initial Vital Signs Initial Vital Signs: Vital Signs Temperature 98.7 F 06/27/23 13:40 Pulse Rate 68 06/27/23 13:40 Respiratory Rate 18 06/27/23 13:40 Blood Pressure 168/81 H 06/27/23 13:40 Pulse Oximetry 98 06/27/23 13:40 Oxygen Delivery Method Room Air 06/27/23 13:40 Course <Dominik Barbosa PA-C - Last Filed: 06/27/23 16:07> Vital Signs Vital signs: Vital Signs - 8 hr 06/27/23 13:40 06/27/23 14:43 Temperature 98.7 F Pulse Rate 68 72 Respiratory Rate 18 18 Blood Pressure 168/81 H 160/71 H Pulse Oximetry 98 98 Oxygen Delivery Method Room Air Room Air <Mela Ferreira MD - Last Filed: 06/27/23 16:31> Vital Signs Vital signs: Vital Signs - 8 hr 06/27/23 13:40 06/27/23 14:43 Temperature 98.7 F Pulse Rate 68 72 Respiratory Rate 18 18 Blood Pressure 168/81 H 160/71 H Pulse Oximetry 98 98 Oxygen Delivery Method Room Air Room Air MDM - Back Pain/Injury <Dominik Barbosa PA-C - Last Filed: 06/27/23 16:07> MDM Narrative Medical decision making narrative: 72-year-old male with past medical history sciatica presents to the ED with an acute on chronic exacerbation of lower back pain. History and physical exam most consistent with an acute on chronic exacerbation of pre-existing sciatica. Will prescribe Flexeril to take in addition to the tramadol that he already is taking. Recommend lidocaine patches and heat packs as well. Recommend follow- up with his ortho as soon as possible. ED return precautions discussed with patient. Patient verbalized understanding. Medical records reviewed: Yes Discharge Plan Departure Patient Disposition: Home Clinical Impression: Sciatica Qualifiers: Laterality: right Qualified Code(s): M54.31 - Sciatica, right side Instructions: DI for Back Pain With Sciatica Activity Restrictions/Additional Instructions: You were evaluated in the ED today for an exacerbation of your sciatica. Your physical exam was reassuring with no emergent symptoms. You are being prescribed a muscle relaxant Flexeril that you can take along with tramadol, Tylenol for relief. You may also apply lidocaine patches which are available [id number]. You may switch from using ice packs to using heat packs for relief. Please follow-up with your ortho specialist Dr. Fairbanks as soon as possible. Return to the ED if you have worsening symptoms, urinary difficulties, worsening numbness, tingling, weakness. Prescriptions: New cyclobenzaprine 10 mg tablet 10 mg PO TID PRN (Reason: muscle spasm) Qty: 20 0RF No Action Paxlovid 300 mg (150 mg x 2)-100 mg tablets,dose pack See Rx Instructions PO .COMPLEX Qty: 30 0RF Rx Instructions: take TWO 150 mg tablets of nirmatrelvir with ONE 100 mg tablet of ritonavir twice daily for 5 days PO cholecalciferol (vitamin D3) [Vitamin D3] 50 mcg (2,000 unit) Capsule 50 mcg PO DAILY Qty: 0 hydrochlorothiazide 25 mg tablet See Rx Instructions .ROUTE .COMPLEX Qty: 90 0RF Dose Instruction: TAKE 1 TABLET BY MOUTH DAILY Rx Instructions: TAKE 1 TABLET BY MOUTH DAILY tamsulosin 0.4 mg capsule See Rx Instructions .ROUTE .COMPLEX Qty: 90 0RF Dose Instruction: TAKE 1 CAPSULE BY MOUTH AT BEDTIME Rx Instructions: TAKE 1 CAPSULE BY MOUTH AT BEDTIME atorvastatin [Lipitor] 40 mg tablet 40 mg PO HS Qty: 90 3RF irbesartan 150 mg tablet 150 mg PO QDAY Qty: 90 3RF allopurinol 300 mg tablet 300 mg PO QDAY Qty: 90 1RF metoprolol succinate 25 mg tablet extended release 24 hr 12.5 mg PO DAILY Qty: 45 3RF Eliquis 5 mg tablet 5 mg PO BID Qty: 180 3RF magnesium 1 cap PO DAILY vitamin B complex 1 cap PO DAILY trazodone 50 mg tablet 50 mg PO BEDTIME PRN (Reason: insomnia) Qty: 90 3RF aspirin [Adult Low Dose Aspirin] 81 mg tablet,delayed release (DR/EC) 81 mg PO DAILY Centrum Silver Ultra Men's 300-600-300 mcg tablet 1 tab PO DAILY Independence Oil-1000 1,000-200 mg capsule 1 cap PO DAILY ascorbic acid (vitamin C) 500 mg capsule, extended release 500 mg PO DAILY Referrals: Mo Roper MD [Primary Care Provider] - Stand Alone Forms: Patient Portal/API ED Sign-out <Mlea Ferreira MD - Last Filed: 06/27/23 16:31> Cosign ED Attending Cosignature Attestation: I did not see this patient. I was available all times for consultation.
== END 2023-06-27 14:47 | disposition home or self-care (01) ==
PROVIDERS: Emergency Provider Student in an Organized Health Care Education/Training Program; Family Provider Internal Medicine; PCP Internal Medicine
DX: M54.41 Lumbago with sciatica, right side (principal)
CPT/HCPCS: 99281; 99283

== ENCOUNTER → 2023-06-30 08:07 | Outpatient (CLI) | payer MEDICARE, OTHER, SELFPAY ==
[2023-06-30 09:18] LABS: Add Manual Diff / Slide Review NO; Basophils Absolute Auto 0 /uL (0-100); Basophils Percent Auto 0.3 % (0-2); Eosinophils Absolute Auto 100 /uL (0-450); Eosinophils Percent Auto 2.8 % (2-4); Hematocrit 39.4 % (41-53); Hemoglobin 13.2 g/dL (13.5-17.5); Lymphocytes Absolute Auto 1000 /uL (1100-4500); Mean Corpuscular HGB Conc 33.5 % (30-36); Mean Corpuscular Hemoglobin 33.4 PG (26-34); Mean Corpuscular Volume 99.5 fL (80-100); Monocytes Absolute Auto 600 /uL (0-900); Monocytes Percent Auto 13.1 % (3-14); Neutrophils Absolute Auto 3100 /uL (1500-7000); Neutrophils Percent Auto 62.8 % (50-75); Platelet Count 156 X10^3/uL (150-400); Red Blood Cell Count 3.96 X10^6/uL (4.5-5.9); Red Cell Distribution Width 14.5 % (11.6-14.8); White Blood Cell Count 4.9 X10^3/uL (4.5-11.0)
[2023-06-30 09:44] LABS: Alanine Aminotransferase 28 IU/L (<50); Albumin 3.8 g/dL (3.5-5.0); Albumin Globulin Ratio 1.2 (1.0-2.8); Alkaline Phosphatase 87 U/L (38-126); Aspartate Aminotransferase 34 IU/L (17-59); BUN Creatinine Ratio 23.5 (6-22); Blood Urea Nitrogen 23 mg/dL (9-20); Calcium 9.3 mg/dL (8.4-10.2); Carbon Dioxide 31 mmol/L (22-32); Chloride 100 mmol/L (98-107); Cholesterol 115 mg/dL (140-199); Estimated Glomerular Filt Rate > 60 mL/min (>60); Globulin 3.2 g/dL (1.7-4.1); Glucose 89 mg/dL (80-110); HDL Cholesterol 34 mg/dL (40-60); HEMOLYSIS < 15 (0-50); LDL Cholesterol Calculated 59 mg/dL (<100); Sodium 137 mmol/L (137-145); Triglycerides 111 mg/dL (35-150); Uric Acid 4.8 mg/dL (3.5-8.5)
[2023-06-30 10:50] LABS: Folate > 20.0 ng/mL (2.76-20.0); Vitamin B12 723 pg/mL (239-931)
== END ==
PROVIDERS: Family Provider Internal Medicine; PCP Internal Medicine; Referring Provider Internal Medicine; Visit Provider Internal Medicine
DX: I10 Essential (primary) hypertension (principal); I48.91 Unspecified atrial fibrillation; M1A.9XX0 Chronic gout, unspecified, without tophus (tophi); D64.9 Anemia, unspecified
CPT/HCPCS: 36415; 80053; 80061; 82607; 82746; 84550; 85025

== ENCOUNTER → 2023-08-04 14:32 | Outpatient (CLI) | payer MEDICARE, OTHER, SELFPAY ==
[2023-08-04 15:38] LABS: Add Manual Diff / Slide Review NO; Basophils Absolute Auto 0 /uL (0-100); Basophils Percent Auto 0.4 % (0-2); Eosinophils Absolute Auto 100 /uL (0-450); Eosinophils Percent Auto 1.7 % (2-4); Hematocrit 39.5 % (41-53); Hemoglobin 13.3 g/dL (13.5-17.5); Lymphocytes Absolute Auto 900 /uL (1100-4500); Lymphocytes Percent Auto 18.6 % (25-40); Mean Corpuscular HGB Conc 33.7 % (30-36); Mean Corpuscular Volume 100.9 fL (80-100); Monocytes Absolute Auto 400 /uL (0-900); Monocytes Percent Auto 8.9 % (3-14); Neutrophils Absolute Auto 3500 /uL (1500-7000); Neutrophils Percent Auto 70.4 % (50-75); Platelet Count 148 X10^3/uL (150-400); Red Blood Cell Count 3.91 X10^6/uL (4.5-5.9); Red Cell Distribution Width 15.3 % (11.6-14.8); White Blood Cell Count 4.9 X10^3/uL (4.5-11.0)
[2023-08-04 16:01] LABS: Alanine Aminotransferase 36 IU/L (<50); Albumin 3.8 g/dL (3.5-5.0); Albumin Globulin Ratio 1.1 (1.0-2.8); Alkaline Phosphatase 81 U/L (38-126); Aspartate Aminotransferase 37 IU/L (17-59); BUN Creatinine Ratio 22.9 (6-22); Blood Urea Nitrogen 22 mg/dL (9-20); Calcium 9.5 mg/dL (8.4-10.2); Carbon Dioxide 30 mmol/L (22-32); Chloride 101 mmol/L (98-107); Estimated Glomerular Filt Rate > 60 mL/min (>60); Globulin 3.5 g/dL (1.7-4.1); Glucose 87 mg/dL (80-110); HEMOLYSIS < 15 (0-50); Potassium 3.7 mmol/L (3.4-5.1); Sodium 138 mmol/L (137-145); Total Protein 7.3 g/dL (6.3-8.2); Uric Acid 4.8 mg/dL (3.5-8.5)
[2023-08-04 16:05] LABS: High Sensitivity CRP - Cardiac 2.5 mg/L (1.0-3.0)
[2023-08-04 16:10] LABS: Rheumatoid Factor < 8.6 IU/mL (<12.0)
[2023-08-04 16:18] LABS: Erythrocyte Sedimentation Rate 20 MM/HR (0-15)
[2023-08-04 16:32] LABS: Thyroid Stimulating Hormone 1.23 uIU/mL (0.47-4.68)
[2023-08-08 16:36] LABS: SS A Ro Sjogrens Antibody < 0.2 AI (0.0-0.9); SS B La Sjogrens Antibody < 0.2 AI (0.0-0.9)
[2023-08-08 22:46] LABS: ANA Screen, IFA Negative (.)
== END ==
PROVIDERS: Family Provider Internal Medicine; PCP Internal Medicine; Referring Provider Ophthalmology; Visit Provider Ophthalmology
DX: H49.13 Fourth [trochlear] nerve palsy, bilateral (principal); I48.91 Unspecified atrial fibrillation
CPT/HCPCS: 36415; 80053; 84443; 84550; 85025; 85651; 86038; 86140; 86235; 86430

== ENCOUNTER → 2023-08-13 12:49 | Outpatient (CLI) | payer MEDICARE, OTHER, SELFPAY ==
--- NOTE | 2023-08-13 12:52 | DI.MRI.S_ITS ---
PROCEDURE: MR ANGIO HEAD WO CON INDICATIONS: None provided . TECHNIQUE: Noncontrast axial 3-D [id number] MR angiogram, with 3-dimensional maximum intensity projection (MIP) reformats of the internal carotid arteries and posterior circulation then performed. COMPARISON: None. FINDINGS: Image quality: Excellent. Anterior circulation: Intracranial internal carotid arteries demonstrate normal size and intraluminal flow signal. The flow within the paired anterior cerebral arteries is normal and symmetric. The flow within the middle cerebral arteries is normal and symmetric. The anterior communicating artery is seen. No stenoses, occlusions, or aneurysms. Posterior circulation: Visualized portions of the vertebral arteries demonstrate normal caliber, and join to form a normal appearing basilar artery. origin of the right [employer]. The flow within the posterior cerebral arteries is normal and symmetric. No stenoses, occlusions, or aneurysms. IMPRESSION: No hemodynamically significant stenosis, large vessel occlusion, aneurysm or AVM. Dictated by: Avery Dwyer M.D. on 08/14/2023 at 10:56 Approved by: Avery Dwyer M.D. on 08/14/2023 at 10:59
--- NOTE | 2023-08-13 12:52 | DI.MRI.S_ITS ---
PROCEDURE: MR HEAD/BRAIN WO/W CON INDICATIONS: None provided. TECHNIQUE: Noncontrast axial T1 spin echo, axial T2 fast spin echo, sagittal and axial FLAIR, coronal T2 fast spin echo, axial gradient echo, axial diffusion and ADC through the brain. After the administration of contrast, axial and coronal and sagittal T1 spin echo with fat saturation through the brain. COMPARISON: [facility], MR, BRAIN W&WO CONTRAST, 06/08/2016, 18:10. FINDINGS: Image quality: Excellent. CSF spaces: Basal cisterns are patent. No extra-axial fluid collections. Ventricles are normal in size and shape. Brain: No midline shift. No intracranial bleeds or masses. No abnormal intracranial enhancement. There is cerebral volume loss for age. There is minimal periventricular white matter chronic small vessel ischemic change. The brainstem appears normal. Diffusion-weighted images demonstrate no acute infarct. No chronic ischemic insults. Normal intravascular flow voids are present. Skull and face: Calvarial marrow is normal in signal. Bilateral lens replacements. Otherwise, the orbits are unremarkable. Sinuses: Trace left mastoid fluid. Sinuses and mastoids otherwise appear clear. IMPRESSION: No acute intracranial abnormalities. Mild age-related global volume loss and minimal chronic microvascular ischemic changes. Dictated by: Avery Dwyer M.D. on 08/14/2023 at 10:52 Approved by: Avery Dwyer M.D. on 08/14/2023 at 10:56
== END ==
PROVIDERS: Family Provider Internal Medicine; PCP Internal Medicine; Referring Provider Ophthalmology; Visit Provider Ophthalmology
DX: H49.13 Fourth [trochlear] nerve palsy, bilateral (principal); I48.91 Unspecified atrial fibrillation; I10 Essential (primary) hypertension
CPT/HCPCS: 70544; 70553; A9579

== ENCOUNTER → 2024-01-29 11:45 | Outpatient (CLI) | payer MEDICARE, OTHER, SELFPAY ==
[2024-01-29 12:11] LABS: Hematocrit 40.2 % (41-53); Hemoglobin 13.6 g/dL (13.5-17.5); Mean Corpuscular HGB Conc 33.9 % (30-36); Mean Corpuscular Hemoglobin 34.3 PG (26-34); Mean Corpuscular Volume 101.1 fL (80-100); Platelet Count 152 X10^3/uL (150-400); Red Blood Cell Count 3.98 X10^6/uL (4.5-5.9); Red Cell Distribution Width 14.5 % (11.6-14.8); White Blood Cell Count 4.8 X10^3/uL (4.5-11.0)
[2024-01-29 12:35] LABS: Alanine Aminotransferase 26 IU/L (<50); Albumin 4.1 g/dL (3.5-5.0); Albumin Globulin Ratio 1.1 (1.0-2.8); Alkaline Phosphatase 84 U/L (38-126); Aspartate Aminotransferase 42 IU/L (17-59); BUN Creatinine Ratio 20.4 (6-22); Bilirubin Total 1.3 mg/dL (0.2-1.3); Blood Urea Nitrogen 20 mg/dL (9-20); Calcium 8.8 mg/dL (8.4-10.2); Carbon Dioxide 31 mmol/L (22-32); Chloride 104 mmol/L (98-107); Cholesterol 124 mg/dL (140-199); Estimated Glomerular Filt Rate > 60 mL/min (>60); Globulin 3.6 g/dL (1.7-4.1); Glucose 100 mg/dL (80-110); HDL Cholesterol 46 mg/dL (40-60); HEMOLYSIS < 15 (0-50); LDL Cholesterol Calculated 58 mg/dL (<100); Magnesium 1.9 mg/dL (1.6-2.3); Potassium 4.5 mmol/L (3.4-5.1); Sodium 139 mmol/L (137-145); Total Protein 7.7 g/dL (6.3-8.2); Triglycerides 99 mg/dL (35-150)
[2024-01-29 13:07] LABS: Thyroid Stimulating Hormone 1.51 uIU/mL (0.47-4.68)
== END ==
PROVIDERS: Family Provider Internal Medicine; PCP Internal Medicine; Referring Provider Internal Medicine Cardiovascular Disease; Visit Provider Internal Medicine Cardiovascular Disease
DX: E78.5 Hyperlipidemia, unspecified (principal); I10 Essential (primary) hypertension
CPT/HCPCS: 36415; 80053; 80061; 83735; 84443; 85027

== ENCOUNTER → 2024-05-10 11:56 | Outpatient (CLI) | payer MEDICARE, OTHER, SELFPAY | PROVIDERS: Family Provider Internal Medicine; PCP Internal Medicine; Referring Provider Internal Medicine; Visit Provider Internal Medicine | DX: Z23 Encounter for immunization (principal) | CPT/HCPCS: 90471; 90662 ==

== ENCOUNTER → 2024-05-17 16:07 | Outpatient (CLI) | payer MEDICARE, OTHER, SELFPAY ==
--- NOTE | 2024-05-17 16:07 | DI.MRI.S_ITS ---
PROCEDURE: MR LUMBAR SPINE WO CON INDICATIONS: SPINAL STENOSIS, LUMBAR REGION TECHNIQUE: Noncontrast sagittal T1 spin echo and T2 fast echo, sagittal STIR, and T2 fast spin echo through the lumbar spine. In cases with scoliosis, additional coronal T2 fast spin echo may be performed. COMPARISON: [facility], MR, MR LUMBAR SPINE WO CON, 11/14/2022, 12:54. [facility] [place], CR, XR LUMBAR SPINE 2 OR 3 VIEWS, 11/02/2022, 16:51. [facility], MR, MR LUMBAR SPINE WO CON, 07/20/2018, 12:37. FINDINGS: Image quality: Excellent. Alignment and Curvature: Mild levoconvex scoliotic curvature is noted. Minimal retrolisthesis can be seen at the L2-L3 level and at the L5-S1 level. Bone Marrow: Marrow is of normal overall signal. No acute vertebral body compression fractures. Spinal Cord: Conus medullaris terminates at the L1 level. Visualized cord demonstrates normal signal and size. Paraspinous Soft Tissues: No paravertebral masses. Water signal bilateral renal cysts are seen. T12-L1: Normal appearance. L1-L2: The disc height and disk signal are well-preserved. Mild to moderate disc bulge is seen. There is mild right-sided and no left-sided neural foraminal narrowing. No significant central canal narrowing is seen. When comparison is made with the prior images, these findings are similar. L2-L3: The disc height is well-preserved. Loss of disc signal is seen at this level. At least moderate disc bulge is seen, which is eccentric to the right. Moderate facet joint hypertrophy is seen. Associated hypertrophy of the ligamentum flavum can be seen. There is at least moderate right-sided and moderate left-sided neural foraminal narrowing. There is a degree of compression seen upon the exiting right L3 nerve root. Moderate central canal narrowing is seen. No significant change from the prior. L3-L4: The disc height is well-preserved. Loss of disc signal is seen at this level. At least moderate disc bulge is seen, which is eccentric to the right, as on series 7, image 14. Moderate facet joint hypertrophy is seen. There is at least moderate bilateral neural foraminal narrowing seen, right worse than left. Moderate central canal narrowing is seen. There is mild progression of degenerative change compared to the prior images. L4-L5: The disc height is well-preserved. Loss of disc signal is seen at this level. At least moderate disc bulge is seen, which is slightly eccentric to the left. There is mild right-sided and moderate left-sided facet hypertrophy. There is at least moderate bilateral neural foraminal narrowing, left worse than right. There is a slight degree of compression seen upon the exiting nerve roots. Mild central canal narrowing is seen. When comparison is made with the prior images, these findings are similar. L5-S1: The disc height is well-preserved. Loss of disc signal is seen at this level. Mild to moderate disc bulge is seen. There is moderate right-sided and [id number] left-sided facet hypertrophy. Mild bilateral neural foraminal narrowing is seen. Mild central canal narrowing is seen. There is mild progression of degenerative change compared to the prior. IMPRESSION: Multiple levels of lumbar spine degenerative change can be seen, which are mildly progressed compared to the prior at several levels. Dictated by: Fly Kaur M.D. on 05/20/2024 at 9:30 Approved by: Fly Kaur M.D. on 05/20/2024 at 9:35
== END ==
PROVIDERS: Family Provider Internal Medicine; PCP Internal Medicine; Referring Provider Physical Medicine & Rehabilitation; Visit Provider Physical Medicine & Rehabilitation
DX: M48.061 Spinal stenosis, lumbar region without neurogenic claudication (principal); M47.816 Spondylosis without myelopathy or radiculopathy, lumbar region; M47.817 Spondylosis without myelopathy or radiculopathy, lumbosacral region
CPT/HCPCS: 72148

== ENCOUNTER 2024-10-07 14:22 | Emergency (ER) | payer MEDICARE, OTHER, SELFPAY ==
[2024-10-07] VITALS (13 sets, daily range): BP systolic 151–208; BP diastolic 72–98; PULSE 62–88; RESP 18–30; TEMP 36.1; O2SAT 94–98; BMI 45.3
--- NOTE | 2024-10-07 15:23 | DI.RAD.S_ITS ---
PROCEDURE: XR CHEST 1V INDICATIONS: chest pain TECHNIQUE: One view of the chest was acquired. COMPARISON: [facility], , CHEST 1 VIEW, 11/10/2017, 11:51. FINDINGS: Surgical changes and devices: None. Lungs and pleura: Small left pleural effusion. Mild pulmonary vascular congestion is seen. No definite focal infiltrate. No gross pneumothorax. Mediastinum: Mediastinal contours appear normal. Heart size is enlarged. Bones and chest wall: No suspicious bony lesions. Overlying soft tissues appear unremarkable. IMPRESSION: Mild congestion. Small left pleural effusion. No definite focal infiltrate. No gross pneumothorax. Dictated by: Washington Dixon M.D. on 10/07/2024 at 15:51 Approved by: Washington Dixon M.D. on 10/07/2024 at 15:53
--- NOTE | 2024-10-07 15:23 | EKG_ITS ---
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
--- NOTE | 2024-10-07 15:31 | EKG_ITS ---
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
[2024-10-07 15:53] LABS: Add Manual Diff / Slide Review NO; Basophils Absolute Auto 0 /uL (0-100); Basophils Percent Auto 0.6 % (0-2); Eosinophils Absolute Auto 200 /uL (0-450); Eosinophils Percent Auto 3.5 % (2-4); Hematocrit 38.7 % (41-53); Hemoglobin 12.9 g/dL (13.5-17.5); Lymphocytes Absolute Auto 700 /uL (1100-4500); Lymphocytes Percent Auto 14.5 % (25-40); Mean Corpuscular HGB Conc 33.3 % (30-36); Mean Corpuscular Hemoglobin 34.1 PG (26-34); Mean Corpuscular Volume 102.5 fL (80-100); Monocytes Absolute Auto 500 /uL (0-900); Neutrophils Absolute Auto 3200 /uL (1500-7000); Neutrophils Percent Auto 69.4 % (50-75); Platelet Count 156 X10^3/uL (150-400); Red Blood Cell Count 3.77 X10^6/uL (4.5-5.9); Red Cell Distribution Width 14.6 % (11.6-14.8); White Blood Cell Count 4.6 X10^3/uL (4.5-11.0)
[2024-10-07 16:00] LABS: INR 1.4 (0.9-1.3); Prothrombin Time 15.5 SECONDS (9.4-12.5)
[2024-10-07 16:03] LABS: PTT Partial Thromboplastin Tim 37 SECONDS (25.1-36.5)
[2024-10-07 16:05] LABS: Alanine Aminotransferase 29 IU/L (<50); Albumin 3.8 g/dL (3.5-5.0); Albumin Globulin Ratio 1.1 (1.0-2.8); Alkaline Phosphatase 93 U/L (38-126); Aspartate Aminotransferase 41 IU/L (17-59); BUN Creatinine Ratio 16.8 (6-22); Bilirubin Total 1.1 mg/dL (0.2-1.3); Blood Urea Nitrogen 17 mg/dL (9-20); Calcium 9.1 mg/dL (8.4-10.2); Carbon Dioxide 31 mmol/L (22-32); Chloride 101 mmol/L (98-107); Creatine Kinase 65 U/L (55-170); Estimated Glomerular Filt Rate > 60 mL/min (>60); Globulin 3.5 g/dL (1.7-4.1); Glucose 104 mg/dL (80-110); HEMOLYSIS < 15 (0-50); Lipase 119 U/L (23-300); Magnesium 1.7 mg/dL (1.6-2.3); Sodium 136 mmol/L (137-145); Total Protein 7.3 g/dL (6.3-8.2)
--- NOTE | 2024-10-07 16:05 | DI.CT.S_ITS ---
PROCEDURE: CT HEAD/BRAIN WO CON INDICATIONS: headache TECHNIQUE: Noncontrast 4.5 mm thick angled axial sections acquired from the foramen magnum to the vertex, with coronal and sagittal reformats. For radiation dose reduction, the following was used: automated exposure control, adjustment of mA and/or kV according to patient size. COMPARISON: [facility], CT, CT HEAD/BRAIN WO CON, 11/15/2022, 19:20. FINDINGS: Image quality: Diagnostic. CSF spaces: Basal cisterns are patent. No extra-axial fluid collections. The ventricles are symmetric in size and shape. Brain: No intracranial bleeds or masses. There is cerebral volume loss for age, with resultant ventricular and sulcal prominence. There are periventricular and deep white matter chronic small vessel ischemic changes. There is intracranial internal carotid artery atherosclerosis. Skull and face: Calvarium and visualized facial bones appear intact, without suspicious lesions. Sinuses: Visualized sinuses and mastoids are clear. IMPRESSION: No acute intracranial pathology. Dictated by: Washington Dixon M.D. on 10/07/2024 at 16:24 Approved by: Washington Dixon M.D. on 10/07/2024 at 16:24
[2024-10-07 16:16] LABS: NT-proBNP (BNP-Adult 18+) 837 pg/mL (<450); Troponin I < 0.012 ng/mL (0.01-0.034)
--- NOTE | 2024-10-07 17:11 | ED.HA ---
HPI - Headache General Chief Complaint: Dizziness Stated Complaint: Dizzy , Headache, can't walk straight Time Seen by Provider: 10/07/24 16:05 Mode of arrival: Ambulatory History of Present Illness HPI Narrative: Patient is a 73-year-old male history of atrial fibrillation on Eliquis hypertension presenting today with headache and dizziness ongoing for the last 3 weeks. Denies any numbness tingling or weakness no nausea or vomiting. Has no chest pain. He has been taking Tylenol for his sciatica which usually helps. His blood pressure is noted to be slowly rising while in the emergency department. He did not drive himself. He has no focal deficits Related Data Home Medications Medication Instructions Recorded Confirmed cholecalciferol (vitamin D3) 50 50 mcg PO DAILY ##0 03/18/13 12/14/23 mcg (2,000 unit) capsule (Vitamin D3) ascorbic acid (vitamin C) 500 mg 500 mg PO DAILY 02/25/19 12/14/23 capsule,extended release aspirin 81 mg tablet,delayed 81 mg PO DAILY 02/25/19 12/14/23 release (Adult Low Dose Aspirin) hsznojyv-us-[id number] 300 mcg-K 60 1 tab PO DAILY 02/25/19 12/14/23 mcg-lycop 600 mcg-lutein 300 mcg tablet (Centrum Silver Ultra Men's) salmon oil-omega-3 fatty acids 1 cap PO DAILY 02/25/19 12/14/23 1,000 mg-200 mg capsule ([place] Oil-) magnesium 1 cap PO DAILY 02/24/22 12/14/23 vitamin B complex 1 cap PO DAILY 02/24/22 12/14/23 gabapentin 300 mg capsule 300 mg PO 3XD 07/14/23 12/14/23 Previous Rx's Medication Instructions Recorded irbesartan 150 mg tablet 150 mg PO QDAY #90 tabs 01/23/23 metoprolol succinate 25 mg 12.5 mg (1/2 x 25 mg) PO DAILY #45 03/13/23 tablet,extended release 24 hr tabs apixaban 5 mg tablet (Eliquis) 5 mg PO BID #180 tabs 03/23/23 hydrochlorothiazide 25 mg tablet See Rx Instructions .Route 11/16/23 .COMPLEX #90 tabs atorvastatin 40 mg tablet (Lipitor) 40 mg PO HS #90 tabs 07/03/24 allopurinol 300 mg tablet 300 mg PO QDAY #30 tabs 09/17/24 tamsulosin 0.4 mg capsule 0.4 mg PO BEDTIME #30 caps 09/17/24 trazodone 50 mg tablet 50 mg PO BEDTIME PRN insomnia #30 09/17/24 tabs Allergies Allergy/AdvReac Type Severity Reaction Status Date / Time No Known Drug Allergies Allergy Verified 12/14/23 09:57 Patient History Medical History (Updated 10/07/24 @ 18:48 by Katalina Pond DO) Anemia Osteoarthritis of right hip Morbid obesity Acute coronary syndrome (11/16/16) Dizziness CAD (coronary artery disease) Chronic atrial flutter BPH w urinary obs/LUTS Hypertension (1985) Central sleep apnea (2005) Sciatica Arthritis Shoulder pain Fractures Foot pain (2005) Chronic back pain (2005) Shingles (2007) Plantar warts Measles Chicken pox Vertigo (2006) Hearing loss (2005) Hemorrhoids Diverticular disease (03/15/16) Coronary artery disease involving [place] coronary artery of [place] heart without angina pectoris (02/2017) 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) Idiopathic peripheral neuropathy (07/06/15) History of adenomatous polyp of colon Hyperlipidemia Atrial fibrillation (02/1999) Surgical History Status post right partial knee replacement (~02/2020) History of cardiac catheterization (11/16/16) History of colonoscopy (03/15/16) Anesthesia complication Status post placement of stent in right coronary artery (11/16/16) Status post rotator cuff repair (07/11/12) Family History Father Cancer Colon cancer Liver cancer Grandfather Heart disease Heart attack Grandmother Stroke Dementia Mother Cancer Esophageal cancer Grandfather Heart disease Heart attack Sister Age: 69 Cancer Uterine cancer Brother No problems noted. Grandmother No problems noted. Social History household members: spouse Smoking Status: Never smoker alcohol intake: former Smoking Status: Never smoker alcohol intake frequency: holidays/special occasions only Exam Initial Vital Signs Initial Vital Signs: Vital Signs Temperature 96.9 F L 10/07/24 14:31 Pulse Rate 71 10/07/24 14:31 Respiratory Rate 18 10/07/24 14:31 Blood Pressure 172/74 H 10/07/24 14:31 Pulse Oximetry 96 10/07/24 14:31 Oxygen Delivery Method Room Air 10/07/24 14:31 GENERAL: Alert well-appearing 73-year-old male and in no acute distress. HEENT: Head atraumatic,EOMI, pupils reactive, face symmetric, moist mucous membranes CARDIOVASCULAR: Regular rate and rhythm without murmurs, rubs or gallops. RESPIRATORY: Breath sounds equal bilaterally, no wheezes rales or rhonchi. ABDOMEN: Soft, nontender. Normoactive bowel sounds all 4 quadrants. No guarding or rebound. EXTREMITIES: Normal range of motion, no clubbing or edema. Neurovascularly intact NEUROLOGICAL: Alert and oriented x4.Normal gait and speech. Cranial nerves II through XII grossly intact. Good pjlpgv-cf-mhms, good gixu-ts-hqay, strength equal bilaterally, no dysarthria or aphasia, sensation in tact to soft touch bilaterally, no visual changes, no facial droop SKIN: Warm, dry, no laceration, no petechiae, no rashes or lesions. Scores GCS [place] coma scale eye opening: Spontaneous [place] coma scale verbal response: Orientated [place] coma scale motor response: Obey commands [place] coma scale total score: 15 Course Orders Ordered: ED Orders 10/07/24 15:23 XR chest 1V Stat EKG-12 Lead Stat 10/07/24 15:40 Complete Blood Count AUTO DIFF Stat Comprehensive Metabolic Panel Stat Lipase Stat Magnesium Stat NT-proBNP (BNP-Adult 18+) Stat PTT Partial Thromboplastin Wilson Stat Prothrombin Time INR Stat Troponin & CK Cardiac Panel Stat 10/07/24 16:05 CT head/brain wo con Stat Discontinued Medications Acetaminophen (Ofirmev) 1,000 mg in 100 mls @ 400 mls/hr IV NOW ONE Stop: 10/07/24 17:26 Last Infusion: 10/07/24 17:53 Dose: Infused Documented By: Admin: 10/07/24 17:24 Dose: 400 mls/hr Documented By: Vital Signs Vital signs: Vital Signs - 8 hr 10/07/24 14:31 10/07/24 15:08 10/07/24 15:30 Temperature 96.9 F L Pulse Rate 71 66 70 Respiratory Rate 18 19 23 Blood Pressure 172/74 H Pulse Oximetry 96 94 97 Oxygen Delivery Method Room Air 10/07/24 15:30 10/07/24 16:00 10/07/24 16:01 Temperature Pulse Rate 72 72 Respiratory Rate 21 20 Blood Pressure 151/72 H Pulse Oximetry 97 96 Oxygen Delivery Method 10/07/24 16:01 10/07/24 16:30 10/07/24 17:00 Temperature Pulse Rate 65 62 Respiratory Rate 21 19 Blood Pressure 208/90 H Pulse Oximetry 97 97 Oxygen Delivery Method 10/07/24 17:30 10/07/24 17:47 10/07/24 17:47 Temperature Pulse Rate 72 88 Respiratory Rate 30 H 30 H Blood Pressure 208/98 H 192/81 H Pulse Oximetry 97 97 Oxygen Delivery Method Room Air Room Air 10/07/24 18:00 10/07/24 18:01 10/07/24 18:01 Temperature Pulse Rate 68 69 Respiratory Rate 27 H 27 H Blood Pressure 177/73 H Pulse Oximetry 97 97 Oxygen Delivery Method MDM - Headache Lab Data 10/07/24 15:40 10/07/24 15:40 Labs: Lab Results 10/07/24 Range/Units 15:40 WBC 4.6 (4.5-11.0) X10^3/uL RBC 3.77 L (4.5-5.9) X10^6/uL Hgb 12.9 L (13.5-17.5) g/dL Hct 38.7 L (41-53) % MCV 102.5 H (80-100) fL MCH 34.1 H (26-34) PG MCHC 33.3 (30-36) % RDW 14.6 (11.6-14.8) % Plt Count 156 (150-400) X10^3/uL Neut % (Auto) 69.4 (50-75) % Lymph % (Auto) 14.5 L (25-40) % [place] % (Auto) 12.0 (3-14) % Eos % (Auto) 3.5 (2-4) % Baso % (Auto) 0.6 (0-2) % Neut # (Auto) 3200 (4124-2066) /uL Lymph # (Auto) 700 L (3975-0640) /uL [place] # (Auto) 500 (0-900) /uL Eos # (Auto) 200 (0-450) /uL Baso # (Auto) 0 (0-100) /uL PT 15.5 H (9.4-12.5) SECONDS INR 1.4 H (0.9-1.3) APTT 37 H (25.1-36.5) SECONDS Sodium 136 L (137-145) mmol/L Potassium 4.0 (3.4-5.1) mmol/L Chloride 101 (98-107) mmol/L Carbon Dioxide 31 (22-32) mmol/L BUN 17 (9-20) mg/dL Creatinine 1.01 (0.66-1.25) mg/dL Estimated GFR > 60 (>60) mL/min BUN/Creatinine Ratio 16.8 (6-22) Glucose 104 (80-110) mg/dL Calcium 9.1 (8.4-10.2) mg/dL Magnesium 1.7 (1.6-2.3) mg/dL Total Bilirubin 1.1 (0.2-1.3) mg/dL AST 41 (17-59) IU/L ALT 29 (<50) IU/L Alkaline Phosphatase 93 (38-126) U/L Total Creatine Kinase 65 (55-170) U/L Troponin I < 0.012 (0.01-0.034) ng/mL NT-Pro-B Natriuret Pep 837 H (<450) pg/mL Total Protein 7.3 (6.3-8.2) g/dL Albumin 3.8 (3.5-5.0) g/dL Globulin 3.5 (1.7-4.1) g/dL Albumin/Globulin Ratio 1.1 (1.0-2.8) Lipase 119 (23-300) U/L Urine Dip Bedside Urine Glucose Negative Bedside Urine Bilirubin - Negative Bedside Urine Ketone - Negative Urine Specific [place] 1.010 Bedside Urine Occult Blood - Negative Bedside Urine pH 6.5 Bedside Urine Protein - Negative Bedside Urine Urobilinogen - Negative Bedside Urine Nitrite - Negative Bedside Urine Leukocytes - Negative Esterase Imaging Data CT scan - head: Radiologist's Impression: PROCEDURE: CT HEAD/BRAIN WO CON INDICATIONS: headache TECHNIQUE: Noncontrast 4.5 mm thick angled axial sections acquired from the foramen magnum to the vertex, with coronal and sagittal reformats. For radiation dose reduction, the following was used: automated exposure control, adjustment of mA and/or kV according to patient size. COMPARISON: [facility], CT, CT HEAD/BRAIN WO CON, 11/15/2022, 19:20. FINDINGS: Image quality: Diagnostic. CSF spaces: Basal cisterns are patent. No extra-axial fluid collections. The ventricles are symmetric in size and shape. Brain: No intracranial bleeds or masses. There is cerebral volume loss for age, with resultant ventricular and sulcal prominence. There are periventricular and deep white matter chronic small vessel ischemic changes. There is intracranial internal carotid artery atherosclerosis. Skull and face: Calvarium and visualized facial bones appear intact, without suspicious lesions. Sinuses: Visualized sinuses and mastoids are clear. IMPRESSION: No acute intracranial pathology. Dictated by: Washington Dixon M.D. on 10/07/2024 at 16:24 Chest x-ray: Radiologist's Impression: PROCEDURE: XR CHEST 1V INDICATIONS: chest pain TECHNIQUE: One view of the chest was acquired. COMPARISON: [facility], CR, CHEST 1 VIEW, 11/10/2017, 11:51. FINDINGS: Surgical changes and devices: None. Lungs and pleura: Small left pleural effusion. Mild pulmonary vascular congestion is seen. No definite focal infiltrate. No gross pneumothorax. Mediastinum: Mediastinal contours appear normal. Heart size is enlarged. Bones and chest wall: No suspicious bony lesions. Overlying soft tissues appear unremarkable. IMPRESSION: Mild congestion. Small left pleural effusion. No definite focal infiltrate. No gross pneumothorax. Dictated by: Washington Dixon M.D. on 10/07/2024 at 15:51 ECG Data Attestation: I personally reviewed and interpreted this ECG as follows: Prior ECG tracings: available for review Interpretation: Atrial fibrillation rate [address] changes similar to previous EKGs MDM Narrative Medical decision making narrative: MDM CC: Headache Complicating co-morbidities: Atrial fibrillation on Eliquis hypertension hyperlipidemia sciatica Medical records reviewed: PCP note reviewed Differential considered: Intracranial hemorrhage ischemia hypertensive urgency hypertensive emergency headache Exam documented above, pertinent findings include: Awake alert well-appearing 73-year-old male cranial nerves intact does not appear in any sort of acute distress Lab Test results independently reviewed as above. Pertinent findings: No leukocytosis no anemia Electrolyte abnormality or OMARI Troponin negative BNP 837 Independently reviewed EKG as above Atrial fibrillation rate controlled no ischemia Imaging studies independently reviewed: Head CT no acute intracranial hemorrhage Chest x-ray no acute cardiopulmonary process Treatments: IV Tylenol Re-evaluations: Patient ambulated in the ED without any sort of difficulty. Headache and blood pressure improved with IV Tylenol Discussion: Patient 73-year-old male presenting today with a couple weeks of headache off on. Headache isn't any worse today no focal deficits to suggest CVA head CT is negative. Blood work has been reviewed overall reassuring. Blood pressure was systolic in the 150s but it slowly neal while in the ED. headache and blood pressure both improved with IV Tylenol. Difficult to say if headache blood pressure are correlated. Patient did not take any blood pressure home. At this time I recommend patient checked his blood pressure 1 to 2 times daily record it and discuss with his primary in regards to changing his medication Discharge Plan Departure Patient Disposition: Home Clinical Impression: Headache, Hypertension Instructions: Essential Hypertension Activity Restrictions/Additional Instructions: *You have been diagnosed with headache elevated blood pressure *What to do: At this time please check your blood pressure 1 to 2 times a day and record it. You may need to your blood pressure medication adjusted *Continue to take medications as directed *Follow up with your primary care provider in 2-3 days or call [phone] *Return to ER if you should have headache weak in his chest pain shortness of breath [or] any new, worsening or concerning symptoms Prescriptions: No Action cholecalciferol (vitamin D3) [Vitamin D3] 50 mcg (2,000 unit) Capsule 50 mcg PO DAILY Qty: 0 irbesartan 150 mg tablet 150 mg PO QDAY Qty: 90 3RF metoprolol succinate 25 mg tablet extended release 24 hr 12.5 mg PO DAILY Qty: 45 3RF Eliquis 5 mg tablet 5 mg PO BID Qty: 180 3RF hydrochlorothiazide 25 mg tablet See Rx Instructions .ROUTE .COMPLEX Qty: 90 3RF Dose Instruction: TAKE 1 TABLET BY MOUTH DAILY Rx Instructions: TAKE 1 TABLET BY MOUTH DAILY atorvastatin [Lipitor] 40 mg tablet 40 mg PO HS Qty: 90 0RF Rx Instructions: PT WILL NEED TO SEE PCP BEFORE NEXT RENEWAL 07/03/24 trazodone 50 mg tablet 50 mg PO BEDTIME PRN (Reason: insomnia) Qty: 30 0RF Rx Instructions: APPT OVERDUE WITH PCP. NO FUTURE FILLS UNTIL SEEN/FOLLOW UP. PLEASE CALL TO SCHEDULE APPT. THANK YOU 09/17/24. allopurinol 300 mg tablet 300 mg PO QDAY Qty: 30 0RF Rx Instructions: APPT OVERDUE WITH PCP. NO FUTURE FILLS UNTIL SEEN/FOLLOW UP. PLEASE CALL TO SCHEDULE APPT. THANK YOU 09/17/24. tamsulosin 0.4 mg capsule 0.4 mg PO BEDTIME Qty: 30 0RF Rx Instructions: APPT OVERDUE WITH PCP. NO FUTURE FILLS UNTIL SEEN/FOLLOW UP. PLEASE CALL TO SCHEDULE APPT. THANK YOU 09/17/24. gabapentin 300 mg capsule 300 mg PO 3XD magnesium 1 cap PO DAILY vitamin B complex 1 cap PO DAILY aspirin [Adult Low Dose Aspirin] 81 mg tablet,delayed release (DR/EC) 81 mg PO DAILY Centrum Silver Ultra Men's 300-600-300 mcg tablet 1 tab PO DAILY [place] Oil-1000 1,000-200 mg capsule 1 cap PO DAILY ascorbic acid (vitamin C) 500 mg capsule, extended release 500 mg PO DAILY Referrals: Mo Roper MD [Primary Care Provider] - Stand Alone Forms: Patient Portal/API/Survey
[2024-10-07] MEDS: ACETAMINOPHEN IV 1,000 MG/100 ML VIAL 400 MG IV (17:24)
--- NOTE | 2024-10-07 17:54 | PC.NURSE ---
Pt ambulating in fish to BR. Steady gait noted. Pt says that dizziness is getting better. Has a little headache.
== END 2024-10-07 19:01 | disposition home or self-care (01) ==
PROVIDERS: Emergency Provider Emergency Medicine; Family Provider Internal Medicine; PCP Internal Medicine
DX: R51.9 Headache, unspecified (principal); I10 Essential (primary) hypertension; R42 Dizziness and giddiness; I48.91 Unspecified atrial fibrillation; Z79.01 Long term (current) use of anticoagulants
CPT/HCPCS: 36415; 70450; 71045; 80053; 81003; 82550; 83690; 83735; 83880; 84484; 85025; 85610; 85730; 93005; 96365; 99284; J0134

== ENCOUNTER 2025-03-03 11:27 | Emergency (ER) | payer MEDICARE, OTHER, SELFPAY ==
[2025-03-03] VITALS (10 sets, daily range): BP systolic 133–193; BP diastolic 61–92; PULSE 61–70; RESP 18–27; TEMP 36.7; O2SAT 95–98; BMI 42.3
--- NOTE | 2025-03-03 11:53 | EKG_ITS ---
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
--- NOTE | 2025-03-03 12:01 | ED_ITS ---
HPI - General Adult General Chief complaint: Hypertension Stated complaint: High blood pressure , on blood pressure meds Time Seen by Provider: 03/03/25 11:34 Source: patient Mode of arrival: Ambulatory History of Present Illness HPI narrative: 74-year-old gentleman history AFib on metoprolol Eliquis hypertension dyslipidemia CAD with 1 stent presents with elevated blood pressure this morning. Patient reports having his atorvastatin cut down from 150 mg to 75 mg recently and that he has been having a mild headache and bilateral jaw pain for 4 days but currently asymptomatic at this time. He denies chest pain, shortness breath, dyspnea on exertion, leg pain, leg swelling, fever, chills, body aches, cough. Other than what is stated 14 point review of system is negative. Related Data Home Medications ?Medication ?Instructions ?Recorded ?Confirmed cholecalciferol (vitamin D3) 50 50 mcg PO DAILY ##0 01/30/25 mcg (2,000 unit) capsule (Vitamin D3) ascorbic acid (vitamin C) 500 mg 500 mg PO DAILY 02/2501/30/25 capsule,extended release aspirin 81 mg tablet,delayed 81 mg PO DAILY 02/25/19 0 01/30/25 release (Adult Low Dose Aspirin) [id number] 300 mcg-K 60 1 tab PO DAILY 02/25/19 01/30/25 mcg-lycop 600 mcg-lutein 300 mcg tablet (Centrum Silver Ultra Men's) salmon oil-omega-3 fatty acids 1 cap PO DAILY 02/25/19 01/30/25 1,000 mg-200 mg capsule (Conway Oil-) magnesium 1 cap PO DAILY 02/24/2210/22 vitamin B complex 1 cap PO DAILY 02/24/2210/22 chlorthalidone 25 mg tablet 25 mg PO DAILY 01/30/25 Previous Rx's ?Medication ?Instructions ?Recorded irbesartan 150 mg tablet 150 mg PO QDAY #90 tabs 12/30 01/20 metoprolol succinate 25 mg 12.5 mg (1/2 x 25 mg) PO DA GENEVA #45 03/13/23 tablet,extended release 24 hr tabs apixaban 5 mg tablet (Eliquis) 5 mg PO BID #180 tabs 0 03/23/23 atorvastatin 40 mg tablet (Lipitor) 40 mg PO HS #90 ta bs 07/03/24 tamsulosin 0.4 mg capsule 0.4 mg PO BEDTIME #90 caps 0 10/22/24 triamcinolone acetonide 0.1 % 1 applic topical TID #80 grams 10/22/24 topical cream allopurinol 300 mg tablet 300 mg PO QDAY #90 tabs 10/30 08/24 Allergies Allergy/AdvReac Type Severity Reaction Status Date / Time No Known Drug Allergies Allergy Verified 03/03/25 11:36 Review of Systems Review of Systems ROS Unobtainable: All systems reviewed & are unremarkable except as noted in HPI and below Patient History Medical History (Updated 03/03/25 @ 14:41 by Mo Kang DO) Anemia Osteoarthritis of right hip Morbid obesity Acute coronary syndrome (11/16/16) Dizziness CAD (coronary artery disease) Chronic atrial flutter BPH w urinary obs/LUTS Hypertension (1985) Central sleep apnea (2005) Sciatica Arthritis Shoulder pain Fractures Foot pain (2005) Chronic back pain (2005) Shingles (2007) Plantar warts Measles Chicken pox Vertigo (2006) Hearing loss (2005) Hemorrhoids Diverticular disease (03/15/16) Coronary artery disease involving [place] coronary artery of [place] heart without angina pectoris (02/2017) 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) Idiopathic peripheral neuropathy (07/06/15) History of adenomatous polyp of colon Hyperlipidemia Atrial fibrillation (02/1999) Surgical History Status post right partial knee replacement (~02/2020) History of cardiac catheterization (11/16/16) History of colonoscopy (03/15/16) Anesthesia complication Status post placement of stent in right coronary artery (11/16/16) Status post rotator cuff repair (07/11/12) Family History Father Cancer Colon cancer Liver cancer Grandfather Heart disease Heart attack Grandmother Stroke Dementia Mother Cancer Esophageal cancer Grandfather Heart disease Heart attack Sister Age: 70 Cancer Uterine cancer Brother No problems noted. Grandmother No problems noted. Social History household members: spouse Smoking Status: Never smoker alcohol intake: former Smoking Status: Never smoker alcohol intake frequency: holidays/special occasions only Exam Narrative Exam Narrative: GENERAL: [74] year old patient appears stated age. Well-developed patient, in mild distress. HEAD: Atraumatic. Normocephalic. EYES: Pupils equal round and reactive. Extraocular motions intact. No scleral icterus. No injection or drainage. ENT: Nose without bleeding, purulent drainage. Throat without erythema, tonsillar hypertrophy or exudate. Airway patent. NECK: Trachea midline. Non tender CARDIOVASCULAR: Regular rate and rhythm without murmurs, gallops, or rubs. RESPIRATORY: Clear to auscultation. Breath sounds equal bilaterally. No wheezes, rales, or rhonchi. GASTROINTESTINAL: Abdomen soft, non-tender, nondistended. EXTREMITIES: No edema or joint tenderness. BACK: Nontender without deformity or crepitance. No flank tenderness. NEURO: AOx3. SKIN: No rash or erythema of visible areas Initial Vital Signs Initial Vital Signs: Vital Signs Temperature 98.1 F 03/03/25 11:34 Pulse Rate 70 03/03/25 11:34 Respiratory Rate 18 03/03/25 11:34 Blood Pressure 193/92 H 03/03/25 11:34 Pulse Oximetry 98 03/03/25 11:34 Oxygen Delivery Method Room Air 03/03/25 11:34 Course Vital Signs Vital signs: Vital Signs - 8 hr 03/03/25 11:34 Temperature 98.1 F Pulse Rate 70 Respiratory Rate 18 Blood Pressure 193/92 H Pulse Oximetry 98 Oxygen Delivery Method Room Air Medical Decision Making Imaging Data Chest x-ray: Radiologist's Impression: [address] [address] XRay Report Signed Patient: Juarez Barber MR#: [id number] : 1950 Acct:[id number] Age/Sex: 74 / M Date of Service: 03/03/25 Loc: ED Accession Number: [id number] Procedure: XR chest 1V Ordering Provider: Mo Kang D.O. PROCEDURE: XR CHEST 1V INDICATIONS: chest pain TECHNIQUE: One view of the chest was acquired. COMPARISON: [facility], [place], XR CHEST 1V, 10/07/2024, 15:20. [facility], , CHEST 1 VIEW, 11/10/2017, 11:51. FINDINGS: Surgical changes and devices: None. Lungs and pleura: Lungs are clear. No pleural effusions or pneumothorax. Mediastinum: Mediastinal contours appear normal. Heart size is enlarged. Bones and chest wall: No suspicious bony lesions. Overlying soft tissues appear unremarkable. IMPRESSION: No acute cardiopulmonary abnormality is seen. MDM Narrative Medical decision making narrative: All lab work, vital signs, nurse triage note, medication list, previous ER visits, and all imaging studies reviewed. Two sets troponin negative, BNP 2310 T bili 1.5 chest x-ray showed no acute process. Patient given amlodipine 5 mg p.o. x1. Differential diagnosis includes hypertension, emergency, urgency, electrolyte derangement, CKD. We will have patient follow up with PCP and/or trust administrator and to resume irbestatin. Discharge Plan Departure Patient Disposition: Home Clinical Impression: Hypertensive urgency Instructions: DI for High Blood Pressure Activity Restrictions/Additional Instructions: Return with new or worsening symptoms. Please follow up with PCP and/or trust administrator this week for blood pressure recheck. Please resume taking your original dose of irbestatan until told otherwise. Prescriptions: No Action cholecalciferol (vitamin D3) [Vitamin D3] 50 mcg (2,000 unit) Capsule 50 mcg PO DAILY Qty: 0 irbesartan 150 mg tablet 150 mg PO QDAY Qty: 90 3RF metoprolol succinate 25 mg tablet extended release 24 hr 12.5 mg PO DAILY Qty: 45 3RF Eliquis 5 mg tablet 5 mg PO BID Qty: 180 3RF atorvastatin [Lipitor] 40 mg tablet 40 mg PO HS Qty: 90 0RF Rx Instructions: PT WILL NEED TO SEE PCP BEFORE NEXT RENEWAL 07/03/24 allopurinol 300 mg tablet 300 mg PO QDAY Qty: 90 3RF magnesium 1 cap PO DAILY vitamin B complex 1 cap PO DAILY tamsulosin 0.4 mg capsule 0.4 mg PO BEDTIME Qty: 90 3RF triamcinolone acetonide 0.1 % cream 1 applic topical TID Qty: 80 0RF chlorthalidone 25 mg tablet 25 mg PO DAILY aspirin [Adult Low Dose Aspirin] 81 mg tablet,delayed release (DR/EC) 81 mg PO DAILY Centrum Silver Ultra Men's 300-600-300 mcg tablet 1 tab PO DAILY [employer] Oil-1000 1,000-200 mg capsule 1 cap PO DAILY ascorbic acid (vitamin C) 500 mg capsule, extended release 500 mg PO DAILY Referrals: Mo Roper MD [Primary Care Provider, Internal Medicine] Stand Alone Forms: Patient Portal/API
--- NOTE | 2025-03-03 12:05 | DI.RAD.S_ITS ---
PROCEDURE: XR CHEST 1V INDICATIONS: chest pain TECHNIQUE: One view of the chest was acquired. COMPARISON: [facility], [place], XR CHEST 1V, 10/07/2024, 15:20. [facility], [place], CHEST 1 VIEW, 11/10/2017, 11:51. FINDINGS: Surgical changes and devices: None. Lungs and pleura: Lungs are clear. No pleural effusions or pneumothorax. Mediastinum: Mediastinal contours appear normal. Heart size is enlarged. Bones and chest wall: No suspicious bony lesions. Overlying soft tissues appear unremarkable. IMPRESSION: No acute cardiopulmonary abnormality is seen. Dictated by: Dony Chun M.D. on 03/03/2025 at 12:21 Approved by: Dony Chun M.D. on 03/03/2025 at 12:22
[2025-03-03 12:15] LABS: Add Manual Diff / Slide Review NO; Hematocrit 40.8 % (41-53); Hemoglobin 13.4 g/dL (13.5-17.5); Lymphocytes Absolute Auto 800 /uL (1100-4500); Mean Corpuscular HGB Conc 32.9 % (30-36); Mean Corpuscular Hemoglobin 33.0 PG (26-34); Mean Corpuscular Volume 100.6 fL (80-100); Platelet Count 146 X10^3/uL (150-400)
[2025-03-03 12:20] LABS: Alanine Aminotransferase 30 IU/L (<50); Albumin 4.2 g/dL (3.5-5.0); Albumin Globulin Ratio 1.2 (1.0-2.8); Alkaline Phosphatase 104 U/L (38-126); Blood Urea Nitrogen 14 mg/dL (9-20); Calcium 9.1 mg/dL (8.4-10.2); Carbon Dioxide 26 mmol/L (22-32); Chloride 106 mmol/L (98-107); Creatine Kinase 43 U/L (55-170); Estimated Glomerular Filt Rate > 60 mL/min (>60); Globulin 3.4 g/dL (1.7-4.1); Glucose 97 mg/dL (70-99); HEMOLYSIS 23 (0-50); Potassium 3.9 mmol/L (3.4-5.1); Sodium 141 mmol/L (137-145); Total Protein 7.6 g/dL (6.3-8.2)
[2025-03-03 12:21] LABS: Lipase 111 U/L (23-300)
[2025-03-03 12:30] LABS: NT-proBNP (BNP-Adult 18+) 2310 pg/mL (<450)
[2025-03-03 12:33] LABS: Troponin I < 0.012 ng/mL (0.01-0.034)
[2025-03-03] MEDS: SODIUM CHLORIDE 0.9% 1,000 ML 150 ML IV (12:33)
[2025-03-03] MEDS: AMLODIPINE 5 MG TABLET PO (13:07)
[2025-03-03 14:23] LABS: Troponin I < 0.012 ng/mL (0.01-0.034)
== END 2025-03-03 14:47 | disposition home or self-care (01) ==
PROVIDERS: Emergency Provider Family Medicine; Family Provider Internal Medicine; PCP Internal Medicine
DX: I16.0 Hypertensive urgency (principal); R07.9 Chest pain, unspecified
CPT/HCPCS: 36415; 71045; 80053; 81003; 82550; 83690; 83880; 84484; 85025; 93005; 96360; 96361; 99284

== ENCOUNTER → 2025-05-02 14:12 | Outpatient (CLI) | payer MEDICARE, OTHER, SELFPAY ==
--- NOTE | 2025-05-02 14:15 | DI.RAD.S_ITS ---
PROCEDURE: XR LUMBAR SPINE MIN 4V INDICATIONS: BACK PAIN TECHNIQUE: 5 views of the lumbar spine were acquired, including bilateral oblique views. COMPARISON: None. FINDINGS: Moderate bilateral hip osteoarthritis. Multilevel degenerative disc disease and facet arthropathy with large endplate osteophytes. Retrolisthesis at L2-L3 and L1-L2. No pars defect. Vertebral body heights maintained. No fracture. 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 IMPRESSION: Diffuse idiopathic skeletal hyperostosis suspected. Degenerative changes as above with no acute abnormality. Dictated by: Nick Samuel M.D. on 05/02/2025 at 15:16 Approved by: Nick Samuel M.D. on 05/02/2025 at 15:18
== END ==
LOC: RAD 14:14
PROVIDERS: Family Provider Internal Medicine; PCP Internal Medicine; Referring Provider Physical Medicine & Rehabilitation; Visit Provider Physical Medicine & Rehabilitation
DX: M16.0 Bilateral primary osteoarthritis of hip (principal); M47.816 Spondylosis without myelopathy or radiculopathy, lumbar region; M51.369 Other intervertebral disc degeneration, lumbar region without mention of lumbar back pain or lower extremity pain; M54.9 Dorsalgia, unspecified
CPT/HCPCS: 72110

== ENCOUNTER 2025-06-19 14:28 | Outpatient (CLI) | payer MEDICARE, OTHER, SELFPAY ==
[2025-06-19] VITALS (8 sets, daily range): BP systolic 152–195; BP diastolic 70–90; PULSE 62–80; RESP 16–20; TEMP 36.2; O2SAT 95–99
[2025-06-19] MEDS: MIDAZOLAM 2 MG/2 ML VIAL IV (15:59)
[2025-06-19] MEDS: BETAMETHASONE 30 MG/5 ML MDV 12 MG INJ (16:04)
--- NOTE | 2025-06-19 16:13 | P.PCN_ITS ---
Date/Time/Diagnoses Date of procedure: 06/19/25 Time of procedure: 16:13 Pre-procedure diagnosis: 1. HNP WITH RADICULAR FEATURES, 2. MULTILEVEL CENTRAL STENOSIS, Post-procedure diagnosis: same Procedure Notes Procedure: 1. FLUOROSCOPICALLY GUIDED CONTRAST CONTROLLED INTERLAMINAR EPIDURAL STEROID INJECTION -L4/5 Indications: Juarez is referred by Dr. Roper for treatment of Bilateral Foraminal Stenosis R>L LE symptoms. Physician: Tello Hays Total Fluoroscopy time (seconds): 12 Total sedation minutes: 10 Complications: none Procedure in detail & Post-procedure care: FINDINGS Multilevel Central Spinal Stenosis with Nerve Root Compression DESCRIPTION OF PROCEDURE Fluoroscopically guided, contrast-controlled L4/5 translaminar epidural steroid injection. Following review of allergy and review of potential side effects and complications, including, but not necessarily limited to, infection, allergic reaction, local tissue breakdown, temporary as well as permanent nerve injury, paralysis, stroke and possible , the patient indicated that the patient understood and agreed to proceed. An informed consent document was signed by the patient, witnessed by a nurse, and placed in the patient's chart. Additionally, other treatment options including modalities, medications, and physical therapy were reviewed with the patient. After review of previous anaesthesic history and IV conscious sedation the patient was deemed safe to proceed with today?s procedure with IV conscious sedation as ASA class II designation. Safety time-out was performed to confirm patient ID, procedure to be performed and site of procedure. IV sedation was accomplished with a combination of 2mg of Versed was administered by the RN after DO order, titrated to patient comfort during the course of the procedure while the patient remained responsive to all verbal commands In the prone position, following sterile prep and drape of the lumbar region, the L4/5 translaminar space was identified fluoroscopically. The skin was anesthetized via a 25-gauge, 1.5inch needle with 1% lidocaine solution. At this point, a 22-gauge short bevel spinal needle was atraumatically introduced and advanced under fluoroscopic guidance into the region of the L4/5 translaminar space. Depth was confirmed on lateral view. Radiological data, including multiple fluoroscopic views of the lumbar spine, reveal a spinal needle at the L4/5 translaminar space. Lateral views then show placement of the needle in the epidural space. Subsequent views show contrast material flowing superiorly and inferiorly in the epidural space. No vascular or intrathecal uptake is observed. At this point, using loss of resistance technique with saline and air, the epidural space was entered. This was confirmed following negative aspiration with injection of approximately 1.5cc of Isovue 200, showing excellent epidural flow without vascular or intrathecal uptake. At this point, 1cc of 0.25% marcaine solution combined with 3cc or 10mg of dexamethasone and 12mg betamethasone was injected without incident. The patient tolerated the procedure well without signs or symptoms of complications prior to transfer to the recovery area continued monitoring without incident. The patient was then transferred to the recovery area where they were observed for an appropriate period of time after the injection. The patient reported a VAS score of 6 prior to the procedure and a post- procedure VAS of 0. POST OP INSTRUCTIONS The patient was provided a Pain Log to continue to record their response to the target-specific procedure prior to follow-up visit with their referring physician. Additionally, specific post-injection care instructions and a contact number to our office were provided if concerns arise regarding possible complications associated with the procedure are suspected.
== END 2025-06-19 16:31 | disposition home or self-care (01) ==
LOC: RAD 14:29
PROVIDERS: PCP Internal Medicine; Referring Provider Physical Medicine & Rehabilitation; Visit Provider Physical Medicine & Rehabilitation
DX: M48.061 Spinal stenosis, lumbar region without neurogenic claudication (principal); M51.16 Intervertebral disc disorders with radiculopathy, lumbar region
CPT/HCPCS: 64483; 99152; J0702; J1100; J2250

== ENCOUNTER → 2025-07-15 08:34 | Outpatient (CLI) | payer MEDICARE, OTHER, SELFPAY ==
--- NOTE | 2025-07-15 08:35 | DI.RAD.S_ITS ---
PROCEDURE: XR TIBIA FUBULA RT 2V INDICATIONS: Pain. r/o lower leg and foot fx TECHNIQUE: 2 views of the tibia and fibula were acquired. COMPARISON: None. FINDINGS: Bones: No fractures or dislocations. No suspicious bony lesions. Right knee medial condylar hemiarthroplasty. Soft tissues: No suspicious soft tissue calcifications or masses. IMPRESSION: No acute bony abnormality. Dictated by: Jie Garibay MD, PhD on 07/15/2025 at 9:37 Approved by: Jie Garibay MD, PhD on 07/15/2025 at 9:38
--- NOTE | 2025-07-15 08:35 | DI.RAD.S_ITS ---
PROCEDURE: XR FOOT RT MIN 3V INDICATIONS: Pain. r/o lower leg and foot fx TECHNIQUE: 3 views of the foot were acquired. COMPARISON: None. FINDINGS: Bones: No fractures or dislocations. No suspicious bony lesions. Mild 1st MTP joint , tibial talar joint and midfoot osteoarthritis. Calcaneal bone spurs. No osseous erosions or periosteal reaction in. Soft tissues: No tibiotalar joint effusion. Achilles tendon appears normal. Soft tissue swelling. No soft tissue gas. IMPRESSION: No acute bony abnormality. Dictated by: Jie Gairbay MD, PhD on 07/15/2025 at 9:34 Approved by: Jie Garibay MD, PhD on 07/15/2025 at 9:37
== END ==
PROVIDERS: PCP Internal Medicine; Referring Provider Chiropractor; Visit Provider Chiropractor
DX: S80.11XA Contusion of right lower leg, initial encounter (principal); M79.671 Pain in right foot; R60.0 Localized edema
CPT/HCPCS: 73590; 73630